=== PATIENT | female | born 1955 | race Caucasian/White ===

== ENCOUNTER 2016-05-06 18:38 | Emergency (ER) | payer OTHER, BC ==
[~2016-05-06] VITALS: Ht 162.6 cm; Wt 78.4 kg
[~2016-05-06 18:38] MED LIST: ACET325T96 PO; AMLO5TAB2 PO; ASPCH81X PO; ATOR-24 PO; ATV/1 PO; BUPR100T8 PO; DOCU100C31 PO; FRS/40 PO; HYDR-4079 PO; INVI1 IV; LIDO5DIS10 TOP; METO-217 PO; PANT40TA PO; PRED-301 PO; SEVE800T PO; SYN175 PO; VANC1INJ10 IV; WARF1TAB6 PO; [UNRECOGNIZED DRUG - CODE] SQ
[2016-05-06 18:49] VITALS: TEMP 36.7; Ht 162.6 cm; Wt 78.4 kg
[2016-05-06] MEDS ORDERED: GENTAMICIN INJ 80 MG in DEXTROSE 5% 100ML 100 ML IV STA (19:59)
[2016-05-06] MEDS ORDERED: VANCOMYCIN INJ 1,500 MG in SODIUM CHLORIDE 0.9% 500ML 500 ML IV STA (19:59)
--- NOTE | 2016-05-06 20:08 | EMERGENCY ROOM VISIT NOTE ---
History Report prepared by Steffanie: Rodo Coleman Under the Supervision of: Dr. Jonathan Jimenez M.D. First contact with patient: 19:29 Chief Complaint: MEDICATION REFILL REQUEST Stated Complaint: NEED VANCO IV History of Present Illness The patient is a 60 year old female who presents to the Emergency Room with complaints of a sudden medication request for Vancomycin beginning four hours prior to arrival. She currently rates her discomfort as a 10/10 in severity. The patient associates lower back pain with today's symptoms. She states she was referred to the ED by Isra Buckner (Nephrology) to receive Vancomycin for her blood infection. The patient notes she usually receives her medication during her dialysis, but her dialysis is not for another two days. Pt denies LOC, headache, fevers, chills, diaphoresis, visual changes, neck pain , chest pain, breathing difficulties, nausea, vomiting, abdominal pain, melena, hematochezia, urinary symptoms, numbness, weakness, lymphadenopathy, rash, or other complaints. 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 A total of ten systems were reviewed and were otherwise negative. 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 (19) Osteomyelitis (20) Paroxysmal a-fib (21) Pleuritic chest pain (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 Surgical Problems: (1) H/O hernia repair (2) History of bowel resection (3) History of carpal tunnel surgery (4) Renal transplant, status post (5) S/P partial hysterectomy Family History Cancer FH: heart disease Hypertension Kidney stones Social History Smoking Status: Former Smoker Alcohol Use: none Drug Use: none Marital Status: single Housing Status: lives alone Occupation Status: disabled Current/Historical Medications Scheduled Amlodipine Besylate (Norvasc), 5 MG PO QAM Aspirin (Aspirin Chewable), 81 MG PO QAM Atorvastatin (Lipitor), 40 MG PO HS Bupropion (Wellbutrin Sr), 100 MG PO BID Darbepoetin Tone-Polysorbate 8 (Aranesp Albumin Free), 60 MCG SQ WK Docusate Sodium (Docusate Sodium), 1 CAP PO BID Ertapenem (Invanz), 500 MG IV UD Furosemide (Lasix), 80 MG PO QAM Levothyroxine Sodium (Synthroid), 175 MCG PO DAILYBB Metoprolol Succinate (Toprol Xl), 50 MG PO BID Pantoprazole (Protonix), 40 MG PO DAILY Prednisone (Prednisone), 5 MG PO MWF Sevelamer Hcl (Renagel), 3 TABS PO TIDM Vancomycin Hcl Iv (Vancomycin Hcl Iv), 750 MG IV UD Warfarin Sod (Jantoven), 3 MG PO Q2D Warfarin Sod (Jantoven), 6 MG PO Q2D Scheduled PRN Acetaminophen Tab (Tylenol), 650 MG PO Q4 PRN for Mild Pain Lorazepam (Ativan), 1 MG PO BID PRN for Anxiety Oxycodone Hcl (Oxycodone Hcl), 10 MG PO Q6H PRN for Pain Allergies Coded Allergies: Azithromycin (Verified Allergy, Intermediate, RASH, 05/06/16) Sulfa Antibiotics (Verified Allergy, Intermediate, "SULFA DRUGS": RASH, 05/06/16) Trimethoprim (Verified Allergy, Intermediate, RASH, 05/06/16) Levofloxacin (Verified Allergy, Unknown, ., 05/06/16) Metronidazole (Verified Allergy, Unknown, 05/06/16) Oxycodone (Verified Allergy, Unknown, PERCOCET, 05/06/16) Silver Nitrate (Verified Allergy, Unknown, 05/06/16) Silver Sulfadiazine (Verified Allergy, Unknown, ., 05/06/16) Amoxicillin (Verified Adverse Reaction, Mild, GI UPSET, 05/06/16) CAN TAKE 500 MG DOSES Clavulanic Acid (Verified Adverse Reaction, Mild, GI UPSET, 05/06/16) Erythromycin (Verified Adverse Reaction, Mild, nausea vomiting, 05/06/16) Quinolones (Verified Adverse Reaction, Mild, GI UPSET, 05/06/16) MD STATES GI UPSET WAS THE REACTION Physical Exam Vital Signs Date Time Temp Pulse Resp B/P Pulse Ox O2 Delivery O2 Flow Rate FiO2 05/06/16 23:01 72 20 210/90 98 Room Air 05/06/16 22:30 68 16 98 05/06/16 21:00 18 98 05/06/16 18:49 36.7 68 20 202/97 98 Room Air Physical Exam GENERAL: Awake, alert, well-appearing, in no distress HENT: Normocephalic, atraumatic. Oropharynx unremarkable. EYES: Normal conjunctiva. Sclera non-icteric. NECK: Supple. No nuchal rigidity. FROM. No JVD. RESPIRATORY: Clear to auscultation. CARDIAC: Regular rate, normal rhythm. Extremities warm and well perfused. Pulses equal. ABDOMEN: Soft, non-distended. No tenderness to palpation. No rebound or guarding. No masses. RECTAL: Deferred. MUSCULOSKELETAL: Chest examination reveals no tenderness. The back is symmetrical on inspection without obvious abnormality. There is no CVA tenderness to palpation. No joint edema. LOWER EXTREMITIES: Calves are equal size bilaterally and non-tender. Trace lower extremity edema. No discoloration. NEURO: Normal sensorium. No sensory or motor deficits noted. SKIN: No rash or jaundice noted. Medical Decision & Procedures Medications Administered Medications (Trade) Dose Ordered Sig/Az Route Start Time Stop Time Status Last Admin Dose Admin Vancomycin HCl 1500 mg/Sodium Chloride 530 ml @ 200 mls/hr ONE STAT IV 05/06/16 19:59 05/06/16 22:37 DC 05/06/16 20:24 200 MLS/HR Gentamicin Sulfate/Dextrose (Gentamicin Inj/ D5 100ml) 102 ml @ 100 mls/hr NOW STAT IV 05/06/16 19:59 05/06/16 21:00 DC 05/06/16 20:40 100 MLS/HR Oxycodone HCl (Roxicodone Immediate Rel Tab) 10 mg NOW STAT PO 05/06/16 22:43 05/06/16 22:44 DC 05/06/16 22:43 10 MG ED Course 1953: [facility] A complete history and physical exam was performed. 1958: Ordered Gentamicin Sulfate 80 mg/Dextrose 102 ml @ 100 mls/hr IV, Vancomycin HCl 1,500 mg/Sodium Chloride 530 ml @ 200 mls/hr IV. 1999: I spoke to Isra Buckner (Nephrology) about the patient's case, and she would like the patient to receive Vancomycin 1.5 gm and Gentamicin 80 mg. 2329: I reevaluated the patient. Discussed results and discharge instructions: She verbalized understanding and agreement. The patient is ready for discharge. Medical Decision The patient presented to the emergency department because of a positive blood culture. The patient has been dealing with this for quite some time. She was treated with IV antibiotics but that her culture came back positive. Her front end software developer directed her here because it is the weekend for IV vancomycin and gentamicin. I did discuss the case with her front end software developer, Dr. Ochoa. Clinically the patient is without any complaints. He asked for the patient to receive 1.5 g of IV vancomycin and 80 mg of IV gentamicin and the patient will follow-up as an outpatient. The patient was also due for her every 6 hours oxycodone and was given this. She was hypertensive and did not want her metoprolol given. She will take this when she goes home. She had no signs of sepsis, meningitis, encephalitis, impairment from her medication, or other issues. She was awake and alert at the time of discharge. She will follow-up closely with nephrology. If she worsens in any way she will be back to the Emergency Room for reevaluation. She also has a pending spine appointment for her known osteomyelitis. Consults Time Called: 1954 Consulting Physician: Isra Buckner (Nephrology) Returned Call: 1999 I spoke to Isra Buckner (Nephrology) about the patient's case, and she would like the patient to receive Vancomycin 1.5 gm and Gentamicin 80 mg. Impression Primary Impression: Bacteremia Scribe Attestation The scribe's documentation has been prepared under my direction and personally reviewed by me in its entirety. I confirm that the note above accurately reflects all work, treatment, procedures, and medical decision making performed by me. Departure Information Dispostion Home / Self-Care Referrals Mazin Mcpherson D.O. (PCP) Forms HOME CARE DOCUMENTATION FORM, IMPORTANT VISIT INFORMATION, WORK / SCHOOL INSTRUCTIONS Patient Instructions A Signature Page, My [facility]
[2016-05-06] MEDS ORDERED: OXYC1CAP5 PO (21:40)
[2016-05-06] MEDS ORDERED: WARF6TAB5 PO (21:51)
[2016-05-06] MEDS ORDERED: OXYCODONE HCL IR 5 MG TAB (IMMEDIATE RELEASE) PO STA (22:43)
[2016-05-06 23:51] VITALS: BP 192/97; PULSE 66; O2SAT 100
[2016-06-14] MEDS ORDERED: NXM/40 PO (13:51)
[2016-11-07] MEDS ORDERED: OXYC-164 PO (15:36)
[2017-01-22] MEDS ORDERED: METO-217 PO (10:24)
[2017-01-22] MEDS ORDERED: VANCOMYCIN IV (10:24)
[2017-01-22] MEDS ORDERED: ZOLP5TAB PO (10:24)
[2017-01-22] MEDS ORDERED: LEVO175T3 PO (10:24)
[2017-01-22] MEDS ORDERED: DIPH25CA65 PO (10:27)
== END 2016-05-06 23:52 | disposition home or self-care (01) ==
LOC: C.EDB 18:40 → C.EDC 23:52
DX: R78.81 Bacteremia (principal); I12.0 Hypertensive chronic kidney disease with stage 5 chronic kidney disease or end stage renal disease; N18.6 End stage renal disease; I25.10 Atherosclerotic heart disease of native coronary artery without angina pectoris; I48.0 Paroxysmal atrial fibrillation; D64.9 Anemia, unspecified; E78.5 Hyperlipidemia, unspecified; E03.9 Hypothyroidism, unspecified; F41.9 Anxiety disorder, unspecified; K21.9 Gastro-esophageal reflux disease without esophagitis; Z99.2 Dependence on renal dialysis; Z94.0 Kidney transplant status; Z87.891 Personal history of nicotine dependence; Z79.01 Long term (current) use of anticoagulants; Z79.2 Long term (current) use of antibiotics; Z79.52 Long term (current) use of systemic steroids; Z79.82 Long term (current) use of aspirin; Z79.899 Other long term (current) drug therapy; Z88.0 Allergy status to penicillin; Z88.1 Allergy status to other antibiotic agents; Z88.2 Allergy status to sulfonamides; Z88.5 Allergy status to narcotic agent

== ENCOUNTER → 2016-11-20 | Day surgery (SDC) | payer OTHER, BC ==
[2016-11-07 15:36] VITALS: Ht 162.6 cm; Wt 81.8 kg
[~2016-11-20] VITALS: Ht 162.6 cm; Wt 81.8 kg
[~2016-11-20] MED LIST changes: +500ML BSS 0.3ML EPI 1:1000PF IRRIG ONE; -ACET325T96 PO; +ACETAMINOPHEN 325 MG TAB PO PRN; +AMVISC PLUS 0.8ML SYRINGE INT OCU ONE; +ATROPINE SULFATE 0.1 MG/ML 5ML SYR IV PRN; +BSS FLUSH ONE; +DIPH25CA65 PO; -DOCU100C31 PO; +EpHEDrine SULFATE INJ 50 MG/ML AMP IV PRN; +EpINEphrine INJ 1MG/ML AMP 1 MG/ML AMP ONE; -HYDR-4079 PO; +LACTATED RINGER'S 1000ML 500 ML IV SCH; +LEVO175T3 PO; -LIDO5DIS10 TOP; +LIDOCAINE 3.5% OPH GEL PER APPLICATION CHARGE ONE; +LIDOCAINE HCL 1% MPF 2 ML VIAL ONE; +MIDAZOLAM HCL 1 MG/ML 2ML VIAL ONE; +NXM/40 PO; +OCUCOAT 1 ML SOLN IO ONE; +ONDANSETRON INJ 2 MG/ML 2 ML VIAL IV PRN; +OXYC-164 PO; -PANT40TA PO; +PHENYLEPHRINE HCL 10% OP SOLN PER DROP CHARGE OPR SCH; +POVIDONE-IODINE OP SOLN 30 ML BTL ONE; +PROPARACAINE 0.5% OP SOLN PER DROP CHARGE OPR SCH; +TOBRAMYCIN/DEXAMETHASONE OPH OINT PER APPLN CHARGE ONE; +VANCOMYCIN IV; +WARF6TAB5 PO; +ZOLP5TAB PO
--- NOTE | 2016-11-20 10:48 | History & Physical Bridge - SC ---
H&P Re-Evaluation Bridge Note: I have examined the patient, reviewed the History & Physical and in the interval since the performance of the History & Physical I have noted the following changes of clinical significance: Diagnosis: Right Cataract Procedure: Right Cataract Removal with Lens Implant No changes noted
[2016-11-20] MEDS: PHENYLEPHRINE HCL 2.5% OP SOLN PER DROP CHARGE OPR SCH ×2 (11:02→11:10)
[2016-11-20] MEDS: TROPICAMIDE 1% OP SOLN PER DROP CHARGE OPR SCH ×2 (11:03→11:11)
[2016-11-20] MEDS: CYCLOPENTOLATE HCL 1% OP SOLN PER DROP CHARGE OPR SCH ×2 (11:04→11:14)
[2016-11-20] MEDS: KETOROLAC 0.5% OP SOLN PER DROP CHARGE OPR SCH ×2 (11:05→11:15)
[2016-11-20] MEDS: GATIFLOXACIN OP SOLN PER DROP CHARGE OPR SCH ×2 (11:07→11:17)
--- NOTE | 2016-11-20 12:08 | Discharge Instructions-SurgCtr ---
Discharge Instructions Date of Service Nov 20, 2016. Visit Reason for Visit: Cataract Right Eye Discharge Discharge Diagnosis / Problem: cataract Discharge Goals Goal(s): Improve function Activity Recommendations Activity Limitations: per Instructions/Follow-up section Anesthesia . Post Anesthesia Instructions: If you have had General Anesthesia or IV Sedation: * Do not drive today. * Resume driving when surgeon permits. * Do not make important decisions or sign legal documents today. * Call surgeon for: 1. Temperature elevations greater than 101 degrees F. 2. Uncontrollable pain. 3. Excessive bleeding. 4. Persistent nausea and vomiting. 5. Medication intolerance (nausea, vomiting or rash). * For nausea and vomiting use only clear liquids such as: tea, soda, bouillon until nausea subsides, then gradually increase diet as tolerated. * If you have any concerns or questions, call your surgeon's office. If physician is unavailable and it is an emergency, call 911 or go to the nearest emergency room. . Instructions / Follow-Up Instructions / Follow-Up ACTIVITY RECOMMENDATIONS: * No strenuous lifting, jogging or running for 4 days * No swimming or yard work for 1 week. * Limited bending is permitted, such as putting on shoes. RETURN TO SCHOOL/WORK: No work until seen by physician in office. MEDICATIONS: Resume previous medications unless instructed otherwise by your surgeon. This includes eye drops for glaucoma. Zymaxid/Gatifloxacin (angel cap) - one drop every 2 hours until bedtime Nevanac/Ilevro/Prolensa/Ketorolac (olson cap) - one drop every 4 hours until bedtime Prednisolone/Durezol (white/pink cap, SHAKE WELL) - one drop every 2 hours until bedtime Starting tomorrow - all 3 drops every 4 hours until seen in the office Optive drops - as needed for discomfort SPECIAL CARE INSTRUCTIONS: * Wear eyeshield when sleeping, for four nights. * You may wear your own glasses or sunglasses while awake. * You may read or watch TV * You may shower and wash your face, but be gentle around the eye and pat dry. * Blurry vision and mild irritation are normal. * Call office if pain is more severe or vision becomes dark at . FOLLOW UP VISIT: Follow-up with Dr Haynes tomorrow. Diet Recommendations Home Diet: resume previous diet Procedures Procedures Performed: Right Cataract Phacoemulsification With Intraocular Lens Implant Pending Studies Studies pending at discharge: no Medical Emergencies . Who to Call and When: Medical Emergencies: If at any time you feel your situation is an emergency, please call 911 immediately. . Non-Emergent Contact Non-Emergency issues call your: Pump Erector . . "Provider Documentation" section prepared by Terry Haynes. .
--- NOTE | 2016-11-20 12:10 | [facility] Operative Report ---
Operative Report Date of Service Nov 20, 2016. Operative Report 1. PREOPERATIVE DIAGNOSIS: Cataract of the right eye. 2. POSTOPERATIVE DIAGNOSIS: Same. 3. PROCEDURE: Phacoemulsification with intraocular lens implantation of the right eye. SURGEON: Dr. Terry Haynes. ANESTHESIA: Topical Lidocaine gel, 1% Non- Preserved intracameral Lidocaine, and monitored intravenous sedation. INDICATIONS FOR THE PROCEDURE: The patient is a 61 - year-old female with a history of cataract of the right eye causing significant visual impairment. The details of the proposed procedure were explained to the patient who asked appropriate questions and following discussion of all risks, benefits and alternatives agreed to have the procedure done. 4. OPERATION AND FINDINGS: DESCRIPTION OF PROCEDURE: After informed consent was obtained, the patient was brought to the Operating Room at the [facility]. The patient was placed in a supine position and then the right eye was prepped and draped in the usual sterile fashion for intraocular surgery. A drop of topical Lidocaine gel was placed in the operative eye. A wire lid speculum was then placed in the fornices. A corneal paracentesis was then created temporally. The Non-Preserved Lidocaine was then instilled into the anterior chamber. The anterior chamber was then pressurized with viscoelastic. A 2.0 mm clear corneal incision was then created temporally. A cystotome was inserted into the anterior chamber and used to create a tear in the anterior lens capsule. This capsular tear was then used to create a small flap and the flap was dragged in a counterclockwise direction in order to create a continuous curvilinear capsulorrhexis. Hydrodissection was accomplished with balanced salt solution. Phacoemulsification of the lens nucleus was then performed in a standard [id number] technique. The phaco time was 17 seconds with an average power of 8 %. The remaining cortical material was removed using irrigation aspiration. The capsular bag was then filled with viscoelastic. A B &L [id number] +20.5 diopters lens was then loaded into the injector and injected into the capsular bag. The remaining viscoelastic was removed with the irrigation aspiration handpiece. The wound was hydrated and then checked and found to have a small water leak. Resure wound sealant was used to ensure the wound to be watertight. The intraocular pressure was checked and found to be adequate. The wire lid speculum was removed and the patient's face was cleaned and dried. Yokastaex ointment was placed in the inferior fornix. The patient was discharged to the Recovery Room having tolerated the procedure well. There were no complications. The patient will be seen tomorrow in the office for follow-up. I attest to the content of the Intraoperative Record and any orders documented therein. Any exceptions are noted below.
[2016-11-20 12:19] VITALS: BP 119/68; PULSE 60; TEMP 36.5; O2SAT 100
--- NOTE | 2016-11-20 12:47 | Anesthesia Progress Nt - [facility] ---
Anesthesia Post Op Note Date & Time Nov 20, 2016 at 12:47 Vital Signs Pain Intensity: 0 Vital Signs Past 12 Hours Date Time Temp Pulse Resp B/P (MAP) Pulse Ox O2 Delivery O2 Flow Rate FiO2 11/20/16 12:19 36.5 60 16 119/68 (85) 100 Room Air 11/20/16 10:48 37.1 65 20 147/80 (102) 95 Room Air Notes Mental Status: alert / awake / arousable, participated in evaluation Pt Amnestic to Procedure: Yes Nausea / Vomiting: adequately controlled Pain: adequately controlled Airway Patency, RR, SpO2: stable & adequate BP & HR: stable & adequate Hydration State: stable & adequate Anesthetic Complications: no major complications apparent
== END | disposition home or self-care (01) ==
LOC: X.SURG 09:59
PROVIDERS: ATTEND Ophthalmology
DX: H26.9 Unspecified cataract (principal); N18.6 End stage renal disease; D63.1 Anemia in chronic kidney disease; E78.5 Hyperlipidemia, unspecified; E03.9 Hypothyroidism, unspecified; I87.2 Venous insufficiency (chronic) (peripheral); F41.1 Generalized anxiety disorder; J45.909 Unspecified asthma, uncomplicated; I12.0 Hypertensive chronic kidney disease with stage 5 chronic kidney disease or end stage renal disease; M32.9 Systemic lupus erythematosus, unspecified; I25.2 Old myocardial infarction; I35.8 Other nonrheumatic aortic valve disorders; K21.9 Gastro-esophageal reflux disease without esophagitis; I25.10 Atherosclerotic heart disease of native coronary artery without angina pectoris; I48.0 Paroxysmal atrial fibrillation; I71.4 Abdominal aortic aneurysm, without rupture; Z94.4 Liver transplant status; Z87.891 Personal history of nicotine dependence; Z79.82 Long term (current) use of aspirin; Z79.899 Other long term (current) drug therapy

== ENCOUNTER 2016-11-28 22:42 | Emergency (ER) | payer OTHER, BC ==
[~2016-11-28] VITALS: Ht 162.6 cm; Wt 88.5 kg
[~2016-11-28 22:42] MED LIST changes: -500ML BSS 0.3ML EPI 1:1000PF IRRIG ONE; -ACETAMINOPHEN 325 MG TAB PO PRN; -AMVISC PLUS 0.8ML SYRINGE INT OCU ONE; -ATROPINE SULFATE 0.1 MG/ML 5ML SYR IV PRN; -BSS FLUSH ONE; -DIPH25CA65 PO; -EpHEDrine SULFATE INJ 50 MG/ML AMP IV PRN; -EpINEphrine INJ 1MG/ML AMP 1 MG/ML AMP ONE; -LACTATED RINGER'S 1000ML 500 ML IV SCH; -LEVO175T3 PO; -LIDOCAINE 3.5% OPH GEL PER APPLICATION CHARGE ONE; -LIDOCAINE HCL 1% MPF 2 ML VIAL ONE; -MIDAZOLAM HCL 1 MG/ML 2ML VIAL ONE; -OCUCOAT 1 ML SOLN IO ONE; -ONDANSETRON INJ 2 MG/ML 2 ML VIAL IV PRN; -PHENYLEPHRINE HCL 10% OP SOLN PER DROP CHARGE OPR SCH; -POVIDONE-IODINE OP SOLN 30 ML BTL ONE; -PROPARACAINE 0.5% OP SOLN PER DROP CHARGE OPR SCH; -TOBRAMYCIN/DEXAMETHASONE OPH OINT PER APPLN CHARGE ONE; -VANCOMYCIN IV; -ZOLP5TAB PO
[2016-11-28 22:46] VITALS: TEMP 36.6; Ht 162.6 cm; Wt 88.5 kg
--- NOTE | 2016-11-28 22:58 | EMERGENCY ROOM VISIT NOTE ---
History Report prepared by Steffanie: Micaela Saravia Under the Supervision of: Dr. Justin Patterson D.O. First contact with patient: 22:50 Chief Complaint: BLEEDING Stated Complaint: CAN'T STOP LEFT ARM FROM BLEEDING-COUMADIN History of Present Illness The patient is a 61 year old female who presents to the Emergency Room with complaints of persistent bleeding from a left arm wound that began three days ago. The patient states that two weeks ago she fell causing a left arm skin tear. She states that she is on Coumadin for a previous blood clot. The patient states that her wound continues to bleed persistently She states that she last had her Coumadin level checked three weeks ago, reporting that she had an increase in her Coumadin dosage. Source of History: patient Onset: three days ago Position: arm (left) Quality: other (bleeding) Timing: other (persistent) Review of Systems See HPI for pertinent positives and negatives. A total of ten systems were reviewed and were otherwise negative. 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 (19) Osteomyelitis (20) Paroxysmal a-fib (21) Pleuritic chest pain (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 Surgical Problems: (1) H/O hernia repair (2) History of bowel resection (3) History of carpal tunnel surgery (4) Renal transplant, status post (5) S/P partial hysterectomy Family History Cancer FH: heart disease Hypertension Kidney stones Social History Smoking Status: Former Smoker Alcohol Use: none Drug Use: none Marital Status: single Housing Status: lives alone Occupation Status: disabled Current/Historical Medications Scheduled Amlodipine Besylate (Norvasc), 5 MG PO QAM Aspirin (Aspirin Chewable), 81 MG PO QAM Atorvastatin (Lipitor), 40 MG PO HS Bupropion (Wellbutrin Sr), 100 MG PO BID Darbepoetin Tone-Polysorbate 8 (Aranesp Albumin Free), 60 MCG SQ WK Ertapenem (Invanz), 500 MG IV UD Esomeprazole Magnesium (Nexium), 40 MG PO QAM Furosemide (Lasix), 80 MG PO QAM Levothyroxine Sodium (Synthroid), 175 MCG PO DAILYBB Metoprolol Succinate (Toprol Xl), 50 MG PO BID Prednisone (Prednisone), 5 MG PO MWF Sevelamer Hcl (Renagel), 3 TABS PO TIDM Vancomycin Hcl Iv (Vancomycin Hcl Iv), 750 MG IV UD Warfarin Sod (Jantoven), 3 MG PO Q2D Warfarin Sod (Jantoven), 6 MG PO Q2D Scheduled PRN Lorazepam (Ativan), 1 MG PO BID PRN for Anxiety Oxycodone Hcl (Oxycodone Hcl), 1 TAB PO Q6H PRN for Pain Allergies Coded Allergies: Silver Nitrate (Verified Allergy, Severe, SEVERE BURNING, 11/20/16) Silver Sulfadiazine (Verified Allergy, Severe, SEVERE BURNING, 11/20/16) Azithromycin (Verified Allergy, Intermediate, "BUGS CRAWLING ON ME", ) Levofloxacin (Verified Allergy, Intermediate, HIVES, 11/20/16) Sulfa Antibiotics (Verified Allergy, Intermediate, "SULFA DRUGS": RASH, ) Trimethoprim (Verified Allergy, Intermediate, BACTRIM - RASH, 11/20/16) Metronidazole (Verified Allergy, Mild, DIARRHEA, 11/20/16) Oxycodone (Verified Allergy, Mild, PERCOCET-GI UPSET, 11/20/16) Amoxicillin (Verified Adverse Reaction, Mild, GI UPSET, 11/20/16) CAN TAKE 500 MG DOSES Clavulanic Acid (Verified Adverse Reaction, Mild, GI UPSET, 11/20/16) Erythromycin (Verified Adverse Reaction, Mild, nausea vomiting, 11/20/16) Physical Exam Vital Signs Date Time Temp Pulse Resp B/P (MAP) Pulse Ox O2 Delivery O2 Flow Rate FiO2 11/28/16 22:46 36.6 87 20 170/76 97 Room Air Physical Exam GENERAL: Awake, alert, well-appearing, in no distress HENT: Normocephalic, atraumatic. Oropharynx unremarkable. EYES: Normal conjunctiva. Sclera non-icteric. NECK: Supple. No nuchal rigidity. FROM. No JVD. RESPIRATORY: Clear to auscultation. CARDIAC: Regular rate, normal rhythm. Extremities warm and well perfused. Pulses equal. ABDOMEN: Soft, non-distended. No tenderness to palpation. No rebound or guarding. No masses. RECTAL: Deferred. MUSCULOSKELETAL: Chest examination reveals no tenderness. The back is symmetrical on inspection without obvious abnormality. There is no CVA tenderness to palpation. No joint edema. LOWER EXTREMITIES: Calves are equal size bilaterally and non-tender. No edema. No discoloration. NEURO: Normal sensorium. No sensory or motor deficits noted. SKIN: Abrasion present on the extensor surface of the left forearm with slight oozing. No rash or jaundice noted. Medical Decision & Procedures Laboratory Results Test 11/28/16 23:14 Prothrombin Time 49.1 SECONDS (9.0-12.0) Prothromb Time International Ratio 4.3 (0.9-1.1) Laboratory results reviewed by me ED Course 2251: The patient was evaluated in room B12B. A complete history and physical exam was performed. 2256: Quick clot was placed on the patient's left arm at this time. 0018: I reevaluated the patient and she is resting comfortably. I discussed the exam findings with her and I discussed the treatment plan. She verbalized complete understanding and agreement. She is ready to go home. Patient on repeat examination is not actively bleeding. Patient's INR is 4.3 I told the patient to hold her Coumadin for the next 2 days. There is no significant bleeding she was placed in a hemostatic dressing to her left forearm. Medical Decision Differential diagnoses include but are not limited to; abrasion, skin tear, coagulopathy. Medication Reconcilliation Current Medication List: was personally reviewed by me Blood Pressure Screening Patient's blood pressure: Elevated blood pressure Blood pressure disposition: Elevated BP felt to be situational (due to anxiety) , Did not require urgent referral Impression Primary Impression: Skin tear of left upper extremity Scribe Attestation The scribe's documentation has been prepared under my direction and personally reviewed by me in its entirety. I confirm that the note above accurately reflects all work, treatment, procedures, and medical decision making performed by me. Departure Information Dispostion Home / Self-Care Referrals Mazin Mcpherson D.O. (PCP) Patient Instructions ED [employer], My [facility] Additional Instructions Please hold her Coumadin for the next 2 days. Continue to use wound care to the left forearm return for worsening symptoms or bleeding
[2016-11-28 23:44] LABS: INR 4.3 (0.9-1.1); PROTHROMBIN TIME (PATIENT) 49.1 SECONDS (9.0-12.0)
[2016-11-29 00:29] VITALS: BP 123/65; PULSE 64; O2SAT 98
[2017-01-22] MEDS ORDERED: METO-217 PO (10:24)
[2017-01-22] MEDS ORDERED: LEVO175T3 PO (10:24)
[2017-01-22] MEDS ORDERED: ZOLP5TAB PO (10:24)
[2017-01-22] MEDS ORDERED: VANCOMYCIN IV (10:24)
[2017-01-22] MEDS ORDERED: DIPH25CA65 PO (10:27)
== END 2016-11-29 00:40 | disposition home or self-care (01) ==
LOC: C.EDB 22:43
DX: S51.812A Laceration without foreign body of left forearm, initial encounter (principal); W19.XXXA Unspecified fall, initial encounter; Z85.048 Personal history of other malignant neoplasm of rectum, rectosigmoid junction, and anus; J45.909 Unspecified asthma, uncomplicated; I25.10 Atherosclerotic heart disease of native coronary artery without angina pectoris; I12.0 Hypertensive chronic kidney disease with stage 5 chronic kidney disease or end stage renal disease; N18.6 End stage renal disease; M32.9 Systemic lupus erythematosus, unspecified; E78.5 Hyperlipidemia, unspecified; E03.9 Hypothyroidism, unspecified; I48.0 Paroxysmal atrial fibrillation; Z86.718 Personal history of other venous thrombosis and embolism; Z87.891 Personal history of nicotine dependence; Z94.0 Kidney transplant status; Z99.2 Dependence on renal dialysis; Z90.49 Acquired absence of other specified parts of digestive tract; Z90.711 Acquired absence of uterus with remaining cervical stump; Z98.890 Other specified postprocedural states; Z79.01 Long term (current) use of anticoagulants; Z79.82 Long term (current) use of aspirin; Z79.899 Other long term (current) drug therapy

== ENCOUNTER → 2017-01-30 | Day surgery (SDC) | payer OTHER, BC ==
[2017-01-22 10:26] VITALS: BMI 31.0
[~2017-01-30] VITALS: Ht 162.6 cm; Wt 81.8 kg
[~2017-01-30] MED LIST changes: +DIPH25CA65 PO; -INVI1 IV; +LEVO175T3 PO; +PROPOFOL IV EMULSION 10 MG/ML 20 ML VIAL IV ONE; +SODIUM CHLORIDE 0.9% 500ML 500 ML IV ONE; -SYN175 PO; -VANC1INJ10 IV; +VANCOMYCIN IV; +ZOLP5TAB PO
[2017-01-30 08:20] VITALS: Ht 162.6 cm; Wt 81.8 kg
[2017-01-30 08:31] VITALS: TEMP 36.1
--- NOTE | 2017-01-30 08:57 | Endo History and Physical ---
History & Physical Date of Service: Jan 30, 2017. Chief Complaint: hx anal cancer Referring Physician: Dr. Mcpherson History of Present Illness h/o anal cancer Past Medical History Asthma, Anxiety, Reflux, High Cholesterol, Hypertension, Thyroid Disease, Kidney Disease, Depression Past Surgical History Hx Cardiac Surgery: No Hx Internal Defibrillator: No Hx Pacemaker: No Hx Abdominal Surgery: Yes (BARB, COLON RESECTION, UMBILCAL HERNIA REPAIR) Hx of Implantable Prosthesis: No Hx Post-Op Nausea and Vomiting: No Hx Cancer Surgery: Yes (ANAL SURGERY (HEMORRHOIDECTOMY)) Hx Thoracic Surgery: No Hx Orthopedic: Yes (RT/LT CTR) Hx Urinary Tract Surgery: Yes (LEFT KIDNEY TRANSPLANT 2001 ) Family History IBD Social History Smoking Status: Former Smoker Hx Substance Use: No Hx Alcohol Use: No Allergies Coded Allergies: Silver Nitrate (Verified Allergy, Severe, SEVERE BURNING, 01/30/17) Silver Sulfadiazine (Verified Allergy, Severe, SEVERE BURNING, 01/30/17) Azithromycin (Verified Allergy, Intermediate, "BUGS CRAWLING ON ME", ) Levofloxacin (Verified Allergy, Intermediate, HIVES, 01/30/17) Sulfa Antibiotics (Verified Allergy, Intermediate, "SULFA DRUGS": RASH, ) Trimethoprim (Verified Allergy, Intermediate, BACTRIM - RASH, 01/30/17) Metronidazole (Verified Allergy, Mild, DIARRHEA, 01/30/17) Oxycodone (Verified Allergy, Mild, PERCOCET-GI UPSET, 01/30/17) Amoxicillin (Verified Adverse Reaction, Mild, GI UPSET, 01/30/17) CAN TAKE 500 MG DOSES Clavulanic Acid (Verified Adverse Reaction, Mild, GI UPSET, 01/30/17) Erythromycin (Verified Adverse Reaction, Mild, nausea vomiting, 01/30/17) Current Medications Reported Home Medications Medications Dose Route/Sig Max Daily Dose Days Date Category Dose Instructions Benadryl Allergy (Diphenhydramine Hcl) 25 Mg Cap 1 Cap PO BID PRN 01/22/17 Reported Ambien (Zolpidem Tartrate) 5 Mg Tab 5 Mg PO HS PRN 01/22/17 Reported Toprol Xl (Metoprolol Succinate) 50 Mg Tabcr 50 Mg PO BID 01/22/17 Reported [Vancomycin] 750 Mg IV WK 01/22/17 Reported Levothyroxine Sodium 175 Mcg Tab 1 Tab PO QAM 01/22/17 Reported Oxycodone Hcl 10 Mg Tab 1 Tab PO Q6H PRN 11/07/16 Reported Nexium (Esomeprazole Magnesium) 40 Mg Capcr 40 Mg PO QAM 06/14/16 Reported Jantoven (Warfarin Sodium) 6 Mg Tab 6 Mg PO Q2D 05/06/16 Reported 6MG ON SATURDAY, SATURDAY, SATURDAY, AND SATURDAY Aranesp Albumin Free (Darbepoetin Tone-Polysorbate 8) 60 Mcg/Ml Inj 60 Mcg SQ WK 01/16/16 Reported WEEKLY ON FRIDAYS Jantoven (Warfarin Sodium) 1 Mg Tab 3 Mg PO Q2D 01/16/16 Reported take 3 mg every SATURDAY, SATURDAY AND SATURDAY Renagel (Sevelamer Hcl) 800 Mg Tab 3 Tabs PO TIDM 01/16/16 Reported Wellbutrin Sr (Bupropion HCl) 100 Mg Ertab 100 Mg PO BID 10/31/15 Reported Ativan (Lorazepam) 1 Mg Tab 1 Mg PO BID PRN 09/15/15 Reported Aspirin Chewable (Aspirin) 81 Mg Chew 81 Mg PO QAM 09/15/15 Reported Prednisone 5 Mg Tab 5 Mg PO MWF 09/15/15 Reported Norvasc (Amlodipine Besylate) 5 Mg Tab 5 Mg PO QAM 09/15/15 Reported Lipitor (Atorvastatin Calcium) 40 Mg Tab 40 Mg PO HS 09/15/15 Reported Lasix (Furosemide) 40 Mg Tab 40 Mg PO QAM 09/15/15 Reported Vital Signs Weight (Kilograms): 81.82 Height (Feet): 5 Height (Inches): 4 Date Time Temp Pulse Resp B/P (MAP) Pulse Ox O2 Delivery O2 Flow Rate FiO2 01/30/17 08:31 36.1 74 22 181/78 (112) 98 Room Air Physical Exam General Appearance: WD/WN Respiratory/Chest: Respiratory effort: no dyspnea Cardiovascular: Heart Auscultation: RRR Abdomen: Inspection & Palpation: soft Assessment and Plan H/o anal cancer - Cscopy
--- NOTE | 2017-01-30 10:04 | GI REPORT ---
Procedure Date: 01/30/2017 9:08 AM Procedure: Colonoscopy Indications: High risk colon cancer surveillance: Personal history of anal cancer Medicines: See the Anesthesia note for documentation of the administered medications Complications: No immediate complications. Estimated Blood Loss: Estimated blood loss: none. Procedure: Pre-Anesthesia Assessment: - After reviewing the risks and benefits, the patient was deemed in satisfactory condition to undergo the procedure. After I obtained informed consent, the scope was passed under direct vision. Throughout the procedure, the patient's blood pressure, pulse, and oxygen saturations were monitored continuously. The scope was introduced through the anus and advanced to the cecum, identified by appendiceal orifice and ileocecal valve. The patient tolerated the procedure well. The quality of the bowel preparation was poor. Findings: The perianal skin was thickened and indurated. The anal sphincter was stenotic. The colon mucosa was grossly normal, but exam markedly limited by prep quality. Rectal retroflexion was not performed. Anal canal was brushed. Impression: -Preparation of the colon was poor. -Grossly normal exam of colon, although markedly limited by prep quality. Recommendation: - Discharge patient to home. - Would not repeat the exam without performing a colonoscopy prep. Of note, pt should hold sevalamer prior to cscopy x 3-4 days. Destini Valencia M.D. Destini Valencia MD 01/30/2017 10:04:24 AM This report has been signed electronically. Note Initiated On: 01/30/2017 9:08 AM I attest to the content of the Intraoperative Record and orders documented therein, exceptions below
[2017-01-30 10:23] VITALS: BP 161/99; PULSE 66; O2SAT 100
--- NOTE | 2017-01-30 10:30 | Discharge Instructions ---
Endoscopy Patient Instructions Date / Procedure(s) Performed Jan 30, 2017. Colonoscopy Allergy Information Coded Allergies: Silver Nitrate (Verified Allergy, Severe, SEVERE BURNING, 01/30/17) Silver Sulfadiazine (Verified Allergy, Severe, SEVERE BURNING, 01/30/17) Azithromycin (Verified Allergy, Intermediate, "BUGS CRAWLING ON ME", ) Levofloxacin (Verified Allergy, Intermediate, HIVES, 01/30/17) Sulfa Antibiotics (Verified Allergy, Intermediate, "SULFA DRUGS": RASH, ) Trimethoprim (Verified Allergy, Intermediate, BACTRIM - RASH, 01/30/17) Metronidazole (Verified Allergy, Mild, DIARRHEA, 01/30/17) Oxycodone (Verified Allergy, Mild, PERCOCET-GI UPSET, 01/30/17) Amoxicillin (Verified Adverse Reaction, Mild, GI UPSET, 01/30/17) CAN TAKE 500 MG DOSES Clavulanic Acid (Verified Adverse Reaction, Mild, GI UPSET, 01/30/17) Erythromycin (Verified Adverse Reaction, Mild, nausea vomiting, 01/30/17) Discharge Date / Findings Jan 30, 2017. Poor prep. Provider Instructions Activity Restrictions - No exercising or heavy lifting for 24 hours. - Do not drink alcohol the day of the procedure. - Do not drive a car or operate machinery until the day after the procedure. - Do not make any important decisions or sign important papers in 24 hours after the procedure. Following Day: - Return to full activity which may include returning to work/school. Diet Start your diet with liquids and light foods (jello, soup, juice, toast). Then eat your usual diet if not nauseated. Treatment For Common After Affects For mild abdominal pain, bloating, or excessive gas: - Rest - Eat lightly - Lie on right side Follow-Up Information Follow-up with Dr. Mcpherson as scheduled Anesthesia Information What You Should Know You have had a procedure that required some medicine to reduce anxiety and discomfort. This treatment is called moderate sedation. After receiving the treatment, you may be sleepy, but you will be able to breathe on your own. The effects of the treatment may last for several hours. Follow these instructions along with Activity/Diet recommendations noted above: * Do NOT do anything where dizziness or clumsiness would be dangerous. * Rest quietly at home today, then you can be up and about tomorrow. * Have a responsible person stay with you the rest of today. * You may have had an I.V. today. If so, you may take the dressing off later today. Recommendations Call your doctor if: * Trouble breathing * Continuous vomiting for more than 24 hours * Temperature above 101 degrees * Severe abdominal pain or bloating * Pain not relieved by pain medicine ordered * There is increased drainage or redness from any incision * A large amount of rectal bleeding greater than 2-3 tablespoons. (If you had a polyp/s removed or have hemorrhoids, a small amount of blood - from the rectum is to be expected.) * You have any unanswered questions or concerns. IN THE EVENT OF A SERIOUS EMERGENCY, GO TO THE NEAREST EMERGENCY ROOM Your discharge instructions were prepared by provider Destini Roche. Patient Instructions Signature Page Cecilia Mcfarland Patient (or Guardian) Signature/Date: I have read and understand the instructions given to me by my caregivers. Caregiver/RN/Doctor Signature/Date: The above-named patient and/or guardian has received patient instructions on this date. + Original Patient Signature Page (only) stays with chart. Please make copy for patient.
--- NOTE | 2017-01-30 10:30 | Anesthesiology Progress Note ---
Anesthesia Post Op Note Date & Time Jan 30, 2017 at 10:30 Vital Signs Pain Intensity: 0 Vital Signs Past 12 Hours Date Time Temp Pulse Resp B/P (MAP) Pulse Ox O2 Delivery O2 Flow Rate FiO2 01/30/17 10:23 66 20 161/99 (119) 100 01/30/17 10:16 65 20 157/98 (117) 96 Room Air 01/30/17 10:11 65 20 167/104 (125) 99 Room Air 01/30/17 10:06 65 20 173/112 (132) 95 Room Air 01/30/17 09:53 64 22 133/54 (80) 97 Room Air 01/30/17 08:31 36.1 74 22 181/78 (112) 98 Room Air Notes Mental Status: alert / awake / arousable, participated in evaluation Pt Amnestic to Procedure: Yes Nausea / Vomiting: adequately controlled Pain: adequately controlled Airway Patency, RR, SpO2: stable & adequate BP & HR: stable & adequate Hydration State: stable & adequate Anesthetic Complications: no major complications apparent
== END | disposition home or self-care (01) ==
LOC: C.GI 07:47
PROVIDERS: ATTEND Internal Medicine Gastroenterology
DX: Z12.11 Encounter for screening for malignant neoplasm of colon (principal); J45.909 Unspecified asthma, uncomplicated; F41.9 Anxiety disorder, unspecified; E78.00 Pure hypercholesterolemia, unspecified; I10 Essential (primary) hypertension; E07.9 Disorder of thyroid, unspecified; N28.9 Disorder of kidney and ureter, unspecified; F32.9 Major depressive disorder, single episode, unspecified; Z87.891 Personal history of nicotine dependence; Z79.899 Other long term (current) drug therapy; Z79.01 Long term (current) use of anticoagulants; Z79.82 Long term (current) use of aspirin; Z85.048 Personal history of other malignant neoplasm of rectum, rectosigmoid junction, and anus

== ENCOUNTER 2017-04-15 13:10 | Emergency (ER) | payer OTHER, BC ==
[~2017-04-15] VITALS: Ht 162.6 cm; Wt 91.7 kg
[~2017-04-15 13:10] MED LIST changes: -PROPOFOL IV EMULSION 10 MG/ML 20 ML VIAL IV ONE; -SODIUM CHLORIDE 0.9% 500ML 500 ML IV ONE
[2017-04-15] MEDS ORDERED: LABETALOL HCL IV 5 MG/ML 20ML IV STA ×2 (13:33→15:00)
[2017-04-15] MEDS ORDERED: SODIUM CHLORIDE 0.9% 1000ML 1,000 ML IV SCH (13:33)
[2017-04-15] MEDS ORDERED: HydrALAZINE HCL 20 MG/ML VIAL IV. STA (13:33)
[2017-04-15] MEDS ORDERED: NiCARDipine IV 25 MG in SODIUM CHLORIDE 0.9% 250ML 240 ML IV STA (13:41)
[2017-04-15 14:04] LABS: BASO % 0.3 %; BASO ABS # 0.01 K/uL (0-0.2); COMPLETE YES; EOS % 1.5 %; HEMATOCRIT 34.2 % (37-47); LYMPH % 30.5 %; LYMPH ABS # 1.21 K/uL (1.2-3.4); MEAN CELL VOLUME 89.8 fL (80-100); MEAN CORPUSCULAR HEMOGLOBIN 28.6 pg (25-34); MEAN CORPUSCULAR HGB CONC 31.9 g/dl (32-36); MEAN PLATELET VOLUME 10.2 fL (7.4-10.4); MONO % 9.8 %; NEUT % 57.9 %; PLATELET COUNT 169 K/uL (130-400); RED BLOOD COUNT 3.81 M/uL (4.2-5.4); WHITE BLOOD COUNT 3.97 K/uL (4.8-10.8)
[2017-04-15] MEDS ORDERED: NiCARDipine IV 25 MG in SODIUM CHLORIDE 0.9% 250ML 240 ML IV PRN (14:15)
--- NOTE | 2017-04-15 14:15 | DIAGNOSTIC IMAGING REPORT ---
HEAD WITHOUT CONTRAST (CT) CLINICAL HISTORY: 61 years-old Female presenting with Stroke, hypertension. TECHNIQUE: Multidetector CT imaging of the head was performed without the use of intravenous contrast. IV contrast: None. A dose lowering technique was used consistent with the principles of ALARA (as low as reasonably achievable). COMPARISON: 01/16/2016. CT DOSE (mGy.cm): The estimated cumulative dose is 638.56 mGycm. FINDINGS: Clinical Nursing Director topogram: Unremarkable. Ventricles and sulci normal in size. Brain parenchyma normal in appearance with preserved olson-white differentiation. Mild mass effect on the left anterolateral aspect of the alvarado and left brachium pontis secondary to the presence of acute subarachnoid hemorrhage. This minimally extends into the left foramen occlusion, and is limited to the posterior fossa. This does not appear to extend distal to the foramen magnum. No other sites of acute hemorrhage. No intraventricular blood products more superiorly noted. No acute territorial infarction. Chronic fluid in the left mastoid air cells. Calvarium intact. Bilateral [place] lenses are absent. IMPRESSION: 1. Findings consistent with subarachnoid hemorrhage in the posterior fossa. Differential considerations for this in the absence of trauma include left PICA aneurysm or vertebrobasilar dissecting aneurysm rupture. 2. These findings were discussed with Dr. Flowers by Dr. James at 2:10 PM on 04/15/2017. Electronically signed by: Sam James M.D. 04/15/2017 2:14 PM Dictated Date/Time: 04/15/2017 2:07 PM
[2017-04-15] MEDS ORDERED: MoRPHine SULFATE 10 MG/ML CARP/VIAL IV STA (14:16)
[2017-04-15] MEDS ORDERED: ONDANSETRON INJ 2 MG/ML 2 ML VIAL IV STA (14:16)
[2017-04-15] MEDS ORDERED: SEVE1TAB PO (14:17)
[2017-04-15] MEDS ORDERED: IRON20IN IV (14:17)
[2017-04-15] MEDS ORDERED: ONDA4TAB46 PO (14:17)
[2017-04-15] MEDS ORDERED: MULT-513 PO (14:17)
[2017-04-15] MEDS ORDERED: AMOX500T PO (14:17)
[2017-04-15] MEDS ORDERED: CLR10 PO (14:17)
[2017-04-15] MEDS ORDERED: HEPA100I10 IV (14:17)
[2017-04-15] MEDS ORDERED: [UNRECOGNIZED DRUG - CODE] IV (14:17)
[2017-04-15] MEDS ORDERED: PRED-301 PO (14:17)
[2017-04-15] MEDS ORDERED: IPRA1AER2 INH (14:17)
[2017-04-15] MEDS ORDERED: WARF3TAB6 PO (14:17)
[2017-04-15] MEDS ORDERED: NSF10F IV (14:17)
[2017-04-15] MEDS ORDERED: FIBER PO (14:17)
--- NOTE | 2017-04-15 14:18 | EMERGENCY ROOM VISIT NOTE ---
History First contact with patient: 14:02 Chief Complaint: HYPERTENSION Stated Complaint: HYPERTENSION History of Present Illness The patient is a 61 year old female who presents to the Emergency Room with complaints of headache, neck pain and HTN. Patient has a PMH of HTN, AFIB, Kidney transplant; dialysis Saturday, and Saturday. Patient also has a PMH of rectal cancer. She describes having the worst GODINEZ of her life over the past two days. In addition, the patient is complaining of neck pain, nausea and vomiting. The patient went to her PCP and was found to have BP in the 220 systolic and was subsequently sent to [facility]. Patient is anticoagulated on Coumadin. She said that on the way over to the hospital, she experienced a brief moment of diplopia. She currently denies visual changes, numbness and weakness. She also denies SOB , CP, new LE swelling or RUQ pain. Patient has not taken BP meds due to vomiting this morning while eating breakfast. Review of Systems see below Constitutional: No fever, No chills, No sweats Eyes: + worsening of vision, + diplopia Respiratory: + shortness of breath, No cough, No sputum, No wheezing, No dyspnea on exertion Cardiovascular: No chest pain, No orthopnea, No edema, No palpitations Abdomen: + nausea, + vomiting, No pain Neurologic: No memory loss, No paralysis, No weakness, No numbness/tingling , No vertigo, No balance problems 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 (19) Osteomyelitis (20) Paroxysmal a-fib (21) Pleuritic chest pain (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 Surgical Problems: (1) H/O hernia repair (2) History of bowel resection (3) History of carpal tunnel surgery (4) Renal transplant, status post (5) S/P partial hysterectomy Family History Cancer FH: heart disease Hypertension Kidney stones Social History Smoking Status: Former Smoker Alcohol Use: none Drug Use: none Marital Status: single Housing Status: lives alone Occupation Status: disabled Current/Historical Medications Scheduled Amlodipine Besylate (Norvasc), 5 MG PO QAM Amoxicillin & Pot Clavulanate (Augmentin 500MG), 500 MG PO DAILY Aspirin (Aspirin Chewable), 81 MG PO QAM Atorvastatin (Lipitor), 40 MG PO HS Bupropion (Wellbutrin Sr), 100 MG PO BID Esomeprazole Magnesium (Nexium), 40 MG PO QAM Fiber Laxative (Fiber Laxative), 1 TAB PO UD Furosemide (Lasix), 40 MG PO QAM Heparin Sodium (Porcine) Lock (Heparin Lock Flush), 3 ML IV Q6WK Iron Sucrose (Venofer), 1 DOSE IV Q2WKS Levothyroxine Sodium (Levothyroxine Sodium), 175 MCG PO QAM Metoprolol Succinate (Toprol Xl), 50 MG PO BID Multivitamins/Minerals (Mvi With Minerals), 1 TAB PO DAILY Paricalcitol (Zemplar), 3 MG IV 3XWK Prednisone (Prednisone), 15 MG PO WK Prednisone (Prednisone), 5 MG PO MWF Sevelamer Hcl (Renagel), 2,400 MG PO TIDM Sevelamer Hydroch (Renagel), 1,600 MG PO BIDM Sodium Chloride (Saline Flush), 10 ML IV Q6WKS Warfarin Sod (Jantoven), 3 MG PO QPM [Vancomycin], 750 MG IV WK Scheduled PRN Ipratropium-Albuterol (Combivent Respimat), 1 PUFFS INH QID PRN for SOB/Wheezing Loratadine (Claritin), 5 TAB PO DAILY PRN for ALLERGIES Lorazepam (Ativan), 1 MG PO BID PRN for Anxiety Ondansetron Hcl (Zofran), 4 MG PO Q6 PRN for Nausea Zolpidem Tartrate (Ambien), 5 MG PO HS PRN for Sleep Physical Exam Vital Signs Date Time Temp Pulse Resp B/P (MAP) Pulse Ox O2 Delivery O2 Flow Rate FiO2 04/15/17 15:40 36.7 70 16 178/77 99 04/15/17 15:17 70 16 178/77 99 04/15/17 14:46 75 26 170/86 100 04/15/17 14:30 72 16 198/77 96 04/15/17 14:27 74 21 199/88 98 Room Air 04/15/17 14:23 71 17 257/106 99 Room Air 04/15/17 13:33 65 04/15/17 13:17 36.7 88 22 240/103 97 Room Air Physical Exam see below General Appearance: WD/WN, + moderate distress Head: normocephalic, atraumatic Eyes: PERRL, EOMI, + pertinent finding (periorbital erythema and tearing ) Neck: supple, no adenopathy Respiratory/Chest: chest non-tender, lungs clear, normal breath sounds, no respiratory distress, no accessory muscle use Cardiovascular: regular rate, rhythm, no edema, no gallop, no JVD, no murmur , normal peripheral pulses Neurologic/Psych: sales project manager II-XII nml as tested, no motor/sensory deficits, alert , oriented x 3 Medical Decision & Procedures ER Provider Diagnostic Interpretation: HEAD WITHOUT CONTRAST (CT) CLINICAL HISTORY: 61 years-old Female presenting with Stroke, hypertension. TECHNIQUE: Multidetector CT imaging of the head was performed without the use of intravenous contrast. IV contrast: None. A dose lowering technique was used consistent with the principles of ALARA (as low as reasonably achievable). COMPARISON: 01/16/2016. CT DOSE (mGy.cm): The estimated cumulative dose is 638.56 mGycm. FINDINGS: Behavioral Therapist topogram: Unremarkable. Ventricles and sulci normal in size. Brain parenchyma normal in appearance with preserved olson-white differentiation. Mild mass effect on the left anterolateral aspect of the alvarado and left brachium pontis secondary to the presence of acute subarachnoid hemorrhage. This minimally extends into the left foramen occlusion, and is limited to the posterior fossa. This does not appear to extend distal to the foramen magnum. No other sites of acute hemorrhage. No intraventricular blood products more superiorly noted. No acute territorial infarction. Chronic fluid in the left mastoid air cells. Calvarium intact. Bilateral [place] lenses are absent. IMPRESSION: 1. Findings consistent with subarachnoid hemorrhage in the posterior fossa. Differential considerations for this in the absence of trauma include left PICA aneurysm or vertebrobasilar dissecting aneurysm rupture. 2. These findings were discussed with Dr. Flowers by Dr. James at 2:10 PM on 04/15/2017. Laboratory Results 04/15/17 13:45 Red Blood Count 3.81, Mean Corpuscular Volume 89.8, Mean Corpuscular Hemoglobin 28.6, Mean Corpuscular Hemoglobin Concent 31.9, Mean Platelet Volume 10.2, Neutrophils (%) (Auto) 57.9, Lymphocytes (%) (Auto) 30.5, Monocytes (%) (Auto) 9.8, Eosinophils (%) (Auto) 1.5, Basophils (%) (Auto) 0.3, Neutrophils # (Auto) 2.30, Lymphocytes # (Auto) 1.21, Monocytes # (Auto) 0.39, Eosinophils # (Auto) 0.06, Basophils # (Auto) 0.01 04/15/17 13:45 Test 04/15/17 13:45 04/15/17 14:15 04/15/17 15:00 White Blood Count 3.97 K/uL (4.8-10.8) Red Blood Count 3.81 M/uL (4.2-5.4) Hemoglobin 10.9 g/dL (12.0-16.0) Hematocrit 34.2 % (37-47) Mean Corpuscular Volume 89.8 fL (80-100) Mean Corpuscular Hemoglobin 28.6 pg (25-34) Mean Corpuscular Hemoglobin Concent 31.9 g/dl (32-36) Platelet Count 169 K/uL (130-400) Mean Platelet Volume 10.2 fL (7.4-10.4) Neutrophils (%) (Auto) 57.9 % Lymphocytes (%) (Auto) 30.5 % Monocytes (%) (Auto) 9.8 % Eosinophils (%) (Auto) 1.5 % Basophils (%) (Auto) 0.3 % Neutrophils # (Auto) 2.30 K/uL (1.4-6.5) Lymphocytes # (Auto) 1.21 K/uL (1.2-3.4) Monocytes # (Auto) 0.39 K/uL (0.11-0.59) Eosinophils # (Auto) 0.06 K/uL (0-0.5) Basophils # (Auto) 0.01 K/uL (0-0.2) RDW Standard Deviation 50.4 fL (36.4-46.3) RDW Coefficient of Variation 15.6 % (11.5-14.5) Immature Granulocyte % (Auto) 0.0 % Immature Granulocyte # (Auto) 0.00 K/uL (0.00-0.02) Anion Gap 10.0 mmol/L (3-11) Est Creatinine Clear Calc Drug Dose 7.2 ml/min Estimated GFR () 5.0 Estimated GFR (Non- 4.3 BUN/Creatinine Ratio 4.5 (10-20) Calcium Level 8.6 mg/dl (8.5-10.1) Magnesium Level 2.1 mg/dl (1.8-2.4) Total Creatine Kinase 53 U/L (26-192) Creatine Kinase MB 1.2 ng/ml (0.5-3.6) Creatine Kinase MB Ratio 2.3 (0-3.0) Troponin I < 0.015 ng/ml (0-0.045) Bedside Prothrombin Time INR 3.0 (0.9-1.1) Bedside Glucose 100 mg/dl (70-90) Prothrombin Time 11.8 SECONDS (9.0-12.0) Prothromb Time International Ratio 1.1 (0.9-1.1) Activated Partial Thromboplast Time 27.4 SECONDS (21.0-31.0) Partial Thromboplastin Ratio 1.1 Medications Administered Medications (Trade) Dose Ordered Sig/Az Route Start Time Stop Time Status Last Admin Dose Admin Nicardipine HCl 25 mg/Sodium Chloride 250 ml @ 0 mls/hr Q0M STAT IV 04/15/17 13:41 04/15/17 13:42 DC 04/15/17 14:15 5 MLS/HR Nicardipine HCl 25 mg/Sodium Chloride 250 ml @ 0 mls/hr Q0M PRN IV 04/15/17 14:15 04/15/17 17:52 DC 04/15/17 14:50 25 MLS/HR Ondansetron HCl (Zofran Inj) 4 mg NOW STAT IV 04/15/17 14:16 04/15/17 14:18 DC 04/15/17 14:41 4 MG Phytonadione 10 mg/Sodium Chloride 51 ml @ 102 mls/hr ONE STAT IV 04/15/17 14:31 04/15/17 15:00 DC 04/15/17 15:08 102 MLS/HR Prothrombin Complex Concent (Human) 2500 unit/ Syringe 100 ml @ 10 mls/min TODAY@1432 IV 04/15/17 14:32 04/15/17 17:52 DC 04/15/17 14:50 10 MLS/MIN Morphine Sulfate (MoRPHine SULFATE INJ) 2 mg STK-MED ONCE .ROUTE 04/15/17 14:35 04/15/17 14:36 DC 04/15/17 14:42 2 MG Morphine Sulfate (MoRPHine SULFATE INJ) 4 mg STK-MED ONCE .ROUTE 04/15/17 14:36 04/15/17 14:37 DC 04/15/17 14:42 4 MG Labetalol HCl (Normodyne IV) 20 mg NOW STAT IV 04/15/17 15:00 04/15/17 15:01 DC 04/15/17 15:06 20 MG ED Course 1330 History and physical performed [address], labs ordered [address] patients CT, Dr. James relayed results to Dr. Flowers 1415 Discussed results with the patient 1430 Discussed the case with the neuro surgeon Medical Decision 61 yo female with HTN, worst GODINEZ of her life for 2 days Considering the following differential; HTN urgency/emergency, SAH, migraine, stroke Patient was found to have BP of 240/103 and signs of end organ damage. Patient is on Coumadin with an INR of 3. Ordered a STAT head CT w/o IV contrast. CT demonstrated subarachnoid hemorrhage, bleed in the posterior fossa. Patient was given 10mg of Hydralazine and 10 mg of Labetalol. Patient was given Vitamin K. Sending the patient to [facility]. In summary, the patient was found to have very elevated BP and symptoms of GODINEZ and diplopia. She was promptly brought in for a head CT and found to have a SAH. The patient is on Coumadin, with and INR of 3. The patient was given Vitamin K to begin anticoagulant reversal. The patients BP was controlled with Hydralazine and Labetalol. She was also given Morphine for pain. The patient was subsequently transferred to [facility] in [place] to be evaluated by a Neurosurgeon. Impression Primary Impression: Subarachnoid hemorrhage Additional Impression: Hypertensive emergency Departure Information Dispostion Transfer Acute Care Facility Condition FAIR Referrals Mazin Mcpherson D.O. (PCP) Patient Instructions [facility] Problem Qualifiers
[2017-04-15 14:25] VITALS: Ht 162.6 cm; Wt 91.7 kg
[2017-04-15] MEDS ORDERED: PHYTONADIONE INJ 10 MG in SODIUM CHLORIDE 0.9% 50ML 50 ML IV STA (14:31)
[2017-04-15] MEDS ORDERED: PROTHROMBIN COMP CONC- KCENTRA 2,500 UNIT in SYRINGE 0 ML IV SCH (14:32)
[2017-04-15] MEDS ORDERED: MoRPHine SULFATE 2 MG/ML CARP ONE (14:35)
[2017-04-15] MEDS ORDERED: MoRPHine SULFATE 4 MG/ML 1 ML CARP\\VIAL ONE (14:36)
[2017-04-15 14:37] LABS: BLOOD UREA NITROGEN 40 mg/dl (7-18); BUN/CREATININE RATIO 4.5 (10-20); CALCIUM 8.6 mg/dl (8.5-10.1); CARBON DIOXIDE 24 mmol/L (21-32); CHLORIDE 104 mmol/L (98-107); CKMB/CK RATIO 2.3 (0-3.0); CREATININE 8.85 mg/dl (0.60-1.20); GLUCOSE 95 mg/dl (70-99); MAGNESIUM 2.1 mg/dl (1.8-2.4); POTASSIUM 4.9 mmol/L (3.5-5.1); SODIUM 138 mmol/L (136-145)
[2017-04-15] MEDS ORDERED: PHYTONADIONE INJ 10 MG in SODIUM CHLORIDE 0.9% 50ML 50 ML IV SCH (14:45)
--- NOTE | 2017-04-15 15:17 | EMERGENCY ROOM VISIT NOTE ---
History First contact with patient: 13:21 Chief Complaint: HYPERTENSION Stated Complaint: HYPERTENSION History of Present Illness The patient is a 61 year old female who presents to the Emergency Room with complaints of headache that has been ongoing for the past 2 days. In addition the patient is also complaining of high blood pressure. The patient has not taken anything for the pain. She is on dialysis and normally gets her dialysis on Tuesdays and Saturdays. The patient also has a hint history of a kidney transplant. Patient describes the headache as the worst headache of her life. Review of Systems See HPI for pertinent positives & negatives. A total of 10 systems reviewed and were otherwise negative. 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 (19) Osteomyelitis (20) Paroxysmal a-fib (21) Pleuritic chest pain (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 Surgical Problems: (1) H/O hernia repair (2) History of bowel resection (3) History of carpal tunnel surgery (4) Renal transplant, status post (5) S/P partial hysterectomy Family History Cancer FH: heart disease Hypertension Kidney stones Social History Smoking Status: Former Smoker Alcohol Use: none Drug Use: none Marital Status: single Housing Status: lives alone Occupation Status: disabled Current/Historical Medications Scheduled Amlodipine Besylate (Norvasc), 5 MG PO QAM Amoxicillin & Pot Clavulanate (Augmentin 500MG), 500 MG PO DAILY Aspirin (Aspirin Chewable), 81 MG PO QAM Atorvastatin (Lipitor), 40 MG PO HS Bupropion (Wellbutrin Sr), 100 MG PO BID Esomeprazole Magnesium (Nexium), 40 MG PO QAM Fiber Laxative (Fiber Laxative), 1 TAB PO UD Furosemide (Lasix), 40 MG PO QAM Heparin Sodium (Porcine) Lock (Heparin Lock Flush), 3 ML IV Q6WK Iron Sucrose (Venofer), 1 DOSE IV Q2WKS Levothyroxine Sodium (Levothyroxine Sodium), 175 MCG PO QAM Metoprolol Succinate (Toprol Xl), 50 MG PO BID Multivitamins/Minerals (Mvi With Minerals), 1 TAB PO DAILY Paricalcitol (Zemplar), 3 MG IV 3XWK Prednisone (Prednisone), 15 MG PO WK Prednisone (Prednisone), 5 MG PO MWF Sevelamer Hcl (Renagel), 2,400 MG PO TIDM Sevelamer Hydroch (Renagel), 1,600 MG PO BIDM Sodium Chloride (Saline Flush), 10 ML IV Q6WKS Warfarin Sod (Jantoven), 3 MG PO QPM [Vancomycin], 750 MG IV WK Scheduled PRN Ipratropium-Albuterol (Combivent Respimat), 1 PUFFS INH QID PRN for SOB/Wheezing Loratadine (Claritin), 5 TAB PO DAILY PRN for ALLERGIES Lorazepam (Ativan), 1 MG PO BID PRN for Anxiety Ondansetron Hcl (Zofran), 4 MG PO Q6 PRN for Nausea Zolpidem Tartrate (Ambien), 5 MG PO HS PRN for Sleep Physical Exam Vital Signs Date Time Temp Pulse Resp B/P (MAP) Pulse Ox O2 Delivery O2 Flow Rate FiO2 04/15/17 15:40 36.7 70 16 178/77 99 04/15/17 15:17 70 16 178/77 99 04/15/17 14:46 75 26 170/86 100 04/15/17 14:30 72 16 198/77 96 04/15/17 14:27 74 21 199/88 98 Room Air 04/15/17 14:23 71 17 257/106 99 Room Air 04/15/17 13:33 65 04/15/17 13:17 36.7 88 22 240/103 97 Room Air Physical Exam GENERAL: Patient is a healthy-appearing well-nourished female HEAD: Normocephalic atraumatic EYES: Ocular movements intact pupils equal and react to light OROPHARYNX mucous membranes are moist no exudates present no erythema or edema present NECK: Supple no nuchal rigidity CHEST: Good equal expansion LUNGS: Clear and equal to auscultation CARDIAC: Normal S1 and S2 ABDOMEN: Soft nontender no guarding BACK: No CVA tenderness EXTREMITIES: No pain upon palpation normal muscle strength in all groups no clubbing cyanosis or edema NEURO: Patient is following commands is answering questions appropriately. Alert and oriented x3 Cranial Nerves 2-12 grossly intact Medical Decision & Procedures ER Provider Diagnostic Interpretation: HEAD WITHOUT CONTRAST (CT) CLINICAL HISTORY: 61 years-old Female presenting with Stroke, hypertension. TECHNIQUE: Multidetector CT imaging of the head was performed without the use of intravenous contrast. IV contrast: None. A dose lowering technique was used consistent with the principles of ALARA (as low as reasonably achievable). COMPARISON: 01/16/2016. CT DOSE (mGy.cm): The estimated cumulative dose is 638.56 mGycm. FINDINGS: Neonatal Intensive Care Unit Nurse topogram: Unremarkable. Ventricles and sulci normal in size. Brain parenchyma normal in appearance with preserved olson-white differentiation. Mild mass effect on the left anterolateral aspect of the alvarado and left brachium pontis secondary to the presence of acute subarachnoid hemorrhage. This minimally extends into the left foramen occlusion, and is limited to the posterior fossa. This does not appear to extend distal to the foramen magnum. No other sites of acute hemorrhage. No intraventricular blood products more superiorly noted. No acute territorial infarction. Chronic fluid in the left mastoid air cells. Calvarium intact. Bilateral [place] lenses are absent. IMPRESSION: 1. Findings consistent with subarachnoid hemorrhage in the posterior fossa. Differential considerations for this in the absence of trauma include left PICA aneurysm or vertebrobasilar dissecting aneurysm rupture. 2. These findings were discussed with Dr. Flowers by Dr. James at 2:10 PM on 04/15/2017. Electronically signed by: Sam James M.D. CHEST ONE VIEW PORTABLE CLINICAL HISTORY: Shortness of breath. COMPARISON STUDY: Chest radiograph January 16, 2016. FINDINGS: A vascular stent projects over the right axilla. Right internal jugular [id number] and dual lumen left internal jugular dialysis catheter are in place. Cardiomediastinal silhouette is stable. There is no pneumothorax. There is mild hazy right lower lung opacity. There is no lobar consolidation. There is no evidence of pulmonary edema. Mild interstitial thickening is unchanged. IMPRESSION: Hazy right lower lung opacity. Atelectasis is favored although a small area of pneumonia could appear similar. Electronically signed by: Markus Hdz M.D. 04/15/2017 3:16 PM Laboratory Results 04/15/17 13:45 Red Blood Count 3.81, Mean Corpuscular Volume 89.8, Mean Corpuscular Hemoglobin 28.6, Mean Corpuscular Hemoglobin Concent 31.9, Mean Platelet Volume 10.2, Neutrophils (%) (Auto) 57.9, Lymphocytes (%) (Auto) 30.5, Monocytes (%) (Auto) 9.8, Eosinophils (%) (Auto) 1.5, Basophils (%) (Auto) 0.3, Neutrophils # (Auto) 2.30, Lymphocytes # (Auto) 1.21, Monocytes # (Auto) 0.39, Eosinophils # (Auto) 0.06, Basophils # (Auto) 0.01 04/15/17 13:45 Test 04/15/17 13:45 04/15/17 14:15 04/15/17 15:00 White Blood Count 3.97 K/uL (4.8-10.8) Red Blood Count 3.81 M/uL (4.2-5.4) Hemoglobin 10.9 g/dL (12.0-16.0) Hematocrit 34.2 % (37-47) Mean Corpuscular Volume 89.8 fL (80-100) Mean Corpuscular Hemoglobin 28.6 pg (25-34) Mean Corpuscular Hemoglobin Concent 31.9 g/dl (32-36) Platelet Count 169 K/uL (130-400) Mean Platelet Volume 10.2 fL (7.4-10.4) Neutrophils (%) (Auto) 57.9 % Lymphocytes (%) (Auto) 30.5 % Monocytes (%) (Auto) 9.8 % Eosinophils (%) (Auto) 1.5 % Basophils (%) (Auto) 0.3 % Neutrophils # (Auto) 2.30 K/uL (1.4-6.5) Lymphocytes # (Auto) 1.21 K/uL (1.2-3.4) Monocytes # (Auto) 0.39 K/uL (0.11-0.59) Eosinophils # (Auto) 0.06 K/uL (0-0.5) Basophils # (Auto) 0.01 K/uL (0-0.2) RDW Standard Deviation 50.4 fL (36.4-46.3) RDW Coefficient of Variation 15.6 % (11.5-14.5) Immature Granulocyte % (Auto) 0.0 % Immature Granulocyte # (Auto) 0.00 K/uL (0.00-0.02) Anion Gap 10.0 mmol/L (3-11) Est Creatinine Clear Calc Drug Dose 7.2 ml/min Estimated GFR () 5.0 Estimated GFR (Non- 4.3 BUN/Creatinine Ratio 4.5 (10-20) Calcium Level 8.6 mg/dl (8.5-10.1) Magnesium Level 2.1 mg/dl (1.8-2.4) Total Creatine Kinase 53 U/L (26-192) Creatine Kinase MB 1.2 ng/ml (0.5-3.6) Creatine Kinase MB Ratio 2.3 (0-3.0) Troponin I < 0.015 ng/ml (0-0.045) Bedside Prothrombin Time INR 3.0 (0.9-1.1) Bedside Glucose 100 mg/dl (70-90) Prothrombin Time 11.8 SECONDS (9.0-12.0) Prothromb Time International Ratio 1.1 (0.9-1.1) Activated Partial Thromboplast Time 27.4 SECONDS (21.0-31.0) Partial Thromboplastin Ratio 1.1 Medications Administered Medications (Trade) Dose Ordered Sig/Az Route Start Time Stop Time Status Last Admin Dose Admin Nicardipine HCl 25 mg/Sodium Chloride 250 ml @ 0 mls/hr Q0M STAT IV 04/15/17 13:41 04/15/17 13:42 DC 04/15/17 14:15 5 MLS/HR Nicardipine HCl 25 mg/Sodium Chloride 250 ml @ 0 mls/hr Q0M PRN IV 04/15/17 14:15 04/15/17 17:52 DC 04/15/17 14:50 25 MLS/HR Ondansetron HCl (Zofran Inj) 4 mg NOW STAT IV 04/15/17 14:16 04/15/17 14:18 DC 04/15/17 14:41 4 MG Phytonadione 10 mg/Sodium Chloride 51 ml @ 102 mls/hr ONE STAT IV 04/15/17 14:31 04/15/17 15:00 DC 04/15/17 15:08 102 MLS/HR Prothrombin Complex Concent (Human) 2500 unit/ Syringe 100 ml @ 10 mls/min TODAY@1432 IV 04/15/17 14:32 04/15/17 17:52 DC 04/15/17 14:50 10 MLS/MIN Morphine Sulfate (MoRPHine SULFATE INJ) 2 mg STK-MED ONCE .ROUTE 04/15/17 14:35 04/15/17 14:36 DC 04/15/17 14:42 2 MG Morphine Sulfate (MoRPHine SULFATE INJ) 4 mg STK-MED ONCE .ROUTE 04/15/17 14:36 04/15/17 14:37 DC 04/15/17 14:42 4 MG Labetalol HCl (Normodyne IV) 20 mg NOW STAT IV 04/15/17 15:00 04/15/17 15:01 DC 04/15/17 15:06 20 MG Medical Decision Resident Physician Supervision Note: I was present with Dr. Murray during the history and exam. I discussed the case with the resident and agree with the findings and plan as documented in the note. Documented By: Marcelo Flowers This is a 61-year-old female who presents emergency department complaining of severe headache that has been on going for the past 2 days. Due to the nature the patient's pain the patient was sent immediately for CAT scan of the head. This was concerning for posterior fossa bleed. Patient was placed on nicardipine drip. Her INR was found to be 3.0 and therefore she was given KCentra. Due to the fact that there is not a neurosurgeon available here at [facility] the case was then discussed with [facility] per patient's request. I then discussed the case with the transfer center as well as emergency department and ICU and [facility]. Repeat examination of the patient's blood pressure revealed much improvement. The patient was also started on vitamin K. I did discuss the patient's prognosis with the family her were in agreement with the treatment plan. The patient was also given morphine for her pain as well as Zofran. Medication Reconcilliation Current Medication List: was personally reviewed by me Blood Pressure Screening Patient's blood pressure: Elevated blood pressure Impression Primary Impression: ICH (intracerebral hemorrhage) Critical Care I have personally spent greater than 30 minutes of critical care time in the direct management of this patient. This includes bedside care, interpretation of diagnostic studies, and testing, discussion with consultants, patient, and family members, and other required patient management activities. This 30 minutes is in excess of all separately billable procedures. Departure Information Dispostion Transfer Acute Care Facility Condition FAIR Referrals Mazin Mcpherson D.O. (PCP) Forms WORK / SCHOOL INSTRUCTIONS, HOME CARE DOCUMENTATION FORM, IMPORTANT VISIT INFORMATION Patient Instructions My [facility] Problem Qualifiers Primary Impression: ICH (intracerebral hemorrhage) Intracerebral hemorrhage etiology: nontraumatic Cerebral hemorrhage location : unspecified cerebral location Laterality: left Qualified Codes: I61.9 - Nontraumatic intracerebral hemorrhage, unspecified
[2017-04-15 15:22] LABS: INR 1.1 (0.9-1.1); PARTIAL THROMBOPLASTIN RATIO 1.1; PROTHROMBIN TIME (PATIENT) 11.8 SECONDS (9.0-12.0)
[2017-04-15 15:40] VITALS: BP 178/77; PULSE 70; TEMP 36.7; O2SAT 99
== END 2017-04-15 15:17 | disposition short-term general hospital (02) ==
LOC: C.EDB 13:11
DX: I61.9 Nontraumatic intracerebral hemorrhage, unspecified (principal); I60.9 Nontraumatic subarachnoid hemorrhage, unspecified; I16.1 Hypertensive emergency; J45.909 Unspecified asthma, uncomplicated; I25.10 Atherosclerotic heart disease of native coronary artery without angina pectoris; I12.0 Hypertensive chronic kidney disease with stage 5 chronic kidney disease or end stage renal disease; N18.6 End stage renal disease; E78.5 Hyperlipidemia, unspecified; I48.0 Paroxysmal atrial fibrillation; E03.9 Hypothyroidism, unspecified; M32.9 Systemic lupus erythematosus, unspecified; K21.9 Gastro-esophageal reflux disease without esophagitis; Z85.048 Personal history of other malignant neoplasm of rectum, rectosigmoid junction, and anus; Z87.891 Personal history of nicotine dependence; Z90.49 Acquired absence of other specified parts of digestive tract; Z90.711 Acquired absence of uterus with remaining cervical stump; Z94.0 Kidney transplant status; Z99.2 Dependence on renal dialysis; Z84.1 Family history of disorders of kidney and ureter; Z82.49 Family history of ischemic heart disease and other diseases of the circulatory system; Z79.01 Long term (current) use of anticoagulants; Z79.82 Long term (current) use of aspirin; Z79.899 Other long term (current) drug therapy

== ENCOUNTER 2017-05-24 09:21 | Inpatient (IN) | payer OTHER, BC ==
[2017-05-24] VITALS (7 sets, daily range): BP systolic 147–179; BP diastolic 66–82; PULSE 78–84; TEMP 36.8–37.8; O2SAT 95–97; Ht 162.6 cm; Wt 84.2 kg
[~2017-05-24] VITALS: Ht 162.6 cm; Wt 84.2 kg
[~2017-05-24 09:21] MED LIST changes: +AMOX500T PO; +CLR10 PO; -DIPH25CA65 PO; +FIBER PO; +HEPA100I10 IV; +IPRA1AER2 INH; +IRON20IN IV; +MULT-513 PO; +NSF10F IV; +ONDA4TAB46 PO; -OXYC-164 PO; +SEVE1TAB PO; -WARF1TAB6 PO; +WARF3TAB6 PO; -WARF6TAB5 PO; +[UNRECOGNIZED DRUG - CODE] IV; -[UNRECOGNIZED DRUG - CODE] SQ
--- NOTE | 2017-05-24 09:50 | EMERGENCY ROOM VISIT NOTE ---
History Report prepared by Steffanie: Dashawn Gipson Under the Supervision of: Dr. Esteban Winchester M.D. First contact with patient: 09:37 Chief Complaint: SHORTNESS OF BREATH Stated Complaint: SOB, GODINEZ, HX BRAIN BLEED, SENT FROM [facility] History of Present Illness The patient is a 61 year old female who presents to the Emergency Room with complaints of shortness of breath that began 1 day ago and was referred to the ED for blood cultures because her WBC were low. She complains of dry heaves and dehydration. The patient is on Coumadin and has not taken it today or yesterday. Patient recently came out of rehabilitation for a recent brain bleed 1 month ago and was on a 7 day course of Augmentin 1 month ago. Pt states her temperature was 101.1 F earlier this morning but denies taking any Tylenol. She denies urinary symptoms and diarrhea. Source of History: patient Onset: 1 day ago Position: other (global ) Timing: constant Associated Symptoms: + SOB, No diarrhea, No urinary symptoms Review of Systems See HPI for pertinent positives & negatives. A total of 10 systems reviewed and were otherwise negative. Past Medical & Surgical Medical Problems: (1) Anal cancer (2) Anemia (3) Anticoagulated on warfarin (4) Anxiety (5) Asthma (6) CAD (coronary artery disease) (7) Dialysis patient (8) Discitis (9) Dyslipidemia (10) Dyslipidemia (11) ESRD (end stage renal disease) on dialysis (12) Fall (13) Fever (14) GERD (gastroesophageal reflux disease) (15) HTN (hypertension) (16) HTN (hypertension) (17) Hypertensive emergency (18) Hypothyroidism (19) Influenza (20) Intractable back pain (21) Knee contusion (22) Lupus (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 (24) Near syncope (25) Osteomyelitis (26) Paroxysmal a-fib (27) Pleuritic chest pain (28) Renal transplant rejection (29) Right knee pain (30) Subarachnoid hemorrhage (31) Weakness Surgical Problems: (1) H/O hernia repair (2) History of bowel resection (3) History of carpal tunnel surgery (4) Renal transplant, status post (5) S/P partial hysterectomy Family History Cancer FH: heart disease Hypertension Kidney stones Social History Smoking Status: Former Smoker Alcohol Use: none Drug Use: none Marital Status: single Housing Status: lives alone Occupation Status: disabled Current/Historical Medications Scheduled Aspirin (Aspirin Ec), 81 MG PO DAILY Atorvastatin (Lipitor), 40 MG PO DAILY Bupropion (Wellbutrin Sr), 100 MG PO BID Carvedilol (Coreg), 1 TAB PO BID Esomeprazole Magnesium (Nexium), 40 MG PO DAILY Fiber (Fiber Diet), 1 TAB PO DAILY Hydralazine HCl (Hydralazine HCl), 1 TAB PO DAILY Iron Sucrose (Venofer), 1 DOSE IV Q2WKS Levothyroxine Sodium (Levothyroxine Sodium), 175 MCG PO DAILY Nifedipine (Nifedipine ER), 1 TAB PO DAILY Paricalcitol (Paricalcitol), 3 MCG IV 3XWK Prednisone (Prednisone), 15 MG PO MWF Sevelamer Carbonate (Renvela), 2,400 MG PO TIDM Sevelamer Carbonate (Renvela), 1,600 MG PO BID Sodium Chloride (Saline Flush), 10 ML IV Q6WK Vancomycin HCl in Dextrose (Vancomycin Hydrochloride/ 1-5 gm/250Ml-%), 1,000 MG IV 3XWK Vitamin B Cmplx/Vitc/Folic Ac (Nephrocaps), 1 CAP PO DAILY Warfarin Sodium (Coumadin), 3 MG PO QPM Scheduled PRN Acetaminophen Tab (Tylenol), 650 MG PO Q6 PRN for Pain Ipratropium-Albuterol (Combivent Respimat), 1 PUFFS INH QID PRN for SOB/Wheezing Ondansetron Hcl (Zofran), 4 MG PO Q6 PRN for Nausea Senna/Docusate Sod (Senokot S), 1 TAB PO DAILY PRN for Constipation Tramadol (Ultram), 50 MG PO Q4H PRN for Pain Zolpidem Tartrate (Ambien), 5 MG PO HS PRN for Sleep Allergies Coded Allergies: Silver Nitrate (Verified Allergy, Severe, SEVERE BURNING, 05/24/17) Silver Sulfadiazine (Verified Allergy, Severe, SEVERE BURNING, 05/24/17) Azithromycin (Verified Allergy, Intermediate, "BUGS CRAWLING ON ME", ) Levofloxacin (Verified Allergy, Intermediate, HIVES, 05/24/17) Sulfa Antibiotics (Verified Allergy, Intermediate, "SULFA DRUGS": RASH, ) Trimethoprim (Verified Allergy, Intermediate, BACTRIM - RASH, 05/24/17) Metronidazole (Verified Allergy, Mild, DIARRHEA, 05/24/17) Oxycodone (Verified Allergy, Mild, PERCOCET-GI UPSET, 05/24/17) Amoxicillin (Verified Adverse Reaction, Mild, GI UPSET, 05/24/17) CAN TAKE 500 MG DOSES Clavulanic Acid (Verified Adverse Reaction, Mild, GI UPSET, 05/24/17) Erythromycin (Verified Adverse Reaction, Mild, nausea vomiting, 05/24/17) Physical Exam Vital Signs Date Time Temp Pulse Resp B/P (MAP) Pulse Ox O2 Delivery O2 Flow Rate FiO2 05/24/17 12:48 81 24 152/76 05/24/17 11:59 82 20 159/57 98 Room Air 05/24/17 11:27 96 16 208/83 95 Room Air 05/24/17 10:40 38.8 87 24 187/83 96 05/24/17 09:51 80 05/24/17 09:28 37.1 87 18 185/79 97 Room Air Physical Exam GENERAL: Patient is chronically unwell appearing, very anxious appearing, and crying. HEENT: No acute trauma, normocephalic atraumatic, no nasal congestion, no scleral icterus. Dry lips and tongue. Poor skin turgor. Rhinorrhea bilaterally NECK: No stridor, no adenopathy, no meningismus, trachea is midline. LUNGS: No dyspnea. Clear to auscultation and equal bilaterally. No wheeze, no rhonchi. Dry cough. HEART: Regular rate and rhythm. No murmurs, rubs, gallops appreciated. ABDOMEN: Soft, nontender, bowel sounds positive, no masses appreciated, no peritonitis. BACK: No midline tenderness, no CVA tenderness EXTREMITIES: Normal motion all extremities, no cyanosis. Moderate edema of bilateral lower legs. Moderate arthritic changes in hands. NEUROLOGIC: Alert and oriented, no acute motor or sensory deficits, no focal weakness, cranial nerves grossly intact. SKIN: No rash, no jaundice, no diaphoresis. Heavily scarred. CHEST: [place] port in right upper chest. Dialysis line in left upper chest. Medical Decision & Procedures ER Provider Diagnostic Interpretation: Radiology results and stated below per my review and radiologist interpretation: CHEST ONE VIEW PORTABLE CLINICAL HISTORY: fever COMPARISON STUDY: 04/15/2017 FINDINGS: There is a left subclavian dual-chamber central venous catheter present. There is a right-sided A-Port catheter present. The cardiac and mediastinal contours remain stable. There is no focal pulmonary consolidation. There are no pleural effusions. There is no overt failure. There is a right sided axial/brachial vascular stent.[ IMPRESSION: No active disease in the chest. Electronically signed by: Donavon Anderson M.D. 05/24/2017 10:15 AM Dictated Date/Time: 05/24/2017 10:14 AM Laboratory Results 05/24/17 10:20 Red Blood Count 2.95, Mean Corpuscular Volume 90.2, Mean Corpuscular Hemoglobin 28.8, Mean Corpuscular Hemoglobin Concent 32.0, Mean Platelet Volume 10.0, Neutrophils (%) (Auto) 63.5, Lymphocytes (%) (Auto) 24.2, Monocytes (%) (Auto) 10.6, Eosinophils (%) (Auto) 0.7, Basophils (%) (Auto) 0.7, Neutrophils # (Auto ) 1.92, Lymphocytes # (Auto) 0.73, Monocytes # (Auto) 0.32, Eosinophils # (Auto ) 0.02, Basophils # (Auto) 0.02 05/24/17 10:20 Test 05/24/17 10:20 05/24/17 10:30 White Blood Count 3.02 K/uL (4.8-10.8) Red Blood Count 2.95 M/uL (4.2-5.4) Hemoglobin 8.5 g/dL (12.0-16.0) Hematocrit 26.6 % (37-47) Mean Corpuscular Volume 90.2 fL (80-100) Mean Corpuscular Hemoglobin 28.8 pg (25-34) Mean Corpuscular Hemoglobin Concent 32.0 g/dl (32-36) Platelet Count 176 K/uL (130-400) Mean Platelet Volume 10.0 fL (7.4-10.4) Neutrophils (%) (Auto) 63.5 % Lymphocytes (%) (Auto) 24.2 % Monocytes (%) (Auto) 10.6 % Eosinophils (%) (Auto) 0.7 % Basophils (%) (Auto) 0.7 % Neutrophils # (Auto) 1.92 K/uL (1.4-6.5) Lymphocytes # (Auto) 0.73 K/uL (1.2-3.4) Monocytes # (Auto) 0.32 K/uL (0.11-0.59) Eosinophils # (Auto) 0.02 K/uL (0-0.5) Basophils # (Auto) 0.02 K/uL (0-0.2) RDW Standard Deviation 57.9 fL (36.4-46.3) RDW Coefficient of Variation 17.5 % (11.5-14.5) Immature Granulocyte % (Auto) 0.3 % Immature Granulocyte # (Auto) 0.01 K/uL (0.00-0.02) Hypochromasia PRESENT Ovalocytes 1+ Prothrombin Time 19.8 SECONDS (9.0-12.0) Prothromb Time International Ratio 1.9 (0.9-1.1) Anion Gap 9.0 mmol/L (3-11) Est Creatinine Clear Calc Drug Dose 10.3 ml/min Estimated GFR () 8.2 Estimated GFR (Non- 7.1 BUN/Creatinine Ratio 2.4 (10-20) Calcium Level 8.8 mg/dl (8.5-10.1) Magnesium Level 1.7 mg/dl (1.8-2.4) Total Bilirubin 0.7 mg/dl (0.2-1) Direct Bilirubin 0.1 mg/dl (0-0.2) Aspartate Amino Transf (AST/SGOT) 25 U/L (15-37) Alanine Aminotransferase (ALT/SGPT) 14 U/L (12-78) Alkaline Phosphatase 130 U/L (45-117) Total Creatine Kinase 43 U/L (26-192) Creatine Kinase MB 0.5 ng/ml (0.5-3.6) Creatine Kinase MB Ratio 1.2 (0-3.0) Troponin I 0.028 ng/ml (0-0.045) C-Reactive Protein 1.79 mg/dl (0-0.29) Total Protein 6.7 gm/dl (6.4-8.2) Albumin 3.1 gm/dl (3.4-5.0) Procalcitonin 0.44 ng/ml (0-0.5) Thyroid Stimulating Hormone (TSH) 0.250 uIu/ml (0.300-4.500) Influenza Type A Antigen POS for Influ A (NEG) Influenza Type B Antigen Neg for Influ B (NEG) Bedside Lactic Acid Venous 1.40 mmol/L (0.90-1.70) Laboratory results as reviewed by me. Medications Administered Medications (Trade) Dose Ordered Sig/Az Route Start Time Stop Time Status Last Admin Dose Admin Cefepime HCl 1000 mg/Dextrose 111 ml @ 200 mls/hr NOW STAT IV 05/24/17 11:20 05/24/17 11:53 DC 05/24/17 12:17 200 MLS/HR Vancomycin HCl 1500 mg/Sodium Chloride 530 ml @ 200 mls/hr ONE STAT IV 05/24/17 11:20 05/24/17 13:58 DC 05/24/17 12:18 200 MLS/HR Acetaminophen (Tylenol Tab) 1,000 mg NOW STAT PO 05/24/17 11:21 05/24/17 11:22 DC 05/24/17 11:55 1,000 MG Labetalol HCl (Normodyne IV) 10 mg NOW STAT IV 05/24/17 11:33 05/24/17 11:34 DC 05/24/17 11:57 10 MG Oseltamivir Phosphate (Tamiflu Cap) 75 mg NOW STAT PO 05/24/17 11:49 05/24/17 11:50 DC 05/24/17 11:54 75 MG ECG Indication: SOB/dyspnea Rate (beats per minute): 85 Rhythm: other (Sinus with PAC's) Findings: no acute ischemic change Change: EKG interpreted by me. ED Course 0937: The patient was evaluated in room B9. A complete history and physical exam was performed. 1035: The patient states she feels better after lying down. Of note, her low WBC is her baseline. Medical Decision Differential: Viral, Pharyngitis, Cellulitis, Pneumonia, Influenza, Meningitis, Sepsis, Bacteremia, UTI/Pyelonephritis, Endocrine, Toxicologic, amongst other pathologies entertained. 61 yr old female sent over by clinic for evaluation of fevers, shob and generalized illness. Chronically unwell with low WBC and fevers. Blood cultures obtained and empiric abx begun. Flu ended up positive thus tamiflu begun as well. She has a vast array of medical issues and thus consulted hospitalist for evaluation and they brought her in to hospital. She is dehydrated by appearance and despite her history I did feel some fluids reasonable. She is not in septic shock nor does she require 30ml/kg IV fluid bolus. Given recent head bleed and on Coumadin I did opt to do CT head which was fortunately negative and this knowledge calmed patient down remarkably. I do not feel this is meningitis nor does she meet criteria to outweigh risks of LP. Head Trauma GCS Score: 15 Medication Reconcilliation Current Medication List: was personally reviewed by me Blood Pressure Screening Patient's blood pressure: Elevated blood pressure Blood pressure disposition: Elevated BP felt to be situational Impression Primary Impression: Influenza Additional Impressions: Sepsis Shortness of breath Headache Scribe Attestation The scribe's documentation has been prepared under my direction and personally reviewed by me in its entirety. I confirm that the note above accurately reflects all work, treatment, procedures, and medical decision making performed by me. Departure Information Referrals Mazin Mcpherson D.O. (PCP) Patient Instructions My [facility] Problem Qualifiers
--- NOTE | 2017-05-24 10:16 | DIAGNOSTIC IMAGING REPORT ---
CHEST ONE VIEW PORTABLE CLINICAL HISTORY: fever COMPARISON STUDY: 04/15/2017 FINDINGS: There is a left subclavian dual-chamber central venous catheter present. There is a right-sided A-Port catheter present. The cardiac and mediastinal contours remain stable. There is no focal pulmonary consolidation. There are no pleural effusions. There is no overt failure. There is a right sided axial/brachial vascular stent.[ IMPRESSION: No active disease in the chest. Electronically signed by: Donavon Anderson M.D. 05/24/2017 10:15 AM Dictated Date/Time: 05/24/2017 10:14 AM
[2017-05-24] MEDS ORDERED: B-CO1CAP17 PO (10:27)
[2017-05-24] MEDS ORDERED: TRAM-10 PO (10:27)
[2017-05-24] MEDS ORDERED: SENN-65 PO (10:27)
[2017-05-24] MEDS ORDERED: ZOLP5TAB PO (10:27)
[2017-05-24 10:36] LABS: BASO % 0.7 %; BASO ABS # 0.02 K/uL (0-0.2); EOS % 0.7 %; EOS ABS # 0.02 K/uL (0-0.5); HEMATOCRIT 26.6 % (37-47); HEMOGLOBIN 8.5 g/dL (12.0-16.0); IG# 0.01 K/uL (0.00-0.02); LYMPH % 24.2 %; LYMPH ABS # 0.73 K/uL (1.2-3.4); MEAN CELL VOLUME 90.2 fL (80-100); MEAN CORPUSCULAR HEMOGLOBIN 28.8 pg (25-34); MONO % 10.6 %; MONO ABS # 0.32 K/uL (0.11-0.59); NEUT % 63.5 %; NEUT ABS # 1.92 K/uL (1.4-6.5); PLATELET COUNT 176 K/uL (130-400); RED CELL DISTRIBUTION WIDTH CV 17.5 % (11.5-14.5); RED CELL DISTRIBUTION WIDTH SD 57.9 fL (36.4-46.3); WHITE BLOOD COUNT 3.02 K/uL (4.8-10.8)
[2017-05-24] MEDS ORDERED: ATOR-24 PO (10:37)
[2017-05-24] MEDS ORDERED: NXM/40 PO (10:37)
[2017-05-24] MEDS ORDERED: WARF3TAB PO (10:37)
[2017-05-24] MEDS ORDERED: VANC1INJ IV (10:37)
[2017-05-24] MEDS ORDERED: PRED-301 PO (10:37)
[2017-05-24] MEDS ORDERED: IRON20IN IV (10:37)
[2017-05-24] MEDS ORDERED: [UNRECOGNIZED DRUG - CODE] IV (10:37)
[2017-05-24] MEDS ORDERED: ONDA4TAB46 PO (10:37)
[2017-05-24] MEDS ORDERED: FIBETAB2 PO (10:37)
[2017-05-24] MEDS ORDERED: LEVO175T3 PO (10:37)
[2017-05-24] MEDS ORDERED: ACET325T96 PO (10:37)
[2017-05-24] MEDS ORDERED: BUPR100T8 PO (10:37)
[2017-05-24] MEDS ORDERED: ASPI81TA28 PO (10:37)
[2017-05-24] MEDS ORDERED: IPRA1AER2 INH (10:37)
[2017-05-24] MEDS ORDERED: SEVE800T7 PO ×2 (10:37)
[2017-05-24] MEDS ORDERED: NSF10F IV (10:37)
[2017-05-24] MEDS ORDERED: MULT-650 PO (10:37)
[2017-05-24 10:51] LABS: INR 1.9 (0.9-1.1)
[2017-05-24 11:12] LABS: ALBUMIN 3.1 gm/dl (3.4-5.0); CALCIUM 8.8 mg/dl (8.5-10.1); CKMB 0.5 ng/ml (0.5-3.6); CREATININE 5.89 mg/dl (0.60-1.20); POTASSIUM 4.2 mmol/L (3.5-5.1); TOTAL PROTEIN 6.7 gm/dl (6.4-8.2)
[2017-05-24] MEDS ORDERED: VANCOMYCIN INJ 1,500 MG in SODIUM CHLORIDE 0.9% 500ML 500 ML IV STA (11:20)
[2017-05-24] MEDS ORDERED: CEFEPIME IV 1,000 MG in DEXTROSE 5% 100ML 100 ML IV STA (11:20)
[2017-05-24] MEDS ORDERED: ACETAMINOPHEN 500 MG TAB PO STA (11:21)
[2017-05-24] MEDS ORDERED: VANCOMYCIN CONSULT ACTIVE PRN ×2 (11:30→14:40)
[2017-05-24] MEDS ORDERED: LABETALOL HCL IV 5 MG/ML 20ML IV STA (11:33)
[2017-05-24 11:45] LABS: INFLUENZA B ANTIGEN Neg for Influ B (NEG)
[2017-05-24] MEDS ORDERED: OSELTAMIVIR PHOSPHATE 75 MG CAP PO STA (11:49)
--- NOTE | 2017-05-24 11:54 | DIAGNOSTIC IMAGING REPORT ---
HEAD CT NONCONTRAST CT DOSE: 1074.96 mGy.cm HISTORY: headache, recent ICH, on coumadin TECHNIQUE: Multiaxial CT images of the head were performed without the use of intravenous contrast. Automated exposure control was utilized for this study. A dose lowering technique was utilized adhering to the principles of ALARA. Comparison: Head CT 04/15/2017. Findings: Mild mucosal thickening within the maxillary sinuses. Small bilateral mastoid effusions, left greater than right. The calvarium and skull base are intact. There is no mass, hematoma, midline shift, acute infarct. White matter hypodensity is nonspecific but suggestive of microvascular ischemic change. The ventricles and sulci are within normal limits. Impression: 1. Resolution of the posterior fossa intracranial hemorrhage. 2. No acute intracranial abnormality. Electronically signed by: Marquis Arzate M.D. 05/24/2017 11:53 AM Dictated Date/Time: 05/24/2017 11:49 AM
[2017-05-24] MEDS ORDERED: LEVALBUTEROL/IPRATROPIUM NEB INH SCH ×2 (13:15→16:00)
[2017-05-24] MEDS ORDERED: CARV25TA2 PO (13:20)
[2017-05-24] MEDS ORDERED: HYDR-2977 PO (13:20)
[2017-05-24] MEDS ORDERED: PRCSR90 PO (13:20)
[2017-05-24] MEDS ORDERED: ZOLPIDEM TARTRATE 5 MG TAB PO PRN (13:30)
[2017-05-24] MEDS ORDERED: IV FLUIDS COMPLETED PRN (14:15)
--- NOTE | 2017-05-24 15:11 | Pharmacy Progress Note ---
Pharmacy Antibiotic Consult Date of Service: May 24, 2017. Pharmacy Dosing Scope Pharmacy is consulted to initiate IV Vancomycin and Tamiflu dosing therapy, order appropriate labs and adjust drug dose/frequency. Subjective The patient is a 61 year old female admitted on May 24, 2017 at 12:50 with shortness of breath. Objective Height (Feet): 5 Height (Inches): 4.00 Weight (Kilograms): 82.200 Lab Results (24hrs): Test 05/24/17 10:20 05/24/17 10:30 White Blood Count 3.02 K/uL (4.8-10.8) Red Blood Count 2.95 M/uL (4.2-5.4) Hemoglobin 8.5 g/dL (12.0-16.0) Hematocrit 26.6 % (37-47) Mean Corpuscular Volume 90.2 fL (80-100) Mean Corpuscular Hemoglobin 28.8 pg (25-34) Mean Corpuscular Hemoglobin Concent 32.0 g/dl (32-36) Platelet Count 176 K/uL (130-400) Mean Platelet Volume 10.0 fL (7.4-10.4) Neutrophils (%) (Auto) 63.5 % Lymphocytes (%) (Auto) 24.2 % Monocytes (%) (Auto) 10.6 % Eosinophils (%) (Auto) 0.7 % Basophils (%) (Auto) 0.7 % Neutrophils # (Auto) 1.92 K/uL (1.4-6.5) Lymphocytes # (Auto) 0.73 K/uL (1.2-3.4) Monocytes # (Auto) 0.32 K/uL (0.11-0.59) Eosinophils # (Auto) 0.02 K/uL (0-0.5) Basophils # (Auto) 0.02 K/uL (0-0.2) RDW Standard Deviation 57.9 fL (36.4-46.3) RDW Coefficient of Variation 17.5 % (11.5-14.5) Immature Granulocyte % (Auto) 0.3 % Immature Granulocyte # (Auto) 0.01 K/uL (0.00-0.02) Hypochromasia PRESENT Ovalocytes 1+ Prothrombin Time 19.8 SECONDS (9.0-12.0) Prothromb Time International Ratio 1.9 (0.9-1.1) Sodium Level 135 mmol/L (136-145) Potassium Level 4.2 mmol/L (3.5-5.1) Chloride Level 99 mmol/L (98-107) Carbon Dioxide Level 26 mmol/L (21-32) Anion Gap 9.0 mmol/L (3-11) Blood Urea Nitrogen 14 mg/dl (7-18) Creatinine 5.89 mg/dl (0.60-1.20) Est Creatinine Clear Calc Drug Dose 10.3 ml/min Estimated GFR () 8.2 Estimated GFR (Non- 7.1 BUN/Creatinine Ratio 2.4 (10-20) Random Glucose 81 mg/dl (70-99) Calcium Level 8.8 mg/dl (8.5-10.1) Magnesium Level 1.7 mg/dl (1.8-2.4) Total Bilirubin 0.7 mg/dl (0.2-1) Direct Bilirubin 0.1 mg/dl (0-0.2) Aspartate Amino Transf (AST/SGOT) 25 U/L (15-37) Alanine Aminotransferase (ALT/SGPT) 14 U/L (12-78) Alkaline Phosphatase 130 U/L (45-117) Total Creatine Kinase 43 U/L (26-192) Creatine Kinase MB 0.5 ng/ml (0.5-3.6) Creatine Kinase MB Ratio 1.2 (0-3.0) Troponin I 0.028 ng/ml (0-0.045) C-Reactive Protein 1.79 mg/dl (0-0.29) Total Protein 6.7 gm/dl (6.4-8.2) Albumin 3.1 gm/dl (3.4-5.0) Procalcitonin 0.44 ng/ml (0-0.5) Thyroid Stimulating Hormone (TSH) 0.250 uIu/ml (0.300-4.500) Influenza Type A Antigen POS for Influ A (NEG) Influenza Type B Antigen Neg for Influ B (NEG) Bedside Lactic Acid Venous 1.40 mmol/L (0.90-1.70) Micro Results: Item Value Date Time Blood Culture Received 05/24/17 1030 Blood Pending Blood Culture Received 05/24/17 1020 Blood Pending Influenza Type A Antigen POS for Influ A *A 05/24/17 1020 Influenza Type B Antigen Neg for Influ B 05/24/17 1020 Assessment & Plan ASSESSMENT: * Ms Mcfarland is a 61yo patient with an extensive medical history. * She was recently (~1mo ago) in rehab following a brain bleed, and she completed a 7 day course of Augmentin. * Other significant PMH includes ESRD on HD ([facility]), lupus, chronic osteomyelitis, renal transplant * Positive Influenza A -- Tamiflu per HD dosing recommendations * History of MRSA during past admissions * Patient is febrile, WBC 3.0 (which pt reports is baseline) PLAN: Vancomycin: * Loading dose: Vancomycin 1500 mg IV X 1 dose, then dosing guided by random levels * Goal trough level estimate: between 15 - 20 mcg/mL. * Random level has been ordered for: tomorrow with AM labs * When level is within goal range, will re-dose vancomycin Tamiflu: * Oseltamivir 75mg x1 dose given in ED, then * Oseltamivir 30mg after each dialysis session (total duration 5 days) Pharmacy will continue to follow and will adjust dose/frequency as necessary. Thank you
[2017-05-24] MEDS ORDERED: MAGNESIUM SULFATE 1GM / D5W 1 GM in PREMIXED IN D5W 100 ML IV STA (15:29)
[2017-05-24] MEDS ORDERED: HydrALAZINE 10 MG TAB PO ONE (15:45)
[2017-05-24] MEDS: WARFARIN SOD 3 MG TAB PO SCH (17:02)
[2017-05-24] MEDS: SEVELAMER HYDROCH 800 MG TAB PO SCH ×3 (17:03→20:19)
--- NOTE | 2017-05-24 17:39 | History and Physical ---
History & Physical Date & Time of Service: May 24, 2017 at 13:30 Chief Complaint: Sob, Godinez, Hx Brain Bleed, Sent From [facility] Primary Care Physician: Mazin Mcpherson D.O. History of Present Illness Source: patient, clinic records, hospital records Pt is 61 y/o F with PMH asthma, CKD V on HD on , , Sat, failed renal transplant, hx rectal CA, hyperlipidemia, HTN, anxiety, paroxysmal a-fib, mesenteric arterial thrombosis, hypothyroidism, SLE, AAA, anemia of ESRD, hx vaginal mass, chronic osteomyelitis of lumbar spine follows with Dr Rai on vancomycin 3 days a week on days of HD presented to ER with c/o fever, cough, rhinorrhea, body aches that started yesterday. Pt c/o fever 101.1F, sweats, productive white cough, SOB. Reports when feels hot she gets dry heaves, denies vomiting or diarrhea. States GODINEZ with coughing. She hasn't tried her inhaler. Doesn't make much urine, denies hematuria, dysuria. Hx intracranial hemorrhage 04/2017 was transferred to [facility], no surgery. Found to have L jugular DVT and Coumadin was restarted. Went to [facility] for rehab, has been home for 9 days now. Pt reports didn't take her Coumadin yesterday and hasn't taken her BP meds today. Denies V/D/C, dizziness, syncope, vision changes, neck pain, CP, orthopnea, palpitations, sore throat, choking, abdominal pain, paresthesias, extremity edema, rashes. In ER pt 38.8C axillary, P: 80-96, 96% on RA, BP: 187/79-->208/83-->159/57. WBC : 3 (4.5 on 05/06/17), Hgb: 8.5 (~9.3 baseline), Cr: 5.8 (~baseline), Ma.7, Trop: 0.028, INR: 1.9. +influenza A on rapid. CXR: no acute changes. Head CT: no acute, resolved posterior fossa intracranial hemorrhage. Pt given Tamiflu, labetalol 10mg IV, Tylenol, Cefepime, Vancomycin. 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 Status: Chronic (2) Anemia Status: Chronic (3) Anticoagulated on warfarin Status: Chronic (4) Anxiety Status: Chronic (5) Asthma Status: Chronic (6) CAD (coronary artery disease) Permanent Comment: minimal CAD on cath in 1999 Status: Chronic (7) Dialysis patient Status: Chronic (8) Dyslipidemia Status: Chronic (9) Dyslipidemia Status: Chronic (10) ESRD (end stage renal disease) on dialysis Status: Chronic (11) Fall Status: Resolved (12) GERD (gastroesophageal reflux disease) Status: Chronic (13) HTN (hypertension) Status: Chronic (14) HTN (hypertension) Status: Chronic (15) Hypertensive emergency Status: Resolved (16) Hypothyroidism Status: Chronic (17) Knee contusion Status: Resolved (18) Lupus Status: Chronic (19) Mesenteric artery thrombosis Status: Chronic (20) Near syncope Status: Resolved (21) Osteomyelitis Status: Chronic (22) Paroxysmal a-fib Status: Chronic (23) Renal transplant rejection Status: Chronic (24) Right knee pain Status: Resolved (25) Subarachnoid hemorrhage Permanent Comment: 04/2017 - no surgery, [facility] Status: Resolved (26) Weakness Status: Resolved Surgical Problems: (1) H/O hernia repair Status: Chronic (2) History of bowel resection Permanent Comment: for mesenteric ischemia Status: Chronic (3) History of carpal tunnel surgery Status: Chronic (4) Renal transplant, status post Permanent Comment: for lupus nephritis in 2001, failed in 2008 Status: Chronic (5) S/P partial hysterectomy Status: Chronic Family History Cancer FH: heart disease Hypertension Kidney stones Social History Smoking Status: Former Smoker Drug Use: none Marital Status: single Housing status: lives alone Occupational Status: disabled Immunizations History of Influenza Vaccine: Yes Influenza Vaccine Date: Jan 24, 2015 History of Tetanus Vaccine?: Yes Tetanus Immunization Date: Apr 09, 2008 History of Pneumococcal: Yes Pneumococcal Date: Aug 18, 2014 History of Hepatitis B Vaccine: Yes Hepatitis Immunization Date: Feb 07, 2011 Multi-Drug Resistant Organisms History of MDRO: No Allergies Coded Allergies: Silver Nitrate (Verified Allergy, Severe, SEVERE BURNING, 05/24/17) Silver Sulfadiazine (Verified Allergy, Severe, SEVERE BURNING, 05/24/17) Azithromycin (Verified Allergy, Intermediate, "BUGS CRAWLING ON ME", ) Levofloxacin (Verified Allergy, Intermediate, HIVES, 05/24/17) Sulfa Antibiotics (Verified Allergy, Intermediate, "SULFA DRUGS": RASH, ) Trimethoprim (Verified Allergy, Intermediate, BACTRIM - RASH, 05/24/17) Metronidazole (Verified Allergy, Mild, DIARRHEA, 05/24/17) Oxycodone (Verified Allergy, Mild, PERCOCET-GI UPSET, 05/24/17) Amoxicillin (Verified Adverse Reaction, Mild, GI UPSET, 05/24/17) CAN TAKE 500 MG DOSES Clavulanic Acid (Verified Adverse Reaction, Mild, GI UPSET, 05/24/17) Erythromycin (Verified Adverse Reaction, Mild, nausea vomiting, 05/24/17) Home Medications Scheduled Aspirin (Aspirin Ec), 81 MG PO DAILY Atorvastatin (Lipitor), 40 MG PO DAILY Bupropion (Wellbutrin Sr), 100 MG PO BID Carvedilol (Coreg), 1 TAB PO BID Esomeprazole Magnesium (Nexium), 40 MG PO DAILY Fiber (Fiber Diet), 1 TAB PO DAILY Hydralazine HCl (Hydralazine HCl), 1 TAB PO DAILY Iron Sucrose (Venofer), 1 DOSE IV Q2WKS Levothyroxine Sodium (Levothyroxine Sodium), 175 MCG PO DAILY Nifedipine (Nifedipine ER), 1 TAB PO DAILY Paricalcitol (Paricalcitol), 3 MCG IV 3XWK Prednisone (Prednisone), 15 MG PO MWF Sevelamer Carbonate (Renvela), 2,400 MG PO TIDM Sevelamer Carbonate (Renvela), 1,600 MG PO BID Sodium Chloride (Saline Flush), 10 ML IV Q6WK Vancomycin HCl in Dextrose (Vancomycin Hydrochloride/ 1-5 gm/250Ml-%), 1,000 MG IV 3XWK Vitamin B Cmplx/Vitc/Folic Ac (Nephrocaps), 1 CAP PO DAILY Warfarin Sodium (Coumadin), 3 MG PO QPM Scheduled PRN Acetaminophen Tab (Tylenol), 650 MG PO Q6 PRN for Pain Ipratropium-Albuterol (Combivent Respimat), 1 PUFFS INH QID PRN for SOB/Wheezing Ondansetron Hcl (Zofran), 4 MG PO Q6 PRN for Nausea Senna/Docusate Sod (Senokot S), 1 TAB PO DAILY PRN for Constipation Tramadol (Ultram), 50 MG PO Q4H PRN for Pain Zolpidem Tartrate (Ambien), 5 MG PO HS PRN for Sleep Review of Systems Constitutional: No weight loss Eyes: No eye pain, No redness, No discharge ENT: No unusual epistaxis, No trouble swallowing Respiratory: No wheezing, No hemoptysis Cardiovascular: No chest pain, No orthopnea, No PND, No edema Abdomen: No GI bleeding Musculoskeletal: No swelling, No calf pain Neurologic: No numbness/tingling, No vertigo Endocrine: No excessive thirst Hematologic / Lymphatic: No night sweats Integumentary: No rash, No itch Physical Exam Vital Signs Date Time Temp Pulse Resp B/P (MAP) Pulse Ox O2 Delivery O2 Flow Rate FiO2 05/24/17 13:01 78 05/24/17 12:48 81 24 152/76 05/24/17 11:59 82 20 159/57 98 Room Air 05/24/17 11:27 96 16 208/83 95 Room Air 05/24/17 10:40 38.8 87 24 187/83 96 05/24/17 09:51 80 05/24/17 09:28 37.1 87 18 185/79 97 Room Air General Appearance: + pertinent finding (chronically ill appearing, no apparent distress) Head: normocephalic, atraumatic Eyes: normal inspection, PERRL, EOMI, sclerae normal ENT: hearing grossly normal, pharynx normal, + pertinent finding (mucous membranes moist) Neck: supple, trachea midline Respiratory/Chest: chest non-tender, lungs clear, normal breath sounds, no respiratory distress, no accessory muscle use Cardiovascular: regular rate, rhythm, + systolic murmur Abdomen/GI: normal bowel sounds, non tender, soft Back: no CVA tenderness Extremities/Musculoskelatal: no calf tenderness, normal capillary refill, no pedal edema, non-tender, + pertinent finding (+scars noted to Left lower leg, right upper lateral thigh) Neurologic/Psych: alert, normal mood/affect, oriented x 3 Skin: normal color, warm/dry Diagnostics Laboratory Results Results Past 24 Hours Test 05/24/17 10:20 05/24/17 10:30 Range/Units White Blood Count 3.02 4.8-10.8 K/uL Red Blood Count 2.95 4.2-5.4 M/uL Hemoglobin 8.5 12.0-16.0 g/dL Hematocrit 26.6 37-47 % Mean Corpuscular Volume 90.2 80-100 fL Mean Corpuscular Hemoglobin 28.8 25-34 pg Mean Corpuscular Hemoglobin Concent 32.0 32-36 g/dl Platelet Count 176 130-400 K/uL Mean Platelet Volume 10.0 7.4-10.4 fL Neutrophils (%) (Auto) 63.5 % Lymphocytes (%) (Auto) 24.2 % Monocytes (%) (Auto) 10.6 % Eosinophils (%) (Auto) 0.7 % Basophils (%) (Auto) 0.7 % Neutrophils # (Auto) 1.92 1.4-6.5 K/uL Lymphocytes # (Auto) 0.73 1.2-3.4 K/uL Monocytes # (Auto) 0.32 0.11-0.59 K/uL Eosinophils # (Auto) 0.02 0-0.5 K/uL Basophils # (Auto) 0.02 0-0.2 K/uL RDW Standard Deviation 57.9 36.4-46.3 fL RDW Coefficient of Variation 17.5 11.5-14.5 % Immature Granulocyte % (Auto) 0.3 % Immature Granulocyte # (Auto) 0.01 0.00-0.02 K/uL Hypochromasia PRESENT Ovalocytes 1+ Prothrombin Time 19.8 9.0-12.0 SECONDS Prothromb Time International Ratio 1.9 0.9-1.1 Sodium Level 135 136-145 mmol/L Potassium Level 4.2 3.5-5.1 mmol/L Chloride Level 99 98-107 mmol/L Carbon Dioxide Level 26 21-32 mmol/L Anion Gap 9.0 3-11 mmol/L Blood Urea Nitrogen 14 7-18 mg/dl Creatinine 5.89 0.60-1.20 mg/dl Est Creatinine Clear Calc Drug Dose 10.3 ml/min Estimated GFR () 8.2 Estimated GFR (Non- 7.1 BUN/Creatinine Ratio 2.4 10-20 Random Glucose 81 70-99 mg/dl Calcium Level 8.8 8.5-10.1 mg/dl Magnesium Level 1.7 1.8-2.4 mg/dl Total Bilirubin 0.7 0.2-1 mg/dl Direct Bilirubin 0.1 0-0.2 mg/dl Aspartate Amino Transf (AST/SGOT) 25 15-37 U/L Alanine Aminotransferase (ALT/SGPT) 14 12-78 U/L Alkaline Phosphatase 130 45-117 U/L Total Creatine Kinase 43 26-192 U/L Creatine Kinase MB 0.5 0.5-3.6 ng/ml Creatine Kinase MB Ratio 1.2 0-3.0 Troponin I 0.028 0-0.045 ng/ml C-Reactive Protein 1.79 0-0.29 mg/dl Total Protein 6.7 6.4-8.2 gm/dl Albumin 3.1 3.4-5.0 gm/dl Procalcitonin 0.44 0-0.5 ng/ml Influenza Type A Antigen POS for Influ A NEG Influenza Type B Antigen Neg for Influ B NEG Bedside Lactic Acid Venous 1.40 0.90-1.70 mmol/L Microbiology Results 05/24/17 Blood Culture, Received Pending 05/24/17 Blood Culture, Received Pending Diagnostic Radiology CT HEAD Impression: 1. Resolution of the posterior fossa intracranial hemorrhage. 2. No acute intracranial abnormality. CXR: IMPRESSION: No active disease in the chest. EKG EKG rate 85, sinus rhythm with PAC's. T wave inversion noted V5, V6, seen in 2016 EKG also EKG read by chronometer repairer: Sinus rhythm with Premature atrial complexes Septal infarct (cited on or before 24-NOV-2015) ST & T wave abnormality, consider lateral ischemia Abnormal ECG When compared with ECG of 15-APR-2017 14:22, Premature atrial complexes are now Present T wave inversion now evident in Lateral leads Confirmed by DEXTER BASSETT ([id number]) on 05/24/2017 4:51:50 PM Impression Assessment and Plan INFLUENZA/FEVER Pt with onset fever, cough, rhinorrhea, SOB yesterday. +influenza A in ER. CXR: no acute. WBC: 3. POC lactic acid: 1.4. 96% on RA. In ER given cefepime, vancomycin, tamiflu, acetaminophen. blood cultures pending. pending U/A. Will hold cefepime at this time -Xopenex/Atrovent nebs -O2 per protocol -Tamiflu - assistance with dosage from pharmacist with pt's CKD -repeat CBC, PRP in am HTN In ER BP: 187/79-->208/83-->159/57. Pt given labetalol 10mg IV. Pt didn't take BP med today. No CP -continue Coreg, hydralazine, nifedipine -monitor HYPOMAGNESIA Ma.7 -replace and monitor SLE -continue prednisone HX PAROXYSMAL A-FIB On coumadin. No afib today. CHRONIC COUMADIN USE Hx L internal jugular DVT 04/2017 and Coumadin restarted. Hx mesenteric arterial thrombosis in past. INR: 1.9, pt didn't take Coumadin yesterday -continue Coumadin -monitor INR HX INTRACRANIAL HEMORRHAGE 04/2017. pt reports GODINEZ with coughing. CT head today negative for hemorrhage CHRONIC OSTEOMYELITIS Follows with Dr Rai. On vancomycin 3 days a week with HD -continue vancomycin -continue tramadol prn pain CKD V ON HD , , sat HD schedule. Had HD yesterday -consult nephrology -avoid nephrotoxic agents when possible DYSLIPIDEMIA -continue Lipitor DEPRESSION -continue Wellbutrin HYPOTHYROIDISM TSH: 0.4 on 02/06/17. TSH added -continue levothyroxine GERD -continue PPI ANEMIA ESRD Hgb: 8.5 (~9.3 baseline). No active bleeding -continue to monitor DVT PROPHYLAXIS -coumadin DISPOSITION -admit tele -Full Code as per discussion with pt -Follows with Dr Mcpherson for routine care Pt was seen with Dr Deleon. See addendum Agree with above h and P.Briefly 61f with multiple medical problems , esrd on HD was recently in [place] for spontaneous intracranial bleeding but no surgery was done, Coumadin was restarted for L internal jugular DVT , on iv vancomycin with dialysis for chronic osteomyelitis, recently styarted to have vaginal bleeding , seen by [facility] and exam showed no vaginal mass and bleeding mostly from vaginal atrophy presents because of fevers, cough and not feeling well and found to have influenz A. Nauseous and not taken her pills n today.Denies chest pain. p/e Ge not in distress CVs S1 and s2 heard nom murmurs Rs cta b/l no added sounds Abd benign Compliance Auditor non focal a/p Influenza A Tamiflu supportive care Esrd hd HTN home meds and monitor Level of Care Telemetry Resuscitation Status FULL RESUSCITATION VTE Prophylaxis VTE Risk Assessment Done? Y/N: Yes Risk Level: Moderate Given or contraindicated: Warfarin (Coumadin) Additional Copies To Mazin Mcpherson D.O.
[2017-05-24] MEDS: LOPERAMIDE HCL 2 MG CAP PO PRN (18:41)
--- NOTE | 2017-05-24 19:50 | NEPHROLOGY CONSULTATION ---
DATE OF CONSULTATION: 05/24/2017 ATTENDING OF RECORD: Jonathan Malhotra MD. REASON FOR CONSULTATION: End-stage renal disease. HISTORY OF PRESENT ILLNESS: This is a 61-year-old female who dialyzes Tuesdays, , Saturdays at the [facility] who was recently at [place] in April with an intracranial hemorrhage, no surgery was needed. Went to [facility] for rehabilitation and was following back at home. The patient has lost over 10 pounds through this whole course and has generalized weakness, but is getting stronger. The patient did have a low grade fever on 's dialysis treatment, but was otherwise okay and comes in with headaches, cough, fever of 101, dry heaves, diarrhea and was found to be positive influenza A on the rapid screen. The patient was started on Tamiflu. The patient also has been getting weekly IV vancomycin prophylactically for her chronic osteomyelitis of her lower back. Blood cultures are pending. The patient also with a tunneled dialysis catheter. There were no signs of infection with no tenderness at all to the catheter site. PAST MEDICAL HISTORY: End-stage renal disease, lupus, rectal cancer, anemia of end-stage renal disease, GERD, hypertension, hypothyroidism, mesenteric artery thrombosis, history of renal transplant, subarachnoid hemorrhage in April of 2017. PAST SURGICAL HISTORY: Fistula attempts, tunneled dialysis catheters, hysterectomy, renal transplant, carpal tunnel surgery, partial bowel resection for mesenteric ischemia, hernia repairs. FAMILY HISTORY: Significant for heart disease. SOCIAL HISTORY: Former smoker, no alcohol, no drugs. Lives alone. Family nearby. CURRENT MEDICATIONS: Prednisone 15 mg p.o. Mondays, Wednesdays and Fridays, Tamiflu daily, aspirin 81 mg a day, Lipitor 40 mg daily, hydralazine 10 mg daily, Nephrocaps daily, Protonix 40 mg daily, nifedipine 90 mg daily, and Synthroid 175 mcg daily, Wellbutrin 100 mg p.o. b.i.d., Coreg 25 mg p.o. b.i.d., Renagel 1600 mg p.o. b.i.d. for snacks, 2400 mg t.i.d. with meals, Coumadin 3 mg daily. REVIEW OF SYSTEMS: Positive fevers. Positive cough. Positive headache. Positive shortness of breath. Positive decreased appetite. No chest pain. Positive dry heaves. No dysuria. Positive lymphedema. All other review of systems otherwise negative. PHYSICAL EXAMINATION: VITAL SIGNS: Temperature 37.4, pulse 78, respiratory rate 18, blood pressure 154/82, satting 97% on room air. GENERAL: Awake, alert, oriented x3. EYES: No scleral icterus. ENT: Moist mucous membranes. NECK: Supple. PULMONARY: Clear to auscultation. CARDIAC: 2/6 systolic murmur. ABDOMEN: Bowel sounds positive, soft, nontender. EXTREMITIES: Chronic lower extremity lymphedema. NEUROLOGICALLY: Nonfocal. DERMATOLOGIC: No rash or ulcers noted. LABORATORY DATA: White count is 3, H&H 8.5 and 26.6, platelet count 176. Sodium level 135, potassium 4.2, chloride is 99, bicarbonate is 26, BUN is 14, creatinine is 5.89, glucose is 81. Mag is 1.7, calcium is 8.8, albumin is 3.1. TSH 0.250. INR is 1.9. Blood cultures are pending. Chest x-ray shows no active disease in the chest. ASSESSMENT AND PLAN: 1. End-stage renal disease, plan on dialysis Tuesdays, , Saturdays; however, given her significant flu-like symptoms if her volume status and potassium levels are acceptable tomorrow, may postpone dialysis until Saturday. We will assess labs and volume status tomorrow and decide at that time whether to give a dialysis treatment or not. Given the fact that her appetite has been very poor, do not feel like she will be volume overloaded and if her potassium levels stable, likely could hold off on dialysis and let her rest with Tamiflu. 2. Fevers. The patient is on a weekly vancomycin prophylactically for her recurrent osteomyelitis of the lower back managed per Dr. Rai's recommendations. We will continue the weekly vancomycin and did receive a dose here in the hospital in the setting of infection with fever. 3. Anemia of renal failure. Will continue procrit with dialysis in an attempt to help optimize hg levels. Greatly appreciate the consultation. GERARDO
[2017-05-24] MEDS: LEVALBUTEROL 0.63MG/3 ML NEB INH SCH ×2 (20:14→23:15)
[2017-05-24] MEDS: IPRATROPIUM BROMIDE NEB SOLN 0.02% 2.5 ML VIAL INH SCH ×2 (20:14→23:15)
[2017-05-24] MEDS: CARVEDILOL 25 MG TAB PO SCH (20:18)
[2017-05-24] MEDS: BuPROPion SR 100 MG TABCR PO SCH (20:18)
[2017-05-25] VITALS (12 sets, daily range): BP systolic 130–178; BP diastolic 67–74; PULSE 68–85; TEMP 36.7–37; O2SAT 69–100
[2017-05-25] MEDS: LEVALBUTEROL 0.63MG/3 ML NEB INH SCH ×6 (03:44→23:16)
[2017-05-25] MEDS: IPRATROPIUM BROMIDE NEB SOLN 0.02% 2.5 ML VIAL INH SCH ×6 (03:44→23:16)
[2017-05-25] MEDS: LEVOTHYROXINE 175 MCG TAB PO SCH (06:26)
[2017-05-25 06:51] LABS: HEMATOCRIT 25.2 % (37-47); HEMOGLOBIN 8.2 g/dL (12.0-16.0); INR 1.7 (0.9-1.1); MEAN CELL VOLUME 89.7 fL (80-100); MEAN CORPUSCULAR HEMOGLOBIN 29.2 pg (25-34); MEAN CORPUSCULAR HGB CONC 32.5 g/dl (32-36); PLATELET COUNT 161 K/uL (130-400); RED CELL DISTRIBUTION WIDTH CV 17.4 % (11.5-14.5); RED CELL DISTRIBUTION WIDTH SD 57.7 fL (36.4-46.3); WHITE BLOOD COUNT 1.84 K/uL (4.8-10.8)
[2017-05-25 07:20] LABS: BASO % 0.5 %; BASO ABS # 0.01 K/uL (0-0.2); EOS % 2.7 %; EOS ABS # 0.05 K/uL (0-0.5); LYMPH % 41.3 %; LYMPH ABS # 0.76 K/uL (1.2-3.4); MONO % 16.3 %; NEUT % 39.2 %; NEUT ABS # 0.72 K/uL (1.4-6.5)
[2017-05-25 07:32] LABS: CALCIUM 8.5 mg/dl (8.5-10.1); CREATININE 8.13 mg/dl (0.60-1.20); PHOSPHORUS 3.4 mg/dl (2.5-4.9); POTASSIUM 4.4 mmol/L (3.5-5.1)
[2017-05-25] MEDS: SEVELAMER HYDROCH 800 MG TAB PO SCH ×5 (07:57→21:00)
[2017-05-25] MEDS: CARVEDILOL 25 MG TAB PO SCH ×2 (08:07→21:13)
[2017-05-25] MEDS: NIFEdipine 30 MG CR TAB PO SCH (08:08)
[2017-05-25] MEDS: ASPIRIN 81 MG ECTAB PO SCH (08:08)
[2017-05-25] MEDS: BuPROPion SR 100 MG TABCR PO SCH ×2 (08:08→21:13)
[2017-05-25] MEDS: ATORVASTATIN 20 MG TAB PO SCH (08:08)
[2017-05-25] MEDS: LOPERAMIDE HCL 2 MG CAP PO PRN ×2 (08:08→17:15)
[2017-05-25] MEDS: PANTOprazole SOD 40 MG TAB PO SCH (08:08)
[2017-05-25] MEDS: NEPHROCAPS PO SCH (08:08)
[2017-05-25] MEDS: HydrALAZINE 10 MG TAB PO SCH (08:08)
[2017-05-25] MEDS: ACETAMINOPHEN 325 MG TAB PO PRN (08:10)
--- NOTE | 2017-05-25 09:18 | Pharmacy Progress Note ---
Pharmacy Abx Dose Short Note Date of Service May 25, 2017. Assessment & Plan Assessment * Ms Mcfarland is a 61yo patient with an extensive medical history. * She was recently (~1mo ago) in rehab following a brain bleed, and she completed a 7 day course of Augmentin. * Other significant PMH includes ESRD on HD ([facility]), lupus, chronic osteomyelitis, renal transplant * Positive Influenza A -- Tamiflu per HD dosing recommendations * History of MRSA during past admissions * Patient is febrile, WBC 3.0 (which pt reports is baseline) 61 year old female receiving IV Vancomycin for ongoing treatment of chronic osteomyelitis followed by serial levels. In addition, patient is receiving Tamiflu for influenza after HD sessions. HD may be deferred today per Nephrology note due to active influenza, thus Tamiflu dose will be held. Patient received IV Vancomycin x 1 dose at a little after 12 noon yesterday. Day # 2 Vancomycin/Tamiflu of antimicrobial therapy. Plan Vancomycin * Random level of 29.0 mcg/mL is supratherapeutic. * Continue to dose by serial levels * Goal trough level for osteomyelitis: 15 to 20 mcg/mL * Random level ordered for: Saturday05/27/17 with AM labs Pharmacy will continue to follow and will adjust dose/frequency as necessary. Thank you.
[2017-05-25] MEDS: TRAMADOL HCL 50 MG TAB PO PRN (10:59)
[2017-05-25] MEDS: ONDANSETRON INJ 2 MG/ML 2 ML VIAL IV PRN (12:09)
--- NOTE | 2017-05-25 14:20 | Nephrology Progress Note ---
Nephrology Progress Note Date of Service: May 25, 2017. Subjective seen on rounds at about 1345. c/o more loose bm than she can count past 24 hrs and L sided abd pain and very minimal po > a few sips of taylor robb only so far today. no sob. no edema or palpitations Objective Date Time Temp Pulse Resp B/P (MAP) Pulse Ox O2 Delivery O2 Flow Rate FiO2 05/25/17 08:42 37.0 74 20 141/68 (92) 93 05/25/17 07:10 79 16 69 Room Air 05/25/17 04:19 36.9 85 18 130/71 (90) 96 Room Air 05/25/17 04:00 Room Air 05/25/17 03:45 82 16 97 Room Air 05/24/17 23:59 Room Air 05/24/17 23:42 37.8 79 20 147/75 (99) 97 Room Air 05/24/17 23:16 78 14 95 Room Air 05/24/17 20:40 36.8 80 18 179/66 (103) 97 Room Air 05/24/17 20:17 84 16 95 Room Air 05/24/17 20:00 Room Air 05/24/17 15:53 97 Room Air 05/24/17 15:41 37.4 78 18 154/82 05/24/17 15:15 97 Room Air 05/24/17 15:15 37.4 78 18 154/82 (106) 97 Room Air 05/24/17 15:15 97 Room Air 05/24/17 13:01 78 05/24/17 12:48 81 24 152/76 05/24/17 11:59 82 20 159/57 98 Room Air 05/24/17 11:27 96 16 208/83 95 Room Air 05/24/17 10:40 38.8 87 24 187/83 96 05/24/17 09:51 80 05/24/17 09:28 37.1 87 18 185/79 97 Room Air Physical Exam: GENERAL: Awake, alert, oriented x3. on RA lying near flat; very tired EYES: No scleral icterus. ENT: dry mucous membranes. hoarse NECK: Supple. PULMONARY: Clear and diminished to auscultation. CARDIAC: 2/6 systolic murmur. ABDOMEN: Bowel sounds positive, soft, some L tenderness mid abdomen w/o guarding EXTREMITIES: Chronic trace BL lower extremity lymphedema. NEUROLOGICALLY: renteria, fluent speech DERMATOLOGIC: No rash or ulcers noted. diffusely very warm to touch Current Inpatient Medications Medications (Trade) Dose Ordered Sig/Az Route Start Time Stop Time Status Last Admin Dose Admin Acetaminophen (Tylenol Tab) 650 mg Q4H PRN PO 05/24/17 13:00 06/23/17 12:59 05/25/17 08:10 650 MG Ondansetron HCl (Zofran Inj) 4 mg Q6H PRN IV 05/24/17 13:00 06/23/17 12:59 Miscellaneous Information 1 ea UD PRN N/A 05/24/17 14:39 06/23/17 14:38 Aspirin (Ecotrin Tab) 81 mg DAILY PO 05/25/17 09:00 06/24/17 08:59 05/25/17 08:08 81 MG Atorvastatin Calcium (Lipitor Tab) 40 mg DAILY PO 05/25/17 09:00 06/24/17 08:59 05/25/17 08:08 40 MG Bupropion HCl (Wellbutrin-Sr Tab) 100 mg BID PO 05/24/17 21:00 06/23/17 20:59 05/25/17 08:08 100 MG Carvedilol (Coreg Tab) 25 mg BID PO 05/24/17 21:00 06/23/17 20:59 05/25/17 08:07 25 MG Hydralazine HCl (Apresoline Tab) 10 mg DAILY PO 05/25/17 09:00 06/24/17 08:59 05/25/17 08:08 10 MG Levothyroxine Sodium (Synthroid Tab) 175 mcg DAILYBB PO 05/25/17 06:00 06/24/17 05:59 05/25/17 06:26 175 MCG Prednisone (PredniSONE TAB) 15 mg MoWeFr@0900 PO 05/27/17 09:00 06/26/17 08:59 Tramadol HCl (Ultram Tab) 50 mg Q4H PRN PO 05/24/17 13:30 06/23/17 13:29 Vitamin B Complex/ Vit C/Folic Acid (Nephrocaps) 1 cap DAILY PO 05/25/17 09:00 06/24/17 08:59 05/25/17 08:08 1 CAP Warfarin Sodium (Coumadin Tab) 3 mg DAILY@1600 PO 05/24/17 16:00 06/23/17 15:59 05/24/17 17:02 3 MG Zolpidem Tartrate (Ambien Tab) 5 mg HS PRN PO 05/24/17 13:30 06/23/17 13:29 Pantoprazole Sodium (Protonix Tab) 40 mg DAILY PO 05/25/17 09:00 06/24/17 08:59 05/25/17 08:08 40 MG Nifedipine (Procardia Xl Tab) 90 mg QAM PO 05/25/17 09:00 06/24/17 08:59 05/25/17 08:08 90 MG Sevelamer HCl (Renagel Tab) 1,600 mg BID PO 05/24/17 21:00 06/23/17 20:59 Sevelamer HCl (Renagel Tab) 2,400 mg TIDM PO 05/24/17 16:45 06/23/17 16:44 05/25/17 07:57 2,400 MG Miscellaneous Information (Consult) 1 ea UD PRN N/A 05/24/17 14:40 06/23/17 14:39 Miscellaneous (Iv Fluids Completed) 1 ea PRN PRN N/A 05/24/17 14:15 05/24/18 14:14 Oseltamivir Phosphate (Tamiflu Susp) SEE PROTOCOL TEXT DAILY@1600 PO 05/25/17 16:00 05/29/17 15:59 Ipratropium [place] (Atrovent 0.02% 0.5MG/2.5ML Neb) 0.5 mg Q4R INH 05/24/17 16:00 06/23/17 15:59 05/25/17 07:09 0.5 MG Levalbuterol (Xopenex 0.63 Mg/ 3 Ml Neb) 0.63 mg Q4R INH 05/24/17 16:00 06/23/17 15:59 05/25/17 07:10 0.63 MG Loperamide HCl (Imodium Cap) 2 mg TID PRN PO 05/24/17 17:45 06/23/17 17:44 05/25/17 08:08 2 MG Last 24 Hours Test 05/24/17 10:20 05/24/17 10:30 05/24/17 18:29 1/20/18 06:10 White Blood Count 3.02 K/uL 1.84 K/uL Red Blood Count 2.95 M/uL 2.81 M/uL Hemoglobin 8.5 g/dL 8.2 g/dL Hematocrit 26.6 % 25.2 % Mean Corpuscular Volume 90.2 fL 89.7 fL Mean Corpuscular Hemoglobin 28.8 pg 29.2 pg Mean Corpuscular Hemoglobin Concent 32.0 g/dl 32.5 g/dl Platelet Count 176 K/uL 161 K/uL Mean Platelet Volume 10.0 fL 10.0 fL Neutrophils (%) (Auto) 63.5 % 39.2 % Lymphocytes (%) (Auto) 24.2 % 41.3 % Monocytes (%) (Auto) 10.6 % 16.3 % Eosinophils (%) (Auto) 0.7 % 2.7 % Basophils (%) (Auto) 0.7 % 0.5 % Neutrophils # (Auto) 1.92 K/uL 0.72 K/uL Lymphocytes # (Auto) 0.73 K/uL 0.76 K/uL Monocytes # (Auto) 0.32 K/uL 0.30 K/uL Eosinophils # (Auto) 0.02 K/uL 0.05 K/uL Basophils # (Auto) 0.02 K/uL 0.01 K/uL RDW Standard Deviation 57.9 fL 57.7 fL RDW Coefficient of Variation 17.5 % 17.4 % Immature Granulocyte % (Auto) 0.3 % 0.0 % Immature Granulocyte # (Auto) 0.01 K/uL 0.00 K/uL Hypochromasia PRESENT Ovalocytes 1+ Prothrombin Time 19.8 SECONDS 17.3 SECONDS Prothromb Time International Ratio 1.9 1.7 Sodium Level 135 mmol/L 136 mmol/L Potassium Level 4.2 mmol/L 4.4 mmol/L Chloride Level 99 mmol/L 102 mmol/L Carbon Dioxide Level 26 mmol/L 24 mmol/L Anion Gap 9.0 mmol/L 11.0 mmol/L Blood Urea Nitrogen 14 mg/dl 23 mg/dl Creatinine 5.89 mg/dl 8.13 mg/dl Est Creatinine Clear Calc Drug Dose 10.3 ml/min 7.5 ml/min Estimated GFR () 8.2 5.6 Estimated GFR (Non- 7.1 4.8 BUN/Creatinine Ratio 2.4 2.8 Random Glucose 81 mg/dl 81 mg/dl Calcium Level 8.8 mg/dl 8.5 mg/dl Magnesium Level 1.7 mg/dl 2.2 mg/dl Total Bilirubin 0.7 mg/dl Direct Bilirubin 0.1 mg/dl Aspartate Amino Transf (AST/SGOT) 25 U/L Alanine Aminotransferase (ALT/SGPT) 14 U/L Alkaline Phosphatase 130 U/L Total Creatine Kinase 43 U/L Creatine Kinase MB 0.5 ng/ml Creatine Kinase MB Ratio 1.2 Troponin I 0.028 ng/ml 0.078 ng/ml C-Reactive Protein 1.79 mg/dl Total Protein 6.7 gm/dl Albumin 3.1 gm/dl Procalcitonin 0.44 ng/ml Thyroid Stimulating Hormone (TSH) 0.250 uIu/ml Influenza Type A Antigen POS for Influ A Influenza Type B Antigen Neg for Influ B Bedside Lactic Acid Venous 1.40 mmol/L Large Platelets 1+ Anisocytosis PRESENT Phosphorus Level 3.4 mg/dl Random Vancomycin Level 29.0 mcg/ml Date/Time Source Procedure Growth Status 05/24/17 10:30 Blood Blood Culture Pending Received 05/24/17 10:20 Blood Blood Culture Pending Received Assessment & Plan 61 y/o F w/ ESRD on TRSat HD admitted w/ influenza A. Now neutropenic, borderline febrile past 24 h, taking minimal po. 1. End-stage renal disease, plan on dialysis Tuesdays, , Saturdays; -no HD indicated today -likeliest next HD on 05/27; though I do note creep in SBP and will monitor closely 2. Fevers. The patient is on a weekly vancomycin prophylactically for her recurrent osteomyelitis of the lower back managed per Dr. Rai's recommendations. We will continue the weekly vancomycin and did receive a dose here in the hospital in the setting of infection with fever. -cont tamiflu as well -f/u pending blood cxs 3. Anemia of renal failure. will give procrit SQ 10K units today; pls monitor cbc daily
[2017-05-25] MEDS ORDERED: EPOETIN ALFA 10,000 UNITS/ML VIAL SQ STA (15:31)
[2017-05-25] MEDS: HYDROCORTISONE IV 25 MG in SYRINGE 0 ML IV SCH ×2 (15:55→21:25)
[2017-05-25] MEDS: OSELTAMIVIR PHOSPHATE SUSP 30 MG/5 ML UDP PO SCH (16:00)
[2017-05-25] MEDS: WARFARIN SOD 3 MG TAB PO SCH (16:02)
--- NOTE | 2017-05-25 20:00 | Progress Note ---
Medicine Progress Note Date & Time of Visit: May 25, 2017 at 13:50 . Subjective CC: Follow-up visit for influenza and other problems. HPI: No fever. Persistent cough, nonproductive. No SOB. Crampy abdominal discomfort and loose stools. ROS: General- no fever Resp- as noted above in HPI Cardiac- no chest pain, chronic edema GI- as noted above in HPI - anuric . Objective Last 8 Hrs Date Time Temp Pulse Resp B/P (MAP) Pulse Ox O2 Delivery O2 Flow Rate FiO2 05/25/17 16:00 Room Air 05/25/17 15:48 36.8 74 16 131/71 (91) 95 Room Air 05/25/17 14:28 74 16 98 Room Air 05/25/17 12:32 36.8 74 18 178/68 (104) 100 Room Air 05/25/17 12:00 Room Air Physical Exam: General- appears to be ill, but no acute distress Lungs- scattered rhonchi, diffuse wheezing; no respiratory distress CV- RRR, no gallop; + JVD; 1+ pretibial edema Abdomen- obese, + BS, soft, diffuse mild tenderness Extremities- no cyanosis; no calf tenderness Neuro- alert Skin- warm & dry . Laboratory Results: Last 24 Hours Test 05/25/17 06:10 White Blood Count 1.84 K/uL Red Blood Count 2.81 M/uL Hemoglobin 8.2 g/dL Hematocrit 25.2 % Mean Corpuscular Volume 89.7 fL Mean Corpuscular Hemoglobin 29.2 pg Mean Corpuscular Hemoglobin Concent 32.5 g/dl Platelet Count 161 K/uL Mean Platelet Volume 10.0 fL Neutrophils (%) (Auto) 39.2 % Lymphocytes (%) (Auto) 41.3 % Monocytes (%) (Auto) 16.3 % Eosinophils (%) (Auto) 2.7 % Basophils (%) (Auto) 0.5 % Neutrophils # (Auto) 0.72 K/uL Lymphocytes # (Auto) 0.76 K/uL Monocytes # (Auto) 0.30 K/uL Eosinophils # (Auto) 0.05 K/uL Basophils # (Auto) 0.01 K/uL RDW Standard Deviation 57.7 fL RDW Coefficient of Variation 17.4 % Immature Granulocyte % (Auto) 0.0 % Immature Granulocyte # (Auto) 0.00 K/uL Large Platelets 1+ Anisocytosis PRESENT Prothrombin Time 17.3 SECONDS Prothromb Time International Ratio 1.7 Sodium Level 136 mmol/L Potassium Level 4.4 mmol/L Chloride Level 102 mmol/L Carbon Dioxide Level 24 mmol/L Anion Gap 11.0 mmol/L Blood Urea Nitrogen 23 mg/dl Creatinine 8.13 mg/dl Est Creatinine Clear Calc Drug Dose 7.5 ml/min Estimated GFR () 5.6 Estimated GFR (Non- 4.8 BUN/Creatinine Ratio 2.8 Random Glucose 81 mg/dl Calcium Level 8.5 mg/dl Phosphorus Level 3.4 mg/dl Magnesium Level 2.2 mg/dl Random Vancomycin Level 29.0 mcg/ml Date/Time Source Procedure Growth Status 05/25/17 00:00 Stool C.difficile Toxin B Gene (PCR) - Final No C. difficile toxin B gene detected Complete Assessment & Plan INFLUENZA A Receiving oseltamivir, dose adjusted for CKD. Droplet precautions. NEUTROPENIA Neutropenia precautions. HYPERTENSION Continue carvedilol, nifedipine, hydralazine. CHRONIC KIDNEY DISEASE STAGE V Management per Nephrology. CHRONIC GLUCOCORTICOID THERAPY On chronic steroids for years for SLE and renal transplant. IV hydrocortisone while acutely ill, then taper to maintenance dose of prednisone. COPD / ASTHMA Pulmonary status stable. HISTORY OF MULTIPLE THROMBOTIC EVENTS Probably secondary to lupus anticoagulants. Continue warfarin. CHRONIC OSTEOMYELITIS LUMBAR SPINE Continue IV vancomycin with hemodialysis. RECENT ICH Neuro status stable. Continue warfarin with caution. DVT PROPHYLAXIS On warfarin. DISPOSITION Expected discharge to home. Internal Medicine follow-up with Dr. Mcpherson. Nephrology follow-up with Dr. Christian. . Current Inpatient Medications: Current Inpatient Medications Medications (Trade) Dose Ordered Sig/Az Route Start Time Stop Time Status Last Admin Dose Admin Acetaminophen (Tylenol Tab) 650 mg Q4H PRN PO 05/24/17 13:00 06/23/17 12:59 05/25/17 08:10 650 MG Ondansetron HCl (Zofran Inj) 4 mg Q6H PRN IV 05/24/17 13:00 06/23/17 12:59 05/25/17 12:09 4 MG Miscellaneous Information 1 ea UD PRN N/A 05/24/17 14:39 06/23/17 14:38 Aspirin (Ecotrin Tab) 81 mg DAILY PO 05/25/17 09:00 06/24/17 08:59 05/25/17 08:08 81 MG Atorvastatin Calcium (Lipitor Tab) 40 mg DAILY PO 05/25/17 09:00 06/24/17 08:59 05/25/17 08:08 40 MG Bupropion HCl (Wellbutrin-Sr Tab) 100 mg BID PO 05/24/17 21:00 06/23/17 20:59 05/25/17 08:08 100 MG Carvedilol (Coreg Tab) 25 mg BID PO 05/24/17 21:00 06/23/17 20:59 05/25/17 08:07 25 MG Hydralazine HCl (Apresoline Tab) 10 mg DAILY PO 05/25/17 09:00 06/24/17 08:59 05/25/17 08:08 10 MG Levothyroxine Sodium (Synthroid Tab) 175 mcg DAILYBB PO 05/25/17 06:00 06/24/17 05:59 05/25/17 06:26 175 MCG Tramadol HCl (Ultram Tab) 50 mg Q4H PRN PO 05/24/17 13:30 06/23/17 13:29 05/25/17 10:59 50 MG Vitamin B Complex/ Vit C/Folic Acid (Nephrocaps) 1 cap DAILY PO 05/25/17 09:00 06/24/17 08:59 05/25/17 08:08 1 CAP Warfarin Sodium (Coumadin Tab) 3 mg DAILY@1600 PO 05/24/17 16:00 06/23/17 15:59 05/25/17 16:02 3 MG Zolpidem Tartrate (Ambien Tab) 5 mg HS PRN PO 05/24/17 13:30 06/23/17 13:29 Pantoprazole Sodium (Protonix Tab) 40 mg DAILY PO 05/25/17 09:00 06/24/17 08:59 05/25/17 08:08 40 MG Nifedipine (Procardia Xl Tab) 90 mg QAM PO 05/25/17 09:00 06/24/17 08:59 05/25/17 08:08 90 MG Sevelamer HCl (Renagel Tab) 1,600 mg BID PO 05/24/17 21:00 06/23/17 20:59 Sevelamer HCl (Renagel Tab) 2,400 mg TIDM PO 05/24/17 16:45 06/23/17 16:44 05/25/17 17:13 2,400 MG Miscellaneous Information (Consult) 1 ea UD PRN N/A 05/24/17 14:40 06/23/17 14:39 Miscellaneous (Iv Fluids Completed) 1 ea PRN PRN N/A 05/24/17 14:15 05/24/18 14:14 Oseltamivir Phosphate (Tamiflu Susp) SEE PROTOCOL TEXT DAILY@1600 PO 05/25/17 16:00 05/29/17 15:59 Ipratropium [place] (Atrovent 0.02% 0.5MG/2.5ML Neb) 0.5 mg Q4R INH 05/24/17 16:00 06/23/17 15:59 05/25/17 14:28 0.5 MG Levalbuterol (Xopenex 0.63 Mg/ 3 Ml Neb) 0.63 mg Q4R INH 05/24/17 16:00 06/23/17 15:59 05/25/17 14:28 0.63 MG Loperamide HCl (Imodium Cap) 2 mg TID PRN PO 05/24/17 17:45 06/23/17 17:44 05/25/17 17:15 2 MG Hydrocortisone Sodium Succinate 25 mg/Syringe 0.5 ml @ 4 mls/min Q8 IV 05/25/17 14:00 06/24/17 13:59 05/25/17 15:55 4 MLS/MIN
[2017-05-26] VITALS (28 sets, daily range): BP systolic 96–145; BP diastolic 38–77; PULSE 62–110; TEMP 36.6–36.9; O2SAT 92–98
[2017-05-26] MEDS: IPRATROPIUM BROMIDE NEB SOLN 0.02% 2.5 ML VIAL INH SCH ×6 (03:56→23:19)
[2017-05-26] MEDS: LEVALBUTEROL 0.63MG/3 ML NEB INH SCH ×6 (03:56→23:19)
[2017-05-26] MEDS: LEVOTHYROXINE 175 MCG TAB PO SCH (06:05)
[2017-05-26] MEDS: HYDROCORTISONE IV 25 MG in SYRINGE 0 ML IV SCH ×3 (06:05→22:29)
[2017-05-26] MEDS: TRAMADOL HCL 50 MG TAB PO PRN ×3 (06:08→22:34)
[2017-05-26 07:21] LABS: BASO % 0.5 %; BASO ABS # 0.01 K/uL (0-0.2); EOS % 0.5 %; EOS ABS # 0.01 K/uL (0-0.5); HEMATOCRIT 25.3 % (37-47); HEMOGLOBIN 8.3 g/dL (12.0-16.0); IG# 0.01 K/uL (0.00-0.02); LYMPH % 24.6 %; LYMPH ABS # 0.52 K/uL (1.2-3.4); MEAN CELL VOLUME 89.1 fL (80-100); MEAN CORPUSCULAR HEMOGLOBIN 29.2 pg (25-34); MEAN CORPUSCULAR HGB CONC 32.8 g/dl (32-36); MEAN PLATELET VOLUME 9.6 fL (7.4-10.4); MONO % 12.8 %; MONO ABS # 0.27 K/uL (0.11-0.59); NEUT % 61.1 %; NEUT ABS # 1.29 K/uL (1.4-6.5); NUCLEATED RED BLOOD CELL ABS 0.02 K/uL (0-0); PLATELET COUNT 171 K/uL (130-400); RED CELL DISTRIBUTION WIDTH CV 17.1 % (11.5-14.5); RED CELL DISTRIBUTION WIDTH SD 55.7 fL (36.4-46.3); WHITE BLOOD COUNT 2.11 K/uL (4.8-10.8)
[2017-05-26] MEDS: SEVELAMER HYDROCH 800 MG TAB PO SCH ×5 (07:30→20:49)
[2017-05-26 08:15] LABS: CALCIUM 8.4 mg/dl (8.5-10.1); CREATININE 9.96 mg/dl (0.60-1.20); POTASSIUM 4.6 mmol/L (3.5-5.1)
[2017-05-26] MEDS: CARVEDILOL 25 MG TAB PO SCH ×2 (08:55→20:48)
[2017-05-26] MEDS: NEPHROCAPS PO SCH (08:56)
[2017-05-26] MEDS: NIFEdipine 30 MG CR TAB PO SCH (08:56)
[2017-05-26] MEDS: ASPIRIN 81 MG ECTAB PO SCH (08:56)
[2017-05-26] MEDS: HydrALAZINE 10 MG TAB PO SCH (08:56)
[2017-05-26] MEDS: ATORVASTATIN 20 MG TAB PO SCH (08:56)
[2017-05-26] MEDS: PANTOprazole SOD 40 MG TAB PO SCH (08:56)
[2017-05-26] MEDS: BuPROPion SR 100 MG TABCR PO SCH ×2 (08:56→20:48)
[2017-05-26] MEDS: ACETAMINOPHEN 325 MG TAB PO PRN ×2 (10:38→23:37)
[2017-05-26] MEDS ORDERED: SODIUM CHLORIDE 0.9% 1000ML 1,000 ML IV PRN (12:06)
--- NOTE | 2017-05-26 12:13 | Nephrology Progress Note ---
Nephrology Progress Note Date of Service: May 26, 2017. Subjective seen on rounds at about 1145. feels overall better; diarrhea for now resolved as has abd pain. noticing a bit more sob and wheeze. tolerating clears and hoping to advance to solids/more regular diet for evening Objective Date Time Temp Pulse Resp B/P (MAP) Pulse Ox O2 Delivery O2 Flow Rate FiO2 05/26/17 11:51 65 16 97 Room Air 05/26/17 08:48 36.6 71 16 131/62 (85) 96 05/26/17 08:00 Room Air 05/26/17 07:13 62 16 98 Room Air 05/26/17 04:00 36.7 75 16 114/66 (82) 95 Room Air 05/26/17 04:00 Room Air 05/26/17 03:30 78 16 97 Room Air 05/25/17 23:59 Room Air 05/25/17 23:16 75 16 97 Room Air 05/25/17 23:11 36.7 73 20 131/67 (88) 100 Room Air 05/25/17 20:00 Room Air 05/25/17 19:55 36.8 72 18 141/74 (96) 96 Room Air 05/25/17 19:52 68 16 96 Room Air 05/25/17 16:00 Room Air 05/25/17 15:48 36.8 74 16 131/71 (91) 95 Room Air 05/25/17 14:28 74 16 98 Room Air 05/25/17 12:32 36.8 74 18 178/68 (104) 100 Room Air Physical Exam: GENERAL: Awake, alert, oriented x3. on RA sitting up getting breathing tx, looks better than yesterday EYES: No scleral icterus. ENT: dry mucous membranes. hoarse NECK: Supple. PULMONARY: scattered exp wheezes CARDIAC: 2/6 systolic murmur. ABDOMEN: Bowel sounds positive, soft, NT EXTREMITIES: Chronic trace BL lower extremity lymphedema. NEUROLOGICALLY: renteria, fluent speech DERMATOLOGIC: No rash or ulcers noted. Current Inpatient Medications Medications (Trade) Dose Ordered Sig/Az Route Start Time Stop Time Status Last Admin Dose Admin Acetaminophen (Tylenol Tab) 650 mg Q4H PRN PO 05/24/17 13:00 06/23/17 12:59 05/26/17 10:38 650 MG Ondansetron HCl (Zofran Inj) 4 mg Q6H PRN IV 05/24/17 13:00 06/23/17 12:59 05/25/17 12:09 4 MG Miscellaneous Information 1 ea UD PRN N/A 05/24/17 14:39 06/23/17 14:38 Aspirin (Ecotrin Tab) 81 mg DAILY PO 05/25/17 09:00 06/24/17 08:59 05/26/17 08:56 81 MG Atorvastatin Calcium (Lipitor Tab) 40 mg DAILY PO 05/25/17 09:00 06/24/17 08:59 05/26/17 08:56 40 MG Bupropion HCl (Wellbutrin-Sr Tab) 100 mg BID PO 05/24/17 21:00 06/23/17 20:59 05/26/17 08:56 100 MG Carvedilol (Coreg Tab) 25 mg BID PO 05/24/17 21:00 06/23/17 20:59 05/26/17 08:55 25 MG Hydralazine HCl (Apresoline Tab) 10 mg DAILY PO 05/25/17 09:00 06/24/17 08:59 05/26/17 08:56 10 MG Levothyroxine Sodium (Synthroid Tab) 175 mcg DAILYBB PO 05/25/17 06:00 06/24/17 05:59 05/26/17 06:05 175 MCG Tramadol HCl (Ultram Tab) 50 mg Q4H PRN PO 05/24/17 13:30 06/23/17 13:29 05/26/17 06:08 50 MG Vitamin B Complex/ Vit C/Folic Acid (Nephrocaps) 1 cap DAILY PO 05/25/17 09:00 06/24/17 08:59 05/26/17 08:56 1 CAP Warfarin Sodium (Coumadin Tab) 3 mg DAILY@1600 PO 05/24/17 16:00 06/23/17 15:59 05/25/17 16:02 3 MG Zolpidem Tartrate (Ambien Tab) 5 mg HS PRN PO 05/24/17 13:30 06/23/17 13:29 Pantoprazole Sodium (Protonix Tab) 40 mg DAILY PO 05/25/17 09:00 06/24/17 08:59 05/26/17 08:56 40 MG Nifedipine (Procardia Xl Tab) 90 mg QAM PO 05/25/17 09:00 06/24/17 08:59 05/26/17 08:56 90 MG Sevelamer HCl (Renagel Tab) 1,600 mg BID PO 05/24/17 21:00 06/23/17 20:59 Sevelamer HCl (Renagel Tab) 2,400 mg TIDM PO 05/24/17 16:45 06/23/17 16:44 05/25/17 17:13 2,400 MG Miscellaneous Information (Consult) 1 ea UD PRN N/A 05/24/17 14:40 06/23/17 14:39 Miscellaneous (Iv Fluids Completed) 1 ea PRN PRN N/A 05/24/17 14:15 05/24/18 14:14 Oseltamivir Phosphate (Tamiflu Susp) SEE PROTOCOL TEXT DAILY@1600 PO 05/25/17 16:00 05/29/17 15:59 Ipratropium [place] (Atrovent 0.02% 0.5MG/2.5ML Neb) 0.5 mg Q4R INH 05/24/17 16:00 06/23/17 15:59 05/26/17 11:50 0.5 MG Levalbuterol (Xopenex 0.63 Mg/ 3 Ml Neb) 0.63 mg Q4R INH 05/24/17 16:00 06/23/17 15:59 05/26/17 11:50 0.63 MG Loperamide HCl (Imodium Cap) 2 mg TID PRN PO 05/24/17 17:45 06/23/17 17:44 05/25/17 17:15 2 MG Hydrocortisone Sodium Succinate 25 mg/Syringe 0.5 ml @ 4 mls/min Q8 IV 05/25/17 14:00 06/24/17 13:59 05/26/17 06:05 4 MLS/MIN Last 24 Hours Test 05/25/17 21:30 05/26/17 06:52 Urine Color YELLOW Urine Appearance CLEAR Urine pH >= 9.0 Urine Specific [place] 1.013 Urine Protein 1+ Urine Glucose (UA) NEG Urine Ketones NEG Urine Occult Blood TRACE Urine Nitrite NEG Urine Bilirubin NEG Urine Urobilinogen NEG Urine Leukocyte Esterase TRACE Urine WBC (Auto) 5-10 /hpf Urine RBC (Auto) 0-4 /hpf Urine Hyaline Casts (Auto) 1-5 /lpf Urine Epithelial Cells (Auto) >30 /lpf Urine Bacteria (Auto) 1+ White Blood Count 2.11 K/uL Red Blood Count 2.84 M/uL Hemoglobin 8.3 g/dL Hematocrit 25.3 % Mean Corpuscular Volume 89.1 fL Mean Corpuscular Hemoglobin 29.2 pg Mean Corpuscular Hemoglobin Concent 32.8 g/dl Platelet Count 171 K/uL Mean Platelet Volume 9.6 fL Neutrophils (%) (Auto) 61.1 % Lymphocytes (%) (Auto) 24.6 % Monocytes (%) (Auto) 12.8 % Eosinophils (%) (Auto) 0.5 % Basophils (%) (Auto) 0.5 % Neutrophils # (Auto) 1.29 K/uL Lymphocytes # (Auto) 0.52 K/uL Monocytes # (Auto) 0.27 K/uL Eosinophils # (Auto) 0.01 K/uL Basophils # (Auto) 0.01 K/uL RDW Standard Deviation 55.7 fL RDW Coefficient of Variation 17.1 % Immature Granulocyte % (Auto) 0.5 % Immature Granulocyte # (Auto) 0.01 K/uL Nucleated RBC Absolute Count (auto) 0.02 K/uL Nucleated Red Blood Cells % 0.7 % Poikilocytosis PRESENT Anisocytosis PRESENT Spherocytes 1+ Echinocytes 1+ Prothrombin Time 20.7 SECONDS Prothromb Time International Ratio 2.0 Sodium Level 135 mmol/L Potassium Level 4.6 mmol/L Chloride Level 101 mmol/L Carbon Dioxide Level 21 mmol/L Anion Gap 13.0 mmol/L Blood Urea Nitrogen 34 mg/dl Creatinine 9.96 mg/dl Est Creatinine Clear Calc Drug Dose 6.2 ml/min Estimated GFR () 4.3 Estimated GFR (Non- 3.7 BUN/Creatinine Ratio 3.4 Random Glucose 105 mg/dl Calcium Level 8.4 mg/dl Date/Time Source Procedure Growth Status 05/25/17 21:30 Urine , Clean Catch Urine Culture Pending Received Assessment & Plan 61 y/o F w/ ESRD on TRSat HD admitted w/ influenza A. Now neutropenic, borderline febrile 36h ago, clinically a bit improved. 1. End-stage renal disease, plan on dialysis Tuesdays, , Saturdays; -for gentle HD today given wheezing, missed tx yesterday; goal 2-2.5L UF 2. Fevers. The patient is on a weekly vancomycin prophylactically for her recurrent osteomyelitis of the lower back managed per Dr. Rai's recommendations. We will continue the weekly vancomycin and did receive a dose here in the hospital in the setting of infection with fever. most recent near F was 37.8 on evening 05/24 -cont tamiflu post dialysis -f/u pending blood cxs > NGTD -redose vanco per weekly protocol and as needed for admission indications> pharmacy following; random level yesterday ; level reordered for tomorrow am 3. Anemia of renal failure. had procrit yesterday and will redose today; pls monitor cbc daily; will order iron studies Appreciate consult; will follow with you. Care coordinated w/ Dr Malhotra
[2017-05-26] MEDS ORDERED: EPOETIN ALFA 4000 UNITS/ML VIAL IV. SCH (12:15)
[2017-05-26] MEDS ORDERED: HEPARIN SOD (PORCINE) 1000 UNIT/ML 10 ML VIAL IV SCH (12:15)
[2017-05-26] MEDS: HEPARIN SOD (PORCINE) 1000 UNIT/ML 10 ML VIAL IV SCH ×3 (14:15→17:30)
[2017-05-26] MEDS: WARFARIN SOD 3 MG TAB PO SCH (15:14)
[2017-05-26] MEDS: OSELTAMIVIR PHOSPHATE SUSP 30 MG/5 ML UDP PO SCH (19:00)
--- NOTE | 2017-05-26 21:02 | Progress Note ---
Medicine Progress Note Date & Time of Visit: May 26, 2017 at 15:25 . Subjective CC: Follow-up visit for influenza and other problems. HPI: No fever. Cough improved; no dyspnea. Nausea, abdominal pain, diarrhea resolved. ROS: General- no fever Resp- as noted above in HPI Cardiac- no chest pain, chronic edema GI- as noted above in HPI - anuric . Objective Last 8 Hrs Date Time Temp Pulse Resp B/P (MAP) Pulse Ox O2 Delivery O2 Flow Rate FiO2 05/26/17 20:47 93 122/66 (84) 05/26/17 19:43 36.7 96 121/62 (81) 05/26/17 18:55 36.7 95 16 97 05/26/17 18:30 84 96/38 05/26/17 18:15 94 98/44 05/26/17 18:00 95 108/53 05/26/17 17:45 102 126/58 05/26/17 17:30 87 110/55 05/26/17 17:15 97 123/61 05/26/17 17:00 95 128/54 05/26/17 16:45 75 110/50 05/26/17 16:30 71 128/60 05/26/17 16:15 72 125/65 05/26/17 16:00 69 127/66 05/26/17 16:00 Room Air 05/26/17 15:45 73 145/50 05/26/17 15:30 67 126/60 05/26/17 15:20 36.7 65 123/40 (67) 05/26/17 14:17 65 16 97 Room Air Physical Exam: General- no acute distress Lungs- few scattered rhonchi, diffuse mild wheezing; no respiratory distress CV- RRR, no gallop; + JVD; 1+ pretibial edema Abdomen- obese, + BS, soft, diffuse mild tenderness Extremities- no cyanosis; no calf tenderness Neuro- alert Skin- warm & dry . Laboratory Results: Last 24 Hours Test 05/25/17 21:30 05/26/17 06:52 05/26/17 16:26 Urine Color YELLOW Urine Appearance CLEAR Urine pH >= 9.0 Urine Specific [place] 1.013 Urine Protein 1+ Urine Glucose (UA) NEG Urine Ketones NEG Urine Occult Blood TRACE Urine Nitrite NEG Urine Bilirubin NEG Urine Urobilinogen NEG Urine Leukocyte Esterase TRACE Urine WBC (Auto) 5-10 /hpf Urine RBC (Auto) 0-4 /hpf Urine Hyaline Casts (Auto) 1-5 /lpf Urine Epithelial Cells (Auto) >30 /lpf Urine Bacteria (Auto) 1+ White Blood Count 2.11 K/uL Red Blood Count 2.84 M/uL Hemoglobin 8.3 g/dL Hematocrit 25.3 % Mean Corpuscular Volume 89.1 fL Mean Corpuscular Hemoglobin 29.2 pg Mean Corpuscular Hemoglobin Concent 32.8 g/dl Platelet Count 171 K/uL Mean Platelet Volume 9.6 fL Neutrophils (%) (Auto) 61.1 % Lymphocytes (%) (Auto) 24.6 % Monocytes (%) (Auto) 12.8 % Eosinophils (%) (Auto) 0.5 % Basophils (%) (Auto) 0.5 % Neutrophils # (Auto) 1.29 K/uL Lymphocytes # (Auto) 0.52 K/uL Monocytes # (Auto) 0.27 K/uL Eosinophils # (Auto) 0.01 K/uL Basophils # (Auto) 0.01 K/uL RDW Standard Deviation 55.7 fL RDW Coefficient of Variation 17.1 % Immature Granulocyte % (Auto) 0.5 % Immature Granulocyte # (Auto) 0.01 K/uL Nucleated RBC Absolute Count (auto) 0.02 K/uL Nucleated Red Blood Cells % 0.7 % Poikilocytosis PRESENT Anisocytosis PRESENT Spherocytes 1+ Echinocytes 1+ Prothrombin Time 20.7 SECONDS Prothromb Time International Ratio 2.0 Sodium Level 135 mmol/L Potassium Level 4.6 mmol/L Chloride Level 101 mmol/L Carbon Dioxide Level 21 mmol/L Anion Gap 13.0 mmol/L Blood Urea Nitrogen 34 mg/dl Creatinine 9.96 mg/dl Est Creatinine Clear Calc Drug Dose 6.2 ml/min Estimated GFR () 4.3 Estimated GFR (Non- 3.7 BUN/Creatinine Ratio 3.4 Random Glucose 105 mg/dl Calcium Level 8.4 mg/dl Date/Time Source Procedure Growth Status 05/25/17 21:30 Urine , Clean Catch Urine Culture Pending Received Assessment & Plan EXACERBATION OF COPD Due to influenza A. Oxygenating well. Continue nebs, steroids. INFLUENZA A Receiving oseltamivir, dose adjusted for CKD. Droplet precautions. NEUTROPENIA Improved. Neutropenia precautions. HYPERTENSION Continue carvedilol, nifedipine, hydralazine. CHRONIC KIDNEY DISEASE STAGE V Management per Nephrology. CHRONIC GLUCOCORTICOID THERAPY On chronic steroids for years for SLE and renal transplant. IV hydrocortisone while acutely ill, then taper to maintenance dose of prednisone. COPD / ASTHMA Pulmonary status stable. HISTORY OF MULTIPLE THROMBOTIC EVENTS Probably secondary to lupus anticoagulants. Continue warfarin. CHRONIC OSTEOMYELITIS LUMBAR SPINE Continue IV vancomycin with hemodialysis. RECENT INTRACRANIAL HEMORRHAGE Neuro status stable. Continue warfarin with caution. PT / OT evals. DVT PROPHYLAXIS On warfarin. DISPOSITION Expected discharge to home. Internal Medicine follow-up with Dr. Mcpherson. Nephrology follow-up with Dr. Christian. . Current Inpatient Medications: Current Inpatient Medications Medications (Trade) Dose Ordered Sig/Az Route Start Time Stop Time Status Last Admin Dose Admin Acetaminophen (Tylenol Tab) 650 mg Q4H PRN PO 05/24/17 13:00 06/23/17 12:59 05/26/17 10:38 650 MG Ondansetron HCl (Zofran Inj) 4 mg Q6H PRN IV 05/24/17 13:00 06/23/17 12:59 05/25/17 12:09 4 MG Miscellaneous Information 1 ea UD PRN N/A 05/24/17 14:39 06/23/17 14:38 Aspirin (Ecotrin Tab) 81 mg DAILY PO 05/25/17 09:00 06/24/17 08:59 05/26/17 08:56 81 MG Atorvastatin Calcium (Lipitor Tab) 40 mg DAILY PO 05/25/17 09:00 06/24/17 08:59 05/26/17 08:56 40 MG Bupropion HCl (Wellbutrin-Sr Tab) 100 mg BID PO 05/24/17 21:00 06/23/17 20:59 05/26/17 20:48 100 MG Carvedilol (Coreg Tab) 25 mg BID PO 05/24/17 21:00 06/23/17 20:59 05/26/17 20:48 25 MG Hydralazine HCl (Apresoline Tab) 10 mg DAILY PO 05/25/17 09:00 06/24/17 08:59 05/26/17 08:56 10 MG Levothyroxine Sodium (Synthroid Tab) 175 mcg DAILYBB PO 05/25/17 06:00 2/19/18 05:59 05/26/17 06:05 175 MCG Tramadol HCl (Ultram Tab) 50 mg Q4H PRN PO 05/24/17 13:30 06/23/17 13:29 05/26/17 12:00 50 MG Vitamin B Complex/ Vit C/Folic Acid (Nephrocaps) 1 cap DAILY PO 05/25/17 09:00 06/24/17 08:59 05/26/17 08:56 1 CAP Warfarin Sodium (Coumadin Tab) 3 mg DAILY@1600 PO 05/24/17 16:00 06/23/17 15:59 05/26/17 15:14 3 MG Zolpidem Tartrate (Ambien Tab) 5 mg HS PRN PO 05/24/17 13:30 06/23/17 13:29 Pantoprazole Sodium (Protonix Tab) 40 mg DAILY PO 05/25/17 09:00 06/24/17 08:59 05/26/17 08:56 40 MG Nifedipine (Procardia Xl Tab) 90 mg QAM PO 05/25/17 09:00 06/24/17 08:59 05/26/17 08:56 90 MG Sevelamer HCl (Renagel Tab) 1,600 mg BID PO 05/24/17 21:00 06/23/17 20:59 Sevelamer HCl (Renagel Tab) 2,400 mg TIDM PO 05/24/17 16:45 06/23/17 16:44 05/25/17 17:13 2,400 MG Miscellaneous Information (Consult) 1 ea UD PRN N/A 05/24/17 14:40 06/23/17 14:39 Miscellaneous (Iv Fluids Completed) 1 ea PRN PRN N/A 05/24/17 14:15 05/24/18 14:14 Oseltamivir Phosphate (Tamiflu Susp) SEE PROTOCOL TEXT DAILY@1600 PO 05/25/17 16:00 05/29/17 15:59 05/26/17 19:00 30 MG Ipratropium [place] (Atrovent 0.02% 0.5MG/2.5ML Neb) 0.5 mg Q4R INH 05/24/17 16:00 06/23/17 15:59 05/26/17 14:15 0.5 MG Levalbuterol (Xopenex 0.63 Mg/ 3 Ml Neb) 0.63 mg Q4R INH 05/24/17 16:00 06/23/17 15:59 05/26/17 14:15 0.63 MG Loperamide HCl (Imodium Cap) 2 mg TID PRN PO 05/24/17 17:45 06/23/17 17:44 05/25/17 17:15 2 MG Hydrocortisone Sodium Succinate 25 mg/Syringe 0.5 ml @ 4 mls/min Q8 IV 05/25/17 14:00 06/24/17 13:59 05/26/17 13:57 4 MLS/MIN Sodium Chloride 1,000 ml @ 0 mls/hr Q0M PRN IV 05/26/17 12:06 05/27/17 00:05
[2017-05-27] VITALS (10 sets, daily range): BP systolic 126–153; BP diastolic 65–77; PULSE 62–96; TEMP 36.7–37; O2SAT 93–99
[2017-05-27] MEDS: LEVALBUTEROL 0.63MG/3 ML NEB INH SCH ×5 (04:06→20:23)
[2017-05-27] MEDS: IPRATROPIUM BROMIDE NEB SOLN 0.02% 2.5 ML VIAL INH SCH ×5 (04:06→20:23)
[2017-05-27] MEDS: HYDROCORTISONE IV 25 MG in SYRINGE 0 ML IV SCH ×3 (05:38→22:03)
[2017-05-27] MEDS: LEVOTHYROXINE 175 MCG TAB PO SCH (05:38)
[2017-05-27] MEDS: ATORVASTATIN 20 MG TAB PO SCH (07:25)
[2017-05-27] MEDS: PANTOprazole SOD 40 MG TAB PO SCH (07:25)
[2017-05-27] MEDS: ASPIRIN 81 MG ECTAB PO SCH (07:25)
[2017-05-27] MEDS: CARVEDILOL 25 MG TAB PO SCH ×2 (07:26→20:53)
[2017-05-27] MEDS: NEPHROCAPS PO SCH (07:26)
[2017-05-27] MEDS: BuPROPion SR 100 MG TABCR PO SCH ×2 (07:26→20:53)
[2017-05-27] MEDS: NIFEdipine 30 MG CR TAB PO SCH (07:27)
[2017-05-27] MEDS: HydrALAZINE 10 MG TAB PO SCH (07:27)
[2017-05-27] MEDS: SEVELAMER HYDROCH 800 MG TAB PO SCH ×5 (07:27→20:53)
[2017-05-27 08:58] LABS: BASO % 0.4 %; BASO ABS # 0.01 K/uL (0-0.2); EOS % 2.8 %; EOS ABS # 0.08 K/uL (0-0.5); HEMATOCRIT 27.4 % (37-47); HEMOGLOBIN 8.8 g/dL (12.0-16.0); IG# 0.02 K/uL (0.00-0.02); LYMPH % 17.3 %; LYMPH ABS # 0.49 K/uL (1.2-3.4); MEAN CORPUSCULAR HEMOGLOBIN 28.6 pg (25-34); MEAN CORPUSCULAR HGB CONC 32.1 g/dl (32-36); MONO % 13.1 %; MONO ABS # 0.37 K/uL (0.11-0.59); NEUT % 65.7 %; NEUT ABS # 1.86 K/uL (1.4-6.5); PLATELET COUNT 185 K/uL (130-400); RED CELL DISTRIBUTION WIDTH CV 17.4 % (11.5-14.5); RED CELL DISTRIBUTION WIDTH SD 56.7 fL (36.4-46.3); WHITE BLOOD COUNT 2.83 K/uL (4.8-10.8)
--- NOTE | 2017-05-27 09:06 | Nephrology Progress Note ---
Nephrology Progress Note Date of Service: May 27, 2017. Subjective 61 yo female with ESRD admitted with Flu and diarrhea. on clear liquid diet and would like diet advanced. pts diarrhea has also improved. had dialysis yesterday and tolerated fluid removal with no cramping. Objective Date Time Temp Pulse Resp B/P (MAP) Pulse Ox O2 Delivery O2 Flow Rate FiO2 05/27/17 07:50 37.0 74 19 153/72 (99) 99 Room Air 05/27/17 07:45 Room Air 05/27/17 07:20 71 16 98 Room Air 05/27/17 04:07 62 16 97 Room Air 05/27/17 03:44 36.9 96 18 126/65 (85) 96 Room Air 05/26/17 23:24 Room Air 05/26/17 23:20 74 16 98 Room Air 05/26/17 23:05 36.9 86 18 105/56 (72) 92 Room Air 05/26/17 21:38 93 16 97 Room Air 05/26/17 20:47 93 122/66 (84) 05/26/17 19:43 36.7 96 121/62 (81) 05/26/17 19:20 Room Air 05/26/17 19:10 36.7 110 16 113/70 (84) 97 Room Air 05/26/17 18:55 36.7 95 16 97 05/26/17 18:30 84 96/38 05/26/17 18:15 94 98/44 05/26/17 18:00 95 108/53 05/26/17 17:45 102 126/58 05/26/17 17:30 87 110/55 05/26/17 17:15 97 123/61 05/26/17 17:00 95 128/54 05/26/17 16:45 75 110/50 05/26/17 16:30 71 128/60 05/26/17 16:15 72 125/65 05/26/17 16:00 69 127/66 05/26/17 16:00 Room Air 05/26/17 15:45 73 145/50 05/26/17 15:30 67 126/60 05/26/17 15:20 36.7 65 123/40 (67) 05/26/17 14:17 65 16 97 Room Air 05/26/17 12:00 36.9 65 18 143/77 (99) 94 05/26/17 12:00 Room Air 05/26/17 11:51 65 16 97 Room Air Physical Exam: General-aaox3, hoarse voice Eyes-no scleral icterus ENT-mmm Neck-supple Lungs-+end expiratory wheeze Heart-2/6 systolic murmur Abdomen-bs+, +tenderness over old incision site on left lower quadrant Extremities-minimal lymphedema Neuro-nonfocal Current Inpatient Medications Medications (Trade) Dose Ordered Sig/Az Route Start Time Stop Time Status Last Admin Dose Admin Acetaminophen (Tylenol Tab) 650 mg Q4H PRN PO 05/24/17 13:00 06/23/17 12:59 05/26/17 23:37 650 MG Ondansetron HCl (Zofran Inj) 4 mg Q6H PRN IV 05/24/17 13:00 06/23/17 12:59 05/25/17 12:09 4 MG Miscellaneous Information 1 ea UD PRN N/A 05/24/17 14:39 06/23/17 14:38 Aspirin (Ecotrin Tab) 81 mg DAILY PO 05/25/17 09:00 06/24/17 08:59 05/27/17 07:25 81 MG Atorvastatin Calcium (Lipitor Tab) 40 mg DAILY PO 05/25/17 09:00 06/24/17 08:59 05/27/17 07:25 40 MG Bupropion HCl (Wellbutrin-Sr Tab) 100 mg BID PO 05/24/17 21:00 06/23/17 20:59 05/27/17 07:26 100 MG Carvedilol (Coreg Tab) 25 mg BID PO 05/24/17 21:00 06/23/17 20:59 05/27/17 07:26 25 MG Hydralazine HCl (Apresoline Tab) 10 mg DAILY PO 05/25/17 09:00 06/24/17 08:59 05/27/17 07:27 10 MG Levothyroxine Sodium (Synthroid Tab) 175 mcg DAILYBB PO 05/25/17 06:00 06/24/17 05:59 05/27/17 05:38 175 MCG Tramadol HCl (Ultram Tab) 50 mg Q4H PRN PO 05/24/17 13:30 06/23/17 13:29 05/26/17 22:34 50 MG Vitamin B Complex/ Vit C/Folic Acid (Nephrocaps) 1 cap DAILY PO 05/25/17 09:00 06/24/17 08:59 05/27/17 07:26 1 CAP Warfarin Sodium (Coumadin Tab) 3 mg DAILY@1600 PO 05/24/17 16:00 06/23/17 15:59 05/26/17 15:14 3 MG Zolpidem Tartrate (Ambien Tab) 5 mg HS PRN PO 05/24/17 13:30 06/23/17 13:29 Pantoprazole Sodium (Protonix Tab) 40 mg DAILY PO 05/25/17 09:00 06/24/17 08:59 05/27/17 07:25 40 MG Nifedipine (Procardia Xl Tab) 90 mg QAM PO 05/25/17 09:00 06/24/17 08:59 05/27/17 07:27 90 MG Sevelamer HCl (Renagel Tab) 1,600 mg BID PO 05/24/17 21:00 06/23/17 20:59 Sevelamer HCl (Renagel Tab) 2,400 mg TIDM PO 05/24/17 16:45 06/23/17 16:44 05/25/17 17:13 2,400 MG Miscellaneous Information (Consult) 1 ea UD PRN N/A 05/24/17 14:40 06/23/17 14:39 Miscellaneous (Iv Fluids Completed) 1 ea PRN PRN N/A 05/24/17 14:15 05/24/18 14:14 Oseltamivir Phosphate (Tamiflu Susp) SEE PROTOCOL TEXT DAILY@1600 PO 05/25/17 16:00 05/29/17 15:59 05/26/17 19:00 30 MG Ipratropium [place] (Atrovent 0.02% 0.5MG/2.5ML Neb) 0.5 mg Q4R INH 05/24/17 16:00 06/23/17 15:59 05/27/17 07:20 0.5 MG Levalbuterol (Xopenex 0.63 Mg/ 3 Ml Neb) 0.63 mg Q4R INH 05/24/17 16:00 06/23/17 15:59 05/27/17 07:20 0.63 MG Loperamide HCl (Imodium Cap) 2 mg TID PRN PO 05/24/17 17:45 06/23/17 17:44 05/25/17 17:15 2 MG Hydrocortisone Sodium Succinate 25 mg/Syringe 0.5 ml @ 4 mls/min Q8 IV 05/25/17 14:00 06/24/17 13:59 05/27/17 05:38 4 MLS/MIN Last 24 Hours Test 05/26/17 21:02 05/27/17 04:44 05/27/17 08:17 Hepatitis B Surface Antigen NEG Hepatitis B Surface Antibody NEG Transferrin % Saturation % White Blood Count 2.83 K/uL Red Blood Count 3.08 M/uL Hemoglobin 8.8 g/dL Hematocrit 27.4 % Mean Corpuscular Volume 89.0 fL Mean Corpuscular Hemoglobin 28.6 pg Mean Corpuscular Hemoglobin Concent 32.1 g/dl Platelet Count 185 K/uL Mean Platelet Volume 10.0 fL Neutrophils (%) (Auto) 65.7 % Lymphocytes (%) (Auto) 17.3 % Monocytes (%) (Auto) 13.1 % Eosinophils (%) (Auto) 2.8 % Basophils (%) (Auto) 0.4 % Neutrophils # (Auto) 1.86 K/uL Lymphocytes # (Auto) 0.49 K/uL Monocytes # (Auto) 0.37 K/uL Eosinophils # (Auto) 0.08 K/uL Basophils # (Auto) 0.01 K/uL RDW Standard Deviation 56.7 fL RDW Coefficient of Variation 17.4 % Immature Granulocyte % (Auto) 0.7 % Immature Granulocyte # (Auto) 0.02 K/uL Date/Time Source Procedure Growth Status 05/26/17 23:42 Nasal MRSA DNA Surveillance Screen - Final Specimen Negative for MRSA by DNA Probe Complete Assessment & Plan ESRD-plan on dialysis again tomorrow. personally feel pt is not volume overloaded. minimal fluid removal tomorrow. lymphedema is much improved. Anemia of renal failure-goal hg of 10 to 11. continue procrit on dialysis. Abdominal pain-may have a hernia-consider ct scan-defer to primary hospitalist.
[2017-05-27 09:27] LABS: CALCIUM 8.3 mg/dl (8.5-10.1); CREATININE 6.16 mg/dl (0.60-1.20); POTASSIUM 3.8 mmol/L (3.5-5.1)
--- NOTE | 2017-05-27 10:56 | Pharmacy Progress Note ---
Pharmacy Abx Dose Short Note Date of Service May 27, 2017. Assessment & Plan Assessment Ms Mcfarland is a 61yo patient with an extensive medical history. * She was recently (~1mo ago) in rehab following a brain bleed, and she completed a 7 day course of Augmentin. * Other significant PMH includes ESRD on HD ([facility]), lupus, chronic osteomyelitis, renal transplant * Positive Influenza A -- Tamiflu per HD dosing recommendations * History of MRSA during past admissions * Patient is afebrile, WBC 2.8 (which pt reports is baseline) 61 year old female receiving vancomycin for treatment of chronic osteomyelitis. In addition, patient is receiving Tamiflu for influenza after HD sessions. Day #4 of antimicrobial therapy. Pt had HD yesterday. Post HD vanc level today = 22.6. Blood cultures have NGTD Plan Vancomycin * Random level of 22.6 mcg/mL is supratherapeutic. * Pt is expected to have HD tomorrow. Ordered vanco 500mg iv x 1 for after HD . * Goal trough level for osteomyelitis : 15 to 20 mcg/mL * Random level ordered for prior to HD on 05/30 with am labs Tamiflu * Dose given post HD last evening (05/26) * Next dose to be administered after HD 05/28 Pharmacy will continue to follow and will adjust dose/frequency as necessary. Thank you.
[2017-05-27] MEDS: OSELTAMIVIR PHOSPHATE SUSP 30 MG/5 ML UDP PO SCH (16:00)
[2017-05-27] MEDS: WARFARIN SOD 3 MG TAB PO SCH (16:16)
--- NOTE | 2017-05-27 19:44 | Progress Note ---
Medicine Progress Note Date & Time of Visit: May 27, 2017 at 17:30 . Subjective CC: Follow-up visit for influenza and other problems. HPI: No fever. Cough improved; no dyspnea. Nausea, diffuse abdominal discomfort present at time of admission resolved. Had some LLQ tenderness this morning which has resolved. Would like to advance diet. ROS: General- no fever Resp- as noted above in HPI Cardiac- no chest pain, chronic edema GI- as noted above in HPI - anuric . Objective Last 8 Hrs Date Time Temp Pulse Resp B/P (MAP) Pulse Ox O2 Delivery O2 Flow Rate FiO2 05/27/17 15:15 36.7 71 18 148/77 (100) 96 Room Air 05/27/17 15:06 78 16 96 Room Air Physical Exam: General- no acute distress Lungs- few scattered rhonchi, diffuse mild wheezing; no respiratory distress CV- RRR, no gallop; + JVD; 1+ pretibial edema Abdomen- obese, + BS, soft, diffuse mild tenderness Extremities- no cyanosis; no calf tenderness Neuro- alert Skin- warm & dry . Laboratory Results: Last 24 Hours Test 05/26/17 21:02 05/27/17 08:17 Hepatitis B Surface Antigen NEG Hepatitis B Surface Antibody NEG White Blood Count 2.83 K/uL Red Blood Count 3.08 M/uL Hemoglobin 8.8 g/dL Hematocrit 27.4 % Mean Corpuscular Volume 89.0 fL Mean Corpuscular Hemoglobin 28.6 pg Mean Corpuscular Hemoglobin Concent 32.1 g/dl Platelet Count 185 K/uL Mean Platelet Volume 10.0 fL Neutrophils (%) (Auto) 65.7 % Lymphocytes (%) (Auto) 17.3 % Monocytes (%) (Auto) 13.1 % Eosinophils (%) (Auto) 2.8 % Basophils (%) (Auto) 0.4 % Neutrophils # (Auto) 1.86 K/uL Lymphocytes # (Auto) 0.49 K/uL Monocytes # (Auto) 0.37 K/uL Eosinophils # (Auto) 0.08 K/uL Basophils # (Auto) 0.01 K/uL RDW Standard Deviation 56.7 fL RDW Coefficient of Variation 17.4 % Immature Granulocyte % (Auto) 0.7 % Immature Granulocyte # (Auto) 0.02 K/uL Ovalocytes 1+ Sodium Level 135 mmol/L Potassium Level 3.8 mmol/L Chloride Level 99 mmol/L Carbon Dioxide Level 25 mmol/L Anion Gap 11.0 mmol/L Blood Urea Nitrogen 15 mg/dl Creatinine 6.16 mg/dl Est Creatinine Clear Calc Drug Dose 9.9 ml/min Estimated GFR () 7.8 Estimated GFR (Non- 6.7 BUN/Creatinine Ratio 2.5 Random Glucose 98 mg/dl Calcium Level 8.3 mg/dl Iron Level 74 mcg/dl Total Iron Binding Capacity 132 mcg/dl Transferrin 115 mg/dl Transferrin % Saturation 46 % Random Vancomycin Level 22.6 mcg/ml Date/Time Source Procedure Growth Status 05/26/17 23:42 Nasal MRSA DNA Surveillance Screen - Final Specimen Negative for MRSA by DNA Probe Complete Assessment & Plan EXACERBATION OF COPD Due to influenza A. Oxygenating well. Continue nebs, steroids. INFLUENZA A Receiving course of oseltamivir, dose adjusted for CKD. Droplet precautions. NEUTROPENIA Improved. Probably secondary to viral illness. DC neutropenia precautions. HYPERTENSION Continue carvedilol, nifedipine, hydralazine. CHRONIC KIDNEY DISEASE STAGE V Management per Nephrology. CHRONIC GLUCOCORTICOID THERAPY On chronic steroids for years for SLE and renal transplant. IV hydrocortisone while acutely ill, then resume maintenance dose of prednisone. COPD / ASTHMA Pulmonary status stable. HISTORY OF MULTIPLE THROMBOTIC EVENTS Probably secondary to lupus anticoagulants. Continue warfarin. CHRONIC OSTEOMYELITIS LUMBAR SPINE Continue IV vancomycin with hemodialysis. RECENT INTRACRANIAL HEMORRHAGE Neuro status stable. Continue warfarin with caution. PT / OT evals. DVT PROPHYLAXIS On warfarin. DISPOSITION Expected discharge to home. Internal Medicine follow-up with Dr. Mcpherson. Nephrology follow-up with Dr. Christian. . Current Inpatient Medications: Current Inpatient Medications Medications (Trade) Dose Ordered Sig/Az Route Start Time Stop Time Status Last Admin Dose Admin Acetaminophen (Tylenol Tab) 650 mg Q4H PRN PO 05/24/17 13:00 06/23/17 12:59 05/26/17 23:37 650 MG Ondansetron HCl (Zofran Inj) 4 mg Q6H PRN IV 05/24/17 13:00 06/23/17 12:59 05/25/17 12:09 4 MG Miscellaneous Information 1 ea UD PRN N/A 05/24/17 14:39 06/23/17 14:38 Aspirin (Ecotrin Tab) 81 mg DAILY PO 05/25/17 09:00 06/24/17 08:59 05/27/17 07:25 81 MG Atorvastatin Calcium (Lipitor Tab) 40 mg DAILY PO 05/25/17 09:00 06/24/17 08:59 05/27/17 07:25 40 MG Bupropion HCl (Wellbutrin-Sr Tab) 100 mg BID PO 05/24/17 21:00 06/23/17 20:59 05/27/17 07:26 100 MG Carvedilol (Coreg Tab) 25 mg BID PO 05/24/17 21:00 06/23/17 20:59 05/27/17 07:26 25 MG Hydralazine HCl (Apresoline Tab) 10 mg DAILY PO 05/25/17 09:00 06/24/17 08:59 05/27/17 07:27 10 MG Levothyroxine Sodium (Synthroid Tab) 175 mcg DAILYBB PO 05/25/17 06:00 06/24/17 05:59 05/27/17 05:38 175 MCG Tramadol HCl (Ultram Tab) 50 mg Q4H PRN PO 05/24/17 13:30 06/23/17 13:29 05/26/17 22:34 50 MG Vitamin B Complex/ Vit C/Folic Acid (Nephrocaps) 1 cap DAILY PO 05/25/17 09:00 06/24/17 08:59 05/27/17 07:26 1 CAP Warfarin Sodium (Coumadin Tab) 3 mg DAILY@1600 PO 05/24/17 16:00 06/23/17 15:59 05/27/17 16:16 3 MG Zolpidem Tartrate (Ambien Tab) 5 mg HS PRN PO 05/24/17 13:30 06/23/17 13:29 Pantoprazole Sodium (Protonix Tab) 40 mg DAILY PO 05/25/17 09:00 06/24/17 08:59 05/27/17 07:25 40 MG Nifedipine (Procardia Xl Tab) 90 mg QAM PO 05/25/17 09:00 06/24/17 08:59 05/27/17 07:27 90 MG Sevelamer HCl (Renagel Tab) 1,600 mg BID PO 05/24/17 21:00 06/23/17 20:59 Sevelamer HCl (Renagel Tab) 2,400 mg TIDM PO 05/24/17 16:45 06/23/17 16:44 05/25/17 17:13 2,400 MG Miscellaneous Information (Consult) 1 ea UD PRN N/A 05/24/17 14:40 06/23/17 14:39 Miscellaneous (Iv Fluids Completed) 1 ea PRN PRN N/A 05/24/17 14:15 05/24/18 14:14 Oseltamivir Phosphate (Tamiflu Susp) SEE PROTOCOL TEXT DAILY@1600 PO 05/25/17 16:00 05/29/17 15:59 05/26/17 19:00 30 MG Ipratropium [place] (Atrovent 0.02% 0.5MG/2.5ML Neb) 0.5 mg Q4R INH 05/24/17 16:00 06/23/17 15:59 05/27/17 15:05 0.5 MG Levalbuterol (Xopenex 0.63 Mg/ 3 Ml Neb) 0.63 mg Q4R INH 05/24/17 16:00 06/23/17 15:59 05/27/17 15:05 0.63 MG Loperamide HCl (Imodium Cap) 2 mg TID PRN PO 05/24/17 17:45 06/23/17 17:44 05/25/17 17:15 2 MG Hydrocortisone Sodium Succinate 25 mg/Syringe 0.5 ml @ 4 mls/min Q8 IV 05/25/17 14:00 06/24/17 13:59 05/27/17 13:48 4 MLS/MIN Vancomycin HCl 500 mg/Sodium Chloride 110 ml @ 125 mls/hr TODAY@1800 ONCE IV 05/28/17 18:00 05/28/17 18:52
[2017-05-28] VITALS (25 sets, daily range): BP systolic 146–179; BP diastolic 57–82; PULSE 65–82; TEMP 36.6–37; O2SAT 93–100
[2017-05-28] MEDS: IPRATROPIUM BROMIDE NEB SOLN 0.02% 2.5 ML VIAL INH SCH ×7 (00:16→23:08)
[2017-05-28] MEDS: LEVALBUTEROL 0.63MG/3 ML NEB INH SCH ×7 (00:16→23:08)
[2017-05-28] MEDS: LEVOTHYROXINE 175 MCG TAB PO SCH (05:27)
--- NOTE | 2017-05-28 07:15 | Nephrology Progress Note ---
Nephrology Progress Note Date of Service: May 28, 2017. Subjective 61 yo female with ESRD admitted with Flu and diarrhea. diarrhea is better. pt is hungry and is happy that her diet was advanced for breakfast. not wheezing as badly. continues to have tenderness over previous incision in abdomen. Objective Date Time Temp Pulse Resp B/P (MAP) Pulse Ox O2 Delivery O2 Flow Rate FiO2 05/28/17 00:16 71 16 93 Room Air 05/27/17 23:28 Room Air 05/27/17 23:26 36.8 66 16 145/71 (95) 93 Room Air 05/27/17 20:51 67 150/75 (100) 05/27/17 20:23 71 16 96 Room Air 05/27/17 15:40 Room Air 05/27/17 15:15 36.7 71 18 148/77 (100) 96 Room Air 05/27/17 15:06 78 16 96 Room Air 05/27/17 11:30 70 16 98 Room Air 05/27/17 07:50 37.0 74 19 153/72 (99) 99 Room Air 05/27/17 07:45 Room Air 05/27/17 07:20 71 16 98 Room Air Physical Exam: General-aaox3 Eyes-no scleral icterus ENT-mmm Neck-supple Lungs-+end expiratory wheeze-better compared to yesterday Heart-2/6 systolic murmur Abdomen-bs+, +mild tenderness over old incision site on left lower quadrant Extremities-minimal lymphedema Neuro-nonfocal Current Inpatient Medications Medications (Trade) Dose Ordered Sig/Az Route Start Time Stop Time Status Last Admin Dose Admin Acetaminophen (Tylenol Tab) 650 mg Q4H PRN PO 05/24/17 13:00 06/23/17 12:59 05/26/17 23:37 650 MG Ondansetron HCl (Zofran Inj) 4 mg Q6H PRN IV 05/24/17 13:00 06/23/17 12:59 05/25/17 12:09 4 MG Miscellaneous Information 1 ea UD PRN N/A 05/24/17 14:39 06/23/17 14:38 Aspirin (Ecotrin Tab) 81 mg DAILY PO 05/25/17 09:00 06/24/17 08:59 05/27/17 07:25 81 MG Atorvastatin Calcium (Lipitor Tab) 40 mg DAILY PO 05/25/17 09:00 06/24/17 08:59 05/27/17 07:25 40 MG Bupropion HCl (Wellbutrin-Sr Tab) 100 mg BID PO 05/24/17 21:00 06/23/17 20:59 05/27/17 20:53 100 MG Carvedilol (Coreg Tab) 25 mg BID PO 05/24/17 21:00 06/23/17 20:59 05/27/17 20:53 25 MG Hydralazine HCl (Apresoline Tab) 10 mg DAILY PO 05/25/17 09:00 06/24/17 08:59 05/27/17 07:27 10 MG Levothyroxine Sodium (Synthroid Tab) 175 mcg DAILYBB PO 05/25/17 06:00 06/24/17 05:59 05/28/17 05:27 175 MCG Tramadol HCl (Ultram Tab) 50 mg Q4H PRN PO 05/24/17 13:30 06/23/17 13:29 05/26/17 22:34 50 MG Vitamin B Complex/ Vit C/Folic Acid (Nephrocaps) 1 cap DAILY PO 05/25/17 09:00 06/24/17 08:59 05/27/17 07:26 1 CAP Warfarin Sodium (Coumadin Tab) 3 mg DAILY@1600 PO 05/24/17 16:00 06/23/17 15:59 05/27/17 16:16 3 MG Zolpidem Tartrate (Ambien Tab) 5 mg HS PRN PO 05/24/17 13:30 06/23/17 13:29 Pantoprazole Sodium (Protonix Tab) 40 mg DAILY PO 05/25/17 09:00 06/24/17 08:59 05/27/17 07:25 40 MG Nifedipine (Procardia Xl Tab) 90 mg QAM PO 05/25/17 09:00 06/24/17 08:59 05/27/17 07:27 90 MG Sevelamer HCl (Renagel Tab) 1,600 mg BID PO 05/24/17 21:00 06/23/17 20:59 Sevelamer HCl (Renagel Tab) 2,400 mg TIDM PO 05/24/17 16:45 06/23/17 16:44 05/25/17 17:13 2,400 MG Miscellaneous Information (Consult) 1 ea UD PRN N/A 05/24/17 14:40 06/23/17 14:39 Miscellaneous (Iv Fluids Completed) 1 ea PRN PRN N/A 05/24/17 14:15 05/24/18 14:14 Oseltamivir Phosphate (Tamiflu Susp) SEE PROTOCOL TEXT DAILY@1600 PO 05/25/17 16:00 05/29/17 15:59 05/26/17 19:00 30 MG Ipratropium [place] (Atrovent 0.02% 0.5MG/2.5ML Neb) 0.5 mg Q4R INH 05/24/17 16:00 06/23/17 15:59 05/28/17 00:16 0.5 MG Levalbuterol (Xopenex 0.63 Mg/ 3 Ml Neb) 0.63 mg Q4R INH 05/24/17 16:00 06/23/17 15:59 05/28/17 00:16 0.63 MG Loperamide HCl (Imodium Cap) 2 mg TID PRN PO 05/24/17 17:45 06/23/17 17:44 05/25/17 17:15 2 MG Vancomycin HCl 500 mg/Sodium Chloride 110 ml @ 125 mls/hr TODAY@1800 ONCE IV 05/28/17 18:00 05/28/17 18:52 Prednisone (PredniSONE TAB) 15 mg MoWeFr@0900 PO 05/29/17 09:00 06/28/17 08:59 Prednisone (PredniSONE TAB) 15 mg 0900 ONCE PO 05/28/17 09:00 05/28/17 09:01 Last 24 Hours Test 05/27/17 08:17 05/28/17 04:44 White Blood Count 2.83 K/uL Red Blood Count 3.08 M/uL Hemoglobin 8.8 g/dL Hematocrit 27.4 % Mean Corpuscular Volume 89.0 fL Mean Corpuscular Hemoglobin 28.6 pg Mean Corpuscular Hemoglobin Concent 32.1 g/dl Platelet Count 185 K/uL Mean Platelet Volume 10.0 fL Neutrophils (%) (Auto) 65.7 % Lymphocytes (%) (Auto) 17.3 % Monocytes (%) (Auto) 13.1 % Eosinophils (%) (Auto) 2.8 % Basophils (%) (Auto) 0.4 % Neutrophils # (Auto) 1.86 K/uL Lymphocytes # (Auto) 0.49 K/uL Monocytes # (Auto) 0.37 K/uL Eosinophils # (Auto) 0.08 K/uL Basophils # (Auto) 0.01 K/uL RDW Standard Deviation 56.7 fL RDW Coefficient of Variation 17.4 % Immature Granulocyte % (Auto) 0.7 % Immature Granulocyte # (Auto) 0.02 K/uL Ovalocytes 1+ Sodium Level 135 mmol/L Potassium Level 3.8 mmol/L Chloride Level 99 mmol/L Carbon Dioxide Level 25 mmol/L Anion Gap 11.0 mmol/L Blood Urea Nitrogen 15 mg/dl Creatinine 6.16 mg/dl Est Creatinine Clear Calc Drug Dose 9.9 ml/min Estimated GFR () 7.8 Estimated GFR (Non- 6.7 BUN/Creatinine Ratio 2.5 Random Glucose 98 mg/dl Calcium Level 8.3 mg/dl Iron Level 74 mcg/dl Total Iron Binding Capacity 132 mcg/dl Transferrin 115 mg/dl Transferrin % Saturation 46 % Random Vancomycin Level 22.6 mcg/ml Assessment & Plan ESRD-for dialysis today. plan on 1 liter fluid removal. volume status is very good. Anemia of renal failure-goal hg of 10 to 11. continue procrit on dialysis.
[2017-05-28 08:00] LABS: BASO % 0.3 %; BASO ABS # 0.01 K/uL (0-0.2); EOS % 3.1 %; EOS ABS # 0.09 K/uL (0-0.5); HEMATOCRIT 26.1 % (37-47); HEMOGLOBIN 8.5 g/dL (12.0-16.0); IG# 0.03 K/uL (0.00-0.02); LYMPH % 35.6 %; LYMPH ABS # 1.04 K/uL (1.2-3.4); MEAN CELL VOLUME 88.8 fL (80-100); MEAN CORPUSCULAR HEMOGLOBIN 28.9 pg (25-34); MEAN CORPUSCULAR HGB CONC 32.6 g/dl (32-36); MEAN PLATELET VOLUME 9.8 fL (7.4-10.4); MONO % 12.3 %; MONO ABS # 0.36 K/uL (0.11-0.59); NEUT % 47.7 %; NEUT ABS # 1.39 K/uL (1.4-6.5); NUCLEATED RED BLOOD CELL ABS 0.02 K/uL (0-0); PLATELET COUNT 185 K/uL (130-400); RED CELL DISTRIBUTION WIDTH CV 17.2 % (11.5-14.5); RED CELL DISTRIBUTION WIDTH SD 55.5 fL (36.4-46.3); WHITE BLOOD COUNT 2.92 K/uL (4.8-10.8)
[2017-05-28 08:13] LABS: INR 4.3 (0.9-1.1)
[2017-05-28] MEDS: SEVELAMER HYDROCH 800 MG TAB PO SCH ×5 (08:46→20:28)
[2017-05-28] MEDS: PANTOprazole SOD 40 MG TAB PO SCH (08:46)
[2017-05-28] MEDS: NEPHROCAPS PO SCH (08:47)
[2017-05-28] MEDS: BuPROPion SR 100 MG TABCR PO SCH ×2 (08:48→20:29)
[2017-05-28 08:54] LABS: CALCIUM 8.6 mg/dl (8.5-10.1); CREATININE 7.93 mg/dl (0.60-1.20); POTASSIUM 3.9 mmol/L (3.5-5.1)
[2017-05-28] MEDS ORDERED: EPOETIN ALFA 10,000 UNITS/ML VIAL IV. SCH (09:00)
[2017-05-28] MEDS: ASPIRIN 81 MG ECTAB PO SCH (09:44)
[2017-05-28] MEDS: ATORVASTATIN 20 MG TAB PO SCH (09:45)
--- NOTE | 2017-05-28 13:39 | Progress Note ---
Medicine Progress Note Date & Time of Visit: May 28, 2017 at 13:30. Subjective seen resting in bed, comfortable still has cough, getting less but productive of yellow sputum breathing is improving, no chest pain no headache, dizziness, focal neuro deficits no signs of bleeding no other symptoms Objective Last 8 Hrs Date Time Temp Pulse Resp B/P (MAP) Pulse Ox O2 Delivery O2 Flow Rate FiO2 05/28/17 11:43 70 16 97 Room Air 05/28/17 08:44 72 146/72 (96) 05/28/17 08:30 Room Air 05/28/17 07:33 36.6 65 18 178/76 (110) 100 Room Air 05/28/17 07:25 68 16 94 Room Air Physical Exam: General- oriented x 3, not in distress, speaks in sentences with no effort Head- atraumatic Eyes- PERRL, EOMI, anicteric ENT- oropharynx clear Neck- supple, no JVD, no adenopathy, no thyromegaly Lungs-mild scattered expiratory wheezing Heart- regular rhythm; no murmur, no gallop Abdomen- normal bowel sounds, soft, nontender, no masses or hepatosplenomegaly Extremities- no pretibial edema, no calf tenderness; peripheral pulses intact Neuro- alert, oriented x 3; no gross focal deficits Skin- warm & dry Laboratory Results: Last 24 Hours Test 05/28/17 07:26 White Blood Count 2.92 K/uL Red Blood Count 2.94 M/uL Hemoglobin 8.5 g/dL Hematocrit 26.1 % Mean Corpuscular Volume 88.8 fL Mean Corpuscular Hemoglobin 28.9 pg Mean Corpuscular Hemoglobin Concent 32.6 g/dl Platelet Count 185 K/uL Mean Platelet Volume 9.8 fL Neutrophils (%) (Auto) 47.7 % Lymphocytes (%) (Auto) 35.6 % Monocytes (%) (Auto) 12.3 % Eosinophils (%) (Auto) 3.1 % Basophils (%) (Auto) 0.3 % Neutrophils # (Auto) 1.39 K/uL Lymphocytes # (Auto) 1.04 K/uL Monocytes # (Auto) 0.36 K/uL Eosinophils # (Auto) 0.09 K/uL Basophils # (Auto) 0.01 K/uL RDW Standard Deviation 55.5 fL RDW Coefficient of Variation 17.2 % Immature Granulocyte % (Auto) 1.0 % Immature Granulocyte # (Auto) 0.03 K/uL Nucleated RBC Absolute Count (auto) 0.02 K/uL Nucleated Red Blood Cells % 0.6 % Ovalocytes 1+ Echinocytes 1+ Prothrombin Time 44.1 SECONDS Prothromb Time International Ratio 4.3 Sodium Level 135 mmol/L Potassium Level 3.9 mmol/L Chloride Level 100 mmol/L Carbon Dioxide Level 24 mmol/L Anion Gap 11.0 mmol/L Blood Urea Nitrogen 23 mg/dl Creatinine 7.93 mg/dl Est Creatinine Clear Calc Drug Dose 7.7 ml/min Estimated GFR () 5.7 Estimated GFR (Non- 4.9 BUN/Creatinine Ratio 2.9 Random Glucose 85 mg/dl Calcium Level 8.6 mg/dl Assessment & Plan EXACERBATION OF COPD SECONDARY TO INFLUENZA A -- improving obtain sputum culture Continue nebs, steroids. INFLUENZA A Receiving course of oseltamivir, dose adjusted for CKD.- Day 5/5 Droplet precautions. NEUTROPENIA Probably secondary to viral illness. -- neutropenia precautions. SUPRATHERAPEUTIC INR - in the setting of subarachnoid hemorrhage last 04/2017 - CT head on admission: no bleed - INR today 4.0 asymptomatic discussed with [facility] Neurosurgery- does not recommend reversal at this point, just HOLD coumadin, neurochecks INR daily DYSPHAGIA - consult Speech Therapy for Swallow Eval HYPERTENSION Continue carvedilol, nifedipine, hydralazine. CHRONIC KIDNEY DISEASE STAGE V Management per Nephrology. CHRONIC GLUCOCORTICOID THERAPY On chronic steroids for years for SLE and renal transplant. now on maintenance dose of prednisone. COPD / ASTHMA Pulmonary status stable. HISTORY OF MULTIPLE THROMBOTIC EVENTS Probably secondary to lupus anticoagulants. -- INR 4.3 hold coumadin for now CHRONIC OSTEOMYELITIS LUMBAR SPINE Continue IV vancomycin with hemodialysis. RECENT INTRACRANIAL HEMORRHAGE Neuro status stable. -- HOLD coumadin PT / OT evals. DVT PROPHYLAXIS INR 4.3 coumadin on hold DISPOSITION Expected discharge to home. Internal Medicine follow-up with Dr. Mcpherson. Nephrology follow-up with Dr. Christian. . Current Inpatient Medications: Current Inpatient Medications Medications (Trade) Dose Ordered Sig/Az Route Start Time Stop Time Status Last Admin Dose Admin Acetaminophen (Tylenol Tab) 650 mg Q4H PRN PO 05/24/17 13:00 06/23/17 12:59 05/26/17 23:37 650 MG Ondansetron HCl (Zofran Inj) 4 mg Q6H PRN IV 05/24/17 13:00 06/23/17 12:59 05/25/17 12:09 4 MG Miscellaneous Information 1 ea UD PRN N/A 05/24/17 14:39 06/23/17 14:38 Aspirin (Ecotrin Tab) 81 mg DAILY PO 05/25/17 09:00 06/24/17 08:59 05/28/17 09:44 81 MG Atorvastatin Calcium (Lipitor Tab) 40 mg DAILY PO 05/25/17 09:00 06/24/17 08:59 05/28/17 09:45 40 MG Bupropion HCl (Wellbutrin-Sr Tab) 100 mg BID PO 05/24/17 21:00 06/23/17 20:59 05/28/17 08:48 100 MG Carvedilol (Coreg Tab) 25 mg BID PO 05/24/17 21:00 06/23/17 20:59 05/27/17 20:53 25 MG Hydralazine HCl (Apresoline Tab) 10 mg DAILY PO 05/25/17 09:00 06/24/17 08:59 05/27/17 07:27 10 MG Levothyroxine Sodium (Synthroid Tab) 175 mcg DAILYBB PO 05/25/17 06:00 06/24/17 05:59 05/28/17 05:27 175 MCG Tramadol HCl (Ultram Tab) 50 mg Q4H PRN PO 05/24/17 13:30 06/23/17 13:29 05/26/17 22:34 50 MG Vitamin B Complex/ Vit C/Folic Acid (Nephrocaps) 1 cap DAILY PO 05/25/17 09:00 06/24/17 08:59 05/28/17 08:47 1 CAP Zolpidem Tartrate (Ambien Tab) 5 mg HS PRN PO 05/24/17 13:30 06/23/17 13:29 Pantoprazole Sodium (Protonix Tab) 40 mg DAILY PO 05/25/17 09:00 06/24/17 08:59 05/28/17 08:46 40 MG Nifedipine (Procardia Xl Tab) 90 mg QAM PO 05/25/17 09:00 06/24/17 08:59 05/27/17 07:27 90 MG Sevelamer HCl (Renagel Tab) 1,600 mg BID PO 05/24/17 21:00 06/23/17 20:59 Sevelamer HCl (Renagel Tab) 2,400 mg TIDM PO 05/24/17 16:45 06/23/17 16:44 05/28/17 12:59 2,400 MG Miscellaneous Information (Consult) 1 ea UD PRN N/A 05/24/17 14:40 06/23/17 14:39 Miscellaneous (Iv Fluids Completed) 1 ea PRN PRN N/A 05/24/17 14:15 05/24/18 14:14 Oseltamivir Phosphate (Tamiflu Susp) SEE PROTOCOL TEXT DAILY@1600 PO 05/25/17 16:00 05/29/17 15:59 05/26/17 19:00 30 MG Ipratropium [place] (Atrovent 0.02% 0.5MG/2.5ML Neb) 0.5 mg Q4R INH 05/24/17 16:00 06/23/17 15:59 05/28/17 11:43 0.5 MG Levalbuterol (Xopenex 0.63 Mg/ 3 Ml Neb) 0.63 mg Q4R INH 05/24/17 16:00 06/23/17 15:59 05/28/17 11:43 0.63 MG Loperamide HCl (Imodium Cap) 2 mg TID PRN PO 05/24/17 17:45 06/23/17 17:44 05/25/17 17:15 2 MG Vancomycin HCl 500 mg/Sodium Chloride 110 ml @ 125 mls/hr TODAY@1800 ONCE IV 05/28/17 18:00 05/28/17 18:52 Prednisone (PredniSONE TAB) 15 mg MoWeFr@0900 PO 05/29/17 09:00 06/28/17 08:59 Epoetin Tone (Procrit Inj) 10,000 units TODAY@0900 IV. 05/28/17 09:00 05/28/17 16:00
[2017-05-28] MEDS: CARVEDILOL 25 MG TAB PO SCH ×3 (15:19→22:00)
[2017-05-28] MEDS: TRAMADOL HCL 50 MG TAB PO PRN (17:51)
[2017-05-28] MEDS ORDERED: VANCOMYCIN INJ 500 MG in SODIUM CHLORIDE 0.9% 100ML 100 ML IV ONE (18:00)
[2017-05-28] MEDS: NIFEdipine 30 MG CR TAB PO SCH (19:26)
[2017-05-28] MEDS: HydrALAZINE 10 MG TAB PO SCH (19:27)
[2017-05-28] MEDS: OSELTAMIVIR PHOSPHATE SUSP 30 MG/5 ML UDP PO SCH (20:14)
[2017-05-29] VITALS (13 sets, daily range): BP systolic 128–182; BP diastolic 69–82; PULSE 70–80; TEMP 36.5–37.1; O2SAT 93–99
[2017-05-29] MEDS: IPRATROPIUM BROMIDE NEB SOLN 0.02% 2.5 ML VIAL INH SCH ×6 (03:32→23:09)
[2017-05-29] MEDS: LEVALBUTEROL 0.63MG/3 ML NEB INH SCH ×6 (03:32→23:09)
[2017-05-29] MEDS: LEVOTHYROXINE 175 MCG TAB PO SCH (06:00)
[2017-05-29 06:38] LABS: INR 2.9 (0.9-1.1)
[2017-05-29] MEDS: SEVELAMER HYDROCH 800 MG TAB PO SCH ×5 (09:00→21:00)
[2017-05-29] MEDS: BuPROPion SR 100 MG TABCR PO SCH ×2 (09:21→21:22)
[2017-05-29] MEDS: NIFEdipine 30 MG CR TAB PO SCH (09:22)
[2017-05-29] MEDS: HydrALAZINE 10 MG TAB PO SCH (09:22)
[2017-05-29] MEDS: CARVEDILOL 25 MG TAB PO SCH ×2 (09:23→21:22)
[2017-05-29] MEDS: NEPHROCAPS PO SCH (09:23)
[2017-05-29] MEDS: ATORVASTATIN 20 MG TAB PO SCH (09:23)
[2017-05-29] MEDS: PANTOprazole SOD 40 MG TAB PO SCH (09:24)
[2017-05-29] MEDS: TRAMADOL HCL 50 MG TAB PO PRN ×2 (12:50→23:39)
[2017-05-29] MEDS ORDERED: CONSULT PHARMACY STA (17:05)
[2017-05-29] MEDS ORDERED: GUAIFENESIN 600 MG TABCR PO ONE (17:15)
--- NOTE | 2017-05-29 17:16 | Progress Note ---
Medicine Progress Note Date & Time of Visit: May 29, 2017 at 17:08. Subjective seen sitting up in bed, comfortable states her breathing is improving, but continues to have dry cough denies abdominal pain, nausea, dysuria denies other symptoms Objective Last 8 Hrs Date Time Temp Pulse Resp B/P (MAP) Pulse Ox O2 Delivery O2 Flow Rate FiO2 05/29/17 15:44 36.5 80 20 164/71 (102) 95 Room Air 05/29/17 15:07 76 16 97 Room Air 05/29/17 11:50 76 16 99 Room Air Physical Exam: General- oriented x 3, not in distress, speaks in sentences with no effort Eyes- EOMI, anicteric ENT- oropharynx clear Neck- supple, no JVD Lungs- diminished but clear breath sounds bilaterally Heart- regular rhythm; no murmur, no gallop Abdomen- normal bowel sounds, soft, nontender Extremities- no pretibial edema, no calf tenderness Neuro- alert, oriented x 3; no gross focal deficits Skin- warm & dry Laboratory Results: Last 24 Hours Test 05/29/17 05:43 Prothrombin Time 29.8 SECONDS Prothromb Time International Ratio 2.9 Assessment & Plan EXACERBATION OF COPD SECONDARY TO INFLUENZA A -- improving gradually obtain sputum culture: pending -- completed 5 day course of Tamiflu Continue nebs on Prednisone ENTEROCOCCUS FAECIUM UTI, IN THE SETTING OF NEUTROPENIA, CHRONIC STEROID USE -- on Vanco IV for Osteomyelitis -- change to Daptomycin IV based on Urine C&S -- will consult ID NEUTROPENIA Probably secondary to viral illness. -- neutropenia precautions. -- repeat CBC tomorrow SUPRATHERAPEUTIC INR - in the setting of subarachnoid hemorrhage last 04/2017 - CT head on admission: no bleed - INR 4 to 2.9 asymptomatic discussed with [facility] Neurosurgery- does not recommend reversal at this point, just HOLD coumadin, neurochecks INR daily DYSPHAGIA - consult Speech Therapy for Swallow Eval: no signs of aspiration - ff up outpatient with GI and ENT HYPERTENSION Continue carvedilol, nifedipine, hydralazine. CHRONIC KIDNEY DISEASE STAGE V Management per Nephrology. CHRONIC GLUCOCORTICOID THERAPY On chronic steroids for years for SLE and renal transplant. now on maintenance dose of prednisone. COPD / ASTHMA Pulmonary status stable. HISTORY OF MULTIPLE THROMBOTIC EVENTS Probably secondary to lupus anticoagulants. -- INR 4.3--> 2.9 hold coumadin for now repeat INR tomorrow ASA also on hold CHRONIC OSTEOMYELITIS LUMBAR SPINE - usually on IV Vanco with HD will transition to Dapto in light of Enterococcus UTI, ID consulted RECENT INTRACRANIAL HEMORRHAGE Neuro status stable. -- HOLD coumadin as INR 2.9 to prevent supra--therapeutic INR PT / OT evals. DVT PROPHYLAXIS INR 2.9 coumadin on hold DISPOSITION Expected discharge to home when stable Internal Medicine follow-up with Dr. Mcpherson. Nephrology follow-up with Dr. Christian. . Current Inpatient Medications: Current Inpatient Medications Medications (Trade) Dose Ordered Sig/Az Route Start Time Stop Time Status Last Admin Dose Admin Acetaminophen (Tylenol Tab) 650 mg Q4H PRN PO 05/24/17 13:00 06/23/17 12:59 05/26/17 23:37 650 MG Ondansetron HCl (Zofran Inj) 4 mg Q6H PRN IV 05/24/17 13:00 06/23/17 12:59 05/25/17 12:09 4 MG Miscellaneous Information 1 ea UD PRN N/A 05/24/17 14:39 06/23/17 14:38 Atorvastatin Calcium (Lipitor Tab) 40 mg DAILY PO 05/25/17 09:00 06/24/17 08:59 05/29/17 09:23 40 MG Bupropion HCl (Wellbutrin-Sr Tab) 100 mg BID PO 05/24/17 21:00 06/23/17 20:59 05/29/17 09:21 100 MG Carvedilol (Coreg Tab) 25 mg BID PO 05/24/17 21:00 06/23/17 20:59 05/29/17 09:23 25 MG Hydralazine HCl (Apresoline Tab) 10 mg DAILY PO 05/25/17 09:00 06/24/17 08:59 05/29/17 09:22 10 MG Levothyroxine Sodium (Synthroid Tab) 175 mcg DAILYBB PO 05/25/17 06:00 06/24/17 05:59 05/29/17 06:00 175 MCG Tramadol HCl (Ultram Tab) 50 mg Q4H PRN PO 05/24/17 13:30 06/23/17 13:29 05/29/17 12:50 50 MG Vitamin B Complex/ Vit C/Folic Acid (Nephrocaps) 1 cap DAILY PO 1/20/18 09:00 06/24/17 08:59 05/29/17 09:23 1 CAP Zolpidem Tartrate (Ambien Tab) 5 mg HS PRN PO 05/24/17 13:30 06/23/17 13:29 Pantoprazole Sodium (Protonix Tab) 40 mg DAILY PO 05/25/17 09:00 06/24/17 08:59 05/29/17 09:24 40 MG Nifedipine (Procardia Xl Tab) 90 mg QAM PO 05/25/17 09:00 06/24/17 08:59 05/29/17 09:22 90 MG Sevelamer HCl (Renagel Tab) 1,600 mg BID PO 05/24/17 21:00 06/23/17 20:59 Sevelamer HCl (Renagel Tab) 2,400 mg TIDM PO 05/24/17 16:45 06/23/17 16:44 05/29/17 12:46 2,400 MG Miscellaneous Information (Consult) 1 ea UD PRN N/A 05/24/17 14:40 06/23/17 14:39 Miscellaneous (Iv Fluids Completed) 1 ea PRN PRN N/A 05/24/17 14:15 05/24/18 14:14 Ipratropium [place] (Atrovent 0.02% 0.5MG/2.5ML Neb) 0.5 mg Q4R INH 05/24/17 16:00 06/23/17 15:59 05/29/17 15:06 0.5 MG Levalbuterol (Xopenex 0.63 Mg/ 3 Ml Neb) 0.63 mg Q4R INH 05/24/17 16:00 06/23/17 15:59 05/29/17 15:06 0.63 MG Loperamide HCl (Imodium Cap) 2 mg TID PRN PO 05/24/17 17:45 06/23/17 17:44 05/25/17 17:15 2 MG Prednisone (PredniSONE TAB) 15 mg MoWeFr@0900 PO 05/29/17 09:00 06/28/17 08:59 05/29/17 09:24 15 MG Heparin Sodium (Porcine) (Heparin 100 Unit/ml 5ml Flush) 5 ml PRN PRN IV 05/29/17 01:00 06/28/17 00:59 05/29/17 05:37 5 ML
[2017-05-29] MEDS ORDERED: DAPTOMYCIN CONSULT ACTIVE PRN (17:30)
[2017-05-29] MEDS: ONDANSETRON INJ 2 MG/ML 2 ML VIAL IV PRN (18:26)
[2017-05-29] MEDS: DAPTOmycin IV 500 MG in SYRINGE 0 ML IV SCH (19:05)
[2017-05-30] VITALS (25 sets, daily range): BP systolic 121–163; BP diastolic 57–78; PULSE 70–81; TEMP 36.7–37.1; O2SAT 97–98
[2017-05-30] MEDS: IPRATROPIUM BROMIDE NEB SOLN 0.02% 2.5 ML VIAL INH SCH ×6 (03:26→23:11)
[2017-05-30] MEDS: LEVALBUTEROL 0.63MG/3 ML NEB INH SCH ×6 (03:26→23:11)
[2017-05-30] MEDS ORDERED: GUAIFENESIN 600 MG TABCR PO PRN (05:00)
[2017-05-30 05:20] LABS: BASO % 0.7 %; BASO ABS # 0.03 K/uL (0-0.2); EOS % 0.7 %; EOS ABS # 0.03 K/uL (0-0.5); HEMATOCRIT 26.7 % (37-47); HEMOGLOBIN 8.4 g/dL (12.0-16.0); IG# 0.09 K/uL (0.00-0.02); LYMPH % 22.6 %; LYMPH ABS # 0.92 K/uL (1.2-3.4); MEAN CELL VOLUME 90.2 fL (80-100); MEAN CORPUSCULAR HEMOGLOBIN 28.4 pg (25-34); MEAN CORPUSCULAR HGB CONC 31.5 g/dl (32-36); MEAN PLATELET VOLUME 9.8 fL (7.4-10.4); MONO % 11.5 %; MONO ABS # 0.47 K/uL (0.11-0.59); NEUT % 62.3 %; NEUT ABS # 2.53 K/uL (1.4-6.5); NUCLEATED RED BLOOD CELL ABS 0.02 K/uL (0-0); PLATELET COUNT 198 K/uL (130-400); RED CELL DISTRIBUTION WIDTH CV 17.4 % (11.5-14.5); RED CELL DISTRIBUTION WIDTH SD 56.3 fL (36.4-46.3); WHITE BLOOD COUNT 4.07 K/uL (4.8-10.8)
[2017-05-30 05:32] LABS: INR 1.6 (0.9-1.1)
[2017-05-30 06:04] LABS: CALCIUM 7.5 mg/dl (8.5-10.1); CREATININE 7.86 mg/dl (0.60-1.20); POTASSIUM 4.4 mmol/L (3.5-5.1)
[2017-05-30] MEDS: LEVOTHYROXINE 175 MCG TAB PO SCH (06:33)
[2017-05-30] MEDS: SEVELAMER HYDROCH 800 MG TAB PO SCH ×5 (08:47→21:00)
[2017-05-30] MEDS: CARVEDILOL 25 MG TAB PO SCH ×2 (08:47→21:15)
--- NOTE | 2017-05-30 08:47 | Progress Note ---
Medicine Progress Note Date & Time of Visit: May 30, 2017 at 08:38. Subjective placed on NPO overnight, as patient was having "gagging" after meal on exam, patient seen sitting up in bed, appears improved compared to yesterday per patient, she is having sensation of food getting stuck in her throat, bringing up clear sputum after dinner would like to try soft diet this morning breathing is improving, less cough denies abdominal pain, dysuria no other symptoms Objective Last 8 Hrs Date Time Temp Pulse Resp B/P (MAP) Pulse Ox O2 Delivery O2 Flow Rate FiO2 05/30/17 08:10 36.7 73 18 163/75 (104) 97 Room Air 05/30/17 07:19 76 16 98 Room Air 05/30/17 03:26 76 16 98 Room Air Physical Exam: General- oriented x 3, not in distress, speaks in sentences with no effort Eyes- anicteric ENT- oropharynx clear Neck- no JVD Lungs- clear breath sounds bilaterally Heart- regular rhythm; (+) murmur, no gallop Abdomen- normal bowel sounds, soft, nontender Extremities- no pretibial edema, no calf tenderness Neuro- alert, oriented x 3; no gross focal deficits Skin- warm & dry Laboratory Results: Last 24 Hours Test 05/30/17 04:58 White Blood Count 4.07 K/uL Red Blood Count 2.96 M/uL Hemoglobin 8.4 g/dL Hematocrit 26.7 % Mean Corpuscular Volume 90.2 fL Mean Corpuscular Hemoglobin 28.4 pg Mean Corpuscular Hemoglobin Concent 31.5 g/dl Platelet Count 198 K/uL Mean Platelet Volume 9.8 fL Neutrophils (%) (Auto) 62.3 % Lymphocytes (%) (Auto) 22.6 % Monocytes (%) (Auto) 11.5 % Eosinophils (%) (Auto) 0.7 % Basophils (%) (Auto) 0.7 % Neutrophils # (Auto) 2.53 K/uL Lymphocytes # (Auto) 0.92 K/uL Monocytes # (Auto) 0.47 K/uL Eosinophils # (Auto) 0.03 K/uL Basophils # (Auto) 0.03 K/uL RDW Standard Deviation 56.3 fL RDW Coefficient of Variation 17.4 % Immature Granulocyte % (Auto) 2.2 % Immature Granulocyte # (Auto) 0.09 K/uL Nucleated RBC Absolute Count (auto) 0.02 K/uL Nucleated Red Blood Cells % 0.4 % Large Platelets 1+ Polychromasia 1+ Ovalocytes 1+ Prothrombin Time 16.9 SECONDS Prothromb Time International Ratio 1.6 Sodium Level 135 mmol/L Potassium Level 4.4 mmol/L Chloride Level 103 mmol/L Carbon Dioxide Level 25 mmol/L Anion Gap 7.0 mmol/L Blood Urea Nitrogen 27 mg/dl Creatinine 7.86 mg/dl Est Creatinine Clear Calc Drug Dose 7.6 ml/min Estimated GFR () 5.8 Estimated GFR (Non- 5.0 BUN/Creatinine Ratio 3.5 Random Glucose 101 mg/dl Calcium Level 7.5 mg/dl Random Vancomycin Level 26.2 mcg/ml Assessment & Plan EXACERBATION OF COPD SECONDARY TO INFLUENZA A -- improving gradually daily obtain sputum culture: pending collection -- completed 5 day course of Tamiflu -- overall better on room air Continue nebs q4h, q6h tomorrow on usual Prednisone ENTEROCOCCUS FAECIUM UTI, IN THE SETTING OF NEUTROPENIA, CHRONIC STEROID USE CHRONIC OSTEOMYELITIS LUMBAR SPINE - usually on IV Vanco with HD will transition to Dapto in light of Enterococcus UTI, ID consulted -- was on chronic Vanco IV for Osteomyelitis -- changed to Daptomycin IV Day 2 based on Urine C&S -- consulted ID GLOBUS SENSATION -- s/p Speech Eval yesterday, no aspiration noted -- was scheduled to see GI last es will consult GI today trial of soft diet this morning -- may need ENT consult as outpatient as well NEUTROPENIA, RESOLVED Probably secondary to viral illness. -- ANC normal now SUPRATHERAPEUTIC INR, RESOLVED HISTORY OF MULTIPLE THROMBOTIC EVENTS Probably secondary to lupus anticoagulants. - in the setting of subarachnoid hemorrhage last 04/2017 - CT head on admission: no bleed - INR 4 to 2.9 TO 1.6 - resume coumadin 3mg resume Aspirin RECENT INTRACRANIAL HEMORRHAGE Neuro status stable. -- held coumadin for INR >4 INR now 1.6, coumadin resumed CHRONIC KIDNEY DISEASE STAGE V Management per Nephrology. HYPERTENSION Continue carvedilol, nifedipine, hydralazine. CHRONIC GLUCOCORTICOID THERAPY On chronic steroids for years for SLE and renal transplant. now on maintenance dose of prednisone. DVT PROPHYLAXIS coumadin DISPOSITION Expected discharge to home when stable Internal Medicine follow-up with Dr. Mcpherson. Nephrology follow-up with Dr. Christian. . Current Inpatient Medications: Current Inpatient Medications Medications (Trade) Dose Ordered Sig/Az Route Start Time Stop Time Status Last Admin Dose Admin Acetaminophen (Tylenol Tab) 650 mg Q4H PRN PO 05/24/17 13:00 06/23/17 12:59 05/26/17 23:37 650 MG Ondansetron HCl (Zofran Inj) 4 mg Q6H PRN IV 05/24/17 13:00 06/23/17 12:59 05/29/17 18:26 4 MG Miscellaneous Information 1 ea UD PRN N/A 05/24/17 14:39 06/23/17 14:38 Atorvastatin Calcium (Lipitor Tab) 40 mg DAILY PO 05/25/17 09:00 06/24/17 08:59 05/29/17 09:23 40 MG Bupropion HCl (Wellbutrin-Sr Tab) 100 mg BID PO 05/24/17 21:00 06/23/17 20:59 05/29/17 21:22 100 MG Carvedilol (Coreg Tab) 25 mg BID PO 05/24/17 21:00 06/23/17 20:59 05/29/17 21:22 25 MG Hydralazine HCl (Apresoline Tab) 10 mg DAILY PO 05/25/17 09:00 06/24/17 08:59 05/29/17 09:22 10 MG Levothyroxine Sodium (Synthroid Tab) 175 mcg DAILYBB PO 05/25/17 06:00 06/24/17 05:59 05/30/17 06:33 175 MCG Tramadol HCl (Ultram Tab) 50 mg Q4H PRN PO 05/24/17 13:30 06/23/17 13:29 05/29/17 23:39 50 MG Vitamin B Complex/ Vit C/Folic Acid (Nephrocaps) 1 cap DAILY PO 05/25/17 09:00 06/24/17 08:59 05/29/17 09:23 1 CAP Zolpidem Tartrate (Ambien Tab) 5 mg HS PRN PO 05/24/17 13:30 06/23/17 13:29 Pantoprazole Sodium (Protonix Tab) 40 mg DAILY PO 05/25/17 09:00 06/24/17 08:59 05/29/17 09:24 40 MG Nifedipine (Procardia Xl Tab) 90 mg QAM PO 05/25/17 09:00 06/24/17 08:59 05/29/17 09:22 90 MG Sevelamer HCl (Renagel Tab) 1,600 mg BID PO 05/24/17 21:00 06/23/17 20:59 Sevelamer HCl (Renagel Tab) 2,400 mg TIDM PO 05/24/17 16:45 06/23/17 16:44 05/29/17 18:34 2,400 MG Miscellaneous (Iv Fluids Completed) 1 ea PRN PRN N/A 05/24/17 14:15 05/24/18 14:14 Ipratropium [place] (Atrovent 0.02% 0.5MG/2.5ML Neb) 0.5 mg Q4R INH 05/24/17 16:00 06/23/17 15:59 05/30/17 07:19 0.5 MG Levalbuterol (Xopenex 0.63 Mg/ 3 Ml Neb) 0.63 mg Q4R INH 05/24/17 16:00 06/23/17 15:59 05/30/17 07:19 0.63 MG Loperamide HCl (Imodium Cap) 2 mg TID PRN PO 05/24/17 17:45 06/23/17 17:44 05/25/17 17:15 2 MG Prednisone (PredniSONE TAB) 15 mg MoWeFr@0900 PO 05/29/17 09:00 06/28/17 08:59 05/29/17 09:24 15 MG Heparin Sodium (Porcine) (Heparin 100 Unit/ml 5ml Flush) 5 ml PRN PRN IV 05/29/17 01:00 06/28/17 00:59 05/30/17 04:58 5 ML Guaifenesin (Mucinex Contr Rel Tab) 600 mg Q12 PRN PO 05/30/17 05:00 06/29/17 04:59 Daptomycin 500 mg/ Syringe 10 ml @ 5 mls/min Q48H IV 05/29/17 18:00 07/10/17 17:59 05/29/17 19:05 5 MLS/MIN Daptomycin (Consult) 1 ea UD PRN N/A 1/24/18 17:30 06/28/17 17:29 Warfarin Sodium (Coumadin Tab) 3 mg DAILY@16 PO 05/30/17 16:00 06/29/17 15:59 Epoetin Tone (Procrit Inj) 10,000 units ONE ONCE IV. 05/30/17 08:30 05/30/17 08:31 UNV Aspirin (Ecotrin Tab) 81 mg QAM PO 05/30/17 09:00 06/29/17 08:59 UNV
[2017-05-30] MEDS: BuPROPion SR 100 MG TABCR PO SCH ×2 (08:48→21:14)
[2017-05-30] MEDS: ATORVASTATIN 20 MG TAB PO SCH (08:48)
[2017-05-30] MEDS: PANTOprazole SOD 40 MG TAB PO SCH (08:49)
[2017-05-30] MEDS: HydrALAZINE 10 MG TAB PO SCH (08:49)
[2017-05-30] MEDS: NEPHROCAPS PO SCH (08:49)
[2017-05-30] MEDS: NIFEdipine 30 MG CR TAB PO SCH (08:50)
--- NOTE | 2017-05-30 08:58 | Nephrology Progress Note ---
Nephrology Progress Note Date of Service: May 30, 2017. Subjective 61 yo female with ESRD admitted with Flu and diarrhea. pt has been having swallowing difficulty to liquids only. continues to have a hoarse voice. eating about half of her food. breathing is improving. currently on neutropenic precautions Objective Date Time Temp Pulse Resp B/P (MAP) Pulse Ox O2 Delivery O2 Flow Rate FiO2 05/30/17 08:10 36.7 73 18 163/75 (104) 97 Room Air 05/30/17 07:19 76 16 98 Room Air 05/30/17 03:26 76 16 98 Room Air 05/29/17 23:45 95 Room Air 05/29/17 23:24 36.7 74 18 146/75 (98) 95 Room Air 05/29/17 23:09 73 16 98 Room Air 05/29/17 21:23 80 128/74 (92) 05/29/17 19:54 78 16 98 Room Air 05/29/17 15:45 Room Air 05/29/17 15:44 36.5 80 20 164/71 (102) 95 Room Air 05/29/17 15:07 76 16 97 Room Air 05/29/17 11:50 76 16 99 Room Air Physical Exam: General-aaox3, hoarse voice Eyes-no scleral icterus ENT-mmm Neck-supple Lungs-cta Heart-2/6 systolic murmur Abdomen-bs+, soft/nd Extremities-minimal lymphedema Neuro-nonfocal Current Inpatient Medications Medications (Trade) Dose Ordered Sig/Az Route Start Time Stop Time Status Last Admin Dose Admin Acetaminophen (Tylenol Tab) 650 mg Q4H PRN PO 05/24/17 13:00 06/23/17 12:59 05/26/17 23:37 650 MG Ondansetron HCl (Zofran Inj) 4 mg Q6H PRN IV 05/24/17 13:00 06/23/17 12:59 05/29/17 18:26 4 MG Miscellaneous Information 1 ea UD PRN N/A 05/24/17 14:39 06/23/17 14:38 Atorvastatin Calcium (Lipitor Tab) 40 mg DAILY PO 05/25/17 09:00 06/24/17 08:59 05/30/17 08:48 40 MG Bupropion HCl (Wellbutrin-Sr Tab) 100 mg BID PO 05/24/17 21:00 06/23/17 20:59 05/30/17 08:48 100 MG Carvedilol (Coreg Tab) 25 mg BID PO 05/24/17 21:00 06/23/17 20:59 05/30/17 08:47 25 MG Hydralazine HCl (Apresoline Tab) 10 mg DAILY PO 05/25/17 09:00 06/24/17 08:59 05/30/17 08:49 10 MG Levothyroxine Sodium (Synthroid Tab) 175 mcg DAILYBB PO 05/25/17 06:00 06/24/17 05:59 05/30/17 06:33 175 MCG Tramadol HCl (Ultram Tab) 50 mg Q4H PRN PO 05/24/17 13:30 06/23/17 13:29 05/29/17 23:39 50 MG Vitamin B Complex/ Vit C/Folic Acid (Nephrocaps) 1 cap DAILY PO 05/25/17 09:00 06/24/17 08:59 05/30/17 08:49 1 CAP Zolpidem Tartrate (Ambien Tab) 5 mg HS PRN PO 05/24/17 13:30 06/23/17 13:29 Pantoprazole Sodium (Protonix Tab) 40 mg DAILY PO 05/25/17 09:00 06/24/17 08:59 05/30/17 08:49 40 MG Nifedipine (Procardia Xl Tab) 90 mg QAM PO 05/25/17 09:00 06/24/17 08:59 05/30/17 08:50 90 MG Sevelamer HCl (Renagel Tab) 1,600 mg BID PO 05/24/17 21:00 06/23/17 20:59 Sevelamer HCl (Renagel Tab) 2,400 mg TIDM PO 05/24/17 16:45 06/23/17 16:44 05/30/17 08:47 2,400 MG Miscellaneous (Iv Fluids Completed) 1 ea PRN PRN N/A 05/24/17 14:15 05/24/18 14:14 Ipratropium [place] (Atrovent 0.02% 0.5MG/2.5ML Neb) 0.5 mg Q4R INH 05/24/17 16:00 06/23/17 15:59 05/30/17 07:19 0.5 MG Levalbuterol (Xopenex 0.63 Mg/ 3 Ml Neb) 0.63 mg Q4R INH 05/24/17 16:00 06/23/17 15:59 05/30/17 07:19 0.63 MG Loperamide HCl (Imodium Cap) 2 mg TID PRN PO 05/24/17 17:45 06/23/17 17:44 05/25/17 17:15 2 MG Prednisone (PredniSONE TAB) 15 mg MoWeFr@0900 PO 05/29/17 09:00 06/28/17 08:59 05/29/17 09:24 15 MG Heparin Sodium (Porcine) (Heparin 100 Unit/ml 5ml Flush) 5 ml PRN PRN IV 05/29/17 01:00 06/28/17 00:59 05/30/17 04:58 5 ML Guaifenesin (Mucinex Contr Rel Tab) 600 mg Q12 PRN PO 05/30/17 05:00 06/29/17 04:59 Daptomycin 500 mg/ Syringe 10 ml @ 5 mls/min Q48H IV 05/29/17 18:00 07/10/17 17:59 05/29/17 19:05 5 MLS/MIN Daptomycin (Consult) 1 ea UD PRN N/A 05/29/17 17:30 06/28/17 17:29 Warfarin Sodium (Coumadin Tab) 3 mg DAILY@16 PO 05/30/17 16:00 06/29/17 15:59 Epoetin Tone (Procrit Inj) 10,000 units TODAY@0900 IV. 05/30/17 09:00 05/30/17 13:59 Aspirin (Ecotrin Tab) 81 mg QAM PO 05/30/17 09:00 06/29/17 08:59 Last 24 Hours Test 05/30/17 04:58 White Blood Count 4.07 K/uL Red Blood Count 2.96 M/uL Hemoglobin 8.4 g/dL Hematocrit 26.7 % Mean Corpuscular Volume 90.2 fL Mean Corpuscular Hemoglobin 28.4 pg Mean Corpuscular Hemoglobin Concent 31.5 g/dl Platelet Count 198 K/uL Mean Platelet Volume 9.8 fL Neutrophils (%) (Auto) 62.3 % Lymphocytes (%) (Auto) 22.6 % Monocytes (%) (Auto) 11.5 % Eosinophils (%) (Auto) 0.7 % Basophils (%) (Auto) 0.7 % Neutrophils # (Auto) 2.53 K/uL Lymphocytes # (Auto) 0.92 K/uL Monocytes # (Auto) 0.47 K/uL Eosinophils # (Auto) 0.03 K/uL Basophils # (Auto) 0.03 K/uL RDW Standard Deviation 56.3 fL RDW Coefficient of Variation 17.4 % Immature Granulocyte % (Auto) 2.2 % Immature Granulocyte # (Auto) 0.09 K/uL Nucleated RBC Absolute Count (auto) 0.02 K/uL Nucleated Red Blood Cells % 0.4 % Large Platelets 1+ Polychromasia 1+ Ovalocytes 1+ Prothrombin Time 16.9 SECONDS Prothromb Time International Ratio 1.6 Sodium Level 135 mmol/L Potassium Level 4.4 mmol/L Chloride Level 103 mmol/L Carbon Dioxide Level 25 mmol/L Anion Gap 7.0 mmol/L Blood Urea Nitrogen 27 mg/dl Creatinine 7.86 mg/dl Est Creatinine Clear Calc Drug Dose 7.6 ml/min Estimated GFR () 5.8 Estimated GFR (Non- 5.0 BUN/Creatinine Ratio 3.5 Random Glucose 101 mg/dl Calcium Level 7.5 mg/dl Random Vancomycin Level 26.2 mcg/ml Assessment & Plan ESRD-for dialysis today. plan on 1 liter fluid removal. volume status is very good. Anemia of renal failure-goal hg of 10 to 11. continue procrit on dialysis.
[2017-05-30] MEDS ORDERED: EPOETIN ALFA 10,000 UNITS/ML VIAL IV. SCH (09:00)
--- NOTE | 2017-05-30 10:39 | Medical Consult ---
Consultation Date of Consultation: May 30, 2017. Attending Physician: Varinder Adame MD Reason for Consultation: Enterococcal urinary tract infection History of Present Illness 61-year-old female well known to me from ongoing infectious disease follow-up, with history of end-stage renal disease on dialysis, lumbar diskitis and vertebral osteomyelitis on vancomycin therapy, who was admitted to the hospital with acute onset of fever, chills, arthralgias and myalgias, cough, weakness and fatigue. Has been found to have positive influenza a antigen testing, and has been given Tamiflu. She states she is somewhat better with improvement in her neutropenia seen on admission, and she has been afebrile. Has positive culture for resistant Enterococcus, but denies any significant urinary complaints. Has little urine output since on dialysis. Has been started on daptomycin therapy which she is tolerating reasonably well. States her back pain is still severe, currently 7/10 in intensity, but no clinical worsening since on antibiotics. Past Medical/Surgical History Medical Problems: (1) Acute electrocardiogram changes Status: Acute (2) Anticoagulated on warfarin Status: Chronic (3) Bacteremia Status: Acute (4) Bleeding from wound Status: Acute (5) Dialysis patient Status: Chronic (6) Dyslipidemia Status: Chronic (7) Elevated troponin Status: Acute (8) Elevated troponin Status: Acute (9) Headache Status: Acute (10) HTN (hypertension) Status: Chronic (11) LLQ abdominal pain Status: Acute (12) Osteomyelitis Status: Acute (13) Sepsis Status: Acute (14) Shortness of breath Status: Acute (15) Shortness of breath Status: Acute (16) Skin tear of left upper extremity Status: Acute (17) Supratherapeutic INR Status: Acute Medical Problems: (1) Anal cancer (2) Anemia (3) Anticoagulated on warfarin (4) Anxiety (5) Asthma (6) CAD (coronary artery disease) (7) Dialysis patient (8) Discitis (9) Dyslipidemia (10) Dyslipidemia (11) ESRD (end stage renal disease) on dialysis (12) Fall (13) Fever (14) GERD (gastroesophageal reflux disease) (15) HTN (hypertension) (16) HTN (hypertension) (17) Hypertensive emergency (18) Hypothyroidism (19) Influenza (20) Intractable back pain (21) Knee contusion (22) Lupus (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 (24) Near syncope (25) Osteomyelitis (26) Paroxysmal a-fib (27) Pleuritic chest pain (28) Renal transplant rejection (29) Right knee pain (30) Subarachnoid hemorrhage (31) Weakness Surgical Problems: (1) H/O hernia repair (2) History of bowel resection (3) History of carpal tunnel surgery (4) Renal transplant, status post (5) S/P partial hysterectomy Family History Cancer FH: heart disease Hypertension Kidney stones Social History Smoking Status: Former Smoker Drug Use: none Marital Status: single Housing Status: lives alone Occupation Status: disabled Allergies Coded Allergies: Silver Nitrate (Verified Allergy, Severe, SEVERE BURNING, 05/24/17) Silver Sulfadiazine (Verified Allergy, Severe, SEVERE BURNING, 05/24/17) Azithromycin (Verified Allergy, Intermediate, "BUGS CRAWLING ON ME", ) Levofloxacin (Verified Allergy, Intermediate, HIVES, 05/24/17) Sulfa Antibiotics (Verified Allergy, Intermediate, "SULFA DRUGS": RASH, ) Trimethoprim (Verified Allergy, Intermediate, BACTRIM - RASH, 05/24/17) Metronidazole (Verified Allergy, Mild, DIARRHEA, 05/24/17) Oxycodone (Verified Allergy, Mild, PERCOCET-GI UPSET, 05/24/17) Amoxicillin (Verified Adverse Reaction, Mild, GI UPSET, 05/24/17) CAN TAKE 500 MG DOSES Clavulanic Acid (Verified Adverse Reaction, Mild, GI UPSET, 05/24/17) Erythromycin (Verified Adverse Reaction, Mild, nausea vomiting, 05/24/17) Current Inpatient Medications Current Inpatient Medications Medications (Trade) Dose Ordered Sig/Az Route Start Time Stop Time Status Last Admin Dose Admin Acetaminophen (Tylenol Tab) 650 mg Q4H PRN PO 05/24/17 13:00 06/23/17 12:59 05/26/17 23:37 650 MG Ondansetron HCl (Zofran Inj) 4 mg Q6H PRN IV 05/24/17 13:00 06/23/17 12:59 05/29/17 18:26 4 MG Atorvastatin Calcium (Lipitor Tab) 40 mg DAILY PO 05/25/17 09:00 06/24/17 08:59 05/30/17 08:48 40 MG Bupropion HCl (Wellbutrin-Sr Tab) 100 mg BID PO 05/24/17 21:00 06/23/17 20:59 05/30/17 08:48 100 MG Carvedilol (Coreg Tab) 25 mg BID PO 05/24/17 21:00 06/23/17 20:59 05/30/17 08:47 25 MG Hydralazine HCl (Apresoline Tab) 10 mg DAILY PO 05/25/17 09:00 06/24/17 08:59 05/30/17 08:49 10 MG Levothyroxine Sodium (Synthroid Tab) 175 mcg DAILYBB PO 05/25/17 06:00 06/24/17 05:59 05/30/17 06:33 175 MCG Tramadol HCl (Ultram Tab) 50 mg Q4H PRN PO 05/24/17 13:30 06/23/17 13:29 05/29/17 23:39 50 MG Vitamin B Complex/ Vit C/Folic Acid (Nephrocaps) 1 cap DAILY PO 05/25/17 09:00 06/24/17 08:59 05/30/17 08:49 1 CAP Zolpidem Tartrate (Ambien Tab) 5 mg HS PRN PO 05/24/17 13:30 06/23/17 13:29 Pantoprazole Sodium (Protonix Tab) 40 mg DAILY PO 05/25/17 09:00 06/24/17 08:59 05/30/17 08:49 40 MG Nifedipine (Procardia Xl Tab) 90 mg QAM PO 05/25/17 09:00 06/24/17 08:59 05/30/17 08:50 90 MG Sevelamer HCl (Renagel Tab) 1,600 mg BID PO 05/24/17 21:00 06/23/17 20:59 Sevelamer HCl (Renagel Tab) 2,400 mg TIDM PO 05/24/17 16:45 06/23/17 16:44 05/30/17 08:47 2,400 MG Miscellaneous (Iv Fluids Completed) 1 ea PRN PRN N/A 05/24/17 14:15 05/24/18 14:14 Ipratropium [place] (Atrovent 0.02% 0.5MG/2.5ML Neb) 0.5 mg Q4R INH 05/24/17 16:00 06/23/17 15:59 05/30/17 07:19 0.5 MG Levalbuterol (Xopenex 0.63 Mg/ 3 Ml Neb) 0.63 mg Q4R INH 05/24/17 16:00 06/23/17 15:59 05/30/17 07:19 0.63 MG Loperamide HCl (Imodium Cap) 2 mg TID PRN PO 05/24/17 17:45 06/23/17 17:44 05/25/17 17:15 2 MG Prednisone (PredniSONE TAB) 15 mg MoWeFr@0900 PO 05/29/17 09:00 06/28/17 08:59 05/29/17 09:24 15 MG Heparin Sodium (Porcine) (Heparin 100 Unit/ml 5ml Flush) 5 ml PRN PRN IV 05/29/17 01:00 06/28/17 00:59 05/30/17 04:58 5 ML Guaifenesin (Mucinex Contr Rel Tab) 600 mg Q12 PRN PO 05/30/17 05:00 06/29/17 04:59 Daptomycin 500 mg/ Syringe 10 ml @ 5 mls/min Q48H IV 05/29/17 18:00 07/10/17 17:59 05/29/17 19:05 5 MLS/MIN Daptomycin (Consult) 1 ea UD PRN N/A 05/29/17 17:30 06/28/17 17:29 Warfarin Sodium (Coumadin Tab) 3 mg DAILY@16 PO 05/30/17 16:00 06/29/17 15:59 Epoetin Tone (Procrit Inj) 10,000 units TODAY@0900 IV. 05/30/17 09:00 05/30/17 13:59 Aspirin (Ecotrin Tab) 81 mg QAM PO 05/30/17 09:00 06/29/17 08:59 Review of Systems All systems were reviewed and are negative except as per HPI Physical Exam Date Time Temp Pulse Resp B/P (MAP) Pulse Ox O2 Delivery O2 Flow Rate FiO2 05/30/17 08:10 36.7 73 18 163/75 (104) 97 Room Air 05/30/17 07:19 76 16 98 Room Air 05/30/17 03:26 76 16 98 Room Air 05/29/17 23:45 95 Room Air 05/29/17 23:24 36.7 74 18 146/75 (98) 95 Room Air 05/29/17 23:09 73 16 98 Room Air 05/29/17 21:23 80 128/74 (92) 05/29/17 19:54 78 16 98 Room Air 05/29/17 15:45 Room Air 05/29/17 15:44 36.5 80 20 164/71 (102) 95 Room Air 05/29/17 15:07 76 16 97 Room Air 05/29/17 11:50 76 16 99 Room Air General Appearance: WD/WN, no apparent distress Head: normocephalic, atraumatic Eyes: normal inspection, EOMI, sclerae normal ENT: normal ENT inspection, hearing grossly normal, pharynx normal Neck: supple, no adenopathy, thyroid normal, trachea midline Respiratory/Chest: chest non-tender, lungs clear, normal breath sounds, no respiratory distress Cardiovascular: regular rate, rhythm, no gallop, + systolic murmur Abdomen/GI: normal bowel sounds, non tender, soft, no organomegaly Back: normal inspection, no CVA tenderness Extremities/Musculoskelatal: no calf tenderness, non-tender Neurologic/Psych: alert, oriented x 3 Skin: normal color, warm/dry, no rash Lymphatic: no adenopathy Laboratory Results RUN DATE: 05/29/17 [facility] LAB PAGE 1 RUN TIME: 1323 Specimen Inquiry PATIENT: REINIER WAHL LOC: [facility] U # : [id number] AGE/SX: 61/F ROOM: [facility] REG : 05/25/[address]: Varinder Adame MD : [id number] BED: 1 DIS : STATUS: ADM IN TLOC: SPEC #: [id number] DAMIAN: 05/25/17 STATUS: COMP REQ #: [id number] RECD: 05/25/17 [facility] [address]: Esteban Winchester M.D. SOURCE: UR, CC ENTR: 05/25/[address] [facility] [address]: Jonathan Malhotra M.D. [facility]: Umm Hernandez P.A.-C. Oncu, Kerim I., José Miguel Christie MD Sulman, Scott A., D.OEarlene ORDERED: CULTURE URCLEAN Procedure Result Verified Site URINE CULTURE Final 05/29/17-1323 Organism 1 ENTEROCOCCUS FAECIUM COLONY COUNT >100,000 CFU/ml SENS SENSITIVITY TO FOLLOW Organism 2 ENTEROCOCCUS FAECIUM#2 COLONY COUNT >100,000 CFU/ml SENS NO SENSITIVITY TO FOLLOW IDENTIFICATION AND SUSCEPTIBILITY TESTING HAVE CONFIRMED THE TWO ORGANISMS PREVIOUSLY REPORTED ARE THE SAME ORGANISM. NO SUSCEPTIBILITY RESULTS WILL BE GENERATED ON THE SECOND ISOLATE. RESULTS WERE ALSO CALLED TO [facility] CONTROL ANSWERING MACHINE ON 05/29/17 BY KOPTMI. DELGADO KEYES SENSITIVITY RESULT INDICATES A VANCOMYCIN RESISTANT ENTEROCOCCI SPECIES. Phoned to JESSICA JUAN FRANCISCO on 05/29/17 at 1323 by Stefan Pat. Results were verbalized back to MAGDY. 1. ENTEROCOCCUS FAECIUM Target Route Dose RX AB Cost M.I.C. IQ ------ ----- ------ -- ------ -------- - ------ AMPICILLIN R >8 GENT SYNERGY S <=500 VANCOMYCIN R * >16 PENICILLIN R >8 TETRACYCLINE R >8 CIPROFLOXACIN R >2 LEVOFLOXACIN R >4 DAPTOMYCIN S 4 NITROFURANTOIN I 64 STREP SYNERGY S <=1000 CONTINUED ON NEXT PAGE RUN DATE: 05/29/17 [facility] LAB PAGE 2 RUN TIME: 1323 Specimen Inquiry SPEC: [id number] PATIENT: REINIER WAHL [id number] ( Continued) Procedure Result Verified Site URINE CULTURE Final (continued) Streptomycin Synergy Screen S Gentamicin Synergy Screen S S = SENSITIVE I = INTERMEDIATE R = RESISTANT Last 24 Hours Test 05/30/17 04:58 White Blood Count 4.07 K/uL Red Blood Count 2.96 M/uL Hemoglobin 8.4 g/dL Hematocrit 26.7 % Mean Corpuscular Volume 90.2 fL Mean Corpuscular Hemoglobin 28.4 pg Mean Corpuscular Hemoglobin Concent 31.5 g/dl Platelet Count 198 K/uL Mean Platelet Volume 9.8 fL Neutrophils (%) (Auto) 62.3 % Lymphocytes (%) (Auto) 22.6 % Monocytes (%) (Auto) 11.5 % Eosinophils (%) (Auto) 0.7 % Basophils (%) (Auto) 0.7 % Neutrophils # (Auto) 2.53 K/uL Lymphocytes # (Auto) 0.92 K/uL Monocytes # (Auto) 0.47 K/uL Eosinophils # (Auto) 0.03 K/uL Basophils # (Auto) 0.03 K/uL RDW Standard Deviation 56.3 fL RDW Coefficient of Variation 17.4 % Immature Granulocyte % (Auto) 2.2 % Immature Granulocyte # (Auto) 0.09 K/uL Nucleated RBC Absolute Count (auto) 0.02 K/uL Nucleated Red Blood Cells % 0.4 % Large Platelets 1+ Polychromasia 1+ Ovalocytes 1+ Prothrombin Time 16.9 SECONDS Prothromb Time International Ratio 1.6 Sodium Level 135 mmol/L Potassium Level 4.4 mmol/L Chloride Level 103 mmol/L Carbon Dioxide Level 25 mmol/L Anion Gap 7.0 mmol/L Blood Urea Nitrogen 27 mg/dl Creatinine 7.86 mg/dl Est Creatinine Clear Calc Drug Dose 7.6 ml/min Estimated GFR () 5.8 Estimated GFR (Non- 5.0 BUN/Creatinine Ratio 3.5 Random Glucose 101 mg/dl Calcium Level 7.5 mg/dl Random Vancomycin Level 26.2 mcg/ml CHEST ONE VIEW PORTABLE CLINICAL HISTORY: fever COMPARISON STUDY: 04/15/2017 FINDINGS: There is a left subclavian dual-chamber central venous catheter present. There is a right-sided A-Port catheter present. The cardiac and mediastinal contours remain stable. There is no focal pulmonary consolidation. There are no pleural effusions. There is no overt failure. There is a right sided axial/brachial vascular stent.[ IMPRESSION: No active disease in the chest. Electronically signed by: Donavon Anderson M.D. 05/24/2017 10:15 AM Dictated Date/Time: 05/24/2017 10:14 AM The status of this report is Signed. Draft = Not yet reviewed or approved by Radiologist. Assessment & Plan 59-year-old female with end-stage renal disease on dialysis with no lumbar diskitis with vertebral osteomyelitis on vancomycin therapy, now with acute influenza a infection. Has positive culture for Enterococcus faecium, likely this represents asymptomatic bacteriuria given lack of symptoms and end-stage renal disease. Have her would continue daptomycin for 5 day course. In the interim, would recommend repeat imaging of lumbar spine area to assess the need for ongoing IV antibiotics. Will discuss with all involved. Will follow.
[2017-05-30] MEDS: ASPIRIN 81 MG ECTAB PO SCH (10:40)
--- NOTE | 2017-05-30 10:40 | Gastrointestinal Consultation ---
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 Of note she had a recent admission which resulted in transfer to [facility] [place] for intracranial hemorrhoids in April 2017. Pt was seen and evaluated, chart reviewed. GI was asked to evaluate the pt for solid dysphagia and regurgitation of liquids. Pt notes that since April, she has had progressive worsening of solids dysphagia. This does not occur every time she eats. She notes from time to time she can have sensation of food sticking when she swallows. With solids. Swallows liquids ok, but does not regurgitation of liquids. Can have coughing after eating. No episodes of choking. Denies any s/s of acid reflux. No epigastric burning, pressure, nausea, burping, belching. Does have a sore throat. Does report globus sensation. No weight loss. She notes period of diarrhea before admission, no BM x 2 days now. Is passing gas. No abdominal pain. Overall, she is feeling better, symptoms are improving. NSAIDs: ASA daily AC: coumadin Steroids: low dose three times a week MANAGER VISUAL 05/29/17: Pt. tolerated thins via cup drinks with no overt s/s of aspiration. No change in vocal quality, no throat clear, no coughing or watery eyes. Pt. accepted cracker with no difficulty. Adequate mastication, good bolus formation, and timely A-P transport with no residue remaining in oral cavity after the swallow. MANAGER VISUAL educated on safe swallow strategies, and GERD precautions as well as Slippery diet. Pt. reported that she was aware of all precautions secondary to receiving speech therapy at [facility]. Pt. also reported that she is/was scheduled for an apt. with Dr. Neville tomorrow to further evaluate her GI status. She also has a ENT apt. scheduled for next week to address her complaints of poor vocal quality and other related issues. At this time pt. is not demonstrating overt s/s of aspiration or dysphagia and is WFL for oral-pharyngeal stages of the swallow. MANAGER VISUAL recommending GI consult- physicians to determine if as inpt. or outpt. status. Past Medical/Surgical History Medical Problems: (1) Acute electrocardiogram changes Status: Acute (2) Anticoagulated on warfarin Status: Chronic (3) Bacteremia Status: Acute (4) Bleeding from wound Status: Acute (5) Dialysis patient Status: Chronic (6) Dyslipidemia Status: Chronic (7) Elevated troponin Status: Acute (8) Elevated troponin Status: Acute (9) Headache Status: Acute (10) HTN (hypertension) Status: Chronic (11) LLQ abdominal pain Status: Acute (12) Osteomyelitis Status: Acute (13) Sepsis Status: Acute (14) Shortness of breath Status: Acute (15) Shortness of breath Status: Acute (16) Skin tear of left upper extremity Status: Acute (17) Supratherapeutic INR Status: Acute Past Medical History: COPD, flu, lupus, hypothyroidism, HTN, asthma, history of kidney transplant, ESRD, obesity, 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 Past Surgical History: EGD, colonoscopy, Carpal tunnel, Surgical resection of anal verge squamous cell carcinoma, history of radiation for rectal CA, A-V shunt access for dialysis, hysterectomy, laparotomy for ischemic bowel with small bowel resection, Kidney transplant which failed in 2008 Family History Cancer FH: heart disease Hypertension Kidney stones Social History Smoking Status: Former Smoker Alcohol Use: none Drug Use: none Marital Status: single Housing Status: lives alone Occupation Status: disabled Allergies Coded Allergies: Silver Nitrate (Verified Allergy, Severe, SEVERE BURNING, 05/24/17) Silver Sulfadiazine (Verified Allergy, Severe, SEVERE BURNING, 05/24/17) Azithromycin (Verified Allergy, Intermediate, "BUGS CRAWLING ON ME", ) Levofloxacin (Verified Allergy, Intermediate, HIVES, 05/24/17) Sulfa Antibiotics (Verified Allergy, Intermediate, "SULFA DRUGS": RASH, ) Trimethoprim (Verified Allergy, Intermediate, BACTRIM - RASH, 05/24/17) Metronidazole (Verified Allergy, Mild, DIARRHEA, 05/24/17) Oxycodone (Verified Allergy, Mild, PERCOCET-GI UPSET, 05/24/17) Amoxicillin (Verified Adverse Reaction, Mild, GI UPSET, 05/24/17) CAN TAKE 500 MG DOSES Clavulanic Acid (Verified Adverse Reaction, Mild, GI UPSET, 05/24/17) Erythromycin (Verified Adverse Reaction, Mild, nausea vomiting, 05/24/17) Current Medications Home Meds and Scripts Medications Dose Route/Sig Max Daily Dose Days Date Category Dose Instructions Nifedipine ER (Nifedipine) 90 Mg Tabcr 1 Tab PO DAILY 05/24/17 Reported Hydralazine HCl 10 Mg Tab 1 Tab PO DAILY 05/24/17 Reported Coreg (Carvedilol) 25 Mg Tab 1 Tab PO BID 90 05/24/17 Reported Saline Flush (Sodium Chloride) 10 Ml Inj 10 Ml IV Q6WK 05/24/17 Reported AND NEEDED FOR PORT MAINTAINENCE Paricalcitol 2 Mcg/Ml Inj 3 Mcg IV 3XWK 05/24/17 Reported WITH DIALYSIS Venofer (Iron Sucrose) 20 Mg/Ml Inj 1 Dose IV Q2WKS 05/24/17 Reported ON THURSDAYS WITH DIALYSIS Aspirin Ec (Aspirin) 81 Mg Tab 81 Mg PO DAILY 05/24/17 Reported Renvela (Sevelamer Carbonate) 800 Mg Tab 1,600 Mg PO BID 05/24/17 Reported TWO 800 MG TABLETS TWICE DAILY WITH SNACKS. Renvela (Sevelamer Carbonate) 800 Mg Tab 2,400 Mg PO TIDM 05/24/17 Reported THREE 800 MG TABLETS 3 TIMES DAILY WITH MEALS Fiber Diet (Fiber) 1 Tab Tab 1 Tab PO DAILY 05/24/17 Reported Zofran (Ondansetron HCl) 4 Mg Tab 4 Mg PO Q6 PRN 05/24/17 Reported Nexium (Esomeprazole Magnesium) 40 Mg Capcr 40 Mg PO DAILY 05/24/17 Reported Wellbutrin Sr (Bupropion HCl) 100 Mg Ertab 100 Mg PO BID 05/24/17 Reported Levothyroxine Sodium 175 Mcg Tab 175 Mcg PO DAILY 05/24/17 Reported Lipitor (Atorvastatin Calcium) 40 Mg Tab 40 Mg PO DAILY 05/24/17 Reported Combivent Respimat (Ipratropium-Albuterol) 1 Aer Aer 1 Puffs INH QID PRN 05/24/17 Reported Prednisone 5 Mg Tab 15 Mg PO MWF 05/24/17 Reported THREE 5 MG TABLETS ON M, W, F Coumadin (Warfarin Sodium) 3 Mg Tab 3 Mg PO QPM 05/24/17 Reported Tylenol (Acetaminophen) 325 Mg Tab 650 Mg PO Q6 PRN 05/24/17 Reported Vancomycin Hydrochloride/ 1-5 gm/250Ml-% (Vancomycin HCl in Dextrose) 1 Inj Inj 1,000 Mg IV 3XWK 05/24/17 Reported SATURDAY, SATURDAY, SATURDAY X 22 DAYS (PER MED LIST, END DATE = 05/29/17) Ambien (Zolpidem Tartrate) 5 Mg Tab 5 Mg PO HS PRN 05/24/17 Reported Ultram (Tramadol HCl) 50 Mg Tab 50 Mg PO Q4H PRN 05/24/17 Reported Senokot S (Senna/Docusate Sodium) 1 Tab Tab 1 Tab PO DAILY PRN 05/24/17 Reported Nephrocaps (Vitamin B Complex/Vit C/Folic Acid) Cap 1 Cap PO DAILY 05/24/17 Reported Review of Systems Constitutional: + weakness, No fever, No chills Respiratory: + cough, + sputum Cardiac: No chest pain, No edema Abdomen: + dysphagia, No pain, No nausea, No vomiting, No diarrhea, No constipation, No GI bleeding Physical Exam Date Time Temp Pulse Resp B/P (MAP) Pulse Ox O2 Delivery O2 Flow Rate FiO2 05/30/17 08:10 36.7 73 18 163/75 (104) 97 Room Air 05/30/17 07:19 76 16 98 Room Air 05/30/17 03:26 76 16 98 Room Air 05/29/17 23:45 95 Room Air 05/29/17 23:24 36.7 74 18 146/75 (98) 95 Room Air 05/29/17 23:09 73 16 98 Room Air 05/29/17 21:23 80 128/74 (92) 05/29/17 19:54 78 16 98 Room Air 05/29/17 15:45 Room Air 05/29/17 15:44 36.5 80 20 164/71 (102) 95 Room Air 05/29/17 15:07 76 16 97 Room Air 05/29/17 11:50 76 16 99 Room Air General Appearance: no apparent distress Eyes: PERRL ENT: hearing grossly normal Neck: supple Respiratory/Chest: lungs clear, normal breath sounds Cardiovascular: regular rate, rhythm Abdomen: non tender, soft, no organomegaly Neurologic/Psych: alert, normal mood/affect, oriented x 3 Skin: normal color Laboratory Results Last 24 Hours Test 05/30/17 04:58 White Blood Count 4.07 K/uL Red Blood Count 2.96 M/uL Hemoglobin 8.4 g/dL Hematocrit 26.7 % Mean Corpuscular Volume 90.2 fL Mean Corpuscular Hemoglobin 28.4 pg Mean Corpuscular Hemoglobin Concent 31.5 g/dl Platelet Count 198 K/uL Mean Platelet Volume 9.8 fL Neutrophils (%) (Auto) 62.3 % Lymphocytes (%) (Auto) 22.6 % Monocytes (%) (Auto) 11.5 % Eosinophils (%) (Auto) 0.7 % Basophils (%) (Auto) 0.7 % Neutrophils # (Auto) 2.53 K/uL Lymphocytes # (Auto) 0.92 K/uL Monocytes # (Auto) 0.47 K/uL Eosinophils # (Auto) 0.03 K/uL Basophils # (Auto) 0.03 K/uL RDW Standard Deviation 56.3 fL RDW Coefficient of Variation 17.4 % Immature Granulocyte % (Auto) 2.2 % Immature Granulocyte # (Auto) 0.09 K/uL Nucleated RBC Absolute Count (auto) 0.02 K/uL Nucleated Red Blood Cells % 0.4 % Large Platelets 1+ Polychromasia 1+ Ovalocytes 1+ Prothrombin Time 16.9 SECONDS Prothromb Time International Ratio 1.6 Sodium Level 135 mmol/L Potassium Level 4.4 mmol/L Chloride Level 103 mmol/L Carbon Dioxide Level 25 mmol/L Anion Gap 7.0 mmol/L Blood Urea Nitrogen 27 mg/dl Creatinine 7.86 mg/dl Est Creatinine Clear Calc Drug Dose 7.6 ml/min Estimated GFR () 5.8 Estimated GFR (Non- 5.0 BUN/Creatinine Ratio 3.5 Random Glucose 101 mg/dl Calcium Level 7.5 mg/dl Random Vancomycin Level 26.2 mcg/ml Impression Patient is a 61 year old female w/ recent intracranial hemorrhage admitted for COPD due to influenza A clinically improving from a respiratory stand point. Pt has had persistent intermittent dysphagia since April, was evaluated by speech without evidence of dysphagia or aspirate. Pt notes sticking sensations to solids and regurgitation of liquids. Has globus sensation and cough. No evidence of oral thrush. Given recent intracranial hemorrhage, COPD, flu will defer EGD unless urgently indicated. Plan - Trial Omeprazole 20 mg daily - Soft, slippery diet - GERD dietar/lifestyle changes - Consider Barium swallow study - Outpatient EGD - GI to sign off. Please call with any questions or concerns. I saw and evaluated the patient. GI was consult at for a question of dysphagia. Upon discussion with the patient it appears that after meals she will sometimes regurgitate a small amount of phlegm but no food. She's had no prolonged bolus impactions. This is been ongoing for approximately 6 weeks since her recent hospitalization for an intracranial hemorrhage. Physical examination Pleasant female in no obvious distress Abdomen soft obese Lungs: Delay in expiratory phase Impression: Patient presents with a history of flu, GI consulted for question of dysphagia. Upon discussion with the patient it appears that she has more regurgitation and does not seem to have food bolus impactions. Given her recent medical problems I would suggest against an interventional procedure such as upper endoscopy at this time. Perhaps the patient would be best served with an upper GI series and outpatient follow-up with her regular GI provider in 4-6 weeks to determine if endoscopic evaluation is been warranted. Thank you for this interesting consultation. We appreciate being part of this patient's medical care GI to sign off for the present time
[2017-05-30] MEDS: TRAMADOL HCL 50 MG TAB PO PRN ×2 (10:47→16:23)
[2017-05-30] MEDS: WARFARIN SOD 3 MG TAB PO SCH (16:09)
[2017-05-30] MEDS: ONDANSETRON INJ 2 MG/ML 2 ML VIAL IV PRN (19:20)
[2017-05-31] VITALS (8 sets, daily range): BP systolic 155–168; BP diastolic 78–84; PULSE 68–82; TEMP 36.6; O2SAT 97–99
[2017-05-31] MEDS: TRAMADOL HCL 50 MG TAB PO PRN ×2 (00:27→18:01)
[2017-05-31] MEDS ORDERED: NURSING DECISION MEDICATION ORDER SCH (01:00)
[2017-05-31] MEDS: IPRATROPIUM BROMIDE NEB SOLN 0.02% 2.5 ML VIAL INH SCH ×4 (03:51→15:22)
[2017-05-31] MEDS: LEVALBUTEROL 0.63MG/3 ML NEB INH SCH ×4 (03:51→15:22)
[2017-05-31] MEDS: LEVOTHYROXINE 175 MCG TAB PO SCH (05:53)
[2017-05-31 06:57] LABS: INR 1.5 (0.9-1.1)
--- NOTE | 2017-05-31 08:09 | DIAGNOSTIC IMAGING REPORT ---
GI SERIES W/O KUB CLINICAL HISTORY: regurgitation, dysphagiadysphagia COMPARISON STUDY: None FLUOROSCOPY TIME: 2.2 minutes. FINDINGS: Patient initiated swallowing function well. There is mild esophageal dysmotility. There is a small hiatal hernia. There is moderate spasm of the gastroesophageal junction. Size and configuration stomach are normal. Due to bulb fills well. Duodenal sweep is unremarkable. IMPRESSION: 1. Normal swallowing function. 2. Moderate esophageal dysmotility and/or spasm. 3. Small intermittent hiatal hernia with moderate spasm of the gastroesophageal junction. 4. Study is otherwise negative. The above report was generated using voice recognition software. It may contain grammatical, syntax or spelling errors. Electronically signed by: Andrei Rivera M.D. 05/31/2017 8:07 AM Dictated Date/Time: 05/31/2017 8:06 AM
[2017-05-31] MEDS: SEVELAMER HYDROCH 800 MG TAB PO SCH ×5 (09:44→21:13)
[2017-05-31] MEDS: ASPIRIN 81 MG ECTAB PO SCH (11:57)
[2017-05-31] MEDS: NEPHROCAPS PO SCH (11:57)
[2017-05-31] MEDS: HydrALAZINE 10 MG TAB PO SCH (11:57)
[2017-05-31] MEDS: CARVEDILOL 25 MG TAB PO SCH ×2 (11:57→21:13)
[2017-05-31] MEDS: BuPROPion SR 100 MG TABCR PO SCH ×2 (11:57→21:13)
[2017-05-31] MEDS: PANTOprazole SOD 40 MG TAB PO SCH (11:57)
[2017-05-31] MEDS: NIFEdipine 30 MG CR TAB PO SCH (11:58)
[2017-05-31] MEDS: ATORVASTATIN 20 MG TAB PO SCH (11:58)
[2017-05-31] MEDS: WARFARIN SOD 3 MG TAB PO SCH (16:05)
[2017-05-31] MEDS ORDERED: WARFARIN SOD 2 MG TAB PO ONE (17:45)
--- NOTE | 2017-05-31 18:23 | Progress Note ---
Medicine Progress Note Date & Time of Visit: May 31, 2017 at 18:18. Subjective resting in bed, just had dinner states breathing is improved today, less cough no globus sensation, no regurgitation, would like regular diet - "i don't want to eat that dog food again" denies chest pain, dyspnea, dizziness, palpitations no dysuria denies other symptoms Objective Last 8 Hrs Date Time Temp Pulse Resp B/P (MAP) Pulse Ox O2 Delivery O2 Flow Rate FiO2 05/31/17 15:45 98 Room Air 05/31/17 15:24 71 16 98 Room Air 05/31/17 15:04 36.6 68 18 155/78 (103) 97 Room Air 05/31/17 11:44 77 16 97 Room Air Physical Exam: General- oriented x 3, not in distress, speaks in sentences with no effort Eyes- anicteric Neck- no JVD Lungs- clear breath sounds bilaterally, no wheezes, no rales Heart- regular rhythm; (+) murmur, no gallop Abdomen- normal bowel sounds, soft, nontender Extremities- no pretibial edema, no calf tenderness Neuro- alert, oriented x 3; no gross focal deficits Skin- warm & dry Laboratory Results: Last 24 Hours Test 05/31/17 06:37 Prothrombin Time 15.3 SECONDS Prothromb Time International Ratio 1.5 Date/Time Source Procedure Growth Status 05/30/17 19:44 Sputum Expectorated Sputum Gram Stain - Final Resulted 05/30/17 19:44 Sputum Expectorated Sputum Sputum Culture - Preliminary MODERATE NORMAL CORI Present, Final ... Resulted Assessment & Plan EXACERBATION OF COPD SECONDARY TO INFLUENZA A -- improving further obtain sputum culture:moderate normal cori -- completed 5 day course of Tamiflu -- overall better on room air Continue nebs q6h on usual Prednisone ENTEROCOCCUS FAECIUM UTI, IN THE SETTING OF NEUTROPENIA, CHRONIC STEROID USE CHRONIC OSTEOMYELITIS LUMBAR SPINE - usually on IV Vanco with HD will transition to Dapto in light of Enterococcus UTI, ID consulted -- was on chronic Vanco IV for Osteomyelitis -- changed to Daptomycin IV Day 3 based on Urine C&S -- consulted ID: recommend Daptomycin x 5 days and imaging of spine to determine need for further antibiotics GLOBUS SENSATION -- s/p Speech Eval yesterday, no aspiration noted -- Upper GI series noted regular diet, slippery resumed -- may need ENT consult as outpatient as well NEUTROPENIA, RESOLVED Probably secondary to viral illness. -- ANC normal now -- repeat CBC in AM SUPRATHERAPEUTIC INR, RESOLVED HISTORY OF MULTIPLE THROMBOTIC EVENTS Probably secondary to lupus anticoagulants. - in the setting of subarachnoid hemorrhage last 04/2017 - CT head on admission: no bleed - INR 4 to 2.9 TO 1.5 - coumadin 5mg today repeat INR tomorrow resume Aspirin RECENT INTRACRANIAL HEMORRHAGE Neuro status stable. -- held coumadin for INR >4 INR now 1.5, coumadin resumed CHRONIC KIDNEY DISEASE STAGE V Management per Nephrology. HYPERTENSION Continue carvedilol, nifedipine, hydralazine. CHRONIC GLUCOCORTICOID THERAPY On chronic steroids for years for SLE and renal transplant. now on maintenance dose of prednisone. DVT PROPHYLAXIS coumadin DISPOSITION Expected discharge to home after completion of Dapto x 5 days, last day saturday Internal Medicine follow-up with Dr. Mcpherson. Nephrology follow-up with Dr. Christian. . Current Inpatient Medications: Current Inpatient Medications Medications (Trade) Dose Ordered Sig/Az Route Start Time Stop Time Status Last Admin Dose Admin Acetaminophen (Tylenol Tab) 650 mg Q4H PRN PO 05/24/17 13:00 06/23/17 12:59 05/26/17 23:37 650 MG Ondansetron HCl (Zofran Inj) 4 mg Q6H PRN IV 05/24/17 13:00 06/23/17 12:59 05/30/17 19:20 4 MG Atorvastatin Calcium (Lipitor Tab) 40 mg DAILY PO 05/25/17 09:00 06/24/17 08:59 05/31/17 11:58 40 MG Bupropion HCl (Wellbutrin-Sr Tab) 100 mg BID PO 05/24/17 21:00 06/23/17 20:59 05/31/17 11:57 100 MG Carvedilol (Coreg Tab) 25 mg BID PO 05/24/17 21:00 06/23/17 20:59 05/31/17 11:57 25 MG Hydralazine HCl (Apresoline Tab) 10 mg DAILY PO 05/25/17 09:00 06/24/17 08:59 05/31/17 11:57 10 MG Levothyroxine Sodium (Synthroid Tab) 175 mcg DAILYBB PO 05/25/17 06:00 06/24/17 05:59 05/30/17 06:33 175 MCG Tramadol HCl (Ultram Tab) 50 mg Q4H PRN PO 05/24/17 13:30 06/23/17 13:29 05/31/17 18:01 50 MG Vitamin B Complex/ Vit C/Folic Acid (Nephrocaps) 1 cap DAILY PO 05/25/17 09:00 06/24/17 08:59 05/31/17 11:57 1 CAP Zolpidem Tartrate (Ambien Tab) 5 mg HS PRN PO 05/24/17 13:30 06/23/17 13:29 Pantoprazole Sodium (Protonix Tab) 40 mg DAILY PO 05/25/17 09:00 06/24/17 08:59 05/31/17 11:57 40 MG Nifedipine (Procardia Xl Tab) 90 mg QAM PO 05/25/17 09:00 06/24/17 08:59 05/31/17 11:58 90 MG Sevelamer HCl (Renagel Tab) 1,600 mg BID PO 05/24/17 21:00 06/23/17 20:59 Sevelamer HCl (Renagel Tab) 2,400 mg TIDM PO 05/24/17 16:45 06/23/17 16:44 05/31/17 11:57 2,400 MG Miscellaneous (Iv Fluids Completed) 1 ea PRN PRN N/A 05/24/17 14:15 05/24/18 14:14 Loperamide HCl (Imodium Cap) 2 mg TID PRN PO 05/24/17 17:45 06/23/17 17:44 05/25/17 17:15 2 MG Prednisone (PredniSONE TAB) 15 mg MoWeFr@0900 PO 05/29/17 09:00 06/28/17 08:59 05/31/17 11:58 15 MG Heparin Sodium (Porcine) (Heparin 100 Unit/ml 5ml Flush) 5 ml PRN PRN IV 05/29/17 01:00 06/28/17 00:59 05/31/17 06:37 5 ML Guaifenesin (Mucinex Contr Rel Tab) 600 mg Q12 PRN PO 05/30/17 05:00 06/29/17 04:59 Daptomycin 500 mg/ Syringe 10 ml @ 5 mls/min Q48H IV 05/29/17 18:00 07/10/17 17:59 05/29/17 19:05 5 MLS/MIN Daptomycin (Consult) 1 ea UD PRN N/A 05/29/17 17:30 06/28/17 17:29 Warfarin Sodium (Coumadin Tab) 3 mg DAILY@16 PO 05/30/17 16:00 06/29/17 15:59 05/31/17 16:05 3 MG Aspirin (Ecotrin Tab) 81 mg QAM PO 05/30/17 09:00 06/29/17 08:59 05/31/17 11:57 81 MG Epoetin Tone (Procrit Inj) 10,000 units TODAY@0900 IV. 06/01/17 09:00 06/01/17 18:00 Ipratropium [place] (Atrovent 0.02% 0.5MG/2.5ML Neb) 0.5 mg Q6HWA INH 06/01/17 00:00 06/23/17 15:59 UNV Levalbuterol (Xopenex 0.63 Mg/ 3 Ml Neb) 0.63 mg Q6HWA INH 06/01/17 00:00 06/23/17 15:59 UNV
[2017-05-31] MEDS: DAPTOmycin IV 500 MG in SYRINGE 0 ML IV SCH (18:32)
--- NOTE | 2017-05-31 18:52 | Infectious Disease Progress Nt ---
Progress Note Date of Service May 31, 2017. Subjective Pt evaluation today including: conversation w/ patient, physical exam, chart review, lab review, review of studies, conversation w/ databases computer consultant, review of inpatient medication list Offers no new complaints today. Remains afebrile. Back pain about the same. All Other Systems: Reviewed and Negative Medications Current Inpatient Medications Medications (Trade) Dose Ordered Sig/Az Route Start Time Stop Time Status Last Admin Dose Admin Acetaminophen (Tylenol Tab) 650 mg Q4H PRN PO 05/24/17 13:00 06/23/17 12:59 05/26/17 23:37 650 MG Ondansetron HCl (Zofran Inj) 4 mg Q6H PRN IV 05/24/17 13:00 06/23/17 12:59 05/30/17 19:20 4 MG Atorvastatin Calcium (Lipitor Tab) 40 mg DAILY PO 05/25/17 09:00 06/24/17 08:59 05/31/17 11:58 40 MG Bupropion HCl (Wellbutrin-Sr Tab) 100 mg BID PO 05/24/17 21:00 06/23/17 20:59 05/31/17 11:57 100 MG Carvedilol (Coreg Tab) 25 mg BID PO 05/24/17 21:00 06/23/17 20:59 05/31/17 11:57 25 MG Hydralazine HCl (Apresoline Tab) 10 mg DAILY PO 05/25/17 09:00 06/24/17 08:59 05/31/17 11:57 10 MG Levothyroxine Sodium (Synthroid Tab) 175 mcg DAILYBB PO 05/25/17 06:00 06/24/17 05:59 05/30/17 06:33 175 MCG Tramadol HCl (Ultram Tab) 50 mg Q4H PRN PO 05/24/17 13:30 06/23/17 13:29 05/31/17 18:01 50 MG Vitamin B Complex/ Vit C/Folic Acid (Nephrocaps) 1 cap DAILY PO 05/25/17 09:00 06/24/17 08:59 05/31/17 11:57 1 CAP Zolpidem Tartrate (Ambien Tab) 5 mg HS PRN PO 05/24/17 13:30 06/23/17 13:29 Pantoprazole Sodium (Protonix Tab) 40 mg DAILY PO 05/25/17 09:00 06/24/17 08:59 05/31/17 11:57 40 MG Nifedipine (Procardia Xl Tab) 90 mg QAM PO 05/25/17 09:00 06/24/17 08:59 05/31/17 11:58 90 MG Sevelamer HCl (Renagel Tab) 1,600 mg BID PO 05/24/17 21:00 06/23/17 20:59 Sevelamer HCl (Renagel Tab) 2,400 mg TIDM PO 05/24/17 16:45 06/23/17 16:44 05/31/17 11:57 2,400 MG Miscellaneous (Iv Fluids Completed) 1 ea PRN PRN N/A 05/24/17 14:15 05/24/18 14:14 Loperamide HCl (Imodium Cap) 2 mg TID PRN PO 05/24/17 17:45 06/23/17 17:44 05/25/17 17:15 2 MG Prednisone (PredniSONE TAB) 15 mg MoWeFr@0900 PO 05/29/17 09:00 06/28/17 08:59 05/31/17 11:58 15 MG Heparin Sodium (Porcine) (Heparin 100 Unit/ml 5ml Flush) 5 ml PRN PRN IV 05/29/17 01:00 06/28/17 00:59 05/31/17 18:32 5 ML Guaifenesin (Mucinex Contr Rel Tab) 600 mg Q12 PRN PO 05/30/17 05:00 06/29/17 04:59 Daptomycin 500 mg/ Syringe 10 ml @ 5 mls/min Q48H IV 05/29/17 18:00 07/10/17 17:59 05/31/17 18:32 5 MLS/MIN Daptomycin (Consult) 1 ea UD PRN N/A 05/29/17 17:30 06/28/17 17:29 Warfarin Sodium (Coumadin Tab) 3 mg DAILY@16 PO 05/30/17 16:00 06/29/17 15:59 05/31/17 16:05 3 MG Aspirin (Ecotrin Tab) 81 mg QAM PO 05/30/17 09:00 06/29/17 08:59 05/31/17 11:57 81 MG Epoetin Tone (Procrit Inj) 10,000 units TODAY@0900 IV. 06/01/17 09:00 06/01/17 18:00 Ipratropium [place] (Atrovent 0.02% 0.5MG/2.5ML Neb) 0.5 mg Q6HWA INH 06/01/17 00:00 06/23/17 15:59 Levalbuterol (Xopenex 0.63 Mg/ 3 Ml Neb) 0.63 mg Q6HWA INH 06/01/17 00:00 06/23/17 15:59 Objective Vital Signs Date Time Temp Pulse Resp B/P (MAP) Pulse Ox O2 Delivery O2 Flow Rate FiO2 05/31/17 15:45 98 Room Air 05/31/17 15:24 71 16 98 Room Air 05/31/17 15:04 36.6 68 18 155/78 (103) 97 Room Air 05/31/17 11:44 77 16 97 Room Air 05/31/17 08:52 Room Air 05/31/17 08:23 36.6 76 20 156/80 (105) 97 Room Air 05/31/17 03:51 79 16 99 Room Air 05/30/17 23:35 97 Room Air 05/30/17 23:12 73 16 97 Room Air 05/30/17 23:09 36.7 71 20 146/71 (96) 98 Room Air 05/30/17 21:11 79 135/74 (94) 05/30/17 19:12 80 18 98 Room Air Physical Exam General Appearance: WD/WN, no apparent distress Eyes: normal inspection, EOMI, sclerae normal ENT: normal ENT inspection, pharynx normal Neck: supple, no adenopathy, thyroid normal, trachea midline Respiratory/Chest: chest non-tender, lungs clear, normal breath sounds, no respiratory distress Cardiovascular: regular rate, rhythm, no gallop, no murmur Abdomen: normal bowel sounds, non tender, soft, no organomegaly Extremities: normal range of motion, non-tender, no calf tenderness, normal capillary refill Neurologic/Psychiatric: alert, oriented x 3 Skin: normal color, warm/dry, no rash Laboratory Results Last 24 Hours Test 05/31/17 06:37 Prothrombin Time 15.3 SECONDS Prothromb Time International Ratio 1.5 Assessment and Plan 59-year-old female with end-stage renal disease on dialysis with no lumbar diskitis with vertebral osteomyelitis on vancomycin therapy, now with acute influenza a infection. Has positive culture for Enterococcus faecium, likely this represents asymptomatic bacteriuria given lack of symptoms and end-stage renal disease. Have her would continue daptomycin for 5 day course. In the interim, would recommend repeat imaging of lumbar spine area to assess the need for ongoing IV antibiotics. Will discuss with all involved. Will follow.
[2017-06-01] VITALS (23 sets, daily range): BP systolic 112–173; BP diastolic 65–87; PULSE 65–80; TEMP 36.5–37.1; O2SAT 95–98
[2017-06-01] MEDS ORDERED: IPRATROPIUM BROMIDE NEB SOLN 0.02% 2.5 ML VIAL INH SCH
[2017-06-01] MEDS ORDERED: LEVALBUTEROL 0.63MG/3 ML NEB INH SCH
[2017-06-01] MEDS: LEVOTHYROXINE 175 MCG TAB PO SCH (06:22)
[2017-06-01 06:26] LABS: BASO % 0.2 %; BASO ABS # 0.01 K/uL (0-0.2); EOS % 0.7 %; EOS ABS # 0.03 K/uL (0-0.5); HEMATOCRIT 27.4 % (37-47); HEMOGLOBIN 8.9 g/dL (12.0-16.0); IG# 0.08 K/uL (0.00-0.02); LYMPH % 26.3 %; LYMPH ABS # 1.09 K/uL (1.2-3.4); MEAN CELL VOLUME 90.1 fL (80-100); MEAN CORPUSCULAR HEMOGLOBIN 29.3 pg (25-34); MEAN CORPUSCULAR HGB CONC 32.5 g/dl (32-36); MEAN PLATELET VOLUME 9.7 fL (7.4-10.4); MONO % 9.9 %; MONO ABS # 0.41 K/uL (0.11-0.59); NEUT ABS # 2.53 K/uL (1.4-6.5); PLATELET COUNT 199 K/uL (130-400); RED CELL DISTRIBUTION WIDTH CV 18.3 % (11.5-14.5); RED CELL DISTRIBUTION WIDTH SD 56.1 fL (36.4-46.3); WHITE BLOOD COUNT 4.15 K/uL (4.8-10.8)
[2017-06-01 06:51] LABS: INR 1.6 (0.9-1.1)
[2017-06-01] MEDS: IPRATROPIUM BROMIDE NEB SOLN 0.02% 2.5 ML VIAL INH SCH ×3 (07:21→19:23)
[2017-06-01] MEDS: LEVALBUTEROL 0.63MG/3 ML NEB INH SCH ×3 (07:21→19:23)
[2017-06-01] MEDS: SEVELAMER HYDROCH 800 MG TAB PO SCH ×5 (08:06→20:35)
[2017-06-01] MEDS ORDERED: EPOETIN ALFA 10,000 UNITS/ML VIAL IV. SCH (09:00)
[2017-06-01] MEDS: CARVEDILOL 25 MG TAB PO SCH ×2 (10:16→20:35)
[2017-06-01] MEDS: BuPROPion SR 100 MG TABCR PO SCH ×2 (10:16→20:35)
[2017-06-01] MEDS: NIFEdipine 30 MG CR TAB PO SCH (10:17)
[2017-06-01] MEDS: PANTOprazole SOD 40 MG TAB PO SCH (10:17)
[2017-06-01] MEDS: ASPIRIN 81 MG ECTAB PO SCH (10:18)
[2017-06-01] MEDS: NEPHROCAPS PO SCH (10:19)
[2017-06-01] MEDS: ATORVASTATIN 20 MG TAB PO SCH (10:19)
[2017-06-01] MEDS: HydrALAZINE 10 MG TAB PO SCH (10:20)
[2017-06-01] MEDS: WARFARIN SOD 3 MG TAB PO SCH (16:04)
[2017-06-01] MEDS ORDERED: WARFARIN SOD 3 MG TAB PO SCH (17:00)
[2017-06-01] MEDS ORDERED: WARFARIN SOD 2 MG TAB PO ONE (17:15)
--- NOTE | 2017-06-01 19:14 | Progress Note ---
Medicine Progress Note Date & Time of Visit: Jun 01, 2017 at 19:10. Subjective seen resting in bed, comfortable states she feels improved today less cough, no dyspnea no fever/chills no other symptoms Objective Last 8 Hrs Date Time Temp Pulse Resp B/P (MAP) Pulse Ox O2 Delivery O2 Flow Rate FiO2 06/01/17 15:50 Room Air 06/01/17 15:40 37.1 65 16 127/67 (87) 95 Room Air 06/01/17 14:11 70 12 97 Room Air Physical Exam: General- oriented x 3, not in distress, speaks in sentences with no effort Eyes- anicteric Lungs- clear breath sounds, no rales, no wheezes bilaterally Heart- normal rate, regular rhythm; (+) murmur, no gallop Abdomen- normal bowel sounds, soft, nontender Extremities- no pretibial edema, no calf tenderness Neuro- alert, oriented x 3; no gross focal deficits Skin- warm & dry Laboratory Results: Last 24 Hours Test 06/01/17 06:13 White Blood Count 4.15 K/uL Red Blood Count 3.04 M/uL Hemoglobin 8.9 g/dL Hematocrit 27.4 % Mean Corpuscular Volume 90.1 fL Mean Corpuscular Hemoglobin 29.3 pg Mean Corpuscular Hemoglobin Concent 32.5 g/dl Platelet Count 199 K/uL Mean Platelet Volume 9.7 fL Neutrophils (%) (Auto) 61.0 % Lymphocytes (%) (Auto) 26.3 % Monocytes (%) (Auto) 9.9 % Eosinophils (%) (Auto) 0.7 % Basophils (%) (Auto) 0.2 % Neutrophils # (Auto) 2.53 K/uL Lymphocytes # (Auto) 1.09 K/uL Monocytes # (Auto) 0.41 K/uL Eosinophils # (Auto) 0.03 K/uL Basophils # (Auto) 0.01 K/uL RDW Standard Deviation 56.1 fL RDW Coefficient of Variation 18.3 % Immature Granulocyte % (Auto) 1.9 % Immature Granulocyte # (Auto) 0.08 K/uL Polychromasia 1+ Ovalocytes 1+ Prothrombin Time 17.1 SECONDS Prothromb Time International Ratio 1.6 Total Creatine Kinase 12 U/L Assessment & Plan EXACERBATION OF COPD SECONDARY TO INFLUENZA A -- improved obtain sputum culture:moderate normal cori -- completed 5 day course of Tamiflu -- overall better on room air Continue nebs q6h on usual Prednisone ENTEROCOCCUS FAECIUM UTI, IN THE SETTING OF NEUTROPENIA, CHRONIC STEROID USE CHRONIC OSTEOMYELITIS LUMBAR SPINE - usually on IV Vanco with HD will transition to Dapto in light of Enterococcus UTI, ID consulted -- was on chronic Vanco IV for Osteomyelitis -- changed to Daptomycin IV Day 4 based on Urine C&S -- consulted ID: recommend Daptomycin x 5 days repeat MRI Lumbar spine ordered to determine whether antibiotics needs to be continued GLOBUS SENSATION -- s/p Speech Eval yesterday, no aspiration noted -- Upper GI series noted regular diet, slippery resumed -- may need ENT consult as outpatient as well NEUTROPENIA, RESOLVED Probably secondary to viral illness. -- ANC normal now -- repeat CBC in AM SUPRATHERAPEUTIC INR, RESOLVED HISTORY OF MULTIPLE THROMBOTIC EVENTS Probably secondary to lupus anticoagulants. - in the setting of subarachnoid hemorrhage last 04/2017 - CT head on admission: no bleed - INR 4 to 2.9 TO 1.6 - coumadin 5mg today repeat INR tomorrow resumed Aspirin RECENT INTRACRANIAL HEMORRHAGE Neuro status stable. -- held coumadin for INR >4 INR now 1.6, coumadin resumed CHRONIC KIDNEY DISEASE STAGE V Management per Nephrology. HYPERTENSION Continue carvedilol, nifedipine, hydralazine. CHRONIC GLUCOCORTICOID THERAPY On chronic steroids for years for SLE and renal transplant. now on maintenance dose of prednisone. DVT PROPHYLAXIS coumadin DISPOSITION Expected discharge to home after completion of Dapto x 5 days, last day saturday Internal Medicine follow-up with Dr. Mcpherson. Nephrology follow-up with Dr. Christian. . Current Inpatient Medications: Current Inpatient Medications Medications (Trade) Dose Ordered Sig/Az Route Start Time Stop Time Status Last Admin Dose Admin Acetaminophen (Tylenol Tab) 650 mg Q4H PRN PO 05/24/17 13:00 06/23/17 12:59 05/26/17 23:37 650 MG Ondansetron HCl (Zofran Inj) 4 mg Q6H PRN IV 05/24/17 13:00 06/23/17 12:59 05/30/17 19:20 4 MG Atorvastatin Calcium (Lipitor Tab) 40 mg DAILY PO 05/25/17 09:00 06/24/17 08:59 06/01/17 10:19 40 MG Bupropion HCl (Wellbutrin-Sr Tab) 100 mg BID PO 05/24/17 21:00 06/23/17 20:59 06/01/17 10:16 100 MG Carvedilol (Coreg Tab) 25 mg BID PO 05/24/17 21:00 06/23/17 20:59 06/01/17 10:16 25 MG Hydralazine HCl (Apresoline Tab) 10 mg DAILY PO 05/25/17 09:00 06/24/17 08:59 06/01/17 10:20 10 MG Levothyroxine Sodium (Synthroid Tab) 175 mcg DAILYBB PO 05/25/17 06:00 06/24/17 05:59 06/01/17 06:22 175 MCG Tramadol HCl (Ultram Tab) 50 mg Q4H PRN PO 05/24/17 13:30 06/23/17 13:29 05/31/17 18:01 50 MG Vitamin B Complex/ Vit C/Folic Acid (Nephrocaps) 1 cap DAILY PO 05/25/17 09:00 06/24/17 08:59 06/01/17 10:19 1 CAP Zolpidem Tartrate (Ambien Tab) 5 mg HS PRN PO 05/24/17 13:30 06/23/17 13:29 Pantoprazole Sodium (Protonix Tab) 40 mg DAILY PO 05/25/17 09:00 06/24/17 08:59 06/01/17 10:17 40 MG Nifedipine (Procardia Xl Tab) 90 mg QAM PO 05/25/17 09:00 06/24/17 08:59 06/01/17 10:17 90 MG Sevelamer HCl (Renagel Tab) 1,600 mg BID PO 05/24/17 21:00 06/23/17 20:59 05/31/17 21:13 1,600 MG Sevelamer HCl (Renagel Tab) 2,400 mg TIDM PO 05/24/17 16:45 06/23/17 16:44 06/01/17 18:21 2,400 MG Miscellaneous (Iv Fluids Completed) 1 ea PRN PRN N/A 05/24/17 14:15 05/24/18 14:14 Loperamide HCl (Imodium Cap) 2 mg TID PRN PO 05/24/17 17:45 06/23/17 17:44 05/25/17 17:15 2 MG Prednisone (PredniSONE TAB) 15 mg MoWeFr@0900 PO 05/29/17 09:00 06/28/17 08:59 05/31/17 11:58 15 MG Heparin Sodium (Porcine) (Heparin 100 Unit/ml 5ml Flush) 5 ml PRN PRN IV 05/29/17 01:00 06/28/17 00:59 06/01/17 06:10 5 ML Guaifenesin (Mucinex Contr Rel Tab) 600 mg Q12 PRN PO 05/30/17 05:00 06/29/17 04:59 Daptomycin 500 mg/ Syringe 10 ml @ 5 mls/min Q48H IV 05/29/17 18:00 07/10/17 17:59 05/31/17 18:32 5 MLS/MIN Daptomycin (Consult) 1 ea UD PRN N/A 05/29/17 17:30 06/28/17 17:29 Warfarin Sodium (Coumadin Tab) 3 mg DAILY@16 PO 05/30/17 16:00 06/29/17 15:59 06/01/17 16:04 3 MG Aspirin (Ecotrin Tab) 81 mg QAM PO 05/30/17 09:00 06/29/17 08:59 06/01/17 10:18 81 MG Ipratropium [place] (Atrovent 0.02% 0.5MG/2.5ML Neb) 0.5 mg Q6RWA INH 06/01/17 09:00 07/01/17 08:59 06/01/17 14:10 0.5 MG Levalbuterol (Xopenex 0.63 Mg/ 3 Ml Neb) 0.63 mg Q6RWA INH 06/01/17 09:00 07/01/17 08:59 06/01/17 14:10 0.63 MG
[2017-06-01] MEDS: TRAMADOL HCL 50 MG TAB PO PRN (20:05)
[2017-06-02] MEDS: TRAMADOL HCL 50 MG TAB PO PRN (01:00)
[2017-06-02] MEDS: LEVOTHYROXINE 175 MCG TAB PO SCH (05:36)
[2017-06-02 06:19] LABS: INR 1.9 (0.9-1.1)
[2017-06-02 07:34] VITALS: BP 158/75; PULSE 77; TEMP 37; O2SAT 96
[2017-06-02 07:36] VITALS: PULSE 77; O2SAT 96
[2017-06-02] MEDS: IPRATROPIUM BROMIDE NEB SOLN 0.02% 2.5 ML VIAL INH SCH ×2 (07:36→14:27)
[2017-06-02] MEDS: LEVALBUTEROL 0.63MG/3 ML NEB INH SCH ×2 (07:36→14:27)
--- NOTE | 2017-06-02 08:49 | DIAGNOSTIC IMAGING REPORT ---
MRI OF THE LUMBAR SPINE WITHOUT CONTRAST CLINICAL HISTORY: Fever. Osteomyelitis diagnosed November 2016. Lower back pain. COMPARISON STUDY: Lumbar spine MRI April 12, 2016. TECHNIQUE: Utilizing a 1.5 Alicia magnet and dedicated coil, multiplanar, multiecho imaging of the lumbar spine was performed without IV contrast. FINDINGS: For purposes of numbering on this exam, the L5-S1 disc space is assigned to axial image 27 of 30. Note is made of marked disc space narrowing at L4-L5 with irregularity of the inferior endplate of L4 and superior endplate of L5 which suggests previous osteomyelitis. There is no evidence for acute discitis/osteomyelitis on this examination. There is slight increased T2 signal within the disc space. The findings suggest treated osteomyelitis. There is no epidural fluid collection to suggest abscess. No paraspinal abscess is identified. No intracanalicular mass or fluid collection. Conus terminates at the L1-L2 level. Both lower elwha kidneys are atrophic and contain innumerable cysts. Severe multilevel degenerative changes are present. L1-2: The central canal and neural foramen are patent. L2-3: The central canal and neural foramen are patent. L3-4: There is disc bulge with ligamentous hypertrophy and facet arthrosis that result in severe neural central canal, lateral recesses as well as moderate narrowing of both neural foramen. L4-5: There is severe central canal stenosis due to disc bulge, ligamentous hypertrophy and facet arthrosis. There is moderate to severe narrowing of both neural foramen L5-S1: Central canal is patent. There is mild bilateral neural foraminal stenosis. IMPRESSION: 1. Findings suggestive of treated discitis/osteomyelitis at the L4-L5 level with resultant severe disc space narrowing. Slight increased T2 signal within this disc without convincing evidence for residual discitis. If persistent pain or suspicion for discitis, short-term follow-up MRI could be obtained however no acute abnormality on this exam. 2. Severe central canal stenosis at L3-L4 and L4-L5, as detailed above. 3. Moderate to severe multilevel neural foraminal stenosis. Electronically signed by: Markus Hdz M.D. 06/02/2017 8:47 AM Dictated Date/Time: 06/02/2017 8:36 AM
[2017-06-02] MEDS: SEVELAMER HYDROCH 800 MG TAB PO SCH ×3 (09:38→11:32)
[2017-06-02] MEDS: ASPIRIN 81 MG ECTAB PO SCH (09:38)
[2017-06-02] MEDS: BuPROPion SR 100 MG TABCR PO SCH (09:38)
[2017-06-02] MEDS: HydrALAZINE 10 MG TAB PO SCH (09:39)
[2017-06-02] MEDS: NEPHROCAPS PO SCH (09:39)
[2017-06-02] MEDS: ATORVASTATIN 20 MG TAB PO SCH (09:40)
[2017-06-02] MEDS: NIFEdipine 30 MG CR TAB PO SCH (09:40)
[2017-06-02] MEDS: PANTOprazole SOD 40 MG TAB PO SCH (09:41)
[2017-06-02] MEDS: CARVEDILOL 25 MG TAB PO SCH (09:41)
--- NOTE | 2017-06-02 10:52 | Progress Note ---
Medicine Progress Note Date & Time of Visit: Jun 02, 2017 at 10:42. Subjective seen resting in bed, comfortable doing crossword puzzles states she feels fine overall cough improving further, no dyspnea denies other symptoms states she is ready and would like to be discharged today Objective Last 8 Hrs Date Time Temp Pulse Resp B/P (MAP) Pulse Ox O2 Delivery O2 Flow Rate FiO2 06/02/17 08:00 Room Air 06/02/17 07:36 77 14 96 Room Air 06/02/17 07:34 37.0 77 18 158/75 (102) 96 Room Air Physical Exam: General- oriented x 3, not in distress, speaks in sentences with no effort Eyes- anicteric Lungs- clear breath sounds, no wheezes, no rales bilaterally Heart- normal rate, regular rhythm; (+) murmur, no gallop Abdomen- normal bowel sounds, soft, nontender Extremities- no pretibial edema, no calf tenderness Neuro- alert, oriented x 3; no gross focal deficits Skin- warm & dry Laboratory Results: Last 24 Hours Test 06/02/17 05:26 Prothrombin Time 19.4 SECONDS Prothromb Time International Ratio 1.9 Assessment & Plan EXACERBATION OF COPD SECONDARY TO INFLUENZA A -- sputum culture:moderate normal cori -- completed 5 day course of Tamiflu -- overall better on room air given nebs q6h on usual Prednisone -- use Combivent TID and PRN q4h ff up with PCP in 3-5 days ENTEROCOCCUS FAECIUM UTI, IN THE SETTING OF NEUTROPENIA, CHRONIC STEROID USE CHRONIC OSTEOMYELITIS LUMBAR SPINE - usually on IV Vanco with HD for Lumbar spine osteomyelitis transitioned to Dapto IV x 5 days in light of Enterococcus UTI per ID- Dr. Rai recommendations - repeat MRI Lumbar spine: IMPRESSION: 1. Findings suggestive of treated discitis/osteomyelitis at the L4-L5 level with resultant severe disc space narrowing. Slight increased T2 signal within this disc without convincing evidence for residual discitis. If persistent pain or suspicion for discitis, short-term follow-up MRI could be obtained however no acute abnormality on this exam. 2. Severe central canal stenosis at L3-L4 and L4-L5, as detailed above. 3. Moderate to severe multilevel neural foraminal stenosis. -- awaiting recommendation from Dr. Rai re: IV Vanco continuation GLOBUS SENSATION -- s/p Speech Eval, no aspiration noted Regular Slipper Diet with Thin Liquids recommended -- Upper GI series: IMPRESSION: 1. Normal swallowing function. 2. Moderate esophageal dysmotility and/or spasm. 3. Small intermittent hiatal hernia with moderate spasm of the gastroesophageal junction. -- GI consulted, no further interventions recommended ff up with GI as outpatient -- may need ENT consult as outpatient as well as patient reporting persistent sore throat NEUTROPENIA, RESOLVED Probably secondary to viral illness. -- ANC normal now SUPRATHERAPEUTIC INR, RESOLVED HISTORY OF MULTIPLE THROMBOTIC EVENTS Probably secondary to lupus anticoagulants. - in the setting of subarachnoid hemorrhage last 04/2017 - CT head on admission: no bleed - coumadin held - INR 4 to 1.9 - coumadin resumed at 3mg po daily will contact [facility] to call patient for advice the day after discharge RECENT INTRACRANIAL HEMORRHAGE Neuro status stable. -- held coumadin for INR >4 INR now 1.9, coumadin has been resumed CHRONIC KIDNEY DISEASE STAGE V HD per Nephrology. HYPERTENSION Continue carvedilol, nifedipine, hydralazine. CHRONIC GLUCOCORTICOID THERAPY On chronic steroids for years for SLE and renal transplant. now on maintenance dose of prednisone. DVT PROPHYLAXIS coumadin DISPOSITION d/c home Internal Medicine follow-up with Dr. Mcpherson in 3-5 days Nephrology follow-up with Oncp[place]. Gastroenterology ff up in 1-2 weeks Current Inpatient Medications: Current Inpatient Medications Medications (Trade) Dose Ordered Sig/Az Route Start Time Stop Time Status Last Admin Dose Admin Acetaminophen (Tylenol Tab) 650 mg Q4H PRN PO 05/24/17 13:00 06/23/17 12:59 05/26/17 23:37 650 MG Ondansetron HCl (Zofran Inj) 4 mg Q6H PRN IV 05/24/17 13:00 06/23/17 12:59 05/30/17 19:20 4 MG Atorvastatin Calcium (Lipitor Tab) 40 mg DAILY PO 05/25/17 09:00 06/24/17 08:59 06/02/17 09:40 40 MG Bupropion HCl (Wellbutrin-Sr Tab) 100 mg BID PO 05/24/17 21:00 06/23/17 20:59 06/02/17 09:38 100 MG Carvedilol (Coreg Tab) 25 mg BID PO 05/24/17 21:00 06/23/17 20:59 06/02/17 09:41 25 MG Hydralazine HCl (Apresoline Tab) 10 mg DAILY PO 05/25/17 09:00 06/24/17 08:59 06/02/17 09:39 10 MG Levothyroxine Sodium (Synthroid Tab) 175 mcg DAILYBB PO 05/25/17 06:00 06/24/17 05:59 06/02/17 05:36 175 MCG Tramadol HCl (Ultram Tab) 50 mg Q4H PRN PO 05/24/17 13:30 06/23/17 13:29 06/02/17 01:00 50 MG Vitamin B Complex/ Vit C/Folic Acid (Nephrocaps) 1 cap DAILY PO 05/25/17 09:00 06/24/17 08:59 06/02/17 09:39 1 CAP Zolpidem Tartrate (Ambien Tab) 5 mg HS PRN PO 05/24/17 13:30 06/23/17 13:29 Pantoprazole Sodium (Protonix Tab) 40 mg DAILY PO 05/25/17 09:00 06/24/17 08:59 06/02/17 09:41 40 MG Nifedipine (Procardia Xl Tab) 90 mg QAM PO 05/25/17 09:00 06/24/17 08:59 06/02/17 09:40 90 MG Sevelamer HCl (Renagel Tab) 1,600 mg BID PO 05/24/17 21:00 06/23/17 20:59 06/01/17 20:35 1,600 MG Sevelamer HCl (Renagel Tab) 2,400 mg TIDM PO 05/24/17 16:45 06/23/17 16:44 06/02/17 09:38 2,400 MG Miscellaneous (Iv Fluids Completed) 1 ea PRN PRN N/A 05/24/17 14:15 05/24/18 14:14 Loperamide HCl (Imodium Cap) 2 mg TID PRN PO 05/24/17 17:45 06/23/17 17:44 05/25/17 17:15 2 MG Prednisone (PredniSONE TAB) 15 mg MoWeFr@0900 PO 05/29/17 09:00 06/28/17 08:59 05/31/17 11:58 15 MG Heparin Sodium (Porcine) (Heparin 100 Unit/ml 5ml Flush) 5 ml PRN PRN IV 05/29/17 01:00 06/28/17 00:59 06/02/17 05:27 5 ML Guaifenesin (Mucinex Contr Rel Tab) 600 mg Q12 PRN PO 05/30/17 05:00 06/29/17 04:59 Daptomycin 500 mg/ Syringe 10 ml @ 5 mls/min Q48H IV 05/29/17 18:00 07/10/17 17:59 05/31/17 18:32 5 MLS/MIN Daptomycin (Consult) 1 ea UD PRN N/A 05/29/17 17:30 06/28/17 17:29 Warfarin Sodium (Coumadin Tab) 3 mg DAILY@16 PO 05/30/17 16:00 06/29/17 15:59 06/01/17 16:04 3 MG Aspirin (Ecotrin Tab) 81 mg QAM PO 05/30/17 09:00 06/29/17 08:59 06/02/17 09:38 81 MG Ipratropium [place] (Atrovent 0.02% 0.5MG/2.5ML Neb) 0.5 mg Q6RWA INH 06/01/17 09:00 07/01/17 08:59 06/02/17 07:36 0.5 MG Levalbuterol (Xopenex 0.63 Mg/ 3 Ml Neb) 0.63 mg Q6RWA INH 06/01/17 09:00 07/01/17 08:59 06/02/17 07:36 0.63 MG
[2017-06-02] MEDS ORDERED: IPRA1AER2 INH (10:56)
--- NOTE | 2017-06-02 11:07 | Discharge Instructions ---
Discharge Instructions Date of Service Jun 02, 2017. Admission Reason for Admission: Fever, Influenza Discharge Discharge Diagnosis / Problem: INFLUENZA A INFECTION Discharge Goals Goal(s): Diagnostic testing, Therapeutic intervention Activity Recommendations Activity Limitations: as noted below (NO HEAVY EXERTION UNTIL RE-EVALUATED BY PRIMARY CARE PHYSICIAN) Lifting Limitations: until after follow-up appointment Exercise/Sports Limitations: until after follow-up appointment . Instructions / Follow-Up Instructions / Follow-Up PLEASE REFER TO YOUR NEW MEDICATION LIST AND FOLLOW INSTRUCTIONS CAREFULLY. [facility] WILL CALL YOU REGARDING WARFARIN DOSE AND NEXT BLOODWORK. CALL PRIMARY CARE PHYSICIAN OR RETURN TO ER IMMEDIATELY IF WITH RECURRENCE OF SYMPTOMS, FEVER/CHILLS. FOLLOW UP WITH PRIMARY CARE PHYSICIAN IN 3-5 DAYS. (DR. FRAGA HAS NO AVAILABILITY THIS WEEK. THE CLINIC WILL CALL YOU FOR AN APPOINTMENT SOON). FOLLOW UP WITH DR. BROWER FOR NEPHROLOGY SCHEDULED. Current Hospital Diet Patient's current hospital diet: Renal Diet, AHA Diet (Heart Healthy) Discharge Diet Recommended Diet: AHA Diet (Heart Healthy), Renal Diet Procedures Procedures Performed: MRI LUMBAR SPINE Pending Studies Studies pending at discharge: yes List of pending studies: BLOOD WORK C/O [facility] Medical Emergencies . Who to Call and When: Medical Emergencies: If at any time you feel your situation is an emergency, please call 911 immediately. . Non-Emergent Contact Non-Emergency issues call your: Primary Care Provider, Perinatal Coordinator Call Non-Emergent contact if: you have a fever, your pain is not controlled, your pain is worsening, you have any medication questions . . "Provider Documentation" section prepared by Varinder Adame. . VTE Core Measure Inpt VTE Proph given/why not?: Warfarin (Coumadin)
[2017-06-02] MEDS: DAPTOmycin IV 500 MG in SYRINGE 0 ML IV SCH (11:27)
[2017-06-02 11:41] VITALS: BP 158/75; PULSE 77; TEMP 37; O2SAT 96
--- NOTE | 2017-06-03 21:10 | Discharge Summary ---
Discharge Summary Date of Service Jun 03, 2017. Discharge Summary Admission Date: May 25, 2017 at 20:00 Discharge Date: Jun 02, 2017 Discharge Disposition: Home Principal Diagnosis: EXACERBATION OF COPD; SECONDARY TO INFLUENZA A Secondary Diagnoses/Problems: PLEASE REFER TO HOSPITAL COURSE BELOW. Procedures: HEAD CT NONCONTRAST CT DOSE: 1074.96 mGy.cm HISTORY: headache, recent ICH, on coumadin TECHNIQUE: Multiaxial CT images of the head were performed without the use of intravenous contrast. Automated exposure control was utilized for this study. A dose lowering technique was utilized adhering to the principles of ALARA. Comparison: Head CT 04/15/2017. Findings: Mild mucosal thickening within the maxillary sinuses. Small bilateral mastoid effusions, left greater than right. The calvarium and skull base are intact. There is no mass, hematoma, midline shift, acute infarct. White matter hypodensity is nonspecific but suggestive of microvascular ischemic change. The ventricles and sulci are within normal limits. Impression: 1. Resolution of the posterior fossa intracranial hemorrhage. 2. No acute intracranial abnormality. CHEST ONE VIEW PORTABLE CLINICAL HISTORY: fever COMPARISON STUDY: 04/15/2017 FINDINGS: There is a left subclavian dual-chamber central venous catheter present. There is a right-sided A-Port catheter present. The cardiac and mediastinal contours remain stable. There is no focal pulmonary consolidation. There are no pleural effusions. There is no overt failure. There is a right sided axial/brachial vascular stent.[ IMPRESSION: No active disease in the chest. GI SERIES W/O KUB CLINICAL HISTORY: regurgitation, dysphagiadysphagia COMPARISON STUDY: None FLUOROSCOPY TIME: 2.2 minutes. FINDINGS: Patient initiated swallowing function well. There is mild esophageal dysmotility. There is a small hiatal hernia. There is moderate spasm of the gastroesophageal junction. Size and configuration stomach are normal. Due to bulb fills well. Duodenal sweep is unremarkable. IMPRESSION: 1. Normal swallowing function. 2. Moderate esophageal dysmotility and/or spasm. 3. Small intermittent hiatal hernia with moderate spasm of the gastroesophageal junction. 4. Study is otherwise negative. MRI OF THE LUMBAR SPINE WITHOUT CONTRAST CLINICAL HISTORY: Fever. Osteomyelitis diagnosed November 2016. Lower back pain. COMPARISON STUDY: Lumbar spine MRI April 12, 2016. TECHNIQUE: Utilizing a 1.5 Alicia magnet and dedicated coil, multiplanar, multiecho imaging of the lumbar spine was performed without IV contrast. FINDINGS: For purposes of numbering on this exam, the L5-S1 disc space is assigned to axial image 27 of 30. Note is made of marked disc space narrowing at L4-L5 with irregularity of the inferior endplate of L4 and superior endplate of L5 which suggests previous osteomyelitis. There is no evidence for acute discitis/osteomyelitis on this examination. There is slight increased T2 signal within the disc space. The findings suggest treated osteomyelitis. There is no epidural fluid collection to suggest abscess. No paraspinal abscess is identified. No intracanalicular mass or fluid collection. Conus terminates at the L1-L2 level. Both [place] kidneys are atrophic and contain innumerable cysts. Severe multilevel degenerative changes are present. L1-2: The central canal and neural foramen are patent. L2-3: The central canal and neural foramen are patent. L3-4: There is disc bulge with ligamentous hypertrophy and facet arthrosis that result in severe neural central canal, lateral recesses as well as moderate narrowing of both neural foramen. L4-5: There is severe central canal stenosis due to disc bulge, ligamentous hypertrophy and facet arthrosis. There is moderate to severe narrowing of both neural foramen L5-S1: Central canal is patent. There is mild bilateral neural foraminal stenosis. IMPRESSION: 1. Findings suggestive of treated discitis/osteomyelitis at the L4-L5 level with resultant severe disc space narrowing. Slight increased T2 signal within this disc without convincing evidence for residual discitis. If persistent pain or suspicion for discitis, short-term follow-up MRI could be obtained however no acute abnormality on this exam. 2. Severe central canal stenosis at L3-L4 and L4-L5, as detailed above. 3. Moderate to severe multilevel neural foraminal stenosis. Consultations: NEPHROLOGY, INFECTIOUS DISEASE, GASTROENTEROLOGY Pending Studies/Follow-Up: PLEASE REFER TO HOSPITAL COURSE BELOW. Medication Reconciliation Changed Medications: Ipratropium-Albuterol (Combivent Respimat) 1 Aer Aer 1 PUFFS INH TID for 30 Days (Changed from: QID; Removed Reason) take three times a day for 1 week and may also use every 4 hours as needed for shortness of breath; then, may resume taking four times a day as needed for shortness of breah Continued Medications: Acetaminophen Tab (Tylenol) 325 Mg Tab 650 MG PO Q6 PRN for Pain Aspirin (Aspirin Ec) 81 Mg Tab 81 MG PO DAILY Atorvastatin (Lipitor) 40 Mg Tab 40 MG PO DAILY Bupropion (Wellbutrin Sr) 100 Mg Ertab 100 MG PO BID Carvedilol (Coreg) 25 Mg Tab 1 TAB PO BID for 90 Days, #180 TAB 1 Refill Esomeprazole Magnesium (Nexium) 40 Mg Capcr 40 MG PO DAILY Fiber (Fiber Diet) 1 Tab Tab 1 TAB PO DAILY Hydralazine HCl (Hydralazine HCl) 10 Mg Tab 1 TAB PO DAILY Iron Sucrose (Venofer) 20 Mg/Ml Inj 1 DOSE IV Q2WKS ON THURSDAYS WITH DIALYSIS Levothyroxine Sodium (Levothyroxine Sodium) 175 Mcg Tab 175 MCG PO DAILY Nifedipine (Nifedipine ER) 90 Mg Tabcr 1 TAB PO DAILY Ondansetron Hcl (Zofran) 4 Mg Tab 4 MG PO Q6 PRN for Nausea Paricalcitol (Paricalcitol) 2 Mcg/Ml Inj 3 MCG IV 3XWK WITH DIALYSIS Prednisone (Prednisone) 5 Mg Tab 15 MG PO MWF THREE 5 MG TABLETS ON , , Senna/Docusate Sod (Senokot S) 1 Tab Tab 1 TAB PO DAILY PRN for Constipation Sevelamer Carbonate (Renvela) 800 Mg Tab 2400 MG PO TIDM THREE 800 MG TABLETS 3 TIMES DAILY WITH MEALS Sevelamer Carbonate (Renvela) 800 Mg Tab 1600 MG PO BID TWO 800 MG TABLETS TWICE DAILY WITH SNACKS. Sodium Chloride (Saline Flush) 10 Ml Inj 10 ML IV Q6WK AND NEEDED FOR PORT MAINTAINENCE Tramadol (Ultram) 50 Mg Tab 50 MG PO Q4H PRN for Pain Vitamin B Cmplx/Vitc/Folic Ac (Nephrocaps) Cap 1 CAP PO DAILY Warfarin Sodium (Coumadin) 3 Mg Tab 3 MG PO QPM Zolpidem Tartrate (Ambien) 5 Mg Tab 5 MG PO HS PRN for Sleep Discontinued Medications: Vancomycin HCl in Dextrose (Vancomycin Hydrochloride/ 1-5 gm/250Ml-%) 1 Inj Inj 1000 MG IV 3XWK SATURDAY, SATURDAY, SATURDAY X 22 DAYS (PER MED LIST, END DATE = 05/29/17) Admission Information HPI (per Admitting provider): Pt is 61 y/o F with PMH asthma, CKD V on HD on , , Sat, failed renal transplant, hx rectal CA, hyperlipidemia, HTN, anxiety, paroxysmal a-fib, mesenteric arterial thrombosis, hypothyroidism, SLE, AAA, anemia of ESRD, hx vaginal mass, chronic osteomyelitis of lumbar spine follows with Dr Rai on vancomycin 3 days a week on days of HD presented to ER with c/o fever, cough, rhinorrhea, body aches that started yesterday. Pt c/o fever 101.1F, sweats, productive white cough, SOB. Reports when feels hot she gets dry heaves, denies vomiting or diarrhea. States GODINEZ with coughing. She hasn't tried her inhaler. Doesn't make much urine, denies hematuria, dysuria. Hx intracranial hemorrhage 04/2017 was transferred to [facility] [place] [place], no surgery. Found to have L jugular DVT and Coumadin was restarted. Went to [facility] for rehab, has been home for 9 days now. Pt reports didn't take her Coumadin yesterday and hasn't taken her BP meds today. Denies V/D/C, dizziness, syncope, vision changes, neck pain, CP, orthopnea, palpitations, sore throat, choking, abdominal pain, paresthesias, extremity edema, rashes. In ER pt 38.8C axillary, P: 80-96, 96% on RA, BP: 187/79-->208/83-->159/57. WBC : 3 (4.5 on 05/06/17), Hgb: 8.5 (~9.3 baseline), Cr: 5.8 (~baseline), Ma.7, Trop: 0.028, INR: 1.9. +influenza A on rapid. CXR: no acute changes. Head CT: no acute, resolved posterior fossa intracranial hemorrhage. Pt given Tamiflu, labetalol 10mg IV, Tylenol, Cefepime, Vancomycin. Physical Exam (per Admitting): General Appearance: + pertinent finding (chronically ill appearing, no apparent distress) Head: normocephalic, atraumatic Eyes: normal inspection, PERRL, EOMI, sclerae normal ENT: hearing grossly normal, pharynx normal, + pertinent finding (mucous membranes moist) Neck: supple, trachea midline Respiratory/Chest: chest non-tender, lungs clear, normal breath sounds, no respiratory distress, no accessory muscle use Cardiovascular: regular rate, rhythm, + systolic murmur Abdomen/GI: normal bowel sounds, non tender, soft Back: no CVA tenderness Extremities/Musculoskelatal: no calf tenderness, normal capillary refill, no pedal edema, non-tender, + pertinent finding (+scars noted to Left lower leg , right upper lateral thigh) Neurologic/Psych: alert, normal mood/affect, oriented x 3 Skin: normal color, warm/dry Hospital Course EXACERBATION OF COPD SECONDARY TO INFLUENZA A -- sputum culture:moderate normal cori -- completed 5 day course of Tamiflu -- overall better on room air given nebs q6h on usual Prednisone -- use Combivent TID and PRN q4h ff up with PCP in 3-5 days ENTEROCOCCUS FAECIUM UTI, IN THE SETTING OF NEUTROPENIA, CHRONIC STEROID USE CHRONIC OSTEOMYELITIS LUMBAR SPINE - usually on IV Vanco with HD for Lumbar spine osteomyelitis transitioned to Dapto IV x 5 days in light of Enterococcus UTI per ID- Dr. Rai recommendations - repeat MRI Lumbar spine: IMPRESSION: 1. Findings suggestive of treated discitis/osteomyelitis at the L4-L5 level with resultant severe disc space narrowing. Slight increased T2 signal within this disc without convincing evidence for residual discitis. If persistent pain or suspicion for discitis, short-term follow-up MRI could be obtained however no acute abnormality on this exam. 2. Severe central canal stenosis at L3-L4 and L4-L5, as detailed above. 3. Moderate to severe multilevel neural foraminal stenosis. -- discussed with Dr. Rai, advised to DISCONTINUE IV Vancomycin follow up with Dr. Rai and Ortho in 1-2 weeks GLOBUS SENSATION -- s/p Speech Eval, no aspiration noted Regular Slipper Diet with Thin Liquids recommended -- Upper GI series: IMPRESSION: 1. Normal swallowing function. 2. Moderate esophageal dysmotility and/or spasm. 3. Small intermittent hiatal hernia with moderate spasm of the gastroesophageal junction. -- GI consulted, no further interventions recommended ff up with GI as outpatient -- may need ENT consult as outpatient as well as patient reporting persistent sore throat NEUTROPENIA, RESOLVED Probably secondary to viral illness. -- ANC normal now SUPRATHERAPEUTIC INR, RESOLVED HISTORY OF MULTIPLE THROMBOTIC EVENTS Probably secondary to lupus anticoagulants. - in the setting of subarachnoid hemorrhage last 04/2017 - CT head on admission: no bleed - coumadin held - INR 4 to 1.9 - coumadin resumed at 3mg po daily will contact [facility]in Clinic to call patient for advice the day after discharge RECENT INTRACRANIAL HEMORRHAGE Neuro status stable. -- held coumadin for INR >4 INR now 1.9, coumadin has been resumed CHRONIC KIDNEY DISEASE STAGE V HD per Nephrology. HYPERTENSION Continue carvedilol, nifedipine, hydralazine. CHRONIC GLUCOCORTICOID THERAPY On chronic steroids for years for SLE and renal transplant. now on maintenance dose of prednisone. DISPOSITION d/c home Internal Medicine follow-up with Dr. Mcpherson in 3-5 days Nephrology follow-up with Dr. Brower. Gastroenterology ff up in 1-2 weeks Total time spent on discharge = This includes examination of the patient, discharge planning, medication reconciliation, and communication with other providers. Discharge Instructions Discharge Instructions Date of Service Jun 02, 2017. Admission Reason for Admission: Fever, Influenza Discharge Discharge Diagnosis / Problem: INFLUENZA A INFECTION Discharge Goals Goal(s): Diagnostic testing, Therapeutic intervention Activity Recommendations Activity Limitations: as noted below (NO HEAVY EXERTION UNTIL RE-EVALUATED BY PRIMARY CARE PHYSICIAN) Lifting Limitations: until after follow-up appointment Exercise/Sports Limitations: until after follow-up appointment . Instructions / Follow-Up Instructions / Follow-Up PLEASE REFER TO YOUR NEW MEDICATION LIST AND FOLLOW INSTRUCTIONS CAREFULLY. [facility] WILL CALL YOU REGARDING WARFARIN DOSE AND NEXT BLOODWORK. CALL PRIMARY CARE PHYSICIAN OR RETURN TO ER IMMEDIATELY IF WITH RECURRENCE OF SYMPTOMS, FEVER/CHILLS. FOLLOW UP WITH PRIMARY CARE PHYSICIAN IN 3-5 DAYS. (DR. MCPHERSON HAS NO AVAILABILITY THIS WEEK. THE CLINIC WILL CALL YOU FOR AN APPOINTMENT SOON). FOLLOW UP WITH DR. BROWER FOR NEPHROLOGY SCHEDULED. Current Hospital Diet Patient's current hospital diet: Renal Diet, AHA Diet (Heart Healthy) Discharge Diet Recommended Diet: AHA Diet (Heart Healthy), Renal Diet Procedures Procedures Performed: MRI LUMBAR SPINE Pending Studies Studies pending at discharge: yes List of pending studies: BLOOD WORK C/O [facility] Medical Emergencies . Who to Call and When: Medical Emergencies: If at any time you feel your situation is an emergency, please call 911 immediately. . Non-Emergent Contact Non-Emergency issues call your: Primary Care Provider, Chief Hospital Administrator Call Non-Emergent contact if: you have a fever, your pain is not controlled, your pain is worsening, you have any medication questions . . "Provider Documentation" section prepared by Varinder Adame. . VTE Core Measure Inpt VTE Proph given/why not?: Warfarin (Coumadin)
== END 2017-06-02 14:27 | disposition home or self-care (01) | DRG 193 ==
LOC: C.EDB 09:23 → C.2T 12:50 → UNDOADMOB 12:50 → EDBEDREQ 13:07 → ENRESERV 13:29 → OBSVTOIN 20:00 → INTOOBSV 20:00 → OBSVTOIN 05-25 20:00 → C.2T 05-25 20:00 → INTOOBSV 05-25 20:00 → UNDOADMOB 05-25 20:00 → ENRESERV 05-26 16:01 → C.MSN 05-26 19:31 → C.2T 05-26 19:31
PROVIDERS: ADMIT Internal Medicine; ATTEND Internal Medicine
DX: J10.1 Influenza due to other identified influenza virus with other respiratory manifestations (principal); N18.6 End stage renal disease; J44.1 Chronic obstructive pulmonary disease with (acute) exacerbation; Z94.0 Kidney transplant status; I12.0 Hypertensive chronic kidney disease with stage 5 chronic kidney disease or end stage renal disease; F41.9 Anxiety disorder, unspecified; J45.909 Unspecified asthma, uncomplicated; I25.10 Atherosclerotic heart disease of native coronary artery without angina pectoris; E78.5 Hyperlipidemia, unspecified; K21.9 Gastro-esophageal reflux disease without esophagitis; E03.9 Hypothyroidism, unspecified; I48.0 Paroxysmal atrial fibrillation; E83.42 Hypomagnesemia; D63.1 Anemia in chronic kidney disease; D70.9 Neutropenia, unspecified; Z99.2 Dependence on renal dialysis; Z79.01 Long term (current) use of anticoagulants; Z90.49 Acquired absence of other specified parts of digestive tract; Z79.82 Long term (current) use of aspirin; Z84.1 Family history of disorders of kidney and ureter; Z82.49 Family history of ischemic heart disease and other diseases of the circulatory system

== ENCOUNTER → 2017-09-25 | Outpatient (CLI) | payer OTHER, BC ==
[~2017-09-25] MED LIST changes: +ACET-1693 PO; -AMLO5TAB2 PO; -AMOX500T PO; -ASPCH81X PO; +ASPI81TA28 PO; -ATV/1 PO; +B-CO1CAP17 PO; +CARV25TA2 PO; -CLR10 PO; -FIBER PO; +FIBETAB2 PO; -FRS/40 PO; -HEPA100I10 IV; +HYDR-2977 PO; -METO-217 PO; -MULT-513 PO; +PRCSR90 PO; +SENN-65 PO; -SEVE1TAB PO; -SEVE800T PO; +SEVE800T7 PO; +TRAM-10 PO; -VANCOMYCIN IV; +WARF3TAB PO; -WARF3TAB6 PO; +[UNRECOGNIZED DRUG - CODE] IV; -[UNRECOGNIZED DRUG - CODE] IV
--- NOTE | 2017-09-26 14:16 | MAMMOGRAPHY REPORT ---
BILATERAL DIGITAL SCREENING MAMMOGRAM TOMOSYNTHESIS WITH CAD: 09/25/2017 CLINICAL HISTORY: Routine screening. Patient has no complaints. TECHNIQUE: Breast tomosynthesis in addition to standard 2D mammography was performed. Current study was also evaluated with a Computer Aided Detection (CAD) system. COMPARISON: Comparison is made to exams dated: 04/04/2015 mammogram, 04/04/2015 ultrasound, 5 ultrasound, 09/30/2014 mammogram, 07/21/2013 mammogram, and 07/11/2012 mammogram - [facility]. BREAST COMPOSITION: There are scattered areas of fibroglandular density in both breasts. FINDINGS: No suspicious masses, calcifications, or areas of architectural distortion are noted in ei ther breast. There has been no significant interval change compared to prior exams. Scattered bilate ral benign-appearing calcifications are again noted. A port catheter overlies the right superior norberto ast. IMPRESSION: ACR BI-RADS CATEGORY 2: BENIGN There is no mammographic evidence of malignancy. A 1 year screening mammogram is recommended. The pa tient will receive written notification of the results. Approximately 10% of breast cancers are not detected with mammography. A negative mammographic report should not delay biopsy if a clinically suggestive mass is present. Kailee Ramirez M.D. ah/:09/25/2017 15:35:23 Dietitian Chief: Sophia LIM)(M), [facility] letter sent: Normal 1/2 BI-RADS Code: ACR BI-RADS Category 2: Benign
== END | disposition home or self-care (01) ==
LOC: C.MAMM 13:44
PROVIDERS: ATTEND Internal Medicine
DX: Z12.31 Encounter for screening mammogram for malignant neoplasm of breast (principal)

== ENCOUNTER 2017-12-21 10:53 | Emergency (ER) | payer OTHER, BC ==
[~2017-12-21] VITALS: Ht 162.6 cm; Wt 87.0 kg
[~2017-12-21 10:53] MED LIST changes: +APR10 PO; -B-CO1CAP17 PO; +B-COCAP2 PO; +CLCC1250 PO; +CLR10 PO; -HYDR-2977 PO; +NIFE30TA83 PO; +OXYC-164 PO; -PRCSR90 PO; -SENN-65 PO; -TRAM-10 PO; +WARF2TAB PO; -WARF3TAB PO
[2017-12-21 11:03] VITALS: TEMP 36.8; Ht 162.6 cm; Wt 87.0 kg
[2017-12-21 12:01] LABS: BASO % 0.3 %; BASO ABS # 0.02 K/uL (0-0.2); EOS % 2.1 %; EOS ABS # 0.13 K/uL (0-0.5); HEMATOCRIT 33.2 % (37-47); HEMOGLOBIN 10.4 g/dL (12.0-16.0); IG# 0.02 K/uL (0.00-0.02); LYMPH ABS # 1.28 K/uL (1.2-3.4); MEAN CORPUSCULAR HEMOGLOBIN 28.5 pg (25-34); MEAN CORPUSCULAR HGB CONC 31.3 g/dl (32-36); MEAN PLATELET VOLUME 10.1 fL (7.4-10.4); MONO % 12.2 %; MONO ABS # 0.74 K/uL (0.11-0.59); NEUT % 64.1 %; PLATELET COUNT 178 K/uL (130-400); RED CELL DISTRIBUTION WIDTH CV 16.5 % (11.5-14.5); RED CELL DISTRIBUTION WIDTH SD 54.1 fL (36.4-46.3); WHITE BLOOD COUNT 6.09 K/uL (4.8-10.8)
--- NOTE | 2017-12-21 12:03 | EMERGENCY ROOM VISIT NOTE ---
History Report prepared by Steffanie: Stefan bell Under the Supervision of: Dr. Farooq Rosales M.D. First contact with patient: 11:53 Chief Complaint: ABDOMINAL PAIN Stated Complaint: ABDOMINAL PAIN Nursing Triage Summary: see triage note, "pain like the last time I WAS HERE, [place]. i HAD TO GO TO [place] LAST TIME; IT WAS ISCHEMIC COLITIS" History of Present Illness The patient is a 62 year old female who presents to the Emergency Room with complaints of worsening abdominal pain over the past 2 days. The patient states that her pain is in her "intestines" and she describes the pain as "sharp." She adds that she has a history of ischemic colitis and has been told that she does "not get enough blood flow to her intestines." She states her pain feels similar to the last time she had to be transferred to [place] for ischemic colitis. She denies any melena, hematochezia, chest pain, difficulty breathing , hematuria. The patient states her pain got worse while getting dialysis today. She states she usually gets 3 hours of dialysis but did not finish her full session today. She follows with Dr. Valencia and has been referred to a vacular surgeon who she will see next month. Source of History: patient Onset: Past couple of days. Position: abdomen (intestines) Quality: sharp Timing: worsening Review of Systems See HPI for pertinent positives and negatives. A total of ten systems were reviewed and were otherwise negative. 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 (25) Near syncope (26) Osteomyelitis (27) Paroxysmal a-fib (28) Pleuritic chest pain (29) Renal transplant rejection (30) Right knee pain (31) Subarachnoid hemorrhage (32) Sudden onset of severe abdominal pain (33) Weakness Surgical Problems: (1) H/O hernia repair (2) History of bowel resection (3) History of carpal tunnel surgery (4) Hx of appendectomy (5) Renal transplant, status post (6) S/P partial hysterectomy Family History Cancer FH: heart disease Hypertension Kidney stones Social History Smoking Status: Never Smoker Alcohol Use: none Drug Use: none Marital Status: single Housing Status: lives alone Occupation Status: disabled Current/Historical Medications Scheduled Aspirin (Aspirin Ec), 81 MG PO DAILY Atorvastatin (Lipitor), 40 MG PO DAILY Bupropion (Wellbutrin Sr), 100 MG PO DAILY Carvedilol (Coreg), 1 TAB PO BID Esomeprazole Magnesium (Nexium), 40 MG PO DAILY Fiber (Fiber Diet), 1 TAB PO AMHS Hydralazine HCl (Hydralazine HCl), 10 MG PO TID Iron Sucrose (Venofer), 1 DOSE IV Q2WKS Levothyroxine Sodium (Levothyroxine Sodium), 175 MCG PO DAILY Nifedipine Ext Rel (Procardia Xl Ext Rel), 30 MG PO DAILY Paricalcitol (Paricalcitol), 3 MCG IV 3XWK Prednisone (Prednisone), 5 MG PO MWF Sevelamer Carbonate (Renvela), 2,400 MG PO TIDM Sodium Chloride (Saline Flush), 10 ML IV Q6WK Vitamin B Cmplx/Vitc/Folic Ac (Nephrocaps), 1 CAP PO DAILY Warfarin Sod (Jantoven), 4 MG PO 6XWK Warfarin Sod (Jantoven), 2 MG PO WK Scheduled PRN Ipratropium-Albuterol (Combivent Respimat), 1 PUFFS INH TID PRN for SOB/Wheezing Loratadine (Claritin), 10 MG PO DAILY PRN for POST NASAL DRIP/COUGH Ondansetron Hcl (Zofran), 4 MG PO Q6 PRN for Nausea Oxycodone Hcl (Oxycodone Hcl), 10 MG PO TID PRN for Pain Sevelamer Carbonate (Renvela), 1,600 MG PO BID PRN for WITH SNACKS Zolpidem Tartrate (Ambien), 5 MG PO HS PRN for Sleep Allergies Coded Allergies: Silver Nitrate (Verified Allergy, Severe, SEVERE BURNING, 11/05/17) Silver Sulfadiazine (Verified Allergy, Severe, SEVERE BURNING, 11/05/17) Azithromycin (Verified Allergy, Intermediate, "BUGS CRAWLING ON ME", ) Levofloxacin (Verified Allergy, Intermediate, HIVES, 11/05/17) Sulfa Antibiotics (Verified Allergy, Intermediate, "SULFA DRUGS": RASH, 11/05/17) Trimethoprim (Verified Allergy, Intermediate, BACTRIM - RASH, 11/05/17) Oxycodone (Verified Allergy, Mild, PERCOCET-GI UPSET, 11/05/17) Amoxicillin (Verified Adverse Reaction, Mild, GI UPSET, 11/05/17) CAN TAKE 500 MG DOSES Clavulanic Acid (Verified Adverse Reaction, Mild, GI UPSET, 11/05/17) Erythromycin (Verified Adverse Reaction, Mild, nausea vomiting, 11/05/17) Metronidazole (Verified Adverse Reaction, Mild, DIARRHEA, 12/21/17) Physical Exam Vital Signs Date Time Temp Pulse Resp B/P (MAP) Pulse Ox O2 Delivery O2 Flow Rate FiO2 12/21/17 13:00 72 20 181/63 98 12/21/17 12:43 72 20 181/63 98 Room Air 12/21/17 11:23 73 12/21/17 11:03 36.8 81 18 150/80 96 Room Air Physical Exam Physical Exam GENERAL: He is oriented to person, place, and time. He appears well-developed and well-nourished. He does not appear distressed. HENT: Exam performed. Head: Normocephalic and atraumatic. Right Ear: External ear normal. No mastoid tenderness. Left Ear: External ear normal. No mastoid tenderness. Mouth/Throat: The oropharynx is clear and moist. No trismus in the jaw. No dental abscesses or uvula swelling. No oropharyngeal exudate or tonsillar abscesses. EYES: Conjunctivae and EOM are normal. Pupils are equal, round, and reactive to light. Right eye exhibits no discharge. Left eye exhibits no discharge. No scleral icterus. NECK: Normal range of motion. Neck supple. No JVD present. No spinous process tenderness present. No carotid bruit present. No rigidity. No tracheal deviation and normal range of motion present. No Brudzinski's sign and no Kernig 's sign noted. CV: Normal rate, regular rhythm, normal heart sounds and intact distal pulses. There is no peripheral edema. Palpable radial pulses bue. PULM/CHEST: Effort normal and breath sounds normal. No respiratory distress. No stridor. He has no wheezes. He has no rales. Chest Wall: Right side of the chest there is a PICC line, on the left side of the chest she has a PermCath. No erythema present. ABD: The abdomen is soft. Bowel sounds are normal. He has no distension. No mass is present. Diffuse pain on palpation of the abdomen. There is no rebound, no guarding, no Koenig's sign and no tenderness at McBurney's point. Rovsig negative. MUSC/SKEL: Normal range of motion. There is no peripheral edema, tenderness or deformity. LYMPH: No cervical adenopathy. NEURO: He is alert and oriented to person, place, and time. He has normal strength. No cranial nerve deficit or sensory deficit. Coordination and gait normal. GCS eye subscore is 4. GCS verbal subscore is 5. GCS motor subscore is 6. Cerebellar tests wnl. SKIN: Skin is warm and dry. He is not diaphoretic. PSYCH: He has a normal mood and affect. Behavior is normal. Judgment and thought content normal. Medical Decision & Procedures ER Provider Diagnostic Interpretation: Radiology results as stated below per my review and radiologist interpretation: ANGIO ABD/PELVIS WITH CONTRAST CLINICAL HISTORY: 62 years-old Female presenting with abdominal pain while at dialysis. TECHNIQUE: Multidetector CT angiography of the abdomen and pelvis was performed after the administration of intravenous contrast. 3-D volumetric and/or maximum intensity projection (MIP) images were subsequently reconstructed for review. IV contrast: 94 mL of Optiray 320. A dose lowering technique was used consistent with the principles of ALARA (as low as reasonably achievable). Stenosis measurements were based on NASCET-like criteria. COMPARISON: 11/05/2017. CT DOSE (mGy.cm): The estimated cumulative dose is 784.59 mGy.cm. 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 Vasculature: Atherosclerosis of the normal caliber abdominal aorta. IVC patent. Although there is extensive calcified atherosclerotic plaque, the origins of the celiac and superior mesenteric arteries remain patent. Heavily calcified origins and proximal portions of the 2 right renal and single left renal arteries. Atherosclerotic narrowing along the course of the more distal superior mesenteric artery and its major branches. The inferior mesenteric artery remains patent. Bilateral common and internal iliac arteries patent though with heavily calcified atherosclerotic plaque. Remaining abdomen and pelvis: Lung bases: Lungs and pleural spaces clear. The tip of a central venous catheter projects into the right atrium, likely dialysis catheter. Aortic valve, coronary artery, and mitral annular calcification. No pericardial or pleural effusion. Liver: Normal morphology. No liver lesion allowing for the early arterial phase of contrast. Patent conventional hepatic arterial anatomy. Biliary: No intrahepatic or extrahepatic biliary ductal dilatation. Normal gallbladder. Pancreas: Pancreas divisum may be present. Spleen: Hypodense lesion in the spleen, indeterminate but possibly lymphangioma, hemangioma, or pseudocyst. Adrenal glands: Normal. 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 No gross evidence of a solid renal neoplasm allowing for phase of contrast. No hydronephrosis. Ureters grossly normal. Bladder: Incompletely evaluated secondary to underdistention. Pelvic organs: Uterus surgically absent. No new masses. Bowel: Mild stool burden throughout normal caliber colon. The appendix is not clearly visualized. No bowel wall thickening or pneumatosis. No perienteric edema. No bowel obstruction. Small hiatal hernia. Peritoneal cavity: No free fluid or intraperitoneal gas. Lymph nodes: No enlarged lymph nodes in the abdomen or pelvis. Abdominal wall: Postsurgical changes of the midline ventral abdominal wall. Mild body wall edema especially posteriorly. Musculoskeletal: Degenerative changes of the spine. Osteopenia. IMPRESSION: 1. Extensive calcified atherosclerotic plaque burden with patent vasculature apart from significant stenosis of the bilateral renal arteries. No focal vessel occlusion or dissection. 2. No evidence of ischemic bowel. No bowel obstruction or pneumatosis. 3. No acute intra-abdominal pathology. Electronically signed by: Sam James M.D. 12/21/2017 12:59 PM Dictated Date/Time: 12/21/2017 12:51 PM Laboratory Results 12/21/17 11:20 Red Blood Count 3.65, Mean Corpuscular Volume 91.0, Mean Corpuscular Hemoglobin 28.5, Mean Corpuscular Hemoglobin Concent 31.3, Mean Platelet Volume 10.1, Neutrophils (%) (Auto) 64.1, Lymphocytes (%) (Auto) 21.0, Monocytes (%) (Auto) 12.2, Eosinophils (%) (Auto) 2.1, Basophils (%) (Auto) 0.3, Neutrophils # (Auto ) 3.90, Lymphocytes # (Auto) 1.28, Monocytes # (Auto) 0.74, Eosinophils # (Auto ) 0.13, Basophils # (Auto) 0.02 12/21/17 11:20 Test 12/21/17 00:00 12/21/17 11:20 12/21/17 12:01 Urine Color YELLOW Urine Appearance CLOUDY (CLEAR) Urine pH >= 9.0 (4.5-7.5) Urine Specific [place] 1.009 (1.000-1.030) Urine Protein 1+ (NEG) Urine Glucose (UA) TRACE (NEG) Urine Ketones NEG (NEG) Urine Occult Blood 1+ (NEG) Urine Nitrite NEG (NEG) Urine Bilirubin NEG (NEG) Urine Urobilinogen NEG (NEG) Urine Leukocyte Esterase LARGE (NEG) Urine WBC (Auto) >30 /hpf (0-5) Urine RBC (Auto) 5-10 /hpf (0-4) Urine Hyaline Casts (Auto) 5-10 /lpf (0-5) Urine Epithelial Cells (Auto) >30 /lpf (0-5) Urine Bacteria (Auto) NEG (NEG) White Blood Count 6.09 K/uL (4.8-10.8) Red Blood Count 3.65 M/uL (4.2-5.4) Hemoglobin 10.4 g/dL (12.0-16.0) Hematocrit 33.2 % (37-47) Mean Corpuscular Volume 91.0 fL (80-100) Mean Corpuscular Hemoglobin 28.5 pg (25-34) Mean Corpuscular Hemoglobin Concent 31.3 g/dl (32-36) Platelet Count 178 K/uL (130-400) Mean Platelet Volume 10.1 fL (7.4-10.4) Neutrophils (%) (Auto) 64.1 % Lymphocytes (%) (Auto) 21.0 % Monocytes (%) (Auto) 12.2 % Eosinophils (%) (Auto) 2.1 % Basophils (%) (Auto) 0.3 % Neutrophils # (Auto) 3.90 K/uL (1.4-6.5) Lymphocytes # (Auto) 1.28 K/uL (1.2-3.4) Monocytes # (Auto) 0.74 K/uL (0.11-0.59) Eosinophils # (Auto) 0.13 K/uL (0-0.5) Basophils # (Auto) 0.02 K/uL (0-0.2) RDW Standard Deviation 54.1 fL (36.4-46.3) RDW Coefficient of Variation 16.5 % (11.5-14.5) Immature Granulocyte % (Auto) 0.3 % Immature Granulocyte # (Auto) 0.02 K/uL (0.00-0.02) Anion Gap 7.0 mmol/L (3-11) Est Creatinine Clear Calc Drug Dose 14.1 ml/min Estimated GFR () 11.7 Estimated GFR (Non- 10.1 BUN/Creatinine Ratio 3.2 (10-20) Calcium Level 8.3 mg/dl (8.5-10.1) Total Bilirubin 0.4 mg/dl (0.2-1) Aspartate Amino Transf (AST/SGOT) 17 U/L (15-37) Alanine Aminotransferase (ALT/SGPT) 12 U/L (12-78) Alkaline Phosphatase 88 U/L (45-117) Total Protein 6.5 gm/dl (6.4-8.2) Albumin 3.0 gm/dl (3.4-5.0) Globulin 3.5 gm/dl (2.5-4.0) Albumin/Globulin Ratio 0.9 (0.9-2) Lipase 115 U/L (73-393) Bedside Lactic Acid Venous 1.53 mmol/L (0.90-1.70) Laboratory results reviewed by me Medications Administered Medications (Trade) Dose Ordered Sig/Az Route Start Time Stop Time Status Last Admin Dose Admin Heparin Sodium (Porcine) (Heparin 100 Unit/ml 5ml Flush) 5 ml STK-MED ONCE .ROUTE 12/21/17 13:14 12/21/17 13:15 DC 12/21/17 13:23 5 ML ED Course 1155: The patient was evaluated in room A2. A complete history and physical exam was performed. 1311: Vital signs are stable. Laboratory studies are within normal limits with the exception of elevated creatinine. Potassium and lactic acid within normal limits. The urine is a contaminated sample. CT of the abdomen showed patent vasculature and no evidence of mesenteric ischemia or ischemic bowel. There is no intraabdominal pathology. The patient will be discharged with follow-up PCP. DISCHARGE - Plan of care discussed with patient and questions answered. The patient was given both verbal and printed discharge instructions. The patient verbalized understanding and ability to comply. The patient is to seek outpatient follow up as noted in the discharge instructions. The patient verbalized understanding and ability to comply. The patient is discharged in stable condition. The patient was instructed to return for worsening symptoms. Medical Decision Vital signs are stable. Laboratory studies are within normal limits with the exception of elevated creatinine. Potassium and lactic acid within normal limits. The urine is a contaminated sample. CT of the abdomen showed patent vasculature and no evidence of mesenteric ischemia or ischemic bowel. There is no intraabdominal pathology. The patient will be discharged with follow-up PCP. DISCHARGE - Plan of care discussed with patient and questions answered. The patient was given both verbal and printed discharge instructions. The patient verbalized understanding and ability to comply. The patient is to seek outpatient follow up as noted in the discharge instructions. The patient verbalized understanding and ability to comply. The patient is discharged in stable condition. The patient was instructed to return for worsening symptoms. Medication Reconcilliation Current Medication List: was personally reviewed by me Blood Pressure Screening Patient's blood pressure: Elevated blood pressure Blood pressure disposition: Referred to PCP Impression Primary Impression: Abdominal pain Scribe Attestation The scribe's documentation has been prepared under my direction and personally reviewed by me in its entirety. I confirm that the note above accurately reflects all work, treatment, procedures, and medical decision making performed by me. The chart was completed utilizing [employer] Speech voice recognition software. Grammatical errors, random word insertions, pronoun errors, and incomplete sentences are an occasional consequence of this system due to software limitations, ambient noise, and hardware issues. Any formal questions or concerns about the content, text, or information contained within the body of this dictation should be directly addressed to the physician for clarification. Departure Information Dispostion Home / Self-Care Referrals No Doctor, Assigned (PCP) Patient Instructions My [facility] Problem Qualifiers Primary Impression: Abdominal pain Abdominal location: unspecified location Qualified Codes: R10.9 - Unspecified abdominal pain
[2017-12-21] MEDS ORDERED: WARF4TAB8 PO ×2 (12:07)
[2017-12-21 12:12] LABS: CALCIUM 8.3 mg/dl (8.5-10.1); CREATININE 4.37 mg/dl (0.60-1.20); POTASSIUM 3.8 mmol/L (3.5-5.1); TOTAL PROTEIN 6.5 gm/dl (6.4-8.2)
[2017-12-21] MEDS ORDERED: OPTIRAY 320 IV PRN (12:15)
[2017-12-21 13:00] VITALS: BP 181/63; PULSE 72; O2SAT 98
--- NOTE | 2017-12-21 13:01 | DIAGNOSTIC IMAGING REPORT ---
ANGIO ABD/PELVIS WITH CONTRAST CLINICAL HISTORY: 62 years-old Female presenting with abdominal pain while at dialysis. TECHNIQUE: Multidetector CT angiography of the abdomen and pelvis was performed after the administration of intravenous contrast. 3-D volumetric and/or maximum intensity projection (MIP) images were subsequently reconstructed for review. IV contrast: 94 mL of Optiray 320. A dose lowering technique was used consistent with the principles of ALARA (as low as reasonably achievable). Stenosis measurements were based on NASCET-like criteria. COMPARISON: 11/05/2017. CT DOSE (mGy.cm): The estimated cumulative dose is 784.59 mGy.cm. 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 Vasculature: Atherosclerosis of the normal caliber abdominal aorta. IVC patent. Although there is extensive calcified atherosclerotic plaque, the origins of the celiac and superior mesenteric arteries remain patent. Heavily calcified origins and proximal portions of the 2 right renal and single left renal arteries. Atherosclerotic narrowing along the course of the more distal superior mesenteric artery and its major branches. The inferior mesenteric artery remains patent. Bilateral common and internal iliac arteries patent though with heavily calcified atherosclerotic plaque. Remaining abdomen and pelvis: Lung bases: Lungs and pleural spaces clear. The tip of a central venous catheter projects into the right atrium, likely dialysis catheter. Aortic valve, coronary artery, and mitral annular calcification. No pericardial or pleural effusion. Liver: Normal morphology. No liver lesion allowing for the early arterial phase of contrast. Patent conventional hepatic arterial anatomy. Biliary: No intrahepatic or extrahepatic biliary ductal dilatation. Normal gallbladder. Pancreas: Pancreas divisum may be present. Spleen: Hypodense lesion in the spleen, indeterminate but possibly lymphangioma, hemangioma, or pseudocyst. Adrenal glands: Normal. 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 No gross evidence of a solid renal neoplasm allowing for phase of contrast. No hydronephrosis. Ureters grossly normal. Bladder: Incompletely evaluated secondary to underdistention. Pelvic organs: Uterus surgically absent. No new masses. Bowel: Mild stool burden throughout normal caliber colon. The appendix is not clearly visualized. No bowel wall thickening or pneumatosis. No perienteric edema. No bowel obstruction. Small hiatal hernia. Peritoneal cavity: No free fluid or intraperitoneal gas. Lymph nodes: No enlarged lymph nodes in the abdomen or pelvis. Abdominal wall: Postsurgical changes of the midline ventral abdominal wall. Mild body wall edema especially posteriorly. Musculoskeletal: Degenerative changes of the spine. Osteopenia. IMPRESSION: 1. Extensive calcified atherosclerotic plaque burden with patent vasculature apart from significant stenosis of the bilateral renal arteries. No focal vessel occlusion or dissection. 2. No evidence of ischemic bowel. No bowel obstruction or pneumatosis. 3. No acute intra-abdominal pathology. Electronically signed by: Sam James M.D. 12/21/2017 12:59 PM Dictated Date/Time: 12/21/2017 12:51 PM
== END 2017-12-21 13:00 | disposition home or self-care (01) ==
LOC: C.EDB 10:54 → C.EDA 13:00
DX: R10.9 Unspecified abdominal pain (principal); I12.0 Hypertensive chronic kidney disease with stage 5 chronic kidney disease or end stage renal disease; N18.6 End stage renal disease; Z99.2 Dependence on renal dialysis; E78.5 Hyperlipidemia, unspecified; K21.9 Gastro-esophageal reflux disease without esophagitis; E03.9 Hypothyroidism, unspecified; I48.0 Paroxysmal atrial fibrillation; Z79.01 Long term (current) use of anticoagulants; Z79.82 Long term (current) use of aspirin; Z94.0 Kidney transplant status; Z90.49 Acquired absence of other specified parts of digestive tract; Z85.048 Personal history of other malignant neoplasm of rectum, rectosigmoid junction, and anus; Z88.1 Allergy status to other antibiotic agents; Z88.2 Allergy status to sulfonamides; Z88.5 Allergy status to narcotic agent

== ENCOUNTER 2018-04-27 09:27 | Inpatient (IN) ==
[2018-04-27] MEDS ORDERED: MoRPHine SULFATE 4 MG/ML 1 ML CARP\\VIAL IV STA (09:41)
[2018-04-27] MEDS ORDERED: ONDANSETRON INJ 2 MG/ML 2 ML VIAL IV STA (09:41)
--- NOTE | 2018-04-27 09:44 | Emergency Department Note ---
Entered by Sonny Jane acting as a scribe for Rigo Lucero DO History of Present Illness General Chief complaint: Shoulder Pain Stated complaint: r shoulder pain Time Seen by Provider: 04/27/18 09:34 Source: patient History of Present Illness Onset (ago): day(s) 1 Location: right (shoulder and chest) Radiation: back Pain Consistency: + constant Quality: + other (shoulder/chest/back pain) Associated symptoms: no fever/chills The patient is a 62 year old female who presents to the Emergency Room with complaints of constant right-sided shoulder and chest pain beginning yesterday. The patient reports that her pain started to radiate to her back at 02:00 this morning, waking her from her sleep. She states that the pain is now constant in that region as well. She denies fevers or a history of these symptoms. Nursing staff report that the patient regularly undergoes dialysis. Home Medications Home Medications Medication Instructions Recorded Confirmed Type aspirin 81 mg PO QAM 04/27/18 04/27/18 History atorvastatin 40 mg PO HS 04/27/18 04/27/18 History bacitracin 1 applic OPR TID 04/27/18 04/27/18 History bupropion HCl 100 mg PO BID 04/27/18 04/27/18 History calcium polycarbophil [FiberCon] 1,200 mg PO BID 04/27/18 04/27/18 History carvedilol 25 mg PO BID 04/27/18 04/27/18 History epoetin beta, methoxy peg [Mircera] 200 mg SUBCUT UD 04/27/18 04/27/18 History esomeprazole magnesium [Nexium] 40 mg PO HS 04/27/18 04/27/18 History furosemide 80 mg PO DAILY 04/27/18 04/27/18 History hydralazine 10 mg PO UD 04/27/18 04/27/18 History ipratropium-albuterol [Combivent 1 puff INHALATION QID PRN 04/27/18 04/27/18 History Respimat] levothyroxine 175 mcg PO QAM 04/27/18 04/27/18 History nifedipine 30 mg PO DAILY 04/27/18 04/27/18 History ondansetron HCl [Zofran] 4 mg PO QID PRN 04/27/18 04/27/18 History oxycodone 10 mg PO Q8H PRN 04/27/18 04/27/18 History prednisone 5 mg PO MOWEFR 04/27/18 04/27/18 History sevelamer carbonate [Renvela] 3,200 mg PO UD 04/27/18 04/27/18 History warfarin [Coumadin] 2 mg PO FR@1600 04/27/18 04/27/18 History warfarin [Coumadin] 4 mg PO SUMOTUWETHSA@1600 04/27/18 04/27/18 History zolpidem [Ambien] 5 mg PO HS PRN 04/27/18 04/27/18 History Allergies Allergy/AdvReac Type Severity Reaction Status Date / Time silver nitrate Allergy Severe SEVERE Verified 04/27/18 10:51 BURNING silver sulfadiazine Allergy Severe SEVERE Verified 04/27/18 10:51 BURNING levofloxacin Allergy Intermediate HIVES Verified 04/27/18 10:51 mivacurium Allergy Intermediate "BUGS Verified 04/27/18 10:51 CRAWLING ON ME" Sulfa (Sulfonamide Allergy Intermediate "SULFA Verified 04/27/18 10:51 Antibiotics) DRUGS": RASH trimethoprim Allergy Intermediate BACTRIM - Verified 04/27/18 10:51 RASH amoxicillin AdvReac Mild GI UPSET Verified 04/27/18 10:51 clavulanic acid AdvReac Mild GI UPSET Verified 04/27/18 10:51 erythromycin base AdvReac Mild nausea Verified 04/27/18 10:51 vomiting metronidazole AdvReac Mild DIARRHEA Verified 04/27/18 10:51 Past Med/Surg History Medical History Hypothyroidism (Chronic) CAD (coronary artery disease) (Chronic) "minimal CAD on cath in 1999" Anxiety (Chronic) Anal cancer (Chronic) "s/p chemo and radiation" Dyslipidemia (Chronic) Asthma (Chronic) ESRD (end stage renal disease) on dialysis (Chronic) HTN (hypertension) (Chronic) Lupus (Chronic) GERD (gastroesophageal reflux disease) (Chronic) Paroxysmal a-fib (Chronic) Osteomyelitis (Chronic) Mesenteric artery thrombosis (Chronic) Surgical History History of carpal tunnel surgery (Chronic) S/P partial hysterectomy (Chronic) H/O hernia repair (Chronic) History of bowel resection (Chronic) "for mesenteric ischemia" Hx of appendectomy (Resolved) Family History Mother Heart disease Hypertension Social History Current Living Situation: Alone Other Information That Helps Us Care for You: No Feels Safe at Home: Yes Safety Concerns: Feels Safe At This Time Smoking Status: Former smoker Tobacco Type: cigarettes Do You Dip or Chew Tobacco: No Smoking End Date: 11/11/2008 Second Hand Exposure: No Tobacco Cessation Education Requested by Patient: No Hx Alcohol Use: No Hx Substance Use: No Beliefs That Will Affect Care: None Preferred Language: Ghanaian Communication Ability: Effective 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 and A total of 10 systems reviewed and were otherwise negative Physical Exam Vital Signs Vital Signs - 24 hr 04/28/18 00:00 04/28/18 02:00 04/28/18 04:00 Temperature 36.6 C 36.6 C Temperature Source Oral Oral Pulse Rate 77 Pulse Rate [Apical] 77 83 83 Pulse Rate [Left Radial] Pulse Rhythm [Apical] Regular Regular Regular Pulse Rhythm [Left Radial] Pulse Strength [Apical] Normal Normal Normal Pulse Strength [Left Radial] Respiratory Rate 16 18 20 Respiratory Effort / Characteristics Non-Labored Spontaneous Non-Labored Spontaneous Non-Labored Spontaneous Respiratory Depth Normal Normal Normal Respiratory Pattern Regular Regular Regular Blood Pressure - Lying Blood Pressure Blood Pressure [Left Arm] 114/73 145/98 H 134/60 Blood Pressure Mean Blood Pressure Mean [Left Arm] 86 113 84 Blood Pressure Position Blood Pressure Position [Left Arm] Lying Lying Lying Pulse Oximetry 97 95 95 Oxygen Delivery Method Nasal Cannula Nasal Cannula Nasal Cannula Oxygen Flow Rate 2 2 2 04/28/18 06:06 04/28/18 07:00 04/28/18 07:56 Temperature 36.6 C Temperature Source Oral Pulse Rate 85 Pulse Rate [Apical] 82 83 Pulse Rate [Left Radial] Pulse Rhythm [Apical] Regular Regular Pulse Rhythm [Left Radial] Pulse Strength [Apical] Normal Normal Pulse Strength [Left Radial] Respiratory Rate 16 16 Respiratory Effort / Characteristics Non-Labored Spontaneous Non-Labored Spontaneous Non-Labored Spontaneous Respiratory Depth Normal Normal Normal Respiratory Pattern Regular Regular Regular Blood Pressure - Lying Blood Pressure Blood Pressure [Left Arm] 125/69 101/77 Blood Pressure Mean Blood Pressure Mean [Left Arm] 87 85 Blood Pressure Position Blood Pressure Position [Left Arm] Lying Lying Pulse Oximetry 98 97 Oxygen Delivery Method Nasal Cannula Nasal Cannula Nasal Cannula Oxygen Flow Rate 2 2 2 04/28/18 08:00 04/28/18 08:30 04/28/18 08:45 Temperature 36.8 C Temperature Source Oral Pulse Rate 82 Pulse Rate [Apical] 85 Pulse Rate [Left Radial] 85 Pulse Rhythm [Apical] Regular Pulse Rhythm [Left Radial] Regular Pulse Strength [Apical] Pulse Strength [Left Radial] Normal Respiratory Rate 18 Respiratory Effort / Characteristics Non-Labored Spontaneous Respiratory Depth Normal Respiratory Pattern Regular Blood Pressure - Lying 118/52 L Blood Pressure 140/76 Blood Pressure [Left Arm] 124/60 Blood Pressure Mean Blood Pressure Mean [Left Arm] 81 Blood Pressure Position Lying Blood Pressure Position [Left Arm] Pulse Oximetry 94 Oxygen Delivery Method Nasal Cannula Oxygen Flow Rate 2 04/28/18 09:00 04/28/18 09:15 04/28/18 09:30 Temperature Temperature Source Pulse Rate 82 87 72 Pulse Rate [Apical] Pulse Rate [Left Radial] Pulse Rhythm [Apical] Pulse Rhythm [Left Radial] Pulse Strength [Apical] Pulse Strength [Left Radial] Respiratory Rate Respiratory Effort / Characteristics Respiratory Depth Respiratory Pattern Blood Pressure - Lying Blood Pressure 140/76 118/52 L 140/76 Blood Pressure [Left Arm] Blood Pressure Mean Blood Pressure Mean [Left Arm] Blood Pressure Position Lying Lying Lying Blood Pressure Position [Left Arm] Pulse Oximetry Oxygen Delivery Method Oxygen Flow Rate 04/28/18 09:45 04/28/18 10:00 04/28/18 10:15 Temperature Temperature Source Pulse Rate 86 87 85 Pulse Rate [Apical] Pulse Rate [Left Radial] Pulse Rhythm [Apical] Pulse Rhythm [Left Radial] Pulse Strength [Apical] Pulse Strength [Left Radial] Respiratory Rate Respiratory Effort / Characteristics Respiratory Depth Respiratory Pattern Blood Pressure - Lying Blood Pressure 111/76 118/66 133/72 Blood Pressure [Left Arm] Blood Pressure Mean Blood Pressure Mean [Left Arm] Blood Pressure Position Lying Lying Lying Blood Pressure Position [Left Arm] Pulse Oximetry Oxygen Delivery Method Oxygen Flow Rate 04/28/18 10:30 04/28/18 10:45 04/28/18 11:00 Temperature Temperature Source Pulse Rate 87 80 87 Pulse Rate [Apical] Pulse Rate [Left Radial] Pulse Rhythm [Apical] Pulse Rhythm [Left Radial] Pulse Strength [Apical] Pulse Strength [Left Radial] Respiratory Rate Respiratory Effort / Characteristics Respiratory Depth Respiratory Pattern Blood Pressure - Lying Blood Pressure 128/78 133/78 128/78 Blood Pressure [Left Arm] Blood Pressure Mean Blood Pressure Mean [Left Arm] Blood Pressure Position Lying Lying Lying Blood Pressure Position [Left Arm] Pulse Oximetry Oxygen Delivery Method Oxygen Flow Rate 04/28/18 11:15 04/28/18 11:30 04/28/18 11:45 Temperature Temperature Source Pulse Rate 87 87 80 Pulse Rate [Apical] Pulse Rate [Left Radial] Pulse Rhythm [Apical] Pulse Rhythm [Left Radial] Pulse Strength [Apical] Pulse Strength [Left Radial] Respiratory Rate Respiratory Effort / Characteristics Respiratory Depth Respiratory Pattern Blood Pressure - Lying Blood Pressure 118/52 L 65/48 L 141/80 H Blood Pressure [Left Arm] Blood Pressure Mean Blood Pressure Mean [Left Arm] Blood Pressure Position Lying Lying Lying Blood Pressure Position [Left Arm] Pulse Oximetry Oxygen Delivery Method Oxygen Flow Rate 04/28/18 12:00 04/28/18 12:41 04/28/18 13:00 Temperature 36.8 C Temperature Source Oral Pulse Rate 78 Pulse Rate [Apical] 93 H Pulse Rate [Left Radial] 68 Pulse Rhythm [Apical] Regular Pulse Rhythm [Left Radial] Regular Pulse Strength [Apical] Normal Pulse Strength [Left Radial] Normal Respiratory Rate 20 Respiratory Effort / Characteristics Non-Labored Spontaneous Respiratory Depth Normal Respiratory Pattern Regular Blood Pressure - Lying Blood Pressure 138/78 Blood Pressure [Left Arm] 141/78 H 135/70 Blood Pressure Mean Blood Pressure Mean [Left Arm] 91 Blood Pressure Position Lying Blood Pressure Position [Left Arm] Lying Pulse Oximetry 96 Oxygen Delivery Method Nasal Cannula Oxygen Flow Rate 2 04/28/18 14:01 04/28/18 15:01 04/28/18 16:00 Temperature 36.8 C Temperature Source Oral Pulse Rate 91 H 92 H Pulse Rate [Apical] 54 L Pulse Rate [Left Radial] Pulse Rhythm [Apical] Regular Pulse Rhythm [Left Radial] Pulse Strength [Apical] Normal Pulse Strength [Left Radial] Respiratory Rate 20 Respiratory Effort / Characteristics Non-Labored Spontaneous Respiratory Depth Normal Respiratory Pattern Blood Pressure - Lying Blood Pressure 130/64 125/53 L Blood Pressure [Left Arm] 110/53 L Blood Pressure Mean 86 77 Blood Pressure Mean [Left Arm] 72 Blood Pressure Position Blood Pressure Position [Left Arm] Pulse Oximetry 96 93 93 Oxygen Delivery Method Nasal Cannula Oxygen Flow Rate 2 04/28/18 16:39 04/28/18 17:00 04/28/18 17:15 Temperature Temperature Source Pulse Rate 44 L Pulse Rate [Apical] 46 L 47 L Pulse Rate [Left Radial] Pulse Rhythm [Apical] Regular Pulse Rhythm [Left Radial] Pulse Strength [Apical] Normal Pulse Strength [Left Radial] Respiratory Rate 18 18 Respiratory Effort / Characteristics Non-Labored Spontaneous SOB on Exertion Respiratory Depth Normal Respiratory Pattern Blood Pressure - Lying Blood Pressure Blood Pressure [Left Arm] 91/29 L 71/23 L Blood Pressure Mean Blood Pressure Mean [Left Arm] 49 39 Blood Pressure Position Blood Pressure Position [Left Arm] Pulse Oximetry 93 94 91 Oxygen Delivery Method Nasal Cannula Oxygen Flow Rate 2 04/28/18 17:30 04/28/18 17:35 04/28/18 17:45 Temperature Temperature Source Pulse Rate 43 L 42 L 43 L Pulse Rate [Apical] Pulse Rate [Left Radial] Pulse Rhythm [Apical] Pulse Rhythm [Left Radial] Pulse Strength [Apical] Pulse Strength [Left Radial] Respiratory Rate 22 22 21 Respiratory Effort / Characteristics Respiratory Depth Respiratory Pattern Blood Pressure - Lying Blood Pressure 91/27 L Blood Pressure [Left Arm] Blood Pressure Mean 48 Blood Pressure Mean [Left Arm] Blood Pressure Position Blood Pressure Position [Left Arm] Pulse Oximetry 87 L 87 L 88 L Oxygen Delivery Method Oxygen Flow Rate 04/28/18 17:46 04/28/18 17:49 04/28/18 17:51 Temperature Temperature Source Pulse Rate 43 L 42 L 43 L Pulse Rate [Apical] Pulse Rate [Left Radial] Pulse Rhythm [Apical] Pulse Rhythm [Left Radial] Pulse Strength [Apical] Pulse Strength [Left Radial] Respiratory Rate 21 25 H 13 Respiratory Effort / Characteristics Respiratory Depth Respiratory Pattern Blood Pressure - Lying Blood Pressure 68/23 L 70/25 L 68/22 L Blood Pressure [Left Arm] Blood Pressure Mean 38 40 37 Blood Pressure Mean [Left Arm] Blood Pressure Position Blood Pressure Position [Left Arm] Pulse Oximetry 89 L 89 L 88 L Oxygen Delivery Method Oxygen Flow Rate 04/28/18 17:56 04/28/18 18:00 04/28/18 18:01 Temperature Temperature Source Pulse Rate 43 L 49 L 48 L Pulse Rate [Apical] Pulse Rate [Left Radial] Pulse Rhythm [Apical] Pulse Rhythm [Left Radial] Pulse Strength [Apical] Pulse Strength [Left Radial] Respiratory Rate 23 22 21 Respiratory Effort / Characteristics Respiratory Depth Respiratory Pattern Blood Pressure - Lying Blood Pressure 72/27 L 62/32 L Blood Pressure [Left Arm] Blood Pressure Mean 42 42 Blood Pressure Mean [Left Arm] Blood Pressure Position Blood Pressure Position [Left Arm] Pulse Oximetry 88 L 88 L 89 L Oxygen Delivery Method Oxygen Flow Rate 04/28/18 18:10 04/28/18 18:15 04/28/18 18:21 Temperature Temperature Source Pulse Rate 47 L 44 L 52 L Pulse Rate [Apical] Pulse Rate [Left Radial] Pulse Rhythm [Apical] Pulse Rhythm [Left Radial] Pulse Strength [Apical] Pulse Strength [Left Radial] Respiratory Rate 16 25 H 19 Respiratory Effort / Characteristics Respiratory Depth Respiratory Pattern Blood Pressure - Lying Blood Pressure 58/35 L 56/38 L Blood Pressure [Left Arm] Blood Pressure Mean 25 42 44 Blood Pressure Mean [Left Arm] Blood Pressure Position Blood Pressure Position [Left Arm] Pulse Oximetry 89 L 89 L 90 Oxygen Delivery Method Oxygen Flow Rate 04/28/18 18:25 04/28/18 18:26 04/28/18 18:30 Temperature Temperature Source Pulse Rate 53 L 45 L 75 Pulse Rate [Apical] Pulse Rate [Left Radial] Pulse Rhythm [Apical] Pulse Rhythm [Left Radial] Pulse Strength [Apical] Pulse Strength [Left Radial] Respiratory Rate 23 14 26 H Respiratory Effort / Characteristics Respiratory Depth Respiratory Pattern Blood Pressure - Lying Blood Pressure 64/25 L 67/23 L Blood Pressure [Left Arm] Blood Pressure Mean 38 37 Blood Pressure Mean [Left Arm] Blood Pressure Position Blood Pressure Position [Left Arm] Pulse Oximetry 89 L 89 L 88 L Oxygen Delivery Method Oxygen Flow Rate 04/28/18 18:45 04/28/18 18:47 04/28/18 19:00 Temperature Temperature Source Pulse Rate 81 77 Pulse Rate [Apical] Pulse Rate [Left Radial] Pulse Rhythm [Apical] Pulse Rhythm [Left Radial] Pulse Strength [Apical] Pulse Strength [Left Radial] Respiratory Rate 33 H 27 H Respiratory Effort / Characteristics Respiratory Depth Respiratory Pattern Blood Pressure - Lying Blood Pressure 69/30 L Blood Pressure [Left Arm] Blood Pressure Mean 43 Blood Pressure Mean [Left Arm] Blood Pressure Position Blood Pressure Position [Left Arm] Pulse Oximetry 89 L 88 L 92 Oxygen Delivery Method Oxygen Flow Rate 04/28/18 19:07 04/28/18 19:12 04/28/18 19:15 Temperature Temperature Source Pulse Rate 71 79 75 Pulse Rate [Apical] Pulse Rate [Left Radial] Pulse Rhythm [Apical] Pulse Rhythm [Left Radial] Pulse Strength [Apical] Pulse Strength [Left Radial] Respiratory Rate 23 22 24 Respiratory Effort / Characteristics Respiratory Depth Respiratory Pattern Blood Pressure - Lying Blood Pressure 73/33 L 76/29 L Blood Pressure [Left Arm] Blood Pressure Mean 46 44 Blood Pressure Mean [Left Arm] Blood Pressure Position Blood Pressure Position [Left Arm] Pulse Oximetry 92 91 Oxygen Delivery Method Oxygen Flow Rate 04/28/18 19:21 04/28/18 19:27 04/28/18 19:30 Temperature Temperature Source Pulse Rate 74 75 81 Pulse Rate [Apical] Pulse Rate [Left Radial] Pulse Rhythm [Apical] Pulse Rhythm [Left Radial] Pulse Strength [Apical] Pulse Strength [Left Radial] Respiratory Rate 32 H 33 H 28 H Respiratory Effort / Characteristics Respiratory Depth Respiratory Pattern Blood Pressure - Lying Blood Pressure 118/65 Blood Pressure [Left Arm] Blood Pressure Mean 82 106 Blood Pressure Mean [Left Arm] Blood Pressure Position Blood Pressure Position [Left Arm] Pulse Oximetry 92 91 87 L Oxygen Delivery Method Oxymask Oxygen Flow Rate 04/28/18 19:41 04/28/18 19:46 04/28/18 19:51 Temperature 36.5 C Temperature Source Pulse Rate 72 74 63 Pulse Rate [Apical] Pulse Rate [Left Radial] Pulse Rhythm [Apical] Pulse Rhythm [Left Radial] Pulse Strength [Apical] Pulse Strength [Left Radial] Respiratory Rate 20 17 16 Respiratory Effort / Characteristics Respiratory Depth Respiratory Pattern Blood Pressure - Lying Blood Pressure 63/32 L 77/28 L 56/42 L Blood Pressure [Left Arm] Blood Pressure Mean 42 44 46 Blood Pressure Mean [Left Arm] Blood Pressure Position Blood Pressure Position [Left Arm] Pulse Oximetry 92 90 90 Oxygen Delivery Method Oxygen Flow Rate 04/28/18 19:56 04/28/18 20:01 04/28/18 20:04 Temperature Temperature Source Pulse Rate 70 70 70 Pulse Rate [Apical] Pulse Rate [Left Radial] Pulse Rhythm [Apical] Pulse Rhythm [Left Radial] Pulse Strength [Apical] Pulse Strength [Left Radial] Respiratory Rate 18 17 21 Respiratory Effort / Characteristics Respiratory Depth Respiratory Pattern Blood Pressure - Lying Blood Pressure 72/25 L 69/31 L 56/41 L Blood Pressure [Left Arm] Blood Pressure Mean 40 43 46 Blood Pressure Mean [Left Arm] Blood Pressure Position Blood Pressure Position [Left Arm] Pulse Oximetry 90 90 90 Oxygen Delivery Method Oxygen Flow Rate 04/28/18 20:06 04/28/18 20:12 04/28/18 20:16 Temperature Temperature Source Pulse Rate 70 70 66 Pulse Rate [Apical] Pulse Rate [Left Radial] Pulse Rhythm [Apical] Pulse Rhythm [Left Radial] Pulse Strength [Apical] Pulse Strength [Left Radial] Respiratory Rate 16 16 15 Respiratory Effort / Characteristics Respiratory Depth Respiratory Pattern Blood Pressure - Lying Blood Pressure 88/30 L 58/39 L 70/20 L Blood Pressure [Left Arm] Blood Pressure Mean 49 45 36 Blood Pressure Mean [Left Arm] Blood Pressure Position Blood Pressure Position [Left Arm] Pulse Oximetry 92 91 93 Oxygen Delivery Method Oxygen Flow Rate 04/28/18 20:21 04/28/18 20:23 04/28/18 20:25 Temperature Temperature Source Pulse Rate 70 72 71 Pulse Rate [Apical] Pulse Rate [Left Radial] Pulse Rhythm [Apical] Pulse Rhythm [Left Radial] Pulse Strength [Apical] Pulse Strength [Left Radial] Respiratory Rate 18 21 15 Respiratory Effort / Characteristics Respiratory Depth Respiratory Pattern Blood Pressure - Lying Blood Pressure 56/40 L 72/37 L 77/33 L Blood Pressure [Left Arm] Blood Pressure Mean 45 48 47 Blood Pressure Mean [Left Arm] Blood Pressure Position Blood Pressure Position [Left Arm] Pulse Oximetry 93 93 94 Oxygen Delivery Method Oxygen Flow Rate 04/28/18 20:30 04/28/18 20:35 04/28/18 20:40 Temperature Temperature Source Pulse Rate 73 73 70 Pulse Rate [Apical] Pulse Rate [Left Radial] Pulse Rhythm [Apical] Pulse Rhythm [Left Radial] Pulse Strength [Apical] Pulse Strength [Left Radial] Respiratory Rate 14 17 14 Respiratory Effort / Characteristics Respiratory Depth Respiratory Pattern Blood Pressure - Lying Blood Pressure 78/33 L 80/43 L 78/36 L Blood Pressure [Left Arm] Blood Pressure Mean 48 55 50 Blood Pressure Mean [Left Arm] Blood Pressure Position Blood Pressure Position [Left Arm] Pulse Oximetry 93 95 95 Oxygen Delivery Method Oxygen Flow Rate 04/28/18 20:45 04/28/18 20:50 04/28/18 20:55 Temperature Temperature Source Pulse Rate 73 73 67 Pulse Rate [Apical] Pulse Rate [Left Radial] Pulse Rhythm [Apical] Pulse Rhythm [Left Radial] Pulse Strength [Apical] Pulse Strength [Left Radial] Respiratory Rate 12 13 14 Respiratory Effort / Characteristics Respiratory Depth Respiratory Pattern Blood Pressure - Lying Blood Pressure 90/42 L 96/38 L 98/40 L Blood Pressure [Left Arm] Blood Pressure Mean 58 57 59 Blood Pressure Mean [Left Arm] Blood Pressure Position Blood Pressure Position [Left Arm] Pulse Oximetry 97 97 97 Oxygen Delivery Method Oxygen Flow Rate 04/28/18 21:00 04/28/18 21:06 04/28/18 21:10 Temperature Temperature Source Pulse Rate 72 75 75 Pulse Rate [Apical] Pulse Rate [Left Radial] Pulse Rhythm [Apical] Pulse Rhythm [Left Radial] Pulse Strength [Apical] Pulse Strength [Left Radial] Respiratory Rate 16 18 15 Respiratory Effort / Characteristics Respiratory Depth Respiratory Pattern Blood Pressure - Lying Blood Pressure 97/38 L 102/50 L 89/40 L Blood Pressure [Left Arm] Blood Pressure Mean 57 67 56 Blood Pressure Mean [Left Arm] Blood Pressure Position Blood Pressure Position [Left Arm] Pulse Oximetry 94 92 93 Oxygen Delivery Method Oxygen Flow Rate 04/28/18 21:15 04/28/18 21:20 04/28/18 21:44 Temperature Temperature Source Pulse Rate 71 74 74 Pulse Rate [Apical] Pulse Rate [Left Radial] Pulse Rhythm [Apical] Pulse Rhythm [Left Radial] Pulse Strength [Apical] Pulse Strength [Left Radial] Respiratory Rate 15 17 23 Respiratory Effort / Characteristics Respiratory Depth Respiratory Pattern Blood Pressure - Lying Blood Pressure 99/41 L 105/45 L Blood Pressure [Left Arm] Blood Pressure Mean 60 65 Blood Pressure Mean [Left Arm] Blood Pressure Position Blood Pressure Position [Left Arm] Pulse Oximetry 96 98 Oxygen Delivery Method Oxygen Flow Rate 04/28/18 22:00 04/28/18 22:01 04/28/18 22:15 Temperature Temperature Source Pulse Rate 75 83 83 Pulse Rate [Apical] Pulse Rate [Left Radial] Pulse Rhythm [Apical] Pulse Rhythm [Left Radial] Pulse Strength [Apical] Pulse Strength [Left Radial] Respiratory Rate 18 24 18 Respiratory Effort / Characteristics Respiratory Depth Respiratory Pattern Blood Pressure - Lying Blood Pressure 122/54 L 102/58 L Blood Pressure [Left Arm] Blood Pressure Mean 76 72 Blood Pressure Mean [Left Arm] Blood Pressure Position Blood Pressure Position [Left Arm] Pulse Oximetry 94 99 99 Oxygen Delivery Method Oxygen Flow Rate GENERAL: The patient is awake and alert. She is very anxious appearing and appears to be uncomfortable. EYES: The conjunctivae are clear. The pupils are round and reactive. EARS, NOSE, MOUTH AND THROAT: The nose is without any evidence of any deformity. Mucous membranes are moist tongue is midline NECK: The neck is nontender and supple. RESPIRATORY: Normal respiratory effort is noted there is no evidence of wheezing rhonchi or rales CARDIOVASCULAR: Regular rate and rhythm noted there no murmurs rubs or gallops normal S1 normal S2 GASTROINTESTINAL: The abdomen is soft. Bowel sounds are present in all quadrants. Abdomen is nontender MUSCULOSKELETAL/EXTREMITIES: Range of motion in the right shoulder appears intact. She does have tenderness over palpation of the posterior aspect of the right shoulder but this does not appear to completely reproduce the pain. SKIN: There is no obvious evidence of any rash. There is pedal edema noted bilaterally. There is a dialysis catheter in the left chest wall. NEUROLOGIC: Patient is awake alert and oriented x3. Course 0935: Past medical records reviewed. The patient was evaluated in room A3, and a complete history and physical examination were performed. 1111: I updated the patient on current results. 1116: I consulted Umm Hernandez PA-C: [facility]. She will reevaluate the patient for hospitalization. 1335: I consulted Dr. Mago Dhaliwal Cardiology. Due to the patient's findings, he recommends calling a heart alert. Consultations Consultation #1: I consulted Umm Hernandez PA-C: [facility]. She will reevaluate the patient for hospitalization. Time: 11:16 Consultation #2: I consulted Dr. Mago Dhaliwal Cardiology. Due to the patient's findings, he recommends calling a heart alert. Time: 13:35 Administered Medications Atorvastatin Calcium (Lipitor) 40 mg PO HS [facility] Stop: 05/27/18 20:59 Last Admin: 04/28/18 21:54 Dose: 40 mg Admin: 04/27/18 20:00 Dose: 40 mg Carvedilol (Coreg) 25 mg PO BID [facility] Stop: 05/27/18 20:59 Last Admin: 04/28/18 18:53 Dose: Not Given Admin: 04/28/18 13:39 Dose: 25 mg Admin: 04/27/18 20:00 Dose: 25 mg Furosemide (Lasix) 80 mg PO DAILY [facility] Stop: 05/28/18 08:59 Last Admin: 04/28/18 08:46 Dose: Not Given Prochlorperazine 5 mg/ Syringe 5 mls @ 5 mls/min IV Q6H PRN PRN Reason: Nausea And Vomiting Stop: 05/28/18 04:01 Last Admin: 04/28/18 05:17 Dose: 5 mls/min Heparin Sodium/Dextrose (Heparin Sodium/Dextrose) 25,000 units in 500 mls @ 0 mls/hr IV .Q0M [facility]; Protocol Stop: 05/28/18 10:57 Last Titration: 04/28/18 18:43 Dose: Titration: 04/28/18 18:15 Dose: 0 mls/hr Admin: 04/28/18 11:45 Dose: 24 mls/hr Dopamine HCl/Dextrose (Dopamine / D5w) 400 mg in 250 mls @ 39.375 mls/hr IV .Q7H38M [facility]; Protocol Stop: 05/28/18 17:14 Last Titration: 04/28/18 19:10 Dose: 12 mcg/kg/min, 39.4 mls/hr Titration: 04/28/18 18:14 Dose: 12 mcg/kg/min, 39.4 mls/hr Titration: 04/28/18 17:38 Dose: 10 mcg/kg/min, 32.8 mls/hr Admin: 04/28/18 17:20 Dose: 5 mcg/kg/min, 16.4 mls/hr Norepinephrine Bitartrate 8 mg (/ Dextrose) 508 mls @ 30 mls/hr IV .[id number] [facility] ; Protocol Stop: 05/28/18 19:59 Last Titration: 04/28/18 21:05 Dose: 0.11 mcg/kg/min, 36.7 mls/hr Titration: 04/28/18 20:46 Dose: 0.09 mcg/kg/min, 30 mls/hr Titration: 04/28/18 20:32 Dose: 0.07 mcg/kg/min, 23.3 mls/hr Admin: 04/28/18 20:19 Dose: 0.05 mcg/kg/min, 16.7 mls/hr Sodium Chloride (Nss 1000ml) 1,000 mls @ 50 mls/hr IV .Q20H [facility] Stop: 05/28/18 20:59 Last Admin: 04/28/18 21:03 Dose: 50 mls/hr Vancomycin HCl 1,500 mg/ (Sodium Chloride) 530 mls @ 200 mls/hr IV TODAY@2230 [facility] Stop: 04/29/18 01:08 Last Admin: 04/28/18 21:54 Dose: 200 mls/hr Morphine Sulfate (Morphine Sulfate) 2 mg IV Q4H PRN PRN Reason: Pain Stop: 05/11/18 15:52 Last Admin: 04/27/18 16:57 Dose: 2 mg Nifedipine (Procardia Xl) 30 mg PO DAILY [facility] Stop: 05/28/18 08:59 Last Admin: 04/28/18 13:39 Dose: 30 mg Nitroglycerin (Nitrostat) 0.4 mg SL UD PRN PRN Reason: Chest Pain Stop: 05/27/18 15:52 Last Admin: 04/27/18 19:38 Dose: 0.4 mg Oxycodone HCl (Roxicodone Immediate Rel) 10 mg PO Q8H PRN PRN Reason: Pain Stop: 05/11/18 19:41 Last Admin: 04/28/18 11:41 Dose: 10 mg Admin: 04/28/18 04:16 Dose: 10 mg Admin: 04/27/18 19:54 Dose: 10 mg Pantoprazole Sodium (Protonix) 40 mg PO HS RUDI Stop: 05/27/18 20:59 Last Admin: 04/28/18 21:55 Dose: 40 mg Admin: 04/27/18 20:00 Dose: 40 mg Discontinued Medications Aspirin (Aspirin) 324 mg PO NOW STA Stop: 04/27/18 11:16 Last Admin: 04/27/18 11:25 Dose: 324 mg Atropine Sulfate (Atropine Sulfate) Confirm Administered Dose 0.5 mg IV .STK- MED ONE Stop: 04/28/18 17:56 Last Admin: 04/28/18 18:00 Dose: 0.5 mg Fentanyl Citrate (Fentanyl Citrate) Confirm Administered Dose 100 mcg .ROUTE .STK-MED ONE Stop: 04/27/18 14:00 Last Admin: 04/27/18 15:09 Dose: 50 mcg Heparin Sodium (Porcine) (Heparin Iv Bolus (Sales Account Associate Use Only)) Confirm Administered Dose 10,000 units .ROUTE .STK-MED ONE Stop: 04/27/18 14:00 Last Admin: 04/27/18 15:09 Dose: 7,000 units Heparin Sodium/Sodium Chloride (Heparin Sod/Nss 2 Units/Ml) Confirm Administered Dose 3,000 units IV .STK-MED ONE Stop: 04/27/18 14:00 Last Admin: 04/27/18 15:10 Dose: 3,000 units Hydrocortisone Sodium Succinate (Solu-Cortef) Confirm Administered Dose 100 mg .ROUTE .STK-MED ONE Stop: 04/28/18 18:12 Last Admin: 04/28/18 18:13 Dose: 100 mg Albumin Human (Albumin 5%) 250 mls @ 250 mls/hr IV ONE ONE Stop: 04/28/18 18:01 Last Infusion: 04/28/18 17:40 Dose: 0 mls/hr Admin: 04/28/18 17:10 Dose: 250 mls/hr Hydrocortisone Sodium (Succinate 150 mg/ Syringe) 3 mls @ 4 mls/min IV NOW ONE Stop: 04/28/18 18:31 Last Admin: 04/28/18 18:41 Dose: 4 mls/min Aztreonam 1,000 mg/ Dextrose 110 mls @ 110 mls/hr IV TODAY@2130 [facility] Stop: 04/28/18 22:29 Last Admin: 04/28/18 21:54 Dose: 110 mls/hr Ketorolac Tromethamine (Toradol) Confirm Administered Dose 15 mg .ROUTE .STK- MED ONE Stop: 04/28/18 15:56 Last Admin: 04/28/18 15:58 Dose: 15 mg Lidocaine HCl (Xylocaine 1% (Local)) Confirm Administered Dose 20 ml .ROUTE .STK -MED ONE Stop: 04/27/18 13:58 Last Admin: 04/27/18 15:08 Dose: 20 ml Lidocaine HCl (Xylocaine 1% (Local)) Confirm Administered Dose 20 ml .ROUTE .STK -MED ONE Stop: 04/28/18 19:05 Last Admin: 04/28/18 21:05 Dose: 20 ml Midazolam HCl (Versed) Confirm Administered Dose 2 mg .ROUTE .STK-MED ONE Stop: 04/27/18 14:00 Last Admin: 04/27/18 15:10 Dose: 2 mg Morphine Sulfate (Morphine Sulfate) 4 mg IV NOW STA Stop: 04/27/18 09:42 Last Admin: 04/27/18 10:08 Dose: 4 mg Morphine Sulfate (Morphine Sulfate) 4 mg IV Q30M PRN PRN Reason: Pain Stop: 05/11/18 11:14 Last Admin: 04/27/18 11:24 Dose: 4 mg Nicardipine HCl (Cardene) Confirm Administered Dose 25 mg .ROUTE .STK-MED ONE Stop: 04/27/18 14:00 Last Admin: 04/27/18 15:08 Dose: 25 mg Nitroglycerin/Dextrose (Nitroglycerin/D5w 100 Mcg/Ml 20ml Syringe) Confirm Administered Dose 2,000 mcg .ROUTE .STK-MED ONE Stop: 04/27/18 14:01 Last Admin: 04/27/18 15:11 Dose: 2,000 mcg Ondansetron HCl (Zofran) 4 mg IV NOW STA Stop: 04/27/18 09:42 Last Admin: 04/27/18 10:07 Dose: 4 mg Ondansetron HCl (Zofran) Confirm Administered Dose 4 mg .ROUTE .STK-MED ONE Stop: 04/27/18 14:08 Last Admin: 04/27/18 15:11 Dose: 4 mg Ondansetron HCl (Zofran) Confirm Administered Dose 4 mg .ROUTE .STK-MED ONE Stop: 04/27/18 17:36 Last Admin: 04/27/18 17:39 Dose: 4 mg Ondansetron HCl (Zofran) 4 mg IV 1745 ONE Stop: 04/27/18 17:46 Last Admin: 04/27/18 17:48 Dose: Not Given Ondansetron HCl (Zofran) Confirm Administered Dose 4 mg .ROUTE .STK-MED ONE Stop: 04/28/18 17:56 Last Admin: 04/28/18 18:00 Dose: 4 mg Medical Decision Making Differential Diagnosis Differential diagnosis: Etiologies such as cardiac ischemia, aortic dissection, pulmonary embolism, pneumonia, pneumothorax, musculoskeletal, infections, pericarditis, myocarditis , esophageal rupture, gastrointestinal, as well as others were entertained. Medical Records Attestation: I reviewed the patient's medical records. Home Medications Current Medication List: was personally reviewed by me Laboratory Data Attestation: I reviewed the patient's lab results. Result diagrams: 04/28/18 17:23 04/28/18 17:23 Lab Results 04/27/18 04/27/18 04/27/18 Range/Units 10:15 10:15 10:15 WBC 5.49 (4.8-10.8) K/uL RBC 4.03 L (4.2-5.4) M/uL Hgb 11.9 L (12.0-16.0) g/dL Hct 38.6 (37-47) % MCV 95.8 (80-100) fL MCH 29.5 (25-34) pg MCHC 30.8 L (32-36) g/dL RDW Std Deviation 61.6 H (36.4-46.3) fL RDW Coeff of Yifan 17.7 H (11.5-14.5) % Plt Count 165 (130-400) K/uL MPV 11.2 H (7.4-10.4) fL Immature Gran % (Auto) 0.2 % Neut % (Auto) 74.9 % Lymph % (Auto) 13.5 % Linn % (Auto) 9.5 % Eos % (Auto) 1.5 % Baso % (Auto) 0.4 % Immature Gran # (Auto) 0.01 (0.00-0.02) K/uL Neut # (Auto) 4.12 (1.4-6.5) K/uL Lymph # (Auto) 0.74 L (1.2-3.4) K/uL Linn # (Auto) 0.52 (0.11-0.59) K/uL Eos # (Auto) 0.08 (0-0.5) K/uL Baso # (Auto) 0.02 (0-0.2) K/uL PT 18.5 H (9.0-12.0) Seconds INR 1.9 H (0.9-1.1) APTT 43.9 H (21.0-31.0) Seconds PTT Ratio 1.7 Sodium 136 (136-145) mmol/L Potassium 4.5 (3.5-5.1) mmol/L Chloride 99 (98-107) mmol/L Carbon Dioxide 27 (21-32) mmol/L Anion Gap 10.0 (3-11) BUN 20 H (7-18) mg/dl Creatinine 5.85 H* (0.6-1.2) mg/dl Est Cr Clr Drug Dosing 10.6 ml/min Est GFR ( Amer) 8.2 Est GFR (Non-Af Amer) 7.1 BUN/Creatinine Ratio 3.5 L (10-20) Glucose 146 H (70-99) mg/dl POC Glucose (70-99) Lactate (0.4-2.0) mmol/L Calcium 9.0 (8.5-10.1) mg/dl Magnesium (1.8-2.4) mg/dl Total Bilirubin 0.6 (0.1-1) mg/dl AST 24 (15-37) U/L ALT 15 (12-78) U/L Alkaline Phosphatase 69 (45-117) U/L Total Creatine Kinase 42 (26-192) U/L CK-MB (CK-2) 3.4 (0.5-3.6) ng/ml CK/CKMB % Calc 8.1 H (0-3.0) Troponin I 0.708 H* (0-0.045) ng/ml Total Protein 7.0 (6.4-8.2) gm/dl Albumin 3.3 L (3.4-5.0) gm/dl Globulin 3.7 (2.5-4.0) gm/dl Albumin/Globulin Ratio 0.9 (0.9-2) Lipase 77 (73-393) U/L Nasal Screen MRSA (PCR) (Negative) 04/27/18 04/27/18 04/27/18 Range/Units 13:45 16:29 16:35 WBC (4.8-10.8) K/uL RBC (4.2-5.4) M/uL Hgb (12.0-16.0) g/dL Hct (37-47) % MCV (80-100) fL MCH (25-34) pg MCHC (32-36) g/dL RDW Std Deviation (36.4-46.3) fL RDW Coeff of Yifan (11.5-14.5) % Plt Count (130-400) K/uL MPV (7.4-10.4) fL Immature Gran % (Auto) % Neut % (Auto) % Lymph % (Auto) % Linn % (Auto) % Eos % (Auto) % Baso % (Auto) % Immature Gran # (Auto) (0.00-0.02) K/uL Neut # (Auto) (1.4-6.5) K/uL Lymph # (Auto) (1.2-3.4) K/uL Linn # (Auto) (0.11-0.59) K/uL Eos # (Auto) (0-0.5) K/uL Baso # (Auto) (0-0.2) K/uL PT (9.0-12.0) Seconds INR (0.9-1.1) APTT (21.0-31.0) Seconds PTT Ratio Sodium (136-145) mmol/L Potassium (3.5-5.1) mmol/L Chloride (98-107) mmol/L Carbon Dioxide (21-32) mmol/L Anion Gap (3-11) BUN (7-18) mg/dl Creatinine (0.6-1.2) mg/dl Est Cr Clr Drug Dosing ml/min Est GFR ( Amer) Est GFR (Non-Af Amer) BUN/Creatinine Ratio (10-20) Glucose (70-99) mg/dl POC Glucose 128 H (70-99) Lactate (0.4-2.0) mmol/L Calcium (8.5-10.1) mg/dl Magnesium (1.8-2.4) mg/dl Total Bilirubin (0.1-1) mg/dl AST (15-37) U/L ALT (12-78) U/L Alkaline Phosphatase (45-117) U/L Total Creatine Kinase (26-192) U/L CK-MB (CK-2) (0.5-3.6) ng/ml CK/CKMB % Calc (0-3.0) Troponin I 2.800 H* 12.800 H* (0-0.045) ng/ml Total Protein (6.4-8.2) gm/dl Albumin (3.4-5.0) gm/dl Globulin (2.5-4.0) gm/dl Albumin/Globulin Ratio (0.9-2) Lipase (73-393) U/L Nasal Screen MRSA (PCR) (Negative) 04/27/18 04/27/18 04/27/18 Range/Units 22:15 22:26 Unknown WBC (4.8-10.8) K/uL RBC (4.2-5.4) M/uL Hgb (12.0-16.0) g/dL Hct (37-47) % MCV (80-100) fL MCH (25-34) pg MCHC (32-36) g/dL RDW Std Deviation (36.4-46.3) fL RDW Coeff of Yifan (11.5-14.5) % Plt Count (130-400) K/uL MPV (7.4-10.4) fL Immature Gran % (Auto) % Neut % (Auto) % Lymph % (Auto) % Linn % (Auto) % Eos % (Auto) % Baso % (Auto) % Immature Gran # (Auto) (0.00-0.02) K/uL Neut # (Auto) (1.4-6.5) K/uL Lymph # (Auto) (1.2-3.4) K/uL Linn # (Auto) (0.11-0.59) K/uL Eos # (Auto) (0-0.5) K/uL Baso # (Auto) (0-0.2) K/uL PT (9.0-12.0) Seconds INR (0.9-1.1) APTT (21.0-31.0) Seconds PTT Ratio Sodium (136-145) mmol/L Potassium (3.5-5.1) mmol/L Chloride (98-107) mmol/L Carbon Dioxide (21-32) mmol/L Anion Gap (3-11) BUN (7-18) mg/dl Creatinine (0.6-1.2) mg/dl Est Cr Clr Drug Dosing ml/min Est GFR ( Amer) Est GFR (Non-Af Amer) BUN/Creatinine Ratio (10-20) Glucose (70-99) mg/dl POC Glucose 99 (70-99) Lactate (0.4-2.0) mmol/L Calcium (8.5-10.1) mg/dl Magnesium (1.8-2.4) mg/dl Total Bilirubin (0.1-1) mg/dl AST (15-37) U/L ALT (12-78) U/L Alkaline Phosphatase (45-117) U/L Total Creatine Kinase (26-192) U/L CK-MB (CK-2) (0.5-3.6) ng/ml CK/CKMB % Calc (0-3.0) Troponin I 26.600 H* (0-0.045) ng/ml Total Protein (6.4-8.2) gm/dl Albumin (3.4-5.0) gm/dl Globulin (2.5-4.0) gm/dl Albumin/Globulin Ratio (0.9-2) Lipase (73-393) U/L Nasal Screen MRSA (PCR) Negative (Negative) 04/28/18 04/28/18 04/28/18 Range/Units 04:06 04:06 04:09 WBC 7.59 (4.8-10.8) K/uL RBC 3.91 L (4.2-5.4) M/uL Hgb 11.5 L (12.0-16.0) g/dL Hct 37.5 (37-47) % MCV 95.9 (80-100) fL MCH 29.4 (25-34) pg MCHC 30.7 L (32-36) g/dL RDW Std Deviation 60.7 H (36.4-46.3) fL RDW Coeff of Yifan 17.6 H (11.5-14.5) % Plt Count 202 (130-400) K/uL MPV 10.8 H (7.4-10.4) fL Immature Gran % (Auto) 0.4 % Neut % (Auto) 75.2 % Lymph % (Auto) 13.7 % Linn % (Auto) 9.9 % Eos % (Auto) 0.5 % Baso % (Auto) 0.3 % Immature Gran # (Auto) 0.03 H (0.00-0.02) K/uL Neut # (Auto) 5.71 (1.4-6.5) K/uL Lymph # (Auto) 1.04 L (1.2-3.4) K/uL Linn # (Auto) 0.75 H (0.11-0.59) K/uL Eos # (Auto) 0.04 (0-0.5) K/uL Baso # (Auto) 0.02 (0-0.2) K/uL PT 18.7 H (9.0-12.0) Seconds INR 1.9 H (0.9-1.1) APTT 39.8 H (21.0-31.0) Seconds PTT Ratio 1.5 Sodium (136-145) mmol/L Potassium (3.5-5.1) mmol/L Chloride (98-107) mmol/L Carbon Dioxide (21-32) mmol/L Anion Gap (3-11) BUN (7-18) mg/dl Creatinine (0.6-1.2) mg/dl Est Cr Clr Drug Dosing ml/min Est GFR ( Amer) Est GFR (Non-Af Amer) BUN/Creatinine Ratio (10-20) Glucose (70-99) mg/dl POC Glucose (70-99) Lactate (0.4-2.0) mmol/L Calcium (8.5-10.1) mg/dl Magnesium (1.8-2.4) mg/dl Total Bilirubin (0.1-1) mg/dl AST (15-37) U/L ALT (12-78) U/L Alkaline Phosphatase (45-117) U/L Total Creatine Kinase (26-192) U/L CK-MB (CK-2) (0.5-3.6) ng/ml CK/CKMB % Calc (0-3.0) Troponin I (0-0.045) ng/ml Total Protein (6.4-8.2) gm/dl Albumin (3.4-5.0) gm/dl Globulin (2.5-4.0) gm/dl Albumin/Globulin Ratio (0.9-2) Lipase (73-393) U/L Nasal Screen MRSA (PCR) (Negative) 04/28/18 04/28/18 04/28/18 Range/Units 04:09 11:38 17:23 WBC (4.8-10.8) K/uL RBC (4.2-5.4) M/uL Hgb (12.0-16.0) g/dL Hct (37-47) % MCV (80-100) fL MCH (25-34) pg MCHC (32-36) g/dL RDW Std Deviation (36.4-46.3) fL RDW Coeff of Yifan (11.5-14.5) % Plt Count (130-400) K/uL MPV (7.4-10.4) fL Immature Gran % (Auto) % Neut % (Auto) % Lymph % (Auto) % Linn % (Auto) % Eos % (Auto) % Baso % (Auto) % Immature Gran # (Auto) (0.00-0.02) K/uL Neut # (Auto) (1.4-6.5) K/uL Lymph # (Auto) (1.2-3.4) K/uL Linn # (Auto) (0.11-0.59) K/uL Eos # (Auto) (0-0.5) K/uL Baso # (Auto) (0-0.2) K/uL PT (9.0-12.0) Seconds INR (0.9-1.1) APTT 130.5 H* (21.0-31.0) Seconds PTT Ratio 5.0 Sodium 137 (136-145) mmol/L Potassium 5.1 (3.5-5.1) mmol/L Chloride 100 (98-107) mmol/L Carbon Dioxide 27 (21-32) mmol/L Anion Gap 10.0 (3-11) BUN 30 H (7-18) mg/dl Creatinine 7.06 H* D (0.6-1.2) mg/dl Est Cr Clr Drug Dosing 8.7 ml/min Est GFR ( Amer) 6.5 Est GFR (Non-Af Amer) 5.6 BUN/Creatinine Ratio 4.2 L (10-20) Glucose 101 H (70-99) mg/dl POC Glucose 87 (70-99) Lactate (0.4-2.0) mmol/L Calcium 8.5 (8.5-10.1) mg/dl Magnesium 2.0 (1.8-2.4) mg/dl Total Bilirubin 0.5 (0.1-1) mg/dl AST 140 H (15-37) U/L ALT 20 (12-78) U/L Alkaline Phosphatase 70 (45-117) U/L Total Creatine Kinase (26-192) U/L CK-MB (CK-2) (0.5-3.6) ng/ml CK/CKMB % Calc (0-3.0) Troponin I 26.700 H* (0-0.045) ng/ml Total Protein 6.7 (6.4-8.2) gm/dl Albumin 3.1 L (3.4-5.0) gm/dl Globulin 3.6 (2.5-4.0) gm/dl Albumin/Globulin Ratio 0.9 (0.9-2) Lipase 118 (73-393) U/L Nasal Screen MRSA (PCR) (Negative) 04/28/18 04/28/18 04/28/18 Range/Units 17:23 17:23 20:04 WBC (4.8-10.8) K/uL RBC (4.2-5.4) M/uL Hgb 11.2 L (12.0-16.0) g/dL Hct 36.5 L (37-47) % MCV (80-100) fL MCH (25-34) pg MCHC (32-36) g/dL RDW Std Deviation (36.4-46.3) fL RDW Coeff of Yifan (11.5-14.5) % Plt Count (130-400) K/uL MPV (7.4-10.4) fL Immature Gran % (Auto) % Neut % (Auto) % Lymph % (Auto) % Linn % (Auto) % Eos % (Auto) % Baso % (Auto) % Immature Gran # (Auto) (0.00-0.02) K/uL Neut # (Auto) (1.4-6.5) K/uL Lymph # (Auto) (1.2-3.4) K/uL Linn # (Auto) (0.11-0.59) K/uL Eos # (Auto) (0-0.5) K/uL Baso # (Auto) (0-0.2) K/uL PT (9.0-12.0) Seconds INR (0.9-1.1) APTT 74.9 H* (21.0-31.0) Seconds PTT Ratio 2.9 Sodium 135 L (136-145) mmol/L Potassium 4.6 (3.5-5.1) mmol/L Chloride 98 (98-107) mmol/L Carbon Dioxide 19 L (21-32) mmol/L Anion Gap 18.0 H (3-11) BUN 16 (7-18) mg/dl Creatinine 4.91 H* D (0.6-1.2) mg/dl Est Cr Clr Drug Dosing 12.6 ml/min Est GFR ( Amer) 10.1 Est GFR (Non-Af Amer) 8.7 BUN/Creatinine Ratio 3.2 L (10-20) Glucose 156 H (70-99) mg/dl POC Glucose (70-99) Lactate (0.4-2.0) mmol/L Calcium 8.0 L (8.5-10.1) mg/dl Magnesium (1.8-2.4) mg/dl Total Bilirubin (0.1-1) mg/dl AST (15-37) U/L ALT (12-78) U/L Alkaline Phosphatase (45-117) U/L Total Creatine Kinase (26-192) U/L CK-MB (CK-2) (0.5-3.6) ng/ml CK/CKMB % Calc (0-3.0) Troponin I (0-0.045) ng/ml Total Protein (6.4-8.2) gm/dl Albumin (3.4-5.0) gm/dl Globulin (2.5-4.0) gm/dl Albumin/Globulin Ratio (0.9-2) Lipase (73-393) U/L Nasal Screen MRSA (PCR) (Negative) 04/28/18 Range/Units 20:08 WBC (4.8-10.8) K/uL RBC (4.2-5.4) M/uL Hgb (12.0-16.0) g/dL Hct (37-47) % MCV (80-100) fL MCH (25-34) pg MCHC (32-36) g/dL RDW Std Deviation (36.4-46.3) fL RDW Coeff of Yifan (11.5-14.5) % Plt Count (130-400) K/uL MPV (7.4-10.4) fL Immature Gran % (Auto) % Neut % (Auto) % Lymph % (Auto) % [place] % (Auto) % Eos % (Auto) % Baso % (Auto) % Immature Gran # (Auto) (0.00-0.02) K/uL Neut # (Auto) (1.4-6.5) K/uL Lymph # (Auto) (1.2-3.4) K/uL Linn # (Auto) (0.11-0.59) K/uL Eos # (Auto) (0-0.5) K/uL Baso # (Auto) (0-0.2) K/uL PT (9.0-12.0) Seconds INR (0.9-1.1) APTT (21.0-31.0) Seconds PTT Ratio Sodium (136-145) mmol/L Potassium (3.5-5.1) mmol/L Chloride (98-107) mmol/L Carbon Dioxide (21-32) mmol/L Anion Gap (3-11) BUN (7-18) mg/dl Creatinine (0.6-1.2) mg/dl Est Cr Clr Drug Dosing ml/min Est GFR ( Amer) Est GFR (Non-Af Amer) BUN/Creatinine Ratio (10-20) Glucose (70-99) mg/dl POC Glucose (70-99) Lactate 7.0 H* (0.4-2.0) mmol/L Calcium (8.5-10.1) mg/dl Magnesium (1.8-2.4) mg/dl Total Bilirubin (0.1-1) mg/dl AST (15-37) U/L ALT (12-78) U/L Alkaline Phosphatase (45-117) U/L Total Creatine Kinase (26-192) U/L CK-MB (CK-2) (0.5-3.6) ng/ml CK/CKMB % Calc (0-3.0) Troponin I (0-0.045) ng/ml Total Protein (6.4-8.2) gm/dl Albumin (3.4-5.0) gm/dl Globulin (2.5-4.0) gm/dl Albumin/Globulin Ratio (0.9-2) Lipase (73-393) U/L Nasal Screen MRSA (PCR) (Negative) Imaging Data Radiologist's Impression: Radiology results as stated below per my review and the radiologist's interpretation: XR chest 1V portable CLINICAL HISTORY: Chest Pain COMPARISON STUDY: Chest radiograph November 05, 2017. FINDINGS: Right internal jugular [id number] and dual lumen left sided catheter remain in place. Cardiomegaly is noted. There is no pneumothorax or pleural effusion. Cardiomegaly is unchanged. There is no evidence for pulmonary edema. IMPRESSION: No acute cardiopulmonary findings. Electronically signed by: Markus Hdz M.D. 04/27/2018 10:37 AM ECG Data Attestation: I personally reviewed and interpreted this ECG as follows: Indication: chest pain Rate (beats per minute): 73 Rhythm: sinus rhythm Findings: + 1st degree AV block, + LBBB and + ST depression (anterior) Comparison ECG Date: from (11/05/17) Change: the following changes noted (changes are new) Blood Pressure Blood Pressure Findings: Elevated blood pressure Blood Pressure Disposition: further management by hospitalist SALMA Narrative The patient is a 62-year-old female who presented to the emergency department for an evaluation of shoulder pain. The patient complained of reproducible shoulder pain and took pain medications which seemed to improve the pain but the pain returned and started to radiate across her shoulders into her chest. The patient's initial EKG did appear to be consistent with ischemic changes compared to previous. She was initially treated with pain medication but then given aspirin. On reevaluation she was feeling much better but her EKG did not improve. I discussed the patient's laboratory and radiographic studies with her. She does have a history of renal failure and is on dialysis. Because of her comorbidities I discussed her case with the on-call [facility] hospitalist group. We further discussed her case with the [facility] server developer. They felt the patient's condition and EKG were consistent with an acute coronary syndrome. For this reason she was made a heart alert. The patient was evaluated by the dental instructor in the emergency department. She was taken to the cardiac Sales [employer]. Impression & Plan Chest pain, Abnormal EKG, Elevated troponin Discharge Plan Visit Data *Final* Discharge Date/Time: 04/27/18 14:09 Chief Complaint: Shoulder Pain Stated Complaint: r shoulder pain ED Provider: Rigo Lucero Discharge Problem: Chest pain, Abnormal EKG, Elevated troponin Patient Disposition: Admitted As Inpatient Discharge Instructions Interventions: ED Discharge Assessment Last Done: 04/27/18 14:09 The scribe's documentation has been prepared under my direction and personally reviewed by me in its entirety. I confirm that the note above accurately reflects all work, treatment, procedures, and medical decision making performed by me.
[2018-04-27 10:24] LABS: Basophils # (auto) 0.02 K/uL (0-0.2); Basophils % (auto) 0.4 %; Eosinophils # (auto) 0.08 K/uL (0-0.5); Eosinophils % (auto) 1.5 %; Hematocrit (blood only) 38.6 % (37-47); Hemoglobin 11.9 g/dL (12.0-16.0); Immature Granulocytes # (auto) 0.01 K/uL (0.00-0.02); Immature Granulocytes % (auto) 0.2 %; Lymphocytes # (auto) 0.74 K/uL (1.2-3.4); Lymphocytes % (auto) 13.5 %; Mean Corpuscular Hgb Conc 30.8 g/dL (32-36); Mean Corpuscular Volume 95.8 fL (80-100); Mean Platelet Volume 11.2 fL (7.4-10.4); Monocytes # (auto) 0.52 K/uL (0.11-0.59); Monocytes % (auto) 9.5 %; Neutrophils # (auto) 4.12 K/uL (1.4-6.5); Neutrophils % (auto) 74.9 %; Platelet Count 165 K/uL (130-400); RDW Coefficient of Variation 17.7 % (11.5-14.5); RDW Standard Deviation 61.6 fL (36.4-46.3); Red Blood Count 4.03 M/uL (4.2-5.4); White Blood Count 5.49 K/uL (4.8-10.8)
[2018-04-27 10:37] LABS: INR 1.9 (0.9-1.1); Partial Thromboplastin Ratio 1.7; Partial Thromboplastin Time 43.9 Seconds (21.0-31.0); Prothrombin Time 18.5 Seconds (9.0-12.0)
--- NOTE | 2018-04-27 10:39 | XRay Report ---
XR chest 1V portable CLINICAL HISTORY: Chest Pain COMPARISON STUDY: Chest radiograph November 05, 2017. FINDINGS: Right internal jugular [id number] and dual lumen left sided catheter remain in place. Ca rdiomegaly is noted. There is no pneumothorax or pleural effusion. Cardiomegaly is unchanged. There i s no evidence for pulmonary edema. IMPRESSION: No acute cardiopulmonary findings. Electronically signed by: Markus Hdz M.D. 04/27/2018 10:37 AM
[2018-04-27 10:53] LABS: Albumin Globulin Ratio 0.9 (0.9-2); Albumin Level 3.3 gm/dl (3.4-5.0); BUN Creatinine Ratio 3.5 (10-20); Bilirubin,Total 0.6 mg/dl (0.1-1); Creatine Kinase MB 3.4 ng/ml (0.5-3.6); Creatinine Clr Calc Pharmacy 10.6 ml/min; Est GFR (African American) 8.2; Est GFR (Non-African American) 7.1; Globulin 3.7 gm/dl (2.5-4.0); Potassium 4.5 mmol/L (3.5-5.1); Troponin I 0.708 ng/ml (0-0.045)
[2018-04-27] MEDS ORDERED: MoRPHine SULFATE 4 MG/ML 1 ML CARP\\VIAL IV PRN (11:15)
[2018-04-27] MEDS ORDERED: ASPIRIN CHEW 324 MG PO STA (11:15)
--- NOTE | 2018-04-27 12:44 | History & Physical Report ---
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 -Sudden onset R shoulder pain this morning, now with left shoulder pain -History of asymptomatic MA in the past -Minimal coronary artery disease documented on cardiac catheterization in 1999 -EKG was changes consistent with new LBBB. Troponin elevated to 0.708 -Discussed with Dr. 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 Was transferred to [facility] and monitored. No intervention required (7) HTN (hypertension): Normotensice -Continue nifedipine, hydralazine per cardiology service (8) Lupus: History of lupus nephritis (s/p failed kidney transplant) and recurrent pericardial effusion -Continue home dose prednisone (9) Dyslipidemia: Continue statin (10) Hypothyroidism: Continue levothyroxine Code status: FULL code per discussion with patient PCP: [facility] Dispo: In cardiac laboratory clerk. Post-procedure recovery in ICU or telemetry, per cardiology service Patient seen in collaboration with Dr. Gamble. Please see addendum. 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 Pain continued overnight despite patient taking oxycodone and is a constant, sharp pain with radiation to her mid back. Pain has persisted overnight but is now present in her left shoulder as well. Since arrival in the ED, patient has become nauseated with small amount of clear colored emesis x2. Associated with shortness of breath. Denies any juno chest pain, diaphoresis, or pain in arms. Follows with Dr. Mercedes in cardiology clinic and has history of an asymptomatic MA. Has minimal coronary artery disease documented on cardiac catheterization in 1999. Also with history of stress-induced cardiomyopathy. Is on Coumadin for chronic anticoagulation due to history of mesenteric arterial thrombosis as well as paroxysmal A. fib. Also with history of recurrent pericardial effusion secondary to lupus. Patient has ESRD and is due for dialysis tomorrow. Patient is crying during examination. Says that morphine given to her in ED has improved shoulder pain only slightly. Troponin is elevated to 0.708 and creatinine is 5.85 (close to baseline). EKG with changes concerning for new left bundle branch block. Chest x-ray with no acute cardiopulmonary changes. Discussed with Dr. Mercedes who will evaluate the patient in the ED. Allergies Allergy/AdvReac Type Severity Reaction Status Date / Time silver nitrate Allergy Severe SEVERE Verified 04/27/18 10:51 BURNING silver sulfadiazine Allergy Severe SEVERE Verified 04/27/18 10:51 BURNING levofloxacin Allergy Intermediate HIVES Verified 04/27/18 10:51 mivacurium Allergy Intermediate "BUGS Verified 04/27/18 10:51 CRAWLING ON ME" Sulfa (Sulfonamide Allergy Intermediate "SULFA Verified 04/27/18 10:51 Antibiotics) DRUGS": RASH trimethoprim Allergy Intermediate BACTRIM - Verified 04/27/18 10:51 RASH amoxicillin AdvReac Mild GI UPSET Verified 04/27/18 10:51 clavulanic acid AdvReac Mild GI UPSET Verified 04/27/18 10:51 erythromycin base AdvReac Mild nausea Verified 04/27/18 10:51 vomiting metronidazole AdvReac Mild DIARRHEA Verified 04/27/18 10:51 Home Medications Home Medications Medication Instructions Recorded Confirmed Type aspirin 81 mg PO QAM 04/27/18 04/27/18 History atorvastatin 40 mg PO HS 04/27/18 04/27/18 History bacitracin 1 applic OPR TID 04/27/18 04/27/18 History bupropion HCl 100 mg PO BID 04/27/18 04/27/18 History calcium polycarbophil [FiberCon] 1,200 mg PO BID 04/27/18 04/27/18 History carvedilol 25 mg PO BID 04/27/18 04/27/18 History epoetin beta, methoxy peg [Mircera] 200 mg SUBCUT UD 04/27/18 04/27/18 History esomeprazole magnesium [Nexium] 40 mg PO HS 04/27/18 04/27/18 History furosemide 80 mg PO DAILY 04/27/18 04/27/18 History hydralazine 10 mg PO UD 04/27/18 04/27/18 History ipratropium-albuterol [Combivent 1 puff INHALATION QID PRN 04/27/18 04/27/18 History Respimat] levothyroxine 175 mcg PO QAM 04/27/18 04/27/18 History nifedipine 30 mg PO DAILY 04/27/18 04/27/18 History ondansetron HCl [Zofran] 4 mg PO QID PRN 04/27/18 04/27/18 History oxycodone 10 mg PO Q8H PRN 04/27/18 04/27/18 History prednisone 5 mg PO MOWEFR 04/27/18 04/27/18 History sevelamer carbonate [Renvela] 3,200 mg PO UD 04/27/18 04/27/18 History warfarin [Coumadin] 2 mg PO FR@1600 04/27/18 04/27/18 History warfarin [Coumadin] 4 mg PO SUMOTUWETHSA@1600 04/27/18 04/27/18 History zolpidem [Ambien] 5 mg PO HS PRN 04/27/18 04/27/18 History Past Med/Surg History Medical History Hypothyroidism (Chronic) CAD (coronary artery disease) (Chronic) "minimal CAD on cath in 1999" Anxiety (Chronic) Anal cancer (Chronic) "s/p chemo and radiation" Dyslipidemia (Chronic) Asthma (Chronic) ESRD (end stage renal disease) on dialysis (Chronic) HTN (hypertension) (Chronic) Lupus (Chronic) GERD (gastroesophageal reflux disease) (Chronic) Paroxysmal a-fib (Chronic) Osteomyelitis (Chronic) Mesenteric artery thrombosis (Chronic) Surgical History History of carpal tunnel surgery (Chronic) S/P partial hysterectomy (Chronic) H/O hernia repair (Chronic) History of bowel resection (Chronic) "for mesenteric ischemia" Hx of appendectomy (Resolved) Family History Mother Heart disease Hypertension Social History Current Living Situation: Alone Other Information That Helps Us Care for You: No Feels Safe at Home: Yes Safety Concerns: Feels Safe At This Time Smoking Status: Former smoker Tobacco Type: cigarettes Do You Dip or Chew Tobacco: No Smoking End Date: 11/11/2008 Second Hand Exposure: No Tobacco Cessation Education Requested by Patient: No Hx Alcohol Use: No Hx Substance Use: No Beliefs That Will Affect Care: None Preferred Language: [place] Communication Ability: Effective Brand Planner Required: No Review of Systems All systems reviewed & are unremarkable except as noted in HPI & below Physical Exam 2 Vital Signs (Past 24 Hours): Last Vital Signs Temp 36.4 C L 04/27/18 09:38 Pulse 71 04/27/18 10:31 Resp 20 04/27/18 10:31 BP 140/86 04/27/18 10:31 Pulse Ox 100 04/27/18 10:31 Physical Exam: General Appearance: WD/WN, moderate distress from pain, crying , appears anxious Head: normocephalic, atraumatic Eyes: normal inspection, PERRL, EOMI ENT: hearing grossly normal, pharynx normal (moist mucous membranes) Neck: supple, no JVD, no adenopathy Respiratory/Chest: lungs clear to auscultation. No wheezes, rales or rhonci. No respiratory distress or accessory muscle use Cardiovascular: regular rate, rhythm, no murmur, normal peripheral pulses Abdomen/GI: normal bowel sounds, soft, non-tender to palpation Extremities/Musculoskelatal: R and L scapular pain with radiation to mid-back. Normal range of motion and 5/5 RICHARD. No calf tenderness, normal capillary refill , 1+ BLE edema Neurologic/Psych: alert, normal mood/affect, oriented x 3 Skin: normal color, warm/dry Results & Data Laboratory Results Short CBC 04/27/18 Range/Units 10:15 WBC 5.49 (4.8-10.8) K/uL Hgb 11.9 L (12.0-16.0) g/dL Hct 38.6 (37-47) % Plt Count 165 (130-400) K/uL BMP 04/27/18 10:15 Sodium 136 Potassium 4.5 Chloride 99 Carbon Dioxide 27 BUN 20 H Creatinine 5.85 H* Glucose 146 H Calcium 9.0 Cardiac Enzymes 04/27/18 Range/Units 10:15 Total Creatine Kinase 42 (26-192) U/L CK-MB (CK-2) 3.4 (0.5-3.6) ng/ml Troponin I 0.708 H* (0-0.045) ng/ml Liver Function 04/27/18 Range/Units 10:15 Total Bilirubin 0.6 (0.1-1) mg/dl AST 24 (15-37) U/L ALT 15 (12-78) U/L Alkaline Phosphatase 69 (45-117) U/L Albumin 3.3 L (3.4-5.0) gm/dl Diagnostic Findings CXR: IMPRESSION: No acute cardiopulmonary findings. ECG Rhythm: sinus rhythm Findings: + 1st degree AV block Change: the following changes noted Additional Comments: new LBBB Code Status & VTE Plan Code Status FULL code Supervising Physician Co-Signing Physician Notes Pt was seen and examined. Agreed with Umm ESPINO exam, assessment and Plan. 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 Describes pain as constant, sharp pain with radiation to her mid back and now to her left shoulder. Troponin on admission 0.708. EKG done in the ER showed new LBBB. cardiology was notified and heart alert called for emergent cardiac cath since pt continues to have shoulder pain and significant cardiac history. Continue monitor Troponin. Will get an echo. cardiology and nephrology consult. Will monitor closely after cardiac cath. MD Tye
[2018-04-27] MEDS ORDERED: LIDOCAINE HCL 1% 20 ML VIAL ONE (13:57)
[2018-04-27] MEDS ORDERED: NiCARDipine HCL INJ 2.5 MG/ML 10 ML AMP ONE (13:59)
[2018-04-27] MEDS ORDERED: MIDAZOLAM HCL 1 MG/ML 2ML VIAL ONE (13:59)
[2018-04-27] MEDS ORDERED: HEPARIN (PORCINE) 1000 UNIT/ML 10 ML (CATH LAB USE ONLY) ONE (13:59)
[2018-04-27] MEDS ORDERED: fentaNYL citrate 100 MCG/2 ML VIAL ONE (13:59)
[2018-04-27] MEDS ORDERED: NITROGLYCERIN/D5W 100MCG/ML 20ML SYR ONE (14:00)
[2018-04-27] MEDS ORDERED: ONDANSETRON INJ 2 MG/ML 2 ML VIAL ONE ×2 (14:07→17:35)
--- NOTE | 2018-04-27 14:42 | Cardiology Consultation ---
Date of Consultation April 27, 2018 Assessment & Plan (1) New onset left bundle branch block (LBBB): Patient presents with right-sided shoulder discomfort which I suspect is musculoskeletal in origin. She then developed left scapular pain and shortness of breath. No left bundle branch block noted on ECG with elevated troponin I per initial lab testing. Patient with ongoing left scapular discomfort at this time. Findings suggest acute coronary syndrome. Recommend urgent/emergent cardiac catheterization. Risks of procedure explained. Patient agreeable. (2) Elevated troponin: (3) CAD (coronary artery disease): (4) Paroxysmal a-fib: Currently sinus rhythm. INR is subtherapeutic. (5) PVD (peripheral vascular disease): Diminished peripheral pulses noted on examination. (6) Shoulder pain, acute: History of Present Illness Reason for Consultation: New LBBB, elevated troponin Attending Physician: Josue Gamble MD History of Present Illness Patient presented to the emergency department with right-sided shoulder discomfort. Discomfort began last evening. Pain became quite severe. Notes associated severe shortness of breath which was transient. She came to the emergency department where she was treated with intravenous morphine. Initial ECG demonstrates new left bundle branch block pattern. Initial troponin 0 0.70. Patient subsequently developed left-sided scapular discomfort rated 6/ 10. There is associated shortness of breath. She is feeling quite anxious without diaphoresis. Denies any substernal chest pressure at this time. Ongoing left scapular pain noted. Complex history listed below. Allergies Allergy/AdvReac Type Severity Reaction Status Date / Time silver nitrate Allergy Severe SEVERE Verified 04/27/18 10:51 BURNING silver sulfadiazine Allergy Severe SEVERE Verified 04/27/18 10:51 BURNING levofloxacin Allergy Intermediate HIVES Verified 04/27/18 10:51 mivacurium Allergy Intermediate "BUGS Verified 04/27/18 10:51 CRAWLING ON ME" Sulfa (Sulfonamide Allergy Intermediate "SULFA Verified 04/27/18 10:51 Antibiotics) DRUGS": RASH trimethoprim Allergy Intermediate BACTRIM - Verified 04/27/18 10:51 RASH amoxicillin AdvReac Mild GI UPSET Verified 04/27/18 10:51 clavulanic acid AdvReac Mild GI UPSET Verified 04/27/18 10:51 erythromycin base AdvReac Mild nausea Verified 04/27/18 10:51 vomiting metronidazole AdvReac Mild DIARRHEA Verified 04/27/18 10:51 Home Medications Home Medications Medication Instructions Recorded Confirmed Type aspirin 81 mg PO QAM 04/27/18 04/27/18 History atorvastatin 40 mg PO HS 04/27/18 04/27/18 History bacitracin 1 applic OPR TID 04/27/18 04/27/18 History bupropion HCl 100 mg PO BID 04/27/18 04/27/18 History calcium polycarbophil [FiberCon] 1,200 mg PO BID 04/27/18 04/27/18 History carvedilol 25 mg PO BID 04/27/18 04/27/18 History epoetin beta, methoxy peg [Mircera] 200 mg SUBCUT UD 04/27/18 04/27/18 History esomeprazole magnesium [Nexium] 40 mg PO HS 04/27/18 04/27/18 History furosemide 80 mg PO DAILY 04/27/18 04/27/18 History hydralazine 10 mg PO UD 04/27/18 04/27/18 History ipratropium-albuterol [Combivent 1 puff INHALATION QID PRN 04/27/18 04/27/18 History Respimat] levothyroxine 175 mcg PO QAM 04/27/18 04/27/18 History nifedipine 30 mg PO DAILY 04/27/18 04/27/18 History ondansetron HCl [Zofran] 4 mg PO QID PRN 04/27/18 04/27/18 History oxycodone 10 mg PO Q8H PRN 04/27/18 04/27/18 History prednisone 5 mg PO MOWEFR 04/27/18 04/27/18 History sevelamer carbonate [Renvela] 3,200 mg PO UD 04/27/18 04/27/18 History warfarin [Coumadin] 2 mg PO FR@1600 04/27/18 04/27/18 History warfarin [Coumadin] 4 mg PO SUMOTUWETHSA@1600 04/27/18 04/27/18 History zolpidem [Ambien] 5 mg PO HS PRN 04/27/18 04/27/18 History Patient History Medical History Hypothyroidism (Chronic) CAD (coronary artery disease) (Chronic) "minimal CAD on cath in 1999" Anxiety (Chronic) Anal cancer (Chronic) "s/p chemo and radiation" Dyslipidemia (Chronic) Asthma (Chronic) ESRD (end stage renal disease) on dialysis (Chronic) HTN (hypertension) (Chronic) Lupus (Chronic) GERD (gastroesophageal reflux disease) (Chronic) Paroxysmal a-fib (Chronic) Osteomyelitis (Chronic) Mesenteric artery thrombosis (Chronic) Surgical History History of carpal tunnel surgery (Chronic) S/P partial hysterectomy (Chronic) H/O hernia repair (Chronic) History of bowel resection (Chronic) "for mesenteric ischemia" Hx of appendectomy (Resolved) Family History Mother Heart disease Hypertension Social History Current Living Situation: Alone Other Information That Helps Us Care for You: No Feels Safe at Home: Yes Safety Concerns: Feels Safe At This Time Smoking Status: Former smoker Tobacco Type: cigarettes Do You Dip or Chew Tobacco: No Smoking End Date: 11/11/2008 Second Hand Exposure: No Tobacco Cessation Education Requested by Patient: No Hx Alcohol Use: No Hx Substance Use: No Beliefs That Will Affect Care: None Preferred Language: Swedish Communication Ability: Effective Rail Switchman Required: No Review of Systems Pertinent positives noted per HPI, conference of 10 system review otherwise negative. Physical Exam 2 Vital Signs (Past 24 Hours): Last Vital Signs Temp 36.4 C L 04/27/18 09:38 Pulse 78 04/27/18 13:40 Resp 14 04/27/18 13:40 BP 131/68 04/27/18 13:38 Pulse Ox 99 04/27/18 12:01 Physical Exam: General: NAD, AAO x3, well nourished. Chronically ill. HEENT : Normocephalic. Atraumatic. Conjunctiva pink, no scleral icterus. Neck: No carotid bruits, the carotid upstrokes are brisk. No JVD. No HJR Heart: Regular normal S-1 and S-2 no S-3 or S-4 gallop. 2/6 systolic ejection murmur heard best at the right second intercostal space. PMI is not displaced. No RV heave. Lungs: Clear bilateral without rales , rhonchi, or wheeze. Abdomen: Normal bowel sounds. Soft. Nontender. No masses or organomegaly. No abdominal bruits. Extremities: 1-2+ bilateral pedal and ankle edema. Diminished pedal pulses. 1/ 4 bilateral femoral pulses. Diminished bilateral radial pulses. Neuro: Cranial nerves grossly intact. No focal motor deficit. _ (1) CAD (coronary artery disease) Associated angina: with unstable angina Coronary Disease-Associated Artery/ Lesion type: [place] artery [place] vs. transplanted heart: [place] heart Qualified Code(s): I25.110 - Atherosclerotic heart disease of [place] coronary artery with unstable angina pectoris
--- NOTE | 2018-04-27 15:31 | Pre Anesthesia Assessment ---
Date of Service April 27, 2018 Pre Sedation Assessment Vital Signs Temp Pulse Pulse Resp BP BP Pulse Ox 04/27/18 13:40 78 14 04/27/18 13:38 78 16 131/68 04/27/18 13:30 75 13 04/27/18 13:20 76 14 04/27/18 13:10 76 14 04/27/18 13:00 75 18 149/83 H 04/27/18 12:50 75 15 04/27/18 12:40 74 19 04/27/18 12:30 74 20 140/82 04/27/18 12:20 75 20 04/27/18 12:10 74 18 04/27/18 12:01 76 15 128/104 H 99 04/27/18 12:00 75 16 100 04/27/18 11:50 76 23 100 04/27/18 11:40 74 16 99 04/27/18 11:31 74 27 H 118/69 97 04/27/18 11:30 75 19 99 04/27/18 11:20 75 20 100 04/27/18 11:10 74 11 L 100 04/27/18 11:02 74 12 140/93 100 04/27/18 11:00 74 20 94 04/27/18 10:50 75 16 99 04/27/18 10:40 72 26 H 100 04/27/18 10:33 73 20 100 04/27/18 10:31 71 20 140/86 100 04/27/18 10:30 71 16 140/86 100 04/27/18 10:21 73 16 98 04/27/18 09:38 36.4 C L 71 24 149/94 H 97 Cardiovascular RRR, no murmur, no edema Respiratory normal respiratory effort, lungs clear to auscultation Pre-Sedation Airway Assessment Smoking Status: Former smoker Hx Sleep Apnea: No Hx Difficult Intubation: No Short, Thick Neck: No Thyromental Distance: < 3.5 Finger Breadths Oral Cavity: + WNL Mallampati Class: III Procedure Planning Contraindications for Sedation: none Current Medications Reviewed: Yes Notes The planned sedation has been discussed with the patient. Informed Consent was obtained. I have identified the patient, determined the appropriateness of sedation and have assessed the patient immediately prior to the procedure. All medicine(s) and interventions are by my order.
--- NOTE | 2018-04-27 15:35 | Post Anesthesia Assessment ---
Date of Service April 27, 2018 Post Sedation Assessment Vital Signs Temp Pulse Pulse Resp BP BP Pulse Ox 04/27/18 13:40 78 14 04/27/18 13:38 78 16 131/68 04/27/18 13:30 75 13 04/27/18 13:20 76 14 04/27/18 13:10 76 14 04/27/18 13:00 75 18 149/83 H 04/27/18 12:50 75 15 04/27/18 12:40 74 19 04/27/18 12:30 74 20 140/82 04/27/18 12:20 75 20 04/27/18 12:10 74 18 04/27/18 12:01 76 15 128/104 H 99 04/27/18 12:00 75 16 100 04/27/18 11:50 76 23 100 04/27/18 11:40 74 16 99 04/27/18 11:31 74 27 H 118/69 97 04/27/18 11:30 75 19 99 04/27/18 11:20 75 20 100 04/27/18 11:10 74 11 L 100 04/27/18 11:02 74 12 140/93 100 04/27/18 11:00 74 20 94 04/27/18 10:50 75 16 99 04/27/18 10:40 72 26 H 100 04/27/18 10:33 73 20 100 04/27/18 10:31 71 20 140/86 100 04/27/18 10:30 71 16 140/86 100 04/27/18 10:21 73 16 98 04/27/18 09:38 36.4 C L 71 24 149/94 H 97 Recovery Score Activity: Moves 4 extremities Respiration: Deep Breath/Cough Circulation: +/-20% PreAnes Value Consciousness: Fully Awake Oxygen Saturation: O2 needed for >90% Discharge Sedation Level of Care: Fast Track Phase II Post Sedation Plan On clinical assessment, the patient appears to have tolerated the sedation without complications. Patient is recovering as anticipated. Patient will continue to be monitored by nursing and may be discharged when sedation discharge criteria are met per below protocol. Upon Completions of procedure and additional 15 minutes continue every 5 minute vital signs and the P.A.R. score; then discharge to a Phase I or Fast Track to Phase II per the following guidelines: * Discharge Patient to appropriate Phase II area if PAR is 8 or greater or return to pre- procedure baseline. The post - procedure orders will be as directed. * If PAR score is less than 8 or not return to pre-procedure baseline then patient will follow Phase I monitoring till PAR is reached for Phase II. The Phase I may be done in procedure room or may call to secure a Phase I area. * If naloxone or flumazenil are used for reversal, hold in Phase I for continued monitoring from when last reversal dose was given for a minimum of 60 minutes or longer pending the nurse and/or physician discretion of patient condition before discharge to Phase II. Please call the Sedation Physician to re-evaluate and complete post-note for discharge to Phase II area. Do NOT discharge from procedure sedation or Phase 1 until post- sedation evaluation note is complete by procedure /sedation MD Sedation Discharge Instructions to be given to the patient at discharge to home.
--- NOTE | 2018-04-27 15:37 | Cardiac Catheterization ---
Cardiac Cath Procedure Full Procedure Date April 27, 2018 Pre-Procedure Diagnosis Pre-Procedure Diagnosis: Non STEMI AUC Score AUC Score: 8 Post-Procedure Diagnosis Post-Procedure Diagnosis: Severe CAD and Elevated Intracardiac Pressures Procedure(s) Performed Procedure(s) Performed: Coronary Angiography, Left Heart Cath, Ultrasound Guided Vascular Access and Femoral Artery Angiography Valve Inserter René Trejo MD Pm Head Cook(s) Cayla Estimated Blood Loss Estimated Blood Loss: None Medication(s) Medication(s): Fentanyl, Heparin, Lidocaine 1% and Versed Summary of Findings Indication: High risk NSTEMI Access: 6 Yoruba right common femoral artery under ultrasound guidance. Severe proximal external iliac stenosis navigated with Glidewire and JR4 catheter Catheters: JR4, JL4, pigtail Findings: LM -heavily calcified, mild diffuse disease LAD -heavily calcified, 20-30% ostial stenosis, mild diffuse proximal disease, 50% mid segment, 60-70% distal as wraps around apex. Gives off for small diagonals. Provides left to right collaterals to RCA and sluggish collaterals to left PLB Circumflex -heavily calcified, 100% occlusion proximal, left PLB partially fills slowly via left to left collaterals RCA -chronic 100% proximal occlusion With sluggish collaterals to distal circumflex and questionable appearance of proximal circumflex attempt made to wire across proximal circumflex occlusion with commercial airline pilot 50 wire. Lesion behave more like calcified/chronic occlusion and as patient chest pain-free, hemodynamically and electrically stable decision made to stop procedure and manage medically. LVEDP -31 Arterial Closure: Mynx Summary: 1. Severe multivessel coronary artery disease -100% chronic proximal RCA occlusion. Distal RCA fills via left to right collaterals. 100% proximal circumflex occlusion (possibly acute on chronic). Left PLB fills partially via left to left collaterals 50% mid LAD, moderate to severe apical LAD disease 2. Elevated intracardiac filling pressure Recommendations: Admit to ICU Medically manage severe acute on chronic coronary artery disease Hemodialysis for volume management Trend troponins until peak, repeat echocardiogram pending Continued ASCVD risk factor modification Hemodynamics Rest Ao:: 144/64/99 Final Ao: 137/67/96 LV: 137/31 Recommendations Recommendations: Medical Therapy and/or Counseling Specimens Specimens: None Radiation Exposure (mGy) 2653 Contrast (mls) 60 Fluids (cc crystalloids) Fluids (cc crystalloids): 100 Drains Drains: none Anesthesia moderate Procedural Complication(s) None Disposition ICU ACC Data: Site Surveyor Cardiac Status Clinical evaluation leading to the procedure CAD Presenation: Non STEMI Anginal Classification: CCS IV Heart Failure: NYHA Class: CCS II Cardiogenic Shock within 24 Hours: No Cardiac Arrest within 24 Hours: No Imaging Studies Past 6 Months: Yes Stress Studies Past 6 Months: No Diagnostic Physicians Name: René Trejo MD Closure Device Percutaneous Entry Location: Femoral Closure Device: Mynx Recommendations: Medical Therapy and/or Counseling Intraprocedure Events Significant Disection: No Perforation: No
[2018-04-27] MEDS ORDERED: POLYETHYLENE (MIRALAX) 17 GM PACK PO PRN (15:53)
[2018-04-27] MEDS ORDERED: NITROGLYCERIN SL 0.4 MG/TAB TAB SL PRN (15:53)
[2018-04-27] MEDS ORDERED: ONDANSETRON INJ 2 MG/ML 2 ML VIAL IV PRN (15:53)
[2018-04-27] MEDS: MoRPHine SULFATE 2 MG/ML CARP IV PRN (16:57)
[2018-04-27] MEDS ORDERED: ONDANSETRON INJ 2 MG/ML 2 ML VIAL IV ONE (17:45)
[2018-04-27] MEDS: OXYCODONE HCL IR 5 MG TAB (IMMEDIATE RELEASE) PO PRN (19:54)
[2018-04-27] MEDS: ATORVASTATIN 40 MG TAB PO SCH (20:00)
[2018-04-27] MEDS: PANTOprazole 40 MG TAB PO SCH (20:00)
[2018-04-27] MEDS: CARVEDILOL 25 MG TAB PO SCH (20:00)
[2018-04-28] MEDS ORDERED: PROCHLORPERAZINE 5 MG in SYRINGE 4 ML IV PRN (04:02)
[2018-04-28] MEDS: OXYCODONE HCL IR 5 MG TAB (IMMEDIATE RELEASE) PO PRN ×2 (04:16→11:41)
[2018-04-28 04:19] LABS: Basophils # (auto) 0.02 K/uL (0-0.2); Basophils % (auto) 0.3 %; Eosinophils # (auto) 0.04 K/uL (0-0.5); Eosinophils % (auto) 0.5 %; Hematocrit (blood only) 37.5 % (37-47); Hemoglobin 11.5 g/dL (12.0-16.0); Immature Granulocytes # (auto) 0.03 K/uL (0.00-0.02); Immature Granulocytes % (auto) 0.4 %; Lymphocytes # (auto) 1.04 K/uL (1.2-3.4); Lymphocytes % (auto) 13.7 %; Mean Corpuscular Hgb Conc 30.7 g/dL (32-36); Mean Corpuscular Volume 95.9 fL (80-100); Mean Platelet Volume 10.8 fL (7.4-10.4); Monocytes # (auto) 0.75 K/uL (0.11-0.59); Monocytes % (auto) 9.9 %; Neutrophils # (auto) 5.71 K/uL (1.4-6.5); Neutrophils % (auto) 75.2 %; Platelet Count 202 K/uL (130-400); RDW Coefficient of Variation 17.6 % (11.5-14.5); RDW Standard Deviation 60.7 fL (36.4-46.3); Red Blood Count 3.91 M/uL (4.2-5.4); White Blood Count 7.59 K/uL (4.8-10.8)
[2018-04-28 04:36] LABS: Partial Thromboplastin Ratio 1.5; Partial Thromboplastin Time 39.8 Seconds (21.0-31.0)
[2018-04-28 04:58] LABS: Albumin Globulin Ratio 0.9 (0.9-2); Albumin Level 3.1 gm/dl (3.4-5.0); BUN Creatinine Ratio 4.2 (10-20); Bilirubin,Total 0.5 mg/dl (0.1-1); Calcium 8.5 mg/dl (8.5-10.1); Creatinine Clr Calc Pharmacy 8.7 ml/min; Est GFR (African American) 6.5; Est GFR (Non-African American) 5.6; Globulin 3.6 gm/dl (2.5-4.0); Potassium 5.1 mmol/L (3.5-5.1); Total Protein 6.7 gm/dl (6.4-8.2); Troponin I 26.7 ng/ml (0-0.045)
[2018-04-28 08:18] LABS: INR 1.9 (0.9-1.1); Prothrombin Time 18.7 Seconds (9.0-12.0)
[2018-04-28] MEDS: FUROSEMIDE 80 MG TAB PO SCH (08:46)
[2018-04-28] MEDS ORDERED: Heparin IV Standard *NO* Bolus SCH (10:38)
--- NOTE | 2018-04-28 10:43 | Cardiology Progress Note ---
Date of Service April 28, 2018 Assessment & Plan (1) NSTEMI (non-ST elevated myocardial infarction): Cardiac catheterization demonstrates chronic occlusion of the right coronary artery as well as an occluded left circumflex. Unable to cross the circumflex occlusion with a wire. 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 Continue medical management. Restart intravenous heparin as INR is subtherapeutic today. Continue aspirin, statin, and beta-carlos therapy. Repeat resting 2D transthoracic echocardiogram pending at this time. (2) New onset left bundle branch block (LBBB): Secondary to #1. (3) CAD (coronary artery disease): (4) Paroxysmal a-fib: Currently sinus rhythm. INR is subtherapeutic. (5) PVD (peripheral vascular disease): Diminished peripheral pulses noted on examination. (6) Shoulder pain, acute: Subjective Patient seen and examined at the bedside. Currently, receiving dialysis treatment. Interscapular discomfort improved. Troponin peak at 26. ECG demonstrates left bundle branch block. Sinus rhythm on telemetry. Patient denies shortness of breath or palpitations. No signs/symptoms of GI/ blood loss. Mild right groin ecchymosis without hematoma. Denies groin discomfort. Review of Systems All systems reviewed & are unremarkable except as noted in HPI & below Physical Exam 2 Vital Signs (Past 24 Hours): Last Vital Signs Temp 36.8 C 04/28/18 08:30 Pulse 87 04/28/18 09:15 Resp 18 04/28/18 08:00 BP 118/52 L 04/28/18 09:15 Pulse Ox 94 04/28/18 08:00 Physical Exam: General: NAD, AAO x3, well nourished. Chronically ill. HEENT : Normocephalic. Atraumatic. Conjunctiva pink, no scleral icterus. Neck: No carotid bruits, the carotid upstrokes are brisk. No JVD. No HJR Heart: Regular normal S-1 and S-2 no S-3 or S-4 gallop. 2/6 systolic ejection murmur heard best at the right second intercostal space. PMI is not displaced. No RV heave. Lungs: Clear bilateral without rales , rhonchi, or wheeze. Abdomen: Normal bowel sounds. Soft. Nontender. No masses or organomegaly. No abdominal bruits. Extremities: Mild right groin ecchymosis, no hematoma. 1-2+ bilateral pedal and ankle edema. Diminished pedal pulses. 1/4 bilateral femoral pulses. Diminished bilateral radial pulses. Neuro: Cranial nerves grossly intact. No focal motor deficit. _ (1) CAD (coronary artery disease) Associated angina: with unstable angina Coronary Disease-Associated Artery/ Lesion type: [place] artery [place] vs. transplanted heart: [place] heart Qualified Code(s): I25.110 - Atherosclerotic heart disease of [place] coronary artery with unstable angina pectoris
--- NOTE | 2018-04-28 11:29 | Consultation Report ---
DATE OF CONSULTATION: 04/28/2018 NEPHROLOGY CONSULTATION REASON FOR CONSULT: Dialysis patient admitted with acute myocardial infarction. HISTORY OF PRESENT ILLNESS: The patient is a 62-year-old female with end-stage renal disease on chronic hemodialysis for the last 10 years. She presented to the hospital yesterday with right shoulder pain which started suddenly. The patient continued to have pain despite taking oxycodone. She has extensive cardiovascular risk factor. She was found to have acute AR and underwent cardiac catheterization earlier today which showed diffuse severe atherosclerosis not amenable to stenting. At this time, she is medically managed. She is not having any chest pain at this time. Initial EKG did show a new left bundle-branch block pattern and troponin was elevated. Her last dialysis was on Saturday. She normally gets dialysis on Saturday, , Saturday schedule. She is currently getting dialysis as I speak. She has some evidence of congestive heart failure. Blood pressure is reasonable. PAST MEDICAL HISTORY: Includes end-stage renal disease on dialysis, coronary artery disease, history of AR, history of SLE, paroxysmal AFib, history of mesenteric arterial thrombosis, on Coumadin, hypertension, subarachnoid hemorrhage, COPD. ALLERGIES: List is very long and extensive and reviewed in detail. HOME MEDICATIONS: List was also reviewed in detail. PAST SURGICAL HISTORY: Carpal tunnel, partial hysterectomy, hernia repair, bowel resection and appendicectomy. FAMILY HISTORY: Noncontributory for kidney disease. SOCIAL HISTORY: Living alone. Quit smoking, no alcohol, no drugs. REVIEW OF SYSTEMS: Twelve systems reviewed and is otherwise negative. PHYSICAL EXAMINATION: GENERAL: Middle-aged white female who looks much older than her stated age and looks chronically ill. VITAL SIGNS: Blood pressure is 144/86, 98% on room air, pulse rate 72 per minute, temperature 36.4. HEENT: Mucous membrane moist. NECK: Supple. No jugular venous distention. CHEST: Bilateral decreased breath sounds, occasional wheezing and crackles. CARDIOVASCULAR: Regular rate and rhythm. Soft systolic murmur heard. ABDOMEN: Soft, nontender. EXTREMITIES: Shows 1+ edema. NEUROLOGIC: She is alert, oriented x3. She is tearful because of her acute medical condition. SKIN: Warm and dry. LABORATORY TESTS: Blood work from this morning shows hemoglobin 11.5, BUN 30, creatinine 7.06. Sodium 137, potassium 5.1. Chest x-ray shows no acute cardiopulmonary findings. ASSESSMENT AND PLAN: A 62-year-old female with extensive cardiovascular risk factor including end-stage renal disease on hemodialysis for the last 10 years, presented with acute AR, ESRD, at this time, she does not have any major fluid or electrolyte imbalance. She does have chronic mild congestive heart failure from her underlying problems. We will try to take about 2.5 kilo of the patient today. Will do for 3 hours 30 minutes on a 2K bath. She does not usually get heparin and we will not be giving heparin. Next dialysis is tentatively scheduled for .
[2018-04-28] MEDS: HEPARIN STANDARD DEXTROSE 25,000 UNITS/500 ML IV SCH (11:45)
[2018-04-28] MEDS: NIFEdipine EXTENDED REL 30 MG TABCR PO SCH (13:39)
[2018-04-28] MEDS: CARVEDILOL 25 MG TAB PO SCH ×2 (13:39→18:53)
--- NOTE | 2018-04-28 15:23 | Critical Care Progress Note ---
Date of Service April 28, 2018 Assessment & Plan (1) NSTEMI (non-ST elevated myocardial infarction): Impression: 1. Non-ST elevation IN, status post PCI, not amenable to stenting. 2. SLE. 3. 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 4. Peripheral arterial disease. 5. History of asthma. 6. GERD. 7. Paroxysmal A. fib. Plan: 1. Continue current medications per cardiology. 2. Agree with heparin drip. 3. The patient is already on prednisone 3 times weekly. It can be escalated given her acute illness. 4. Oral intake. 5. Appreciate cardiology input. 6. Disposition plan to regular floor. 7. DVT and GI prophylaxis. 8. Discussed with the staff on rounds and details and with the patient. CCM time was 35 minutes. Subjective The patient is following commands answering questions appropriately, continue to have left shoulder pain, no chest pain, no nausea or vomiting, appears to be at baseline. She has no increased swelling in her lower extremities above than her baseline. She denies any abdominal pain either. The hematoma in her groin has improved significantly. Physical Exam 2 Vital Signs (Past 24 Hours): Last Vital Signs Temp 36.8 C 04/28/18 12:41 Pulse 92 H 04/28/18 15:01 Resp 20 04/28/18 13:00 BP 125/53 L 04/28/18 15:01 Pulse Ox 93 04/28/18 15:01 Physical Exam: No fever, vital signs are stable, positive JVP, S1-S2 regular rate and rhythm, lungs with distant breath sounds but rhonchorous at the bases, abdomen is soft and benign, trace edema in the periphery. Neurologically she is intact. Results & Data Laboratory Results Her labs were reviewed personally. As well as her medications. Diagnostic Findings Imaging we reviewed personally as well. Pulmonary vascular congestion was noted.
[2018-04-28] MEDS ORDERED: KETOROLAC TROMETHAMINE 15 MG/ML VIAL IV PRN (15:50)
[2018-04-28] MEDS ORDERED: KETOROLAC TROMETHAMINE 15 MG/ML VIAL ONE (15:55)
[2018-04-28] MEDS ORDERED: ALBUMIN 5% 250 ML IV ONE (17:02)
[2018-04-28] MEDS: DOPAMINE / D5W 400 MG/250 ML BAG IV SCH ×2 (17:20→23:49)
[2018-04-28 17:44] LABS: Hematocrit (blood only) 36.5 % (37-47); Hemoglobin 11.2 g/dL (12.0-16.0)
[2018-04-28] MEDS ORDERED: ATROPINE SULFATE 0.1 MG/ML 5ML SYR IV ONE (17:55)
[2018-04-28] MEDS ORDERED: ONDANSETRON INJ 2 MG/ML 2 ML VIAL ONE (17:55)
--- NOTE | 2018-04-28 18:05 | Hospitalist Progress Note ---
Date of Service April 28, 2018 Assessment & Plan (1) NSTEMI (non-ST elevated myocardial infarction): (2) Shoulder pain, acute: (3) New onset left bundle branch block (LBBB): (4) Elevated troponin: Heart alert called in the ER S/P emergent cardiac cath yesterday Severe multivessel coronary artery disease 100% chronic proximal RCA occlusion. Distal RCA fills via left to right collaterals. 100% proximal circumflex occlusion (possibly acute on chronic). 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 Starting on heparin drip after right groin area showed no hematoma Continue medical management Continue aspirin, statin, and beta-carlos therapy. 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 Was transferred to [place] and monitored. No intervention required (8) HTN (hypertension): BP in the low side Will hold nifedipine, hydralazine for now (9) Lupus: History of lupus nephritis (s/p failed kidney transplant) and recurrent pericardial effusion Continue home dose prednisone (10) Dyslipidemia: Continue statin (11) Hypothyroidism: Continue levothyroxine Code status: FULL code ( Code status address again today) Dispo: Continue monitor in the ICU Subjective Pt was seen and examined Lying in bed continue to have shoulder pain She is being managed in the ICU She is so weak she was not able to transfer back to bed . Sliding down from the edge of the bed to the floor With assistance we were able to get her back to bed from the floor Son came to visit her and update provided to son. Physical Exam 2 Vital Signs (Past 24 Hours): Last Vital Signs Temp 36.8 C 04/28/18 16:00 Pulse 47 L 04/28/18 17:00 Resp 18 04/28/18 16:39 BP 71/23 L 04/28/18 17:00 Pulse Ox 94 04/28/18 17:00 Physical Exam: General- No acute distress Head- atraumatic Eyes- PERRL, EOMI, ENT- oropharynx clear Neck- supple, no JVD Lungs- clear to auscultation Heart- +Bradycardia, +systolic murmur Abdomen- normal bowel sounds, soft, nontender Extremities- no calf tenderness Neuro- alert, oriented x 3; PERRL, EOMI; no facial palsy; no dysarthria Skin- warm & dry
[2018-04-28] MEDS ORDERED: HYDROCORTISONE SOD SUCCINATE 100 MG/2 ML VIAL ONE (18:11)
[2018-04-28] MEDS ORDERED: ATROPINE SULFATE 0.1 MG/ML 5ML SYR IV STA (18:14)
[2018-04-28 18:15] LABS: Partial Thromboplastin Time 130.5 Seconds (21.0-31.0)
[2018-04-28] MEDS ORDERED: ONDANSETRON INJ 2 MG/ML 2 ML VIAL IV PRN (18:15)
[2018-04-28] MEDS ORDERED: HYDROCORTISONE SOD 100 MG in SYRINGE 0 ML IV STA (18:23)
[2018-04-28 18:25] LABS: BUN Creatinine Ratio 3.2 (10-20); Creatinine Clr Calc Pharmacy 12.6 ml/min; Est GFR (African American) 10.1; Est GFR (Non-African American) 8.7; Potassium 4.6 mmol/L (3.5-5.1)
[2018-04-28] MEDS ORDERED: HYDROCORTISONE SOD IV ONE (18:30)
[2018-04-28] MEDS ORDERED: LIDOCAINE HCL 1% 20 ML VIAL ONE (19:04)
--- NOTE | 2018-04-28 20:11 | Procedure Note ---
Procedure Note Date of Service April 28, 2018 Note Placement of temporary pacer wire, consent obtained from the family who were at the bedside, the patient is somnolent and cannot give a consent, earlier the patient wants everything done. Case discussed with cardiology Dr. Stein, the patient was admitted to the hospital with non-ST elevation AR and currently is going to complete heart block, she did not respond to transcutaneous pacer pads , no response to atropine and dopamine either. The patient was placed in supine position, under strict sterile field, using ultrasound and Seldinger technique, the right IJ was visualized, due to the presence of Port-A-Cath, the wire could not threaded anteriorly or posteriorly. The skin was prepped properly with chlorhexidine and the patient injected with multiple doses of 5 mL of 1% lidocaine anteriorly and posteriorly. After 3 attempts on the anterior approach and 2 attempts on the posterior approach, incision was made to move towards the right subclavian approach bypassing the Port-A-Cath. The skin was prepped again with chlorhexidine, all the settings including weight loss has changed, using a large sterile drape, skin was injected with 5 mL 1% lidocaine, one attempt, using an introducer with a dilator, no scalpel was used, the catheter was introduced and sutured with one surgical suture. The side port was flushed with saline and a clave was placed on it. A pacer wire with a balloon tip was used and connected to the pacer box, settings at the start where heart rate set up for 70, and the sensitivity at 20 mA, using V pacing only. The pacer wire after it was passed to 20 cm, the balloon was inflated and advanced slowly into the right ventricle, up to 50 cm, noted that the pacer spikes were noted and the patient was capturing at 70 bpm. The balloon after that was deflated and the wire was secured with sterile, sheet that was already placed on it. Covered with surgical dressing, and secured with multiple pieces of tape. The patient did not have any immediate complication. Chest x-ray is ordered. I will keep the patient at the current setting. In fact her blood pressure improved to 88/30, and she started opening her eyes and become more awake and alert. Appreciate the assistance of the nursing staff. I will reviewed the chest x-ray personally.
--- NOTE | 2018-04-28 20:15 | Critical Care Progress Note ---
Date of Service April 28, 2018 Assessment & Plan (1) NSTEMI (non-ST elevated myocardial infarction): Impression: 1. Non-ST elevation [place], status post PCI, not amenable to stenting. 2. SLE. 3. 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 4. Peripheral arterial disease. 5. New complete heart block in the face of right ventricular infarct. 6. GERD. 7. Paroxysmal A. fib. Plan: 1. Hold off Coreg and Procardia. 2. Hold heparin drip until head CT is done. 3. Give the patient hydrocortisone 250 mg IV as a stress dose given the fact that she has been on steroids 3 times a week. 4. N.p.o. 5. Appreciate cardiology input. Discussed with Dr. Sifuentes. 6. Keep the patient in the ICU. 7. Heparin drip can be restarted after ruling out intracranial bleed. 8. Obtain lactic acid. 9. Discussed with the 2 sons at the bedside, they are in favor of comfort measures however the patient earlier we did discuss the case with them stated that she wants to be a full code. 10. Chest x-ray reviewed personally. 11. If the lactic acid is elevated we will trend it again in 2 hours. 12. Patient was given a dose of albumin. 13. The patient may need replacing back again her volume, she lost 2.3 L with dialysis. Discussed with the staff on rounds and details, critical care time spent with the patient was additional 45 minutes excluding procedure time. CCM time was 35 minutes. Subjective Called to the bedside, the patient is becoming more somnolent, could not crab picker her blood pressure even by the cough using the leg or the arm, the patient is vasculopathic, the patient was barely opening her eyes and follow commands, however she is maintaining her airways, she was placed on oxygen, blood pressure and heart rate was noted to drop down to 40 for the heart rate and 58 for systolic blood pressure. The patient was given a trial of atropine as well as started on dopamine without significant improvement in her blood pressure. An EKG clearly showed complete heart block. Physical Exam 2 Vital Signs (Past 24 Hours): Last Vital Signs Temp 36.8 C 04/28/18 16:00 Pulse 74 04/28/18 19:21 Resp 32 H 04/28/18 19:21 BP 118/65 04/28/18 19:21 Pulse Ox 92 04/28/18 19:21 Physical Exam: Vital signs as mentioned above, the patient is somnolent, no JVP, S1-S2, bradycardic, distant breath sounds, abdomen is soft, edema in the periphery noted, neurologically difficult to assess. Results & Data Laboratory Results Labs were reviewed, hematocrit remained stable at 35, pH of 7.37, PO2 of 68, however she lost her bicarb from 27-19. Lactic acid is still pending. Diagnostic Findings Chest x-ray showed the pacer wire coiled in the right ventricle, CHF was noted. No change from previous.
[2018-04-28] MEDS: NOREPINEPHRINE BIT INJ 8 MG in DEXTROSE 5% 500 ML IV SCH (20:19)
--- NOTE | 2018-04-28 20:25 | XRay Report ---
XR chest 1V portable CLINICAL HISTORY: pacer wire placement COMPARISON STUDY: Chest radiograph April 27, 2018. FINDINGS: Right internal jugular [id number] and dual lumen left sided catheter remain in place. Mo derate cardiomegaly is noted. There is no evidence for overt pulmonary edema. Interval placement of a right subclavian transvenous pacer is noted. Pacer projects over the right ventricle. Lead is coiled within the right ventricle. There is no pneumothorax. IMPRESSION: Interval placement of a right subclavian transvenous pacer. Lead tip projects over the r ight ventricle. No pneumothorax. Electronically signed by: Markus Hdz M.D. 04/28/2018 8:24 PM
[2018-04-28 20:37] LABS: Partial Thromboplastin Ratio 2.9
[2018-04-28 20:41] LABS: Partial Thromboplastin Time 74.9 Seconds (21.0-31.0)
[2018-04-28] MEDS ORDERED: VANCOMYCIN CONSULT ACTIVE PRN (20:42)
[2018-04-28] MEDS ORDERED: AZTREONAM 1,000 MG in DEXTROSE 5% 100 ML IV SCH ×2 (20:45→21:30)
[2018-04-28] MEDS ORDERED: VANCOMYCIN HCL 1,000 MG in SODIUM CHLORIDE 0.9% 250 ML IV SCH (20:45)
[2018-04-28] MEDS ORDERED: SODIUM CHLORIDE 0.9% 1000ML 1,000 ML IV SCH (21:00)
[2018-04-28] MEDS: ATORVASTATIN 40 MG TAB PO SCH (21:54)
--- NOTE | 2018-04-28 21:54 | CT Scan Report ---
CT OF THE HEAD WITHOUT CONTRAST CLINICAL HISTORY: r/o intracranial bleeding COMPARISON STUDY: Head CT May 24, 2017. CT DOSE: 1569.94 mGy.cm TECHNIQUE: Helical axial images of the head were obtained without IV contrast. Automated exposure con trol was utilized for the study. A dose lowering technique was utilized adhering to the principles o f ALARA. FINDINGS: No acute intracranial hemorrhage, midline shift or mass effect is present. Exam is mildly c ompromised by motion artifact. Ventricular system is normal. The basilar cisterns are patent. There a re no extra-axial collections. Scattered white matter hypodensity suggests small vessel disease. Ther e are no findings to suggest acute dural sinus thrombosis or acute territorial infarct. Left mastoid air cells are partially opacified. This is unchanged. There are no significant calvarial abnormalitie s. Extensive vascular calcification is noted. IMPRESSION: No acute intracranial findings. Electronically signed by: Markus Hdz M.D. 04/28/2018 9:52 PM
[2018-04-28] MEDS: PANTOprazole 40 MG TAB PO SCH (21:55)
--- NOTE | 2018-04-28 22:10 | CT Scan Report ---
ADDENDUM Addendum: Note is made of mild infiltration within the right groin. There is a small amount of hyperd ense fluid overlying the fascia of the right thigh. This may reflect a small amount of hemorrhage. Electronically signed by: Markus Hdz M.D. 04/28/2018 10:[address] OF THE ABDOMEN AND PELVIS WITHOUT CONTRAST CLINICAL HISTORY: Ischemic bowel. COMPARISON STUDY: CTA of the abdomen and pelvis December 21, 2017. TECHNIQUE: Axial images of the abdomen and pelvis were obtained without IV contrast. Images were revi ewed in the axial, sagittal, and coronal planes. Automated exposure control was utilized for the patrick dy. A dose lowering technique was utilized adhering to the principles of ALARA. FINDINGS: Visualized portions of the lower chest demonstrate cardiomegaly and pacer lead. Small right and trace left pleural effusions are noted. Associated airspace opacity favors atelectasis although consolidation could appear similar. No pneumatosis, free air or portal venous gas is present. There i s no evidence for a bowel obstruction. Evaluation of the abdomen and pelvis is suboptimal on this une nhanced exam. There is extensive atherosclerotic plaque of the abdominal aorta and branch vessels. Th ere is contrast within the gallbladder which likely reflects vicarious excretion of contrast. Left lo wer quadrant renal allograft appears atrophic. Both [place] kidneys are atrophic. Innumerable hypodens e lesions within the kidneys are suboptimally assessed on this unenhanced exam. A suspected hyperdens e cyst within lower pole the left kidney is noted. Multiloculated fluid collection overlies the great er trochanter of the left femur. Largest component measures 5.2 cm. Anasarca is noted. No suspicious osseous lesion is noted. Evaluation for bowel wall thickening is suboptimal on this unenhanced exam. A small amount of ascites is noted within the abdomen and pelvis. IMPRESSION: 1. No pneumatosis, free air or portal venous gas. No bowel obstruction. No bowel wall thickening alth ough evaluation compromised given the lack of IV contrast. 2. Extensive atherosclerotic plaque within the abdominal aorta and branch vessels. 3. Hyperdense material within the gallbladder which likely reflects vicarious excretion of contrast. 4. Evidence for volume overload. Trace ascites. 5. Nonspecific multiloculated fluid collection overlying the greater trochanter of the left femur. 6. Small right and trace left pleural effusions. Electronically signed by: Markus Hdz M.D. 04/28/2018 10:07 PM
[2018-04-28] MEDS ORDERED: VANCOMYCIN HCL 1,500 MG in SODIUM CHLORIDE 0.9% 500 ML IV SCH (22:30)
[2018-04-29] MEDS: HYDROCORTISONE SOD 100 MG in SYRINGE 0 ML IV SCH ×3 (00:32→15:49)
[2018-04-29] MEDS ORDERED: AZTREONAM CONSULT ACTIVE PRN (00:48)
[2018-04-29 04:49] LABS: Hemoglobin 11.9 g/dL (12.0-16.0); Immature Granulocytes # (auto) 0.05 K/uL (0.00-0.02); Immature Granulocytes % (auto) 0.4 %; Lymphocytes # (auto) 0.65 K/uL (1.2-3.4); Lymphocytes % (auto) 5.8 %; Mean Corpuscular Volume 93.6 fL (80-100); Mean Platelet Volume 11.5 fL (7.4-10.4); Monocytes # (auto) 0.56 K/uL (0.11-0.59); Neutrophils # (auto) 10.02 K/uL (1.4-6.5); Neutrophils % (auto) 88.8 %; Platelet Count 159 K/uL (130-400); RDW Coefficient of Variation 17.3 % (11.5-14.5); RDW Standard Deviation 58.6 fL (36.4-46.3); Red Blood Count 4.06 M/uL (4.2-5.4); White Blood Count 11.28 K/uL (4.8-10.8)
[2018-04-29 04:53] LABS: Mean Corpuscular Hgb Conc 31.3 g/dL (32-36)
[2018-04-29] MEDS ORDERED: LIDOCAINE HCL 1% 20 ML VIAL INJ ONE (05:09)
[2018-04-29 05:33] LABS: BUN Creatinine Ratio 4.3 (10-20); Calcium 7.8 mg/dl (8.5-10.1); Creatinine Clr Calc Pharmacy 11.3 ml/min; Est GFR (African American) 8.8; Est GFR (Non-African American) 7.6; Magnesium 1.9 mg/dl (1.8-2.4); Phosphorus 5.7 mg/dl (2.5-4.9); Potassium 4.8 mmol/L (3.5-5.1)
[2018-04-29] MEDS: AZTREONAM 500 MG in DEXTROSE 5% 100 ML IV SCH ×3 (06:02→21:56)
[2018-04-29] MEDS: DOPAMINE / D5W 400 MG/250 ML BAG IV SCH ×2 (06:46→18:21)
--- NOTE | 2018-04-29 08:48 | Cardiology Progress Note ---
Date of Service April 29, 2018 Assessment & Plan (1) NSTEMI (non-ST elevated myocardial infarction): Cardiac catheterization demonstrates chronic occlusion of the right coronary artery as well as an occluded left circumflex. Unable to cross the circumflex occlusion with a wire. 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 Continue medical management. No chest pain or discomfort overnight Echocardiogram reflects severe ischemic cardiomyopathy EF 20-25% with extensive inferior posterior myocardial infarction question possible RV involvement (2) New onset left bundle branch block (LBBB): Secondary to #1. (3) CAD (coronary artery disease): (4) Paroxysmal a-fib: Currently sinus rhythm. INR is subtherapeutic. (5) PVD (peripheral vascular disease): Diminished peripheral pulses noted on examination. (6) Shoulder pain, acute: (7) AV block, complete: Patient received temporary transvenous pacemaker last evening with substantial improvement today high degree AV block has improved. Pacemaker functioning appropriately capture threshold 0.9 mA. Plan on maintaining at least additional 24 hours Plan continue to hold carvedilol May ultimately need to reinstitute a very low dosing. Current presentation reflects underlying conduction system disease with new left bundle branch block, inferior's posterior infarct will follow for indications for permanent pacemaker insertion (8) ESRD (end stage renal disease) on dialysis: No signs of acute volume overload heart failure. Volume status being managed with dialysis. Patient will likely be somewhat preload dependent Subjective Patient was seen and examined at bedside. Chart medications telemetry reviewed. Events of last evening observed and noted. Patient last evening developed high degree AV block with symptomatic bradycardia. Underwent transvenous temporary pacemaker insertion with good success and capture. AV block is improved substantially overnight and patient is no longer using pacemaker. Feels better than yesterday "by a substantial degree. Carvedilol continues to be held. Notes no fevers or chills. Notes no chest pain or discomfort Physical Exam 2 Vital Signs (Past 24 Hours): Last Vital Signs Temp 36.9 C 04/29/18 07:30 Pulse 79 04/29/18 08:00 Resp 14 04/29/18 07:45 BP 104/51 L 04/29/18 07:45 Pulse Ox 94 04/29/18 07:45 Constitutional: + obese; no acute distress Neck: + thick neck Respiratory: Auscultation: + diminished lung sounds Cardiovascular: Rate/Rhythm: regular rate Heart Sounds: + murmur (Grade 2/ 6 systolic); no gallop Extremities: + edema (1-2+ pedal) Chest (Breasts): Additional Comments: Temporary pacemaker in place and secured Gastrointestinal (Abdomen): Percussion/Palpation: abdomen soft; no hepatosplenomegaly and no ascites Musculoskeletal: no cyanosis or clubbing, extremities motor strength 5/5 Skin: Excoriated lesion eschar sternal right nasal Neurologic: Alert answering questions appropriately this morning _ (1) CAD (coronary artery disease) Coronary Disease-Associated Artery/Lesion type: [place] artery [place] vs. transplanted heart: [place] heart Associated angina: with unstable angina Qualified Code(s): I25.110 - Atherosclerotic heart disease of [place] coronary artery with unstable angina pectoris
[2018-04-29] MEDS ORDERED: Nursing to Pharmacy Communication ONE (09:38)
[2018-04-29] MEDS: HEPARIN STANDARD DEXTROSE 25,000 UNITS/500 ML IV SCH (09:47)
--- NOTE | 2018-04-29 11:47 | Critical Care Progress Note ---
Date of Service April 29, 2018 Assessment & Plan (1) NSTEMI (non-ST elevated myocardial infarction): Impression: 1. Non-ST elevation TX, status post PCI, not amenable to stenting. 2. SLE. 3. 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 4. Peripheral arterial disease. With difficulty obtaining accurate blood pressure. 5. Complete heart block, post TX, status post temporary pacer wire. Occasionally paced. 6. GERD. 7. Paroxysmal A. fib. Plan: 1. Hold off Coreg and Procardia. 2. Resume heparin drip as the patient does not have evidence of intracranial bleeding, and she is not comatose anymore. 3. Continue hydrocortisone 100 mg IV every 8. 4. Start oral diet with AHA and renal guidelines. 5. Appreciate cardiology input. Dr. Stein evaluated the patient and his input appreciated. 6. Keep the patient in the ICU. 7. Stop the IV fluid. Lactic acid normalized. 8. Hemodialysis per renal, appreciate their input. 9. Discussed with the 2 sons at the bedside, they are in favor of comfort measures however the patient earlier we did discuss the case with them stated that she wants to be a full code. 10. Chest x-ray reviewed personally. 11. The patient is off norepinephrine drip, we will continue the dopamine drip at 6 mics per KG per minute, and taper to off as tolerated.. 12. Patient was given a dose of albumin. 13. Continue vancomycin and aztreonam for now. Discussed with the staff on rounds and details, critical care time spent with the patient was additional 45 minutes . CCM time was 35 minutes. Subjective More awake, following commands, answering questions properly, denies any chest pain, continues to have left shoulder pain. Overnight she had temporary pacer wire placed, she continues to be off and on paced. Blood pressure is difficult to measure in this patient who is vasculopathic. No new symptoms. Tolerating oral intake. Physical Exam 2 Vital Signs (Past 24 Hours): Last Vital Signs Temp 36.9 C 04/29/18 07:30 Pulse 66 04/29/18 10:15 Resp 14 04/29/18 10:15 BP 89/50 L 04/29/18 10:15 Pulse Ox 93 04/29/18 10:15 Physical Exam: Vital signs are dictated by her paced rhythm. Blood pressure 79/35 with a map of 42. Respiratory rate is 21. O2 saturation is 92% on oxygen. Uremic skin color. Positive JVP. S1-S2, distant breath sounds bilaterally. Abdomen is soft and benign. Edema in the periphery. Results & Data Laboratory Results Her labs were significant for lactic acid of 7 down to 1.9, leukocytosis could be related to submucosal ischemia of the bowel, cannot rule out translocation of bacteria, although hydrocortisone could contribute to it as well. The rest of her labs showed elevated BUN/creatinine and the patient is chronically on dialysis. Diagnostic Findings CAT scan of the head did not show any intracranial bleed, reviewed personally. Abdominal CT and pelvic CT without contrast did not show pneumatosis, no free air. Noncontrast CT. Chest x-ray reviewed and showed the pacer wire in the right ventricle.
[2018-04-29] MEDS: OXYCODONE HCL IR 5 MG TAB (IMMEDIATE RELEASE) PO PRN (12:13)
[2018-04-29] MEDS: NIFEdipine EXTENDED REL 30 MG TABCR PO SCH (12:15)
[2018-04-29] MEDS: CARVEDILOL 25 MG TAB PO SCH (12:15)
[2018-04-29] MEDS ORDERED: METOCLOPRAMIDE HCL INJ 5 MG/ML 2 ML VIAL ONE (12:20)
[2018-04-29] MEDS: FUROSEMIDE 80 MG TAB PO SCH (12:30)
[2018-04-29] MEDS ORDERED: VANCOMYCIN HCL 1,250 MG in SODIUM CHLORIDE 0.9% 250 ML IV SCH (15:30)
[2018-04-29] MEDS: METOCLOPRAMIDE HCL INJ 5 MG/ML 2 ML VIAL IV SCH ×2 (15:56→21:56)
[2018-04-29 16:28] LABS: Partial Thromboplastin Ratio 2.4
[2018-04-29 16:31] LABS: Partial Thromboplastin Time 61.5 Seconds (21.0-31.0)
--- NOTE | 2018-04-29 17:00 | Hospitalist Progress Note ---
Date of Service April 29, 2018 Assessment & Plan (1) NSTEMI (non-ST elevated myocardial infarction): Presented with "heart alert Elevated troponin Status post emergent cardiac cath, showed severe multivessel coronary artery disease, Unable to do PTCA/not a surgical candidate/CABG secondary to severe vascular calcification Appreciate input from cardiology Medical management (2) Shoulder pain, acute: (3) New onset left bundle branch block (LBBB): Due to non-ST elevated [place], leading to complete heart block Patient developed symptomatic bradycardia Status post temporary transvenous catheter placed by palletizer (4) Elevated troponin: Heart alert called in the ER S/P emergent cardiac cath on 04/28/2018 Severe multivessel coronary artery disease 100% chronic proximal RCA occlusion. Distal RCA fills via left to right collaterals. 100% proximal circumflex occlusion (possibly acute on chronic). Left PLB fills partially via left to left collaterals 50% mid LAD, moderate to severe apical LAD disease Cardiac catheterization demonstrates chronic occlusion of the right coronary artery as well as an occluded left circumflex. Unable to cross the circumflex occlusion with a wire. 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 Continue medical management. 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 Was transferred to [facility] and monitored. No intervention required tolerating anticoagulation (8) HTN (hypertension): BP in the low side Antihypertensive on hold (9) Lupus: History of lupus nephritis (s/p failed kidney transplant) and recurrent pericardial effusion Continue home dose prednisone (10) Dyslipidemia: Continue statin (11) Hypothyroidism: Continue levothyroxine Code status: FULL code ( Code status address again today) Dispo: Monitor in ICU (12) Ischemic cardiomyopathy: Echocardiogram reflects severe ischemic cardiomyopathy EF 20-25% with extensive inferior posterior myocardial infarction question possible RV involvement Acute CHF dysfunction, secondary to acute WV Volume status remains stable On chronic dialysis, (13) Heart block AV complete: AV block, complete: Due to acute WV Patient received temporary transvenous pacemaker due to high degree AV block Continue to hold beta-carlos Patient may need permanent pacemaker, high degree AV block, inferior WV, new left bundle branch block Cardiology following closely Subjective Awake and alert, denies of any shortness of breath or chest discomfort Monitor showed paced rhythm Patient has a transvenous pacemaker placed Physical Exam 2 Vital Signs (Past 24 Hours): Last Vital Signs Temp 36.9 C 04/29/18 07:30 Pulse 66 04/29/18 16:46 Resp 18 04/29/18 16:46 BP 109/37 L 04/29/18 16:46 Pulse Ox 90 04/29/18 16:46 Constitutional: + ill appearing (Chronically ill-appearing); no acute distress Eyes: + anicteric sclerae ENMT: Mouth: + dry oral mucous membranes Respiratory: no respiratory distress, no labored breathing and no cough Cardiovascular: Rate/Rhythm: regular rate, regular rhythm and + bradycardic Gastrointestinal (Abdomen): normal bowel sounds, soft, nontender, no hepatosplenomegaly Musculoskeletal: Head/Neck/Chest: + limited ROM of neck (Right IJ transvenous pacemaker present) Skin: + turgor decreased Neurologic: PERRL, EOMI, accommodation nl, no face palsy, no dysarthria
[2018-04-29] MEDS: NOREPINEPHRINE BIT INJ 8 MG in DEXTROSE 5% 500 ML IV SCH (18:22)
[2018-04-29] MEDS: ATORVASTATIN 40 MG TAB PO SCH (21:56)
[2018-04-29] MEDS: PANTOprazole 40 MG TAB PO SCH (21:56)
[2018-04-30] MEDS: HYDROCORTISONE SOD 100 MG in SYRINGE 0 ML IV SCH ×3 (01:39→17:08)
[2018-04-30] MEDS: DOPAMINE / D5W 400 MG/250 ML BAG IV SCH ×2 (05:18→15:22)
[2018-04-30] MEDS: AZTREONAM 500 MG in DEXTROSE 5% 100 ML IV SCH (05:19)
[2018-04-30 05:26] LABS: Basophils # (auto) 0.01 K/uL (0-0.2); Basophils % (auto) 0.1 %; Hematocrit (blood only) 36.2 % (37-47); Hemoglobin 11.7 g/dL (12.0-16.0); Immature Granulocytes # (auto) 0.06 K/uL (0.00-0.02); Immature Granulocytes % (auto) 0.5 %; Lymphocytes # (auto) 0.52 K/uL (1.2-3.4); Lymphocytes % (auto) 4.6 %; Mean Corpuscular Hgb Conc 32.3 g/dL (32-36); Mean Corpuscular Volume 91.9 fL (80-100); Mean Platelet Volume 11.6 fL (7.4-10.4); Monocytes # (auto) 0.68 K/uL (0.11-0.59); Neutrophils # (auto) 10.09 K/uL (1.4-6.5); Neutrophils % (auto) 88.8 %; Platelet Count 175 K/uL (130-400); RDW Coefficient of Variation 17.1 % (11.5-14.5); RDW Standard Deviation 57.5 fL (36.4-46.3); Red Blood Count 3.94 M/uL (4.2-5.4); White Blood Count 11.36 K/uL (4.8-10.8)
[2018-04-30 05:46] LABS: Partial Thromboplastin Ratio 3.4
[2018-04-30 05:52] LABS: Partial Thromboplastin Time 88.1 Seconds (21.0-31.0)
[2018-04-30 08:58] LABS: BUN Creatinine Ratio 5.9 (10-20); Calcium 8.3 mg/dl (8.5-10.1); Creatinine Clr Calc Pharmacy 8.8 ml/min; Est GFR (African American) 6.5; Est GFR (Non-African American) 5.6; Potassium 4.6 mmol/L (3.5-5.1)
[2018-04-30 09:30] LABS: iSTAT Allen Test Pass; iSTAT Arterial Blood Gas HCO3 19 meg/L (19-24); iSTAT Carbon Dioxide 20 mEq/l (24-31)
[2018-04-30] MEDS: METOCLOPRAMIDE HCL INJ 5 MG/ML 2 ML VIAL IV SCH ×4 (09:35→21:01)
--- NOTE | 2018-04-30 10:01 | Cardiology Progress Note ---
Date of Service April 30, 2018 Assessment & Plan (1) AV block, complete: Electrophysiology consult placed for possible ICD vs. PPM. Access issues noted with left subclavian dialysis access, and right sided port. TVP in place via right IJ with 100% V-pacing and no underlying ventricular rhythm with pacing rate of 50BPM. Present on Admission?: No (2) NSTEMI (non-ST elevated myocardial infarction): Cardiac catheterization demonstrates chronic occlusion of the right coronary artery as well as an occluded left circumflex. Unable to cross the circumflex occlusion with a wire. 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 Continue medical management. Continue IV heparin. Echocardiogram reflects severe ischemic cardiomyopathy EF 20-25% with extensive inferior, posterior, and lateral myocardial infarction question possible RV involvement (3) New onset left bundle branch block (LBBB): Secondary to #1. (4) CAD (coronary artery disease): (5) Paroxysmal a-fib: Currently sinus rhythm with 3rd degree AVB. INR is subtherapeutic. (6) PVD (peripheral vascular disease): Diminished peripheral pulses noted on examination. (7) Shoulder pain, acute: (8) ESRD (end stage renal disease) on dialysis: Dialysis today. Subjective Patient seen and examined at the bedside. Developed 3rd AVB s/p TVP on 04/28. 100% V-paced on telemetry. Carvedilol placed on hold. Reports mild right sided scapular pain which has improved since admission. No orthopnea or PND. No CP. TVP rate reduced to 50BPM. No underlying ventricular activity. Review of Systems All systems reviewed & are unremarkable except as noted in HPI & below Physical Exam 2 Vital Signs (Past 24 Hours): Last Vital Signs Temp 36.8 C 04/30/18 04:00 Pulse 66 04/30/18 07:01 Resp 14 04/30/18 07:01 BP 124/48 L 04/30/18 07:01 Pulse Ox 95 04/30/18 07:01 Physical Exam: General: NAD, AAO x3, well nourished. Chronically ill. HEENT : Normocephalic. Atraumatic. Conjunctiva pink, no scleral icterus. Neck: Right IJ TVP. No carotid bruits, the carotid upstrokes are brisk. No JVD. No HJR Chest : Right-sided port, Left chest dialysis access. Heart: Regular normal S-1 and S -2 no S-3 or S-4 gallop. 2/6 systolic ejection murmur heard best at the right second intercostal space. PMI is not displaced. No RV heave. Lungs: Clear bilateral without rales , rhonchi, or wheeze. Abdomen: Normal bowel sounds. Soft. Nontender. No masses or organomegaly. No abdominal bruits. Extremities: Mild right groin ecchymosis, no hematoma. 1-2+ bilateral pedal and ankle edema. Diminished pedal pulses. 1/4 bilateral femoral pulses. Diminished bilateral radial pulses. Neuro: Cranial nerves grossly intact. No focal motor deficit. _ (1) CAD (coronary artery disease) Associated angina: with unstable angina Coronary Disease-Associated Artery/ Lesion type: [place] artery [place] vs. transplanted heart: [place] heart Qualified Code(s): I25.110 - Atherosclerotic heart disease of [place] coronary artery with unstable angina pectoris
[2018-04-30] MEDS ORDERED: fentaNYL citrate 100 MCG/2 ML VIAL ONE ×2 (12:04→13:45)
[2018-04-30] MEDS ORDERED: LIDOCAINE HCL 1% 20 ML VIAL ONE (12:04)
[2018-04-30] MEDS ORDERED: BACITRACIN OINT 0.9 GM PKT ONE (12:04)
[2018-04-30] MEDS ORDERED: MIDAZOLAM HCL 5 MG/ML 1 ML VIAL ONE (12:04)
[2018-04-30] MEDS ORDERED: BACITRACIN INJ 50,000 UNIT VIAL ONE (12:04)
[2018-04-30] MEDS ORDERED: CEFAZOLIN 250 MG/ML 1 GM VIAL ONE (12:11)
--- NOTE | 2018-04-30 12:28 | Cardiology Consultation ---
Date of Consultation April 30, 2018 Assessment & Plan (1) Heart block AV complete: She remains in complete heart block, and is pacemaker dependent with her temporary pacemaker. Clearly she needs a pacemaker, there is no reversible component here at this time. Edwards is an issue, I should be able to implant a pacemaker from the right in a similar location as the temporary however I want to avoid changing over a wire. I would prefer to avoid the left due to her dialysis access. I discussed the indications, procedure, risks and alternatives with her and she understands and agrees to proceed. I also discussed conscious sedation and she is agreeable.. (2) CAD (coronary artery disease): She has inoperable coronary disease which is also not amenable to further intervention, and although that may not directly affect her heart block there is nothing that could be done in that regard at this time. (3) Ischemic cardiomyopathy: She has significant left ventricular dysfunction, however I am very reluctant to implant a right-sided ICD under the circumstances. My plan would be to implant the pacemaker now since she needs that, if we decide she needs a permanent ICD implanted I would recommend implanting a subcutaneous device which would be much less prone to infection and those devices can operate in the presence of a pacemaker. History of Present Illness Reason for Consultation: Complete heart block Requesting Physician: Dr. Mercedes Attending Physician: Deena Anne MD History of Present Illness This is a very complex 62-year-old woman who has a history of end-stage renal disease on chronic dialysis, peripheral vascular disease, paroxysmal atrial fibrillation currently in sinus rhythm who presented with a new left bundle branch block, right shoulder discomfort and an elevated troponin. She underwent catheterization on April 27, 2018 where she was found to have severe multivessel coronary disease included a proximal RCA occlusion, a proximal circumflex occlusion and 50% mid LAD with distal disease as well. It was felt that this was not amenable to intervention. Her troponin peaked at about 27. Her echocardiogram done on April 28, 2018 showed severe left ventricular dysfunction with an ejection fraction of 20-25% and wall motion abnormalities. She developed complete heart block on April 28, 2018 which necessitated bedside temporary pacing via the right prepectoral region. Of note she has a venous access port on the right as well, however has a dialysis access on the left. The next day she had intact AV conduction, however as of the morning of April 30, 2018 she was in complete heart block and remained pacemaker dependent. Allergies Allergy/AdvReac Type Severity Reaction Status Date / Time silver nitrate Allergy Severe SEVERE Verified 04/27/18 10:51 BURNING silver sulfadiazine Allergy Severe SEVERE Verified 04/27/18 10:51 BURNING levofloxacin Allergy Intermediate HIVES Verified 04/27/18 10:51 mivacurium Allergy Intermediate "BUGS Verified 04/27/18 10:51 CRAWLING ON ME" Sulfa (Sulfonamide Allergy Intermediate "SULFA Verified 04/27/18 10:51 Antibiotics) DRUGS": RASH trimethoprim Allergy Intermediate BACTRIM - Verified 04/27/18 10:51 RASH amoxicillin AdvReac Mild GI UPSET Verified 04/27/18 10:51 clavulanic acid AdvReac Mild GI UPSET Verified 04/27/18 10:51 erythromycin base AdvReac Mild nausea Verified 04/27/18 10:51 vomiting metronidazole AdvReac Mild DIARRHEA Verified 04/27/18 10:51 Home Medications Home Medications Medication Instructions Recorded Confirmed Type aspirin 81 mg PO QAM 04/27/18 04/27/18 History atorvastatin 40 mg PO HS 04/27/18 04/27/18 History bacitracin 1 applic OPR TID 04/27/18 04/27/18 History bupropion HCl 100 mg PO BID 04/27/18 04/27/18 History calcium polycarbophil [FiberCon] 1,200 mg PO BID 04/27/18 04/27/18 History carvedilol 25 mg PO BID 04/27/18 04/27/18 History epoetin beta, methoxy peg [Mircera] 200 mg SUBCUT UD 04/27/18 04/27/18 History esomeprazole magnesium [Nexium] 40 mg PO HS 04/27/18 04/27/18 History furosemide 80 mg PO DAILY 04/27/18 04/27/18 History hydralazine 10 mg PO UD 04/27/18 04/27/18 History ipratropium-albuterol [Combivent 1 puff INHALATION QID PRN 04/27/18 04/27/18 History Respimat] levothyroxine 175 mcg PO QAM 04/27/18 04/27/18 History nifedipine 30 mg PO DAILY 04/27/18 04/27/18 History ondansetron HCl [Zofran] 4 mg PO QID PRN 04/27/18 04/27/18 History oxycodone 10 mg PO Q8H PRN 04/27/18 04/27/18 History prednisone 5 mg PO MOWEFR 04/27/18 04/27/18 History sevelamer carbonate [Renvela] 3,200 mg PO UD 04/27/18 04/27/18 History warfarin [Coumadin] 2 mg PO FR@1600 04/27/18 04/27/18 History warfarin [Coumadin] 4 mg PO SUMOTUWETHSA@1600 04/27/18 04/27/18 History zolpidem [Ambien] 5 mg PO HS PRN 04/27/18 04/27/18 History Patient History Medical History Hypothyroidism (Chronic) CAD (coronary artery disease) (Chronic) "minimal CAD on cath in 1999" Anxiety (Chronic) Anal cancer (Chronic) "s/p chemo and radiation" Dyslipidemia (Chronic) Asthma (Chronic) ESRD (end stage renal disease) on dialysis (Chronic) HTN (hypertension) (Chronic) Lupus (Chronic) GERD (gastroesophageal reflux disease) (Chronic) Paroxysmal a-fib (Chronic) Osteomyelitis (Chronic) Mesenteric artery thrombosis (Chronic) Surgical History History of carpal tunnel surgery (Chronic) S/P partial hysterectomy (Chronic) H/O hernia repair (Chronic) History of bowel resection (Chronic) "for mesenteric ischemia" Hx of appendectomy (Resolved) Family History Mother Heart disease Hypertension Social History Current Living Situation: Alone Other Information That Helps Us Care for You: No Feels Safe at Home: Yes Safety Concerns: Feels Safe At This Time Smoking Status: Former smoker Tobacco Type: cigarettes Do You Dip or Chew Tobacco: No Smoking End Date: 11/11/2008 Second Hand Exposure: No Tobacco Cessation Education Requested by Patient: No Hx Alcohol Use: No Hx Substance Use: No Beliefs That Will Affect Care: None Preferred Language: [place] Communication Ability: Effective Food Service Lead Required: No Review of Systems Negative for lightheadedness, dizziness, palpitations, presyncope or syncope. No chest pain. No orthopnea or PND or peripheral edema. No GI complaints, no bleeding. No neurologic complaints such as TIA or stroke symptoms. Other systems negative. Physical Exam 2 Vital Signs (Past 24 Hours): Last Vital Signs Temp 36 C L 04/30/18 08:01 Pulse 66 04/30/18 09:32 Resp 20 04/30/18 09:32 BP 119/39 L 04/30/18 09:32 Pulse Ox 93 04/30/18 09:32 Physical Exam: Constitutional: Alert, cooperative and in no distress. HEENT: Unremarkable Neck: No jugular venous distention, carotid pulses are normal and equal bilaterally without bruits. Pulmonary: Clear to auscultation bilaterally. Cardiac: Regular rhythm with a grade 2/6 crescendo decrescendo murmur at the base, no gallop or rub. Abdomen: Soft, nontender with normal bowel sounds. Extremities: No edema. Distal pulses intact. Neurologic: No focal findings. Gait was not tested. Skin: No rash or petechiae, ecchymosis on the arms. _ (1) CAD (coronary artery disease) Associated angina: with unstable angina Coronary Disease-Associated Artery/ Lesion type: [place] artery [place] vs. transplanted heart: [place] heart Qualified Code(s): I25.110 - Atherosclerotic heart disease of [place] coronary artery with unstable angina pectoris
--- NOTE | 2018-04-30 12:29 | Pre Anesthesia Assessment ---
Date of Service April 30, 2018 Pre Sedation Assessment Vital Signs Temp Pulse Resp BP Pulse Ox 04/30/18 09:32 66 20 119/39 L 93 04/30/18 09:00 66 16 129/69 96 04/30/18 08:31 66 16 123/71 92 04/30/18 08:01 36 C L 66 16 126/50 L 93 04/30/18 07:15 66 11 L 128/57 L 96 04/30/18 07:01 66 14 124/48 L 95 04/30/18 06:45 66 14 126/59 L 96 04/30/18 06:30 66 14 127/61 95 04/30/18 06:16 66 14 119/51 L 93 04/30/18 06:01 66 18 100/53 L 95 04/30/18 05:45 66 10 L 134/53 L 94 04/30/18 05:31 66 17 117/48 L 93 04/30/18 05:16 66 17 100/43 L 92 04/30/18 05:01 68 10 L 129/74 95 04/30/18 04:45 66 20 140/60 93 04/30/18 04:31 67 18 111/65 94 04/30/18 04:16 66 18 119/62 94 04/30/18 04:00 36.8 C 66 17 123/58 L 94 04/30/18 03:46 67 12 104/78 95 04/30/18 03:31 66 18 144/58 H 94 04/30/18 03:16 66 8 L 127/51 L 95 04/30/18 03:01 66 13 110/75 93 04/30/18 02:46 66 15 129/59 L 95 04/30/18 02:31 66 14 115/59 L 93 04/30/18 02:15 66 15 90/53 L 92 04/30/18 02:01 66 17 92/35 L 93 04/30/18 01:46 66 18 100/52 L 92 04/30/18 01:31 67 15 139/59 L 94 04/30/18 01:16 67 24 117/59 L 94 04/30/18 01:01 67 23 128/68 95 04/30/18 00:46 66 20 123/65 95 04/30/18 00:30 66 18 122/64 94 04/30/18 00:15 66 15 114/71 93 04/30/18 00:00 66 14 114/52 L 93 04/29/18 23:45 66 9 L 115/62 93 04/29/18 23:30 66 20 111/67 92 04/29/18 23:16 66 14 119/67 94 04/29/18 23:01 66 19 60/38 L 92 04/29/18 22:45 66 18 126/66 98 04/29/18 22:30 66 18 126/65 99 04/29/18 22:15 66 12 113/61 99 04/29/18 22:01 66 19 105/45 L 93 04/29/18 21:46 66 10 L 94/56 L 98 04/29/18 21:30 66 10 L 116/57 L 99 04/29/18 21:15 66 6 L 112/50 L 98 04/29/18 21:00 66 9 L 112/52 L 99 04/29/18 20:45 66 7 L 113/55 L 98 04/29/18 20:31 66 22 113/54 L 97 04/29/18 20:18 36.7 C 66 14 88/42 L 91 04/29/18 19:45 66 16 105/58 L 92 04/29/18 19:30 66 18 103/46 L 91 04/29/18 19:15 66 19 94/54 L 90 04/29/18 19:00 66 17 96/51 L 94 04/29/18 18:30 66 12 97/53 L 93 04/29/18 18:16 66 16 94/57 L 90 04/29/18 18:15 66 12 91 04/29/18 18:01 66 21 69/60 L 91 04/29/18 18:00 66 18 81 L 04/29/18 17:45 66 12 114/52 L 88 L 04/29/18 17:31 66 14 118/49 L 92 04/29/18 17:15 66 16 102/61 93 04/29/18 17:00 66 21 89/51 L 92 04/29/18 16:46 66 18 109/37 L 90 04/29/18 16:30 66 18 105/51 L 93 04/29/18 16:15 66 15 108/53 L 92 04/29/18 16:00 66 12 86/48 L 93 04/29/18 15:46 66 15 78/45 L 89 L 04/29/18 15:45 66 04/29/18 15:30 66 15 100/53 L 91 04/29/18 15:20 66 16 89/48 L 91 04/29/18 15:01 66 17 90/62 L 92 04/29/18 14:45 66 17 92/49 L 89 L 04/29/18 14:30 66 17 88/49 L 93 04/29/18 14:15 66 13 103/43 L 92 04/29/18 14:04 66 14 88/49 L 91 04/29/18 13:47 66 18 80/48 L 04/29/18 13:18 66 18 86/43 L 94 04/29/18 13:02 66 16 77/51 L 86 L 04/29/18 12:59 66 26 H 74/33 L 93 04/29/18 12:30 66 24 92 Cardiovascular + regular rhythm Respiratory normal respiratory effort, lungs clear to auscultation Pre-Sedation Airway Assessment Smoking Status: Former smoker Hx Sleep Apnea: No Hx Difficult Intubation: No Short, Thick Neck: No Thyromental Distance: < 3.5 Finger Breadths Oral Cavity: + WNL Mallampati Class: III ASA III NPO Status Date of Last Intake of Fluids: 04/29/18 Date of Last Intake of Solid Food: 04/29/18 Procedure Planning Contraindications for Sedation: none Current Medications Reviewed: Yes Notes The planned sedation has been discussed with the patient. Informed Consent was obtained. I have identified the patient, determined the appropriateness of sedation and have assessed the patient immediately prior to the procedure. All medicine(s) and interventions are by my order.
--- NOTE | 2018-04-30 12:51 | Progress Note ---
DATE: 04/30/2018 NEPHROLOGY PROGRESS NOTE REASON FOR CONSULT: Dialysis patient admitted with PR. SUBJECTIVE: Overnight, no new issues, but she is getting a pacemaker today. OBJECTIVE: GENERAL: She is not in any respiratory distress at this time. She is awake, alert, oriented x3. VITAL SIGNS: Respiratory rate 20 per minute. Blood pressure 119/39, 93% on room air. CHEST: Bilateral decreased breath sounds, occasional wheezing. CARDIOVASCULAR: S1, S2, regular. Systolic murmur. ABDOMEN: Soft, nontender. EXTREMITIES: Shows trace edema. LABORATORY TESTS: Sodium 129, chloride 92, BUN 42, creatinine 7.1, calcium 8.3, WBC 11.3, platelet count 175. ASSESSMENT AND PLAN: A 62-year-old female with ESRD admitted with acute PR status post cardiac catheterization with diffuse vascular disease not amenable to stenting. 1. End-stage renal disease: Her normal schedule is Saturday, , Saturday. She will get dialysis tomorrow. Sodium is slightly low, but not unexpected given ESRD and history of CHF so do not give her fluid. No issues otherwise with the potassium. MTDD
[2018-04-30 13:12] LABS: Partial Thromboplastin Ratio 2.5
[2018-04-30 13:17] LABS: Partial Thromboplastin Time 64.7 Seconds (21.0-31.0)
[2018-04-30] MEDS ORDERED: CEFAZOLIN 1000MG 1,000 MG/7.5 ML SYR IV SCH (14:00)
--- NOTE | 2018-04-30 14:56 | Operative Report ---
Post Operative Report Date of Surgery April 30, 2018 Pre & Post Diagnosis Operation Date: 04/27/18 13:55 <No data on this case meets the specified criteria> Operation Date: 04/30/18 12:20 Preoperative diagnosis: Complete heart block Postoperative diagnosis: Same Procedure Operation Date: 04/27/18 13:55 Actual Procedures p Cath, Left with Cors and Vent - René Trejo MD s Cineradiography w/Routine Exam - René Trejo MD s Lucila, Abdomen Aorta - René Trejo MD s Sonosite Vascular Access - René Trejo MD Operation Date: 04/30/18 12:20 Actual Procedures p Pacer with A/V Leads (Dual) - Silvio Antoine MD Use of a Tyrex pouch. Surgeon Silvio Antoine MD Account Advisor None Estimated Blood Loss 30 Findings Consistent with Post-Op Diagnosis Good lead position, excellent ventricular lead characteristics, marginal atrial lead characteristics likely due to atrial electrical function Specimens None Complications none Disposition Accompanied Patient To Recovery: No Disposition: PCU Description of Procedure After obtaining informed consent for the procedure, the patient was brought to the laboratory and prepped and draped in the standard sterile manner. The right prepectoral region was visualized under x-ray to ascertain access which appeared to be possible despite the right subclavian temporary pacemaker and the right IJ port. The area was anesthetized with 1% lidocaine local anesthetic and right axillary venipuncture was performed by percutaneous technique and a guidewire placed through the right subclavian vein into the superior vena cava. The area was further infiltrated with 1% lidocaine local anesthetic and a 5 cm incision was made parallel to the right clavicle and 2 cm below it and carried down to the anterior pectoralis fascia. A pacemaker pocket was formed by blunt dissection anterior to the pectoralis fascia and a bacitracin-soaked sponge (50,000 units in 50 cc normal saline solution) was placed in the pocket. An 8 [place] Medtronic lead introducer was placed over the guidewire into the right subclavian vein, the dilator and guidewire were removed and a bipolar active fixation steroid tipped ventricular lead was advanced through the introducer into the superior vena cava. A guidewire was placed through the introducer and the introducer was stripped from the lead and guidewire. Another 8 [place] Medtronic lead introducer was placed over the guidewire into the right subclavian vein, the dilator and guidewire were removed and a bipolar active fixation steroid tipped atrial lead was advanced through the introducer into the superior vena cava. A guidewire was placed back through the introducer and the introducer was stripped from the lead and guidewire. Using a curved stylette the ventricular lead was advanced through the right ventricular outflow tract into the pulmonary artery and then using a straight stylette was positioned in the right ventricular apex. There is some difficulty in manipulating the leads due to the presence of a number of catheters in the superior vena cava and a lot of friction, ultimately the shorter lead was placed in the right ventricular apex leaving the longer lead to be placed in the atrium. Low right atrium, the screw was extended fixing the lead in position. Pacing and sensing thresholds were evaluated in bipolar configuration and are recorded on the implant data sheet. Using a curved stylette the atrial lead was positioned in the low right atrium, due to difficulty with manipulation the appendage was not attempted. The screw extended fixing the lead in position. Pacing and sensing thresholds were evaluated in bipolar configuration and are recorded on the implant data sheet. The measurements were not ideal, however further lead manipulation was not feasible. Once the Once the leads were in position they were attached to the anterior pectoralis fascia using 2 sutures of 2-0 silk around each lead collar. The bacitracin- soaked sponge was removed from the pocket, hemostasis was obtained, the pacemaker was attached to the leads and placed in a Tyrex pouch which was then placed in the pocket with the leads coiled beneath it. The incision was closed with a running double subcutaneous closure of 3-0 V-Lock absorbable suture, followed by running subcuticular skin closure of 4-0 V-Lock absorbable suture. Bacitracin ointment was placed on the incision and a pressure dressing applied. Once the permanent pacemaker leads were in position, the temporary pacemaker lead was removed under fluoroscopic guidance but the sheath remained in place. I attest to the content of the Intraoperative Record and any orders documented therein. Any exceptions are noted below.
--- NOTE | 2018-04-30 15:01 | Post Anesthesia Assessment ---
Date of Service April 30, 2018 Post Sedation Assessment Vital Signs Temp Pulse Resp BP Pulse Ox 04/30/18 11:01 68 14 119/48 L 94 04/30/18 10:31 66 23 113/61 93 04/30/18 09:32 66 20 119/39 L 93 04/30/18 09:00 66 16 129/69 96 04/30/18 08:31 66 16 123/71 92 04/30/18 08:01 36 C L 66 16 126/50 L 93 04/30/18 07:15 66 11 L 128/57 L 96 04/30/18 07:01 66 14 124/48 L 95 04/30/18 06:45 66 14 126/59 L 96 04/30/18 06:30 66 14 127/61 95 04/30/18 06:16 66 14 119/51 L 93 04/30/18 06:01 66 18 100/53 L 95 04/30/18 05:45 66 10 L 134/53 L 94 04/30/18 05:31 66 17 117/48 L 93 04/30/18 05:16 66 17 100/43 L 92 04/30/18 05:01 68 10 L 129/74 95 04/30/18 04:45 66 20 140/60 93 04/30/18 04:31 67 18 111/65 94 04/30/18 04:16 66 18 119/62 94 04/30/18 04:00 36.8 C 66 17 123/58 L 94 04/30/18 03:46 67 12 104/78 95 04/30/18 03:31 66 18 144/58 H 94 04/30/18 03:16 66 8 L 127/51 L 95 04/30/18 03:01 66 13 110/75 93 04/30/18 02:46 66 15 129/59 L 95 04/30/18 02:31 66 14 115/59 L 93 04/30/18 02:15 66 15 90/53 L 92 04/30/18 02:01 66 17 92/35 L 93 04/30/18 01:46 66 18 100/52 L 92 04/30/18 01:31 67 15 139/59 L 94 04/30/18 01:16 67 24 117/59 L 94 04/30/18 01:01 67 23 128/68 95 04/30/18 00:46 66 20 123/65 95 04/30/18 00:30 66 18 122/64 94 04/30/18 00:15 66 15 114/71 93 04/30/18 00:00 66 14 114/52 L 93 04/29/18 23:45 66 9 L 115/62 93 04/29/18 23:30 66 20 111/67 92 04/29/18 23:16 66 14 119/67 94 04/29/18 23:01 66 19 60/38 L 92 04/29/18 22:45 66 18 126/66 98 04/29/18 22:30 66 18 126/65 99 04/29/18 22:15 66 12 113/61 99 04/29/18 22:01 66 19 105/45 L 93 04/29/18 21:46 66 10 L 94/56 L 98 04/29/18 21:30 66 10 L 116/57 L 99 04/29/18 21:15 66 6 L 112/50 L 98 04/29/18 21:00 66 9 L 112/52 L 99 04/29/18 20:45 66 7 L 113/55 L 98 04/29/18 20:31 66 22 113/54 L 97 04/29/18 20:18 36.7 C 66 14 88/42 L 91 04/29/18 19:45 66 16 105/58 L 92 04/29/18 19:30 66 18 103/46 L 91 04/29/18 19:15 66 19 94/54 L 90 04/29/18 19:00 66 17 96/51 L 94 04/29/18 18:30 66 12 97/53 L 93 04/29/18 18:16 66 16 94/57 L 90 04/29/18 18:15 66 12 91 04/29/18 18:01 66 21 69/60 L 91 04/29/18 18:00 66 18 81 L 04/29/18 17:45 66 12 114/52 L 88 L 04/29/18 17:31 66 14 118/49 L 92 04/29/18 17:15 66 16 102/61 93 04/29/18 17:00 66 21 89/51 L 92 04/29/18 16:46 66 18 109/37 L 90 04/29/18 16:30 66 18 105/51 L 93 04/29/18 16:15 66 15 108/53 L 92 04/29/18 16:00 66 12 86/48 L 93 04/29/18 15:46 66 15 78/45 L 89 L 04/29/18 15:45 66 04/29/18 15:30 66 15 100/53 L 91 04/29/18 15:20 66 16 89/48 L 91 04/29/18 15:01 66 17 90/62 L 92 Recovery Score Activity: Moves 4 extremities Respiration: Deep Breath/Cough Circulation: +/-20% PreAnes Value Consciousness: Fully Awake Oxygen Saturation: O2 needed for >90% Post Sedation Plan On clinical assessment, the patient appears to have tolerated the sedation without complications. Patient is recovering as anticipated. Patient will continue to be monitored by nursing and may be discharged when sedation discharge criteria are met per below protocol. Upon Completions of procedure and additional 15 minutes continue every 5 minute vital signs and the P.A.R. score; then discharge to a Phase I or Fast Track to Phase II per the following guidelines: * Discharge Patient to appropriate Phase II area if PAR is 8 or greater or return to pre- procedure baseline. The post - procedure orders will be as directed. * If PAR score is less than 8 or not return to pre-procedure baseline then patient will follow Phase I monitoring till PAR is reached for Phase II. The Phase I may be done in procedure room or may call to secure a Phase I area. * If naloxone or flumazenil are used for reversal, hold in Phase I for continued monitoring from when last reversal dose was given for a minimum of 60 minutes or longer pending the nurse and/or physician discretion of patient condition before discharge to Phase II. Please call the Sedation Physician to re-evaluate and complete post-note for discharge to Phase II area. Do NOT discharge from procedure sedation or Phase 1 until post- sedation evaluation note is complete by procedure /sedation MD Sedation Discharge Instructions to be given to the patient at discharge to home.
[2018-04-30] MEDS: HEPARIN STANDARD DEXTROSE 25,000 UNITS/500 ML IV SCH (15:23)
--- NOTE | 2018-04-30 15:48 | Critical Care Progress Note ---
Date of Service April 30, 2018 Assessment & Plan (1) NSTEMI (non-ST elevated myocardial infarction): Impression: 1. Non-ST elevation AK, status post PCI, not amenable to stenting. 2. SLE. 3. 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 4. Peripheral arterial disease. With difficulty obtaining accurate blood pressure. 5. Complete heart block, post AK, status post temporary pacer wire. Paced, pacemaker planned for today. 6. GERD. 7. Paroxysmal A. fib. Plan: 1. Hold off Coreg and Procardia. 2. Appreciate cardiology input, placement of pacemaker to be done today. 3. Continue hydrocortisone 100 mg IV every 8. 4. Start oral diet with AHA and renal guidelines. 5. Discontinue dopamine. 6. Appreciate renal input, plan dialysis for tomorrow. 7. Stop the IV fluid. Lactic acid normalized. 8. Discussed with the sons in details. All family are in agreement with the plan as well as the patient to place a pacemaker. 9. Antibiotic can be stopped after 3 days if there is no evidence of any pathogen by cultures. 10. I will check chest x-ray after pacemaker placement. 11. I will discontinue norepinephrine as well. 12. Core measures for the ICU were met. 13. GI DVT prophylaxis, glucose controlled. Checking 4 times daily. Appreciate pharmacy input. Discussed with the staff on rounds and details, critical care time spent with the patient was additional 45 minutes . Subjective The patient is following commands, fully awake, answering questions, well competent and oriented, agreed to placement of a permanent pacemaker with her son being in the bedside. Denies any chest pain but she continued to complain of shoulder pain and neck pain. No nausea or vomiting and no abdominal pain, no change in bowel movements. Continues to have edema in the periphery. Physical Exam 2 Vital Signs (Past 24 Hours): Last Vital Signs Temp 36 C L 04/30/18 08:01 Pulse 68 04/30/18 11:01 Resp 14 04/30/18 11:01 BP 119/48 L 04/30/18 11:01 Pulse Ox 94 04/30/18 11:01 Physical Exam: Vital signs are stable, S1-S2 regular rate and rhythm, paced, abdomen is benign, edema in the periphery. Uremic skin color Results & Data Laboratory Results Labs were reviewed which include chronically elevated BUN/creatinine. WBC is also slightly elevated. Diagnostic Findings No new imaging. Chest x-ray post pacemaker will be obtained.
--- NOTE | 2018-04-30 17:19 | Hospitalist Progress Note ---
Date of Service April 30, 2018 Assessment & Plan (1) NSTEMI (non-ST elevated myocardial infarction): Presented with "heart alert Elevated troponin Status post emergent cardiac cath, showed severe multivessel coronary artery disease, Unable to do PTCA/not a surgical candidate/CABG secondary to severe vascular calcification Appreciate input from cardiology Medical management (2) Shoulder pain, acute: (3) New onset left bundle branch block (LBBB): Due to non-ST elevated CA, leading to complete heart block Patient developed symptomatic bradycardia Status post temporary transvenous catheter placed by application development team lead appreciate input from cardiology PPM placement today (4) Elevated troponin: Heart alert called in the ER S/P emergent cardiac cath on 04/28/2018 Severe multivessel coronary artery disease 100% chronic proximal RCA occlusion. Distal RCA fills via left to right collaterals. 100% proximal circumflex occlusion (possibly acute on chronic). Left PLB fills partially via left to left collaterals 50% mid LAD, moderate to severe apical LAD disease Cardiac catheterization demonstrates chronic occlusion of the right coronary artery as well as an occluded left circumflex. Unable to cross the circumflex occlusion with a wire. 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 Continue medical management. 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 Was transferred to [facility] and monitored. No intervention required tolerating anticoagulation (8) HTN (hypertension): BP in the low side Antihypertensive on hold (9) Lupus: History of lupus nephritis (s/p failed kidney transplant) and recurrent pericardial effusion Continue home dose prednisone (10) Dyslipidemia: Continue statin (11) Hypothyroidism: Continue levothyroxine Code status: FULL code ( Code status address again today) Dispo: Monitor in ICU (12) Ischemic cardiomyopathy: Echocardiogram reflects severe ischemic cardiomyopathy EF 20-25% with extensive inferior posterior myocardial infarction question possible RV involvement Acute CHF dysfunction, secondary to acute CA Volume status remains stable On chronic dialysis, (13) Heart block AV complete: AV block, complete: Due to acute CA Patient received temporary transvenous pacemaker due to high degree AV block Continue to hold beta-carlos s/p permanent pacemaker, high degree AV block, inferior CA, new left bundle branch block Cardiology following closely Subjective s/p permanent pacemaker placement awake and alert denies of any sob or orthopnea no complain of chest heaviness Physical Exam 2 Vital Signs (Past 24 Hours): Last Vital Signs Temp 36 C L 04/30/18 08:01 Pulse 68 04/30/18 11:01 Resp 14 04/30/18 11:01 BP 119/48 L 04/30/18 11:01 Pulse Ox 94 04/30/18 11:01 Constitutional: + ill appearing (Chronically ill-appearing); no acute distress Eyes: + anicteric sclerae ENMT: Mouth: + dry oral mucous membranes Respiratory: no respiratory distress, no labored breathing and no cough Cardiovascular: Rate/Rhythm: regular rate, regular rhythm and + bradycardic Gastrointestinal (Abdomen): normal bowel sounds, soft, nontender, no hepatosplenomegaly Neurologic: PERRL, EOMI, accommodation nl, no face palsy, no dysarthria
--- NOTE | 2018-04-30 18:43 | XRay Report ---
XR chest 1V portable CLINICAL HISTORY: 62 years-old Female presenting with pace maker placement. TECHNIQUE: Portable upright AP view of the chest was obtained. COMPARISON: 04/28/2018. FINDINGS: Right subclavian pacer with leads to the right 8 rib and right ventricular apex. Tunneled left news internship al jugular dialysis catheter terminates in the right atrium. Right internal jugular Mediport terminat es in SVC. Numerous overlying external leads degrade image quality. A catheter fragment projects over the right axilla. Redemonstration of a vascular stent in the right upper arm. Atherosclerosis of aortic arch. Cardiac silhouette moderately enlarged. Pulmonary vascular prominence . No focal opacity. No large effusion or pneumothorax. Osseous structures normal. IMPRESSION: 1. Interval placement of right subclavian pacer with leads to the right atrium and right ventricular apex. 2. Catheter fragment projects over the right axilla. Correlate clinically as a retained foreign body cannot be excluded. 3. Cardiomegaly with mild volume overload. The report will be called/faxed according to standard departmental protocol. Electronically signed by: Sam James M.D. 04/30/2018 6:42 PM
[2018-04-30] MEDS: ATORVASTATIN 40 MG TAB PO SCH (20:59)
[2018-04-30] MEDS: PANTOprazole 40 MG TAB PO SCH (20:59)
[2018-04-30] MEDS: MoRPHine SULFATE 2 MG/ML CARP IV PRN (22:03)
[2018-05-01] MEDS: HYDROCORTISONE SOD 100 MG in SYRINGE 0 ML IV SCH ×2 (00:20→08:28)
[2018-05-01] MEDS: METOCLOPRAMIDE HCL INJ 5 MG/ML 2 ML VIAL IV SCH ×4 (08:25→21:37)
[2018-05-01] MEDS: predniSONE 5 MG TAB PO SCH (09:00)
--- NOTE | 2018-05-01 11:36 | Hospitalist Progress Note ---
Date of Service May 01, 2018 Assessment & Plan (1) Heart block AV complete: Status post acute RI with possible inferolateral infarct Initially had temporary transverse venous pacemaker placement Status post permanent pacemaker placement yesterday Patient denies of any dizzy spell lightheadedness syncope Cardiology following (2) NSTEMI (non-ST elevated myocardial infarction): Presented with "heart alert Elevated troponin Status post emergent cardiac cath, showed severe multivessel coronary artery disease, Unable to do PTCA/not a surgical candidate/CABG secondary to severe vascular calcification Appreciate input from cardiology Medical management (3) Ischemic cardiomyopathy: Echocardiogram reflects severe ischemic cardiomyopathy EF 20-25% with extensive inferior posterior myocardial infarction question possible RV involvement Acute CHF dysfunction, secondary to acute RI Volume status remains stable On chronic dialysis, (4) PVD (peripheral vascular disease): (5) New onset left bundle branch block (LBBB): Due to non-ST elevated RI, leading to complete heart block Patient developed symptomatic bradycardia temporary transvenous catheter placed by chimney construction supervisor appreciate input from cardiology s/p PPM placement (6) Elevated troponin: Heart alert called in the ER S/P emergent cardiac cath on 04/28/2018 Severe multivessel coronary artery disease 100% chronic proximal RCA occlusion. Distal RCA fills via left to right collaterals. 100% proximal circumflex occlusion (possibly acute on chronic). Left PLB fills partially via left to left collaterals 50% mid LAD, moderate to severe apical LAD disease Cardiac catheterization demonstrates chronic occlusion of the right coronary artery as well as an occluded left circumflex. Unable to cross the circumflex occlusion with a wire. 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 Continue medical management. 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 [facility] cardiology input was on heparin drip Continue medical management Continue aspirin, statin, and beta-carlos Patient denies of any anginal symptoms ECHO showed severe ischemic cardiomyopathy with EF 20-25 % vol status stable getting schedule dialysis (7) CAD (coronary artery disease): severe CAD with recent NSTEMI management as outlined above (8) ESRD (end stage renal disease) on dialysis: History of renal transplant in 2001 for lupus nephritis, failed in 2008 Status post dialysis post cardiac cath Nephrology on board getting scheduled dialysis CODE STATUS : DNR/DNI DISPOSTION: possible tx to Tele today ,after cardiology eval PT/OT eval prior to Discharge Subjective Patient getting dialysis today Denies of any chest heaviness, chest discomfort Status post permanent pacemaker placement yesterday Monitor showed paced rhythm No complaint of anginal symptoms No complaint of nausea vomiting appetite normal Physical Exam 2 Vital Signs (Past 24 Hours): Last Vital Signs Temp 36.4 C L 05/01/18 09:00 Pulse 83 05/01/18 11:15 Resp 18 05/01/18 06:00 BP 128/65 05/01/18 11:15 Pulse Ox 98 05/01/18 06:00 Respiratory: no cough Cardiovascular: Rate/Rhythm: regular rate, regular rhythm and + bradycardic Musculoskeletal: Head/Neck/Chest: + limited ROM of neck (Right IJ transvenous pacemaker present) Skin: + turgor decreased _ (1) CAD (coronary artery disease) Associated angina: with unstable angina Coronary Disease-Associated Artery/ Lesion type: [place] artery [place] vs. transplanted heart: [place] heart Qualified Code(s): I25.110 - Atherosclerotic heart disease of [place] coronary artery with unstable angina pectoris
[2018-05-01] MEDS: OXYCODONE HCL IR 5 MG TAB (IMMEDIATE RELEASE) PO PRN ×2 (11:50→20:25)
[2018-05-01 12:07] LABS: INR 4.8 (0.9-1.1); Prothrombin Time 44.2 Seconds (9.0-12.0)
--- NOTE | 2018-05-01 12:58 | Palliative Care Consultation ---
Date of Consultation May 01, 2018 Assessment & Plan (1) Goals of care, counseling/discussion: -This 62 year old female with PMH ESRD on dialysis, Lupus, severe vasculopathy, ischemic cardiomyopathy with EF 20-25%, and others, presented to hospital with NSTEMI and complete AV heart block. She underwent emergent heart catheterization but was unable to receive any sort of PCI due to severe vascular calcification. She had pacemaker inserted yesterday for her complete heart block. Patient's family made her a DNR in alignment with her wishes. The family had questions about end of life decisions and body donation. Palliative consulted to discuss goals of care. -Met with patient this morning. She is doing well today and back to her norm, pacemaker functioning properly. VS stable, receiving her usual dialysis treatment. She lives independently at home and drives herself to and from dialysis treatments. -Patient's plan is to return home. She would be amenable to rehab if needed, prefers [facility]. Unsure if she will need rehab. -Discussed her goals of care. Patient plans to remain independent for as long as possible and has not made any plans for when her disease progresses. She HAS had conversations with her sons about her wishes, however, and they know she would not want heroic measures if she were in end-stage condition. -Patient states she does plan to continue conversations with her family and maybe even complete a living will at some point. -Spoke with patient's son Frank with patient's permissions. He asked about what patient needs to do in order to donate her body to science once she has . Advised that the patient herself will need to set that up, he will follow up. -For now, continue current care. Would order PT/OT to assess readiness to return home vs. rehab. (2) AV block, complete: -S/P pacemaker insertion on 05/01. (3) Ischemic cardiomyopathy: -EF 20-25%. Did discuss this with patient. (4) NSTEMI (non-ST elevated myocardial infarction): -S/P heart catheterization. Unable to do intervention due to severe vascular calcification. (5) ESRD (end stage renal disease) on dialysis: -On dialysis as outpatient. Drives herself to and from dialysis treatments. Supervising Physician Co-Signing Physician Notes Chart reviewed, patient seen and examined, no family at bedside. Patient awake alert, no acute distress-patient undergoing hemodialysis. PE: NAD HEENT: EOMI, normal hearing Respiratory: Unlabored CV: Regular rate Abdomen: Nontender Extremities: Well-perfused Neuro: Alert and oriented x4 Agree with above note, assessment and plan as per PABLO Wright. Will continue to follow as needed for medical decision making, provide support to patient and family. History of Present Illness Attending Physician: Deena Anne MD History of Present Illness This 62 year old female patient with PMH ESRD on dialysis, Lupus, severe vasculopathy, ischemic cardiomyopathy with EF 20-25%, and others, presented to hospital with NSTEMI and complete AV heart block. She underwent emergent heart catheterization but was unable to receive any sort of PCI due to severe vascular calcification. She had pacemaker inserted yesterday for her complete heart block. Patient's family made her a DNR in alignment with her wishes. The family had questions about end of life decisions and body donation. Palliative consulted to discuss goals of care. See A&P for details. Thank you kindly for this consult. I will follow peripherally for now. Allergies Allergy/AdvReac Type Severity Reaction Status Date / Time silver nitrate Allergy Severe SEVERE Verified 04/27/18 10:51 BURNING silver sulfadiazine Allergy Severe SEVERE Verified 04/27/18 10:51 BURNING levofloxacin Allergy Intermediate HIVES Verified 04/27/18 10:51 mivacurium Allergy Intermediate "BUGS Verified 04/27/18 10:51 CRAWLING ON ME" Sulfa (Sulfonamide Allergy Intermediate "SULFA Verified 04/27/18 10:51 Antibiotics) DRUGS": RASH trimethoprim Allergy Intermediate BACTRIM - Verified 04/27/18 10:51 RASH amoxicillin AdvReac Mild GI UPSET Verified 04/27/18 10:51 clavulanic acid AdvReac Mild GI UPSET Verified 04/27/18 10:51 erythromycin base AdvReac Mild nausea Verified 04/27/18 10:51 vomiting metronidazole AdvReac Mild DIARRHEA Verified 04/27/18 10:51 Home Medications Home Medications Medication Instructions Recorded Confirmed Type aspirin 81 mg PO QAM 04/27/18 04/27/18 History atorvastatin 40 mg PO HS 04/27/18 04/27/18 History bacitracin 1 applic OPR TID 04/27/18 04/27/18 History bupropion HCl 100 mg PO BID 04/27/18 04/27/18 History calcium polycarbophil [FiberCon] 1,200 mg PO BID 04/27/18 04/27/18 History carvedilol 25 mg PO BID 04/27/18 04/27/18 History epoetin beta, methoxy peg [Mircera] 200 mg SUBCUT UD 04/27/18 04/27/18 History esomeprazole magnesium [Nexium] 40 mg PO HS 04/27/18 04/27/18 History furosemide 80 mg PO DAILY 04/27/18 04/27/18 History hydralazine 10 mg PO UD 04/27/18 04/27/18 History ipratropium-albuterol [Combivent 1 puff INHALATION QID PRN 04/27/18 04/27/18 History Respimat] levothyroxine 175 mcg PO QAM 04/27/18 04/27/18 History nifedipine 30 mg PO DAILY 04/27/18 04/27/18 History ondansetron HCl [Zofran] 4 mg PO QID PRN 04/27/18 04/27/18 History oxycodone 10 mg PO Q8H PRN 04/27/18 04/27/18 History prednisone 5 mg PO MOWEFR 04/27/18 04/27/18 History sevelamer carbonate [Renvela] 3,200 mg PO UD 04/27/18 04/27/18 History warfarin [Coumadin] 2 mg PO FR@1600 04/27/18 04/27/18 History warfarin [Coumadin] 4 mg PO SUMOTUWETHSA@1600 04/27/18 04/27/18 History zolpidem [Ambien] 5 mg PO HS PRN 04/27/18 04/27/18 History Patient History Medical History Hypothyroidism (Chronic) CAD (coronary artery disease) (Chronic) "minimal CAD on cath in 1999" Anxiety (Chronic) Anal cancer (Chronic) "s/p chemo and radiation" Dyslipidemia (Chronic) Asthma (Chronic) ESRD (end stage renal disease) on dialysis (Chronic) HTN (hypertension) (Chronic) Lupus (Chronic) GERD (gastroesophageal reflux disease) (Chronic) Paroxysmal a-fib (Chronic) Osteomyelitis (Chronic) Mesenteric artery thrombosis (Chronic) Surgical History History of carpal tunnel surgery (Chronic) S/P partial hysterectomy (Chronic) H/O hernia repair (Chronic) History of bowel resection (Chronic) "for mesenteric ischemia" Hx of appendectomy (Resolved) Family History Mother Heart disease Hypertension Social History Current Living Situation: Alone Other Information That Helps Us Care for You: No Feels Safe at Home: Yes Safety Concerns: Feels Safe At This Time Smoking Status: Former smoker Tobacco Type: cigarettes Do You Dip or Chew Tobacco: No Smoking End Date: 11/11/2008 Second Hand Exposure: No Tobacco Cessation Education Requested by Patient: No Hx Alcohol Use: No Hx Substance Use: No Beliefs That Will Affect Care: None Preferred Language: Uzbek Communication Ability: Effective [employer] Administrator Required: No Physical Exam 2 Vital Signs (Past 24 Hours): Last Vital Signs Temp 36.4 C L 05/01/18 09:00 Pulse 82 05/01/18 12:15 Resp 18 05/01/18 06:00 BP 149/68 H 05/01/18 12:15 Pulse Ox 98 05/01/18 06:00 Time Spent Midlevel 50 minutes with >50% of time spent at bedside with patient and on phone with son discussing condition, plan and goals of care.
--- NOTE | 2018-05-01 13:07 | Cardiology Progress Note ---
Date of Service May 01, 2018 Assessment & Plan (1) NSTEMI (non-ST elevated myocardial infarction): Cardiac catheterization demonstrates chronic occlusion of the right coronary artery as well as an occluded left circumflex. Unable to cross the circumflex occlusion. 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 Continue medical management. Echocardiogram reflects severe ischemic cardiomyopathy EF 20-25% with extensive inferior, posterior, and lateral myocardial infarction question possible RV involvement (2) Heart block AV complete: Status post right-sided dual-chamber pacemaker implantation 04/30/18. (3) Ischemic cardiomyopathy: Continue carvedilol. Will discuss addition of MARIANO inhibitor with nephrology. Patient appears compensated. Volume status managed via dialysis. (4) New onset left bundle branch block (LBBB): Secondary to #1. (5) Paroxysmal a-fib: Currently sinus rhythm with 3rd degree AVB. Supratherapeutic INR. (6) PVD (peripheral vascular disease): Diminished peripheral pulses noted on examination. (7) CAD (coronary artery disease): She has inoperable coronary disease which is also not amenable to further intervention. (8) Shoulder pain, acute: (9) ESRD (end stage renal disease) on dialysis: Dialysis today. Subjective Patient seen and examined at the bedside. Pacemaker implanted 04/30 without complication. Interscapular discomfort resolved. Denies chest pain or shortness of breath. Review of Systems All systems reviewed & are unremarkable except as noted in HPI & below Physical Exam 2 Vital Signs (Past 24 Hours): Last Vital Signs Temp 36.4 C L 05/01/18 09:00 Pulse 82 05/01/18 12:15 Resp 18 05/01/18 06:00 BP 149/68 H 05/01/18 12:15 Pulse Ox 98 05/01/18 06:00 Physical Exam: General: NAD, AAO x3, well nourished. Chronically ill. HEENT : Normocephalic. Atraumatic. Conjunctiva pink, no scleral icterus. Neck: Right IJ TVP. No carotid bruits, the carotid upstrokes are brisk. No JVD. No HJR Chest : Right-sided port, right-sided pacemaker site, clean dry intact, left chest dialysis access. Heart: Regular normal S-1 and S-2 no S-3 or S-4 gallop. 2/6 systolic ejection murmur heard best at the right second intercostal space. PMI is not displaced. No RV heave. Lungs: Clear bilateral without rales , rhonchi, or wheeze. Abdomen: Normal bowel sounds. Soft. Nontender. No masses or organomegaly. No abdominal bruits. Extremities: Mild right groin ecchymosis, no hematoma. 1+ bilateral pedal and ankle edema. Diminished pedal pulses. 1/4 bilateral femoral pulses. Diminished bilateral radial pulses. Neuro: Cranial nerves grossly intact. No focal motor deficit. _ (1) CAD (coronary artery disease) Associated angina: with unstable angina Coronary Disease-Associated Artery/ Lesion type: [place] artery [place] vs. transplanted heart: [place] heart Qualified Code(s): I25.110 - Atherosclerotic heart disease of [place] coronary artery with unstable angina pectoris
[2018-05-01 13:37] LABS: Prothrombin Time 46.2 Seconds (9.0-12.0)
[2018-05-01 13:49] LABS: Albumin Level 3.6 gm/dl (3.4-5.0); BUN Creatinine Ratio 3.2 (10-20); Bilirubin Direct 0.3 mg/dl (0-0.2); Bilirubin,Total 0.6 mg/dl (0.1-1); Calcium 8.5 mg/dl (8.5-10.1); Creatinine Clr Calc Pharmacy 64.2 ml/min; Est GFR (Non-African American) 62.2; Potassium 2.1 mmol/L (3.5-5.1); Total Protein 8.1 gm/dl (6.4-8.2)
[2018-05-01] MEDS: HEPARIN 100 UNIT/ML 5ML FLUSH FLUSH PRN (14:08)
[2018-05-01] MEDS ORDERED: IPRATROPIUM BROMIDE/ALBUTEROL respimat INH INH PRN (14:09)
[2018-05-01] MEDS ORDERED: MoRPHine SULFATE 2 MG/ML CARP IV PRN (14:11)
[2018-05-01] MEDS ORDERED: POTASSIUM CHLORIDE 10 MEQ TABCR PO STA (14:12)
[2018-05-01 14:16] LABS: Hematocrit (blood only) 31.9 % (37-47); Hemoglobin 10.6 g/dL (12.0-16.0); Immature Granulocytes # (auto) 0.06 K/uL (0.00-0.02); Immature Granulocytes % (auto) 0.7 %; Lymphocytes # (auto) 0.52 K/uL (1.2-3.4); Lymphocytes % (auto) 6.1 %; Mean Corpuscular Hgb Conc 33.2 g/dL (32-36); Mean Corpuscular Volume 90.4 fL (80-100); Mean Platelet Volume 10.8 fL (7.4-10.4); Monocytes # (auto) 0.81 K/uL (0.11-0.59); Monocytes % (auto) 9.5 %; Neutrophils # (auto) 7.18 K/uL (1.4-6.5); Neutrophils % (auto) 83.7 %; Platelet Count 187 K/uL (130-400); RDW Coefficient of Variation 17.2 % (11.5-14.5); Red Blood Count 3.53 M/uL (4.2-5.4); White Blood Count 8.57 K/uL (4.8-10.8)
[2018-05-01] MEDS ORDERED: SEVELAMER HCL 800 MG TABLET PO PRN (15:07)
[2018-05-01] MEDS: SEVELAMER HCL 800 MG TABLET PO SCH ×2 (15:22→16:57)
--- NOTE | 2018-05-01 15:31 | Critical Care Progress Note ---
Date of Service May 01, 2018 Assessment & Plan (1) NSTEMI (non-ST elevated myocardial infarction): Impression: 1. Non-ST elevation SC, status post PCI, not amenable to stenting. 2. SLE. 3. 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 4. Peripheral arterial disease. With difficulty obtaining accurate blood pressure. 5. Complete heart block, post SC, status post temporary pacer wire. Paced, pacemaker planned for today. 6. GERD. 7. Paroxysmal A. fib. Plan: 1. Keep Coreg and Procardia on hold. 2. Appreciate cardiology input, placement of pacemaker . 3. Change hydrocortisone to prednisone 10 mg p.o. daily. 4. Continue oral diet with AHA and renal guidelines. 5. Discontinue dopamine. 6. Appreciate renal consult, dialysis is ongoing. 7. Remove the right subclavian introducer.. Done without difficulty. At the dressing was changed. 8. Discussed with the staff in details. With the patient and the family as well. 9. Discontinue antibiotics. 10. Chest x-ray reviewed personally. 11. Discontinue norepinephrine. 12. Core measures for the ICU were met. 13. GI ,DVT prophylaxis, glucose controlled. Appreciate pharmacy input. Discussed with the staff on rounds and details, critical care time spent with the patient was additional 45 minutes . Subjective Remains hemodynamically stable, following commands and answer questions, denies any chest pain, no shoulder pain reported. No new symptoms. Tolerating oral intake and tolerating her dialysis. Physical Exam 2 Vital Signs (Past 24 Hours): Last Vital Signs Temp 36.4 C L 05/01/18 12:40 Pulse 85 05/01/18 12:40 Resp 8 L 05/01/18 08:01 BP 123/62 05/01/18 12:40 Pulse Ox 97 05/01/18 08:01 Physical Exam: Vital signs are stable, S1-S2 regular rate and rhythm, lungs are distant breath sounds, abdomen is benign, edema. Results & Data Laboratory Results Labs were reviewed pre-and post dialysis. Potassium was noted, repeat is pending. CBC is within her normal range. Diagnostic Findings Chest x-ray from yesterday showed the right introducer is almost out of the chest cavity, and the pacer wires are in good position.
[2018-05-01] MEDS ORDERED: WARFARIN SOD 5 MG TAB PO ONE (16:00)
--- NOTE | 2018-05-01 16:45 | Cardiology Progress Note ---
Date of Service May 01, 2018 Assessment & Plan (1) Pacemaker: Her pacemaker is functioning properly, her atrial lead measurements are not ideal but they are adequate and it is currently working properly to track atrial activity and pacing the ventricle. She does have a wide QRS complex but under the circumstances with difficult venous access it would be very challenging to consider biventricular upgrade should she need it in the future, an epicardial approach may be better. If she needs an ICD in the future a subcutaneous ICD may also be a better option due to her high risk of infection. For now I would monitor her with her current device alone. Subjective Today she is feeling quite well, she is not having any incisional discomfort and has no chest discomfort. Physical Exam 2 Vital Signs (Past 24 Hours): Last Vital Signs Temp 36.4 C L 05/01/18 15:02 Pulse 88 05/01/18 15:02 Resp 18 05/01/18 15:02 BP 116/70 05/01/18 15:02 Pulse Ox 96 05/01/18 15:02 Physical Exam: Her pacemaker site looks good, she does not have any swelling or active bleeding. Results & Data Diagnostic Findings Telemetry: Normal dual-chamber pacemaker function Twelve-lead electrocardiogram: Normal pacemaker function with atrial sensing and ventricular pacing throughout Chest x-ray: Good lead position, no pneumothorax Pacemaker evaluation: Excellent pacing and sensing characteristics in the ventricle, acceptable atrial measurements
--- NOTE | 2018-05-01 16:49 | Nephrology Progress Note ---
Date of Service May 01, 2018 Assessment & Plan (1) ESRD (end stage renal disease) on dialysis: Patient with ESRD on HD TTS. Patient had HD on Saturday. She was found to NSTEMI. She was dialysed today. She tolerated HD well. Next HD will be saturday unless evidence of volume overload or electrolyte imbalance. (2) Anemia: Patient with anemia due to renal failure. Hb 11.7 recently. No need for TRISTEN unless hospitalization is prolonged. Subjective Patient feels well today. She denies any chest pain or SOB. She is tolerating HD well. The patient was seen and examined on dialysis. Review of Systems All systems reviewed & are unremarkable except as noted in HPI & below Physical Exam 2 Vital Signs (Past 24 Hours): Last Vital Signs Temp 36.4 C L 05/01/18 15:02 Pulse 88 05/01/18 15:02 Resp 18 05/01/18 15:02 BP 116/70 05/01/18 15:02 Pulse Ox 96 05/01/18 15:02 Physical Exam: General exam: Appears comfortable, no acute distress HEENT: Pupils are equal and reactive to light Neck: No JVD, neck is supple trachea is midline Respiratory system: Clear breath sounds bilaterally. Gastrointestinal: Abdomen is soft, non distended, non tender, bowel sounds are present CVS: Regular rate and rhythm. No murmurs, rubs or gallops Musculoskeletal: No joint or muscle tenderness Extremities: Non tender, no edema, peripheral pulses are present Neuro: Oriented, no tremors, no focal neurological deficits Skin: No rashes Access: Left TDC Results & Data Laboratory Results Reviewed
[2018-05-01] MEDS: CALCIUM POLYCARBOPHIL 1 TAB PO SCH (20:12)
[2018-05-01] MEDS: CARVEDILOL 25 MG TAB PO SCH (20:23)
[2018-05-01] MEDS: PANTOprazole 40 MG TAB PO SCH (21:37)
[2018-05-01] MEDS: ATORVASTATIN 40 MG TAB PO SCH (21:37)
[2018-05-02] MEDS: LEVOTHYROXINE SODIUM 175 MCG TABLET PO SCH (06:27)
[2018-05-02 06:51] LABS: INR 2.9 (0.9-1.1)
[2018-05-02] MEDS: METOCLOPRAMIDE HCL INJ 5 MG/ML 2 ML VIAL IV SCH ×4 (07:44→20:32)
[2018-05-02] MEDS: predniSONE 5 MG TAB PO SCH (07:45)
[2018-05-02] MEDS: CALCIUM POLYCARBOPHIL 1 TAB PO SCH ×2 (07:45→20:23)
[2018-05-02] MEDS: ASPIRIN 81 MG ECTAB PO SCH (07:45)
[2018-05-02] MEDS: SEVELAMER HCL 800 MG TABLET PO SCH ×3 (07:46→16:41)
[2018-05-02] MEDS: CARVEDILOL 25 MG TAB PO SCH ×2 (07:46→20:22)
--- NOTE | 2018-05-02 08:47 | Cardiology Progress Note ---
Date of Service May 02, 2018 Assessment & Plan (1) AV block, complete: Status post dula chamber PPM 04/30/18. (2) NSTEMI (non-ST elevated myocardial infarction): Cardiac catheterization demonstrates chronic occlusion of the right coronary artery as well as an occluded left circumflex. Unable to cross the circumflex occlusion with a wire. 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 Continue medical management. Echocardiogram reflects severe ischemic cardiomyopathy EF 20-25% with extensive inferior, posterior, and lateral myocardial infarction question possible RV involvement (3) New onset left bundle branch block (LBBB): Secondary to #1. (4) CAD (coronary artery disease): (5) Paroxysmal a-fib: Currently sinus rhythm with 3rd degree AVB. Suprtherapeutic INR trending down to therapeutic range today. (6) PVD (peripheral vascular disease): Diminished peripheral pulses noted on examination. (7) Shoulder pain, acute: (8) ESRD (end stage renal disease) on dialysis: Dialysis tomorrow 05/03/18. Subjective Patient seen and examined at the bedside. Patient reports feeling hot today. No fevers recorded. No orthopnea or PND. Scapular discomfort has resolved. Denies CP. V-paced on telemetry. Review of Systems All systems reviewed & are unremarkable except as noted in HPI & below Physical Exam 2 Vital Signs (Past 24 Hours): Last Vital Signs Temp 36.3 C L 05/02/18 07:04 Pulse 71 05/02/18 07:04 Resp 15 05/02/18 07:04 BP 124/76 05/02/18 07:04 Pulse Ox 95 05/02/18 07:04 Physical Exam: General: NAD, AAO x3, well nourished. Chronically ill. HEENT : Normocephalic. Atraumatic. Conjunctiva pink, no scleral icterus. Neck: Right IJ TVP. No carotid bruits, the carotid upstrokes are brisk. No JVD. No HJR Chest : Right-sided port, right-sided pacemaker site, clean dry intact, left chest dialysis access. Heart: Regular normal S-1 and S-2 no S-3 or S-4 gallop. 2/6 systolic ejection murmur heard best at the right second intercostal space. PMI is not displaced. No RV heave. Lungs: Clear bilateral without rales , rhonchi, or wheeze. Abdomen: Normal bowel sounds. Soft. Nontender. No masses or organomegaly. No abdominal bruits. Extremities: Mild right groin ecchymosis, no hematoma. 1+ bilateral pedal and ankle edema. Diminished pedal pulses. 1/4 bilateral femoral pulses. Diminished bilateral radial pulses. Neuro: Cranial nerves grossly intact. No focal motor deficit. Results & Data ECG Additional Comments: Atrial-sensed ventricular-paced rhythm Abnormal ECG When compared with ECG of 29-APR-2018 06:35, Ventricular pacing is now present _ (1) CAD (coronary artery disease) Associated angina: with unstable angina Coronary Disease-Associated Artery/ Lesion type: [place] artery [place] vs. transplanted heart: [place] heart Qualified Code(s): I25.110 - Atherosclerotic heart disease of [place] coronary artery with unstable angina pectoris
--- NOTE | 2018-05-02 09:42 | Nephrology Progress Note ---
Date of Service May 02, 2018 Assessment & Plan (1) ESRD (end stage renal disease) on dialysis: Patient with ESRD on HD TTS. She was found to NSTEMI. She was dialysed yesterday which was uneventful. Patient tolerated dialysis well yesterday. Next HD will be tomorrow for 3 hours and 45 minutes on a 4K bath, blood flow 400 , dialysate flow 600 and target UF of 3 L. (2) Anemia: Patient with anemia due to renal failure. Hb 10.6 yesterday. No need for TRISTEN unless hospitalization is prolonged. (3) NSTEMI (non-ST elevated myocardial infarction): Patient with non-ST elevation RI status post cardiac catheterization but with no intervention. Cardiology recommended medical management. We will continue gentle dialysis to avoid large hemodynamic shifts. Will avoid hypokalemia. Patient will be dialyzed on a 4K bath tomorrow. Subjective Patient with ESRD on dialysis complicated by an STEMI. Patient feels well today. She denies any chest pain or SOB. She tolerated HD well yesterday. She had hypokalemia after dialysis. ROS All other systems were reviewed and negative except as noted in HPI Physical Exam 2 Vital Signs (Past 24 Hours): Last Vital Signs Temp 36.3 C L 05/02/18 07:04 Pulse 71 05/02/18 07:04 Resp 15 05/02/18 07:04 BP 124/76 05/02/18 07:04 Pulse Ox 95 05/02/18 07:04 Physical Exam: General exam: Appears comfortable, no acute distress HEENT: Pupils are equal and reactive to light Neck: No JVD, neck is supple trachea is midline Respiratory system: Clear breath sounds bilaterally. Gastrointestinal: Abdomen is soft, non distended, non tender, bowel sounds are present CVS: Regular rate and rhythm. No murmurs, rubs or gallops Musculoskeletal: No joint or muscle tenderness Extremities: Non tender, 1+ edema, peripheral pulses are present Neuro: Oriented, no tremors, no focal neurological deficits Skin: No rashes Access: Left tunneled IJ catheter Results & Data Laboratory Results Results were reviewed
--- NOTE | 2018-05-02 10:19 | Hospitalist Progress Note ---
Date of Service May 02, 2018 Assessment & Plan (1) Heart block AV complete: Status post acute ID with inferolateral infarct Developed bradycardia leading to complete heart block Initially had temporary transverse venous pacemaker placement Status post permanent pacemaker placement 04/30/2018 Vitals remain stable Appreciate input from cardiology (2) NSTEMI (non-ST elevated myocardial infarction): Presented with "heart alert Elevated troponin S/P emergent cardiac cath on 04/28/2018 Severe multivessel coronary artery disease 100% chronic proximal RCA occlusion. Distal RCA fills via left to right collaterals. 100% proximal circumflex occlusion (possibly acute on chronic). Left PLB fills partially via left to left collaterals 50% mid LAD, moderate to severe apical LAD disease Cardiac catheterization demonstrates chronic occlusion of the right coronary artery as well as an occluded left circumflex. Unable to cross the circumflex occlusion with a wire not a surgical candidate/CABG secondary to severe vascular calcification Appreciate input from cardiology Medical management (3) Ischemic cardiomyopathy: Echocardiogram reflects severe ischemic cardiomyopathy EF 20-25% with extensive inferior posterior myocardial infarction question possible RV involvement Acute CHF dysfunction, secondary to acute ID Volume status remains stable On chronic dialysis, (4) PVD (peripheral vascular disease): (5) New onset left bundle branch block (LBBB): Due to non-ST elevated ID, leading to complete heart block Patient developed symptomatic bradycardia temporary transvenous catheter placed by justice professor appreciate input from cardiology s/p PPM placement (6) Elevated troponin: Due to non-ST elevated ID Heart alert called in the ER Status post emergent cardiac cath, unable to do PTCA . 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 Appreciate Mahesh cardiology input was on heparin drip Continue medical management Continue aspirin, statin, and beta-carlos Patient denies of any anginal symptoms ECHO showed severe ischemic cardiomyopathy with EF 20-25 % vol status stable getting schedule dialysis (7) CAD (coronary artery disease): severe CAD with recent NSTEMI management as outlined above (8) ESRD (end stage renal disease) on dialysis: History of renal transplant in 2001 for lupus nephritis, failed in 2008 Status post dialysis post cardiac cath Nephrology on board getting scheduled dialysis CODE STATUS : DNR/DNI DISPOSTION: Ordered for PT OT evaluation, patient may need rehab Discussed with patient and her son Waiting for referral to health Subjective Feels more tired and wiped out today, Not had much sleep last night, as bed was uncomfortable Very anxious feels like she is having panic attack Vitals remained stable No complaint of shortness of breath dyspnea on exertion, no chest heaviness Physical Exam 2 Vital Signs (Past 24 Hours): Last Vital Signs Temp 36.3 C L 05/02/18 07:04 Pulse 71 05/02/18 07:04 Resp 15 05/02/18 07:04 BP 124/76 05/02/18 07:04 Pulse Ox 95 05/02/18 07:04 Constitutional: + ill appearing; no acute distress Eyes: + anicteric sclerae ENMT: Mouth: + dry oral mucous membranes Neck: trachea midline, no thyromegaly Respiratory: no cough Cardiovascular: RRR, no murmur, no edema Rate/Rhythm: regular rate, regular rhythm and + bradycardic Gastrointestinal (Abdomen): normal bowel sounds, soft, nontender, no hepatosplenomegaly Musculoskeletal: Head/Neck/Chest: + limited ROM of neck (Right IJ transvenous pacemaker present) Skin: + turgor decreased Neurologic: PERRL, EOMI, accommodation nl, no face palsy, no dysarthria Psychiatric: A+Ox3, euthymic affect _ (1) CAD (coronary artery disease) Associated angina: with unstable angina Coronary Disease-Associated Artery/ Lesion type: [place] artery [place] vs. transplanted heart: [place] heart Qualified Code(s): I25.110 - Atherosclerotic heart disease of [place] coronary artery with unstable angina pectoris
[2018-05-02] MEDS ORDERED: ALPRAZolam 0.25 MG TABLET ONE (11:32)
[2018-05-02] MEDS: ALPRAZolam 0.25 MG TABLET PO PRN (11:34)
[2018-05-02] MEDS: HEPARIN 100 UNIT/ML 5ML FLUSH FLUSH PRN (11:35)
[2018-05-02] MEDS: BACITRACIN OP OINT 3.5 GM TUBE OPR SCH ×2 (13:44→20:21)
[2018-05-02] MEDS ORDERED: WARFARIN SOD 4 MG TAB PO ONE (16:00)
--- NOTE | 2018-05-02 16:04 | Nephrology Progress Note ---
Date of Service May 02, 2018 Assessment & Plan (1) ESRD (end stage renal disease) on dialysis: Patient with ESRD on HD TTS. She was found to NSTEMI. She was dialysed yesterday which was uneventful. Patient tolerated dialysis well yesterday. Next HD will be tomorrow for 3 hours and 45 minutes on a 4K bath, blood flow 400 , dialysate flow 600 and target UF of 3 L. (2) Anemia: Patient with anemia due to renal failure. Hb 10.6 yesterday. No need for TRISTEN unless hospitalization is prolonged. (3) NSTEMI (non-ST elevated myocardial infarction): Patient with non-ST elevation LA status post cardiac catheterization but with no intervention. Cardiology recommended medical management. We will continue gentle dialysis to avoid large hemodynamic shifts. Will avoid hypokalemia. Patient will be dialyzed on a 4K bath tomorrow. Subjective Patient with ESRD on dialysis complicated by an STEMI. Patient feels well today. She denies any chest pain or SOB. She tolerated HD well yesterday. She had hypokalemia after dialysis. ROS All other systems were reviewed and negative except as noted in HPI Physical Exam 2 Vital Signs (Past 24 Hours): Last Vital Signs Temp 36.4 C L 05/02/18 14:49 Pulse 71 05/02/18 14:49 Resp 16 05/02/18 14:49 BP 131/81 05/02/18 14:49 Pulse Ox 100 05/02/18 14:49
[2018-05-02] MEDS: PANTOprazole 40 MG TAB PO SCH (20:23)
[2018-05-02] MEDS: ATORVASTATIN 40 MG TAB PO SCH (20:23)
[2018-05-02] MEDS ORDERED: BuPROPion SR 100 MG TABCR PO SCH (21:00)
[2018-05-03] MEDS: OXYCODONE HCL IR 5 MG TAB (IMMEDIATE RELEASE) PO PRN ×2 (00:02→12:39)
[2018-05-03] MEDS: ALPRAZolam 0.25 MG TABLET PO PRN (00:02)
[2018-05-03 05:10] LABS: INR 1.5 (0.9-1.1)
[2018-05-03] MEDS: LEVOTHYROXINE SODIUM 175 MCG TABLET PO SCH ×2 (06:32→08:39)
[2018-05-03] MEDS: ASPIRIN 81 MG ECTAB PO SCH (08:36)
[2018-05-03] MEDS: METOCLOPRAMIDE HCL INJ 5 MG/ML 2 ML VIAL IV SCH ×5 (08:38→20:42)
[2018-05-03] MEDS: predniSONE 5 MG TAB PO SCH (08:39)
[2018-05-03] MEDS: CARVEDILOL 25 MG TAB PO SCH ×2 (08:40→20:38)
[2018-05-03] MEDS: CALCIUM POLYCARBOPHIL 1 TAB PO SCH ×2 (08:40→20:38)
[2018-05-03] MEDS: BACITRACIN OP OINT 3.5 GM TUBE OPR SCH ×3 (08:41→20:37)
[2018-05-03] MEDS: SEVELAMER HCL 800 MG TABLET PO SCH ×3 (08:42→12:16)
--- NOTE | 2018-05-03 10:23 | Cardiology Progress Note ---
Date of Service May 03, 2018 Assessment & Plan (1) AV block, complete: Status post dual chamber PPM 04/30/18. (2) NSTEMI (non-ST elevated myocardial infarction): Cardiac catheterization demonstrates chronic occlusion of the right coronary artery as well as an occluded left circumflex. Unable to cross the circumflex occlusion with a wire. 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 Continue medical management. Echocardiogram reflects severe ischemic cardiomyopathy EF 20-25% with extensive inferior, posterior, and lateral myocardial infarction question possible RV involvement (3) New onset left bundle branch block (LBBB): Secondary to #1. (4) CAD (coronary artery disease): She has inoperable coronary disease which is also not amenable to further intervention. (5) Paroxysmal a-fib: Patient maintaining sinus with paced rhythm (6) PVD (peripheral vascular disease): Diminished peripheral pulses noted on examination. (7) Shoulder pain, acute: (8) ESRD (end stage renal disease) on dialysis: Dialysis today 05/03/18. Exam moderate volume overload, lower extremity edema (9) Ischemic cardiomyopathy: Blood pressure appears to allow initiation of afterload reduction. We will begin with low-dose nitrates and add hydralazine as blood pressure allows post dialysis. Volume status being managed via dialysis Subjective Patient seen and examined, chart medications telemetry reviewed Notes no chest pain or abdominal pain. Does become breathless and anxious at times. Notes no tachypalpitations syncope or near syncope. Anticipates dialysis later today. No fevers or chills Review of Systems All systems reviewed & are unremarkable except as noted in HPI & below Physical Exam 2 Vital Signs (Past 24 Hours): Last Vital Signs Temp 36.4 C L 05/03/18 07:02 Pulse 67 05/03/18 07:02 Resp 16 05/03/18 07:02 BP 132/76 05/03/18 07:02 Pulse Ox 100 05/03/18 07:02 Physical Exam: General: NAD, AAO x3, well nourished. Chronically ill. HEENT : Normocephalic. Atraumatic. Conjunctiva pink, no scleral icterus. Neck: Right IJ TVP. No carotid bruits, the carotid upstrokes are brisk. No JVD. No HJR Chest : Right-sided port, right-sided pacemaker site, clean dry intact, left chest dialysis access. Heart: Regular normal S-1 and S-2 no S-3 or S-4 gallop. 2/6 systolic ejection murmur heard best at the right second intercostal space. PMI is not displaced. No RV heave. Lungs: Clear bilateral without rales , rhonchi, or wheeze. Abdomen: Normal bowel sounds. Soft. Nontender. No masses or organomegaly. No abdominal bruits. Extremities: Mild right groin ecchymosis, no hematoma. 2+ + bilateral pedal and ankle edema. Diminished pedal pulses. 1/4 bilateral femoral pulses. Diminished bilateral radial pulses. Neuro: Cranial nerves grossly intact. No focal motor deficit. Respiratory: Auscultation: + diminished lung sounds Results & Data Laboratory Results 05/03/18 05/03/18 05/02/18 Range/Units 07:34 04:43 20:37 PT 15.0 H (9.0-12.0) Seconds INR 1.5 H (0.9-1.1) POC Glucose 105 H 140 H (70-99) 05/02/18 Range/Units 15:29 PT (9.0-12.0) Seconds INR (0.9-1.1) POC Glucose 126 H (70-99) _ (1) CAD (coronary artery disease) Coronary Disease-Associated Artery/Lesion type: [place] artery [place] vs. transplanted heart: [place] heart Associated angina: with unstable angina Qualified Code(s): I25.110 - Atherosclerotic heart disease of [place] coronary artery with unstable angina pectoris
[2018-05-03] MEDS: ISOSORBIDE DINITRATE 10 MG TAB PO SCH ×2 (12:40→18:05)
--- NOTE | 2018-05-03 17:43 | Hospitalist Progress Note ---
Date of Service May 03, 2018 Assessment & Plan (1) Heart block AV complete: Status post acute GA with inferolateral infarct Developed bradycardia leading to complete heart block Initially had temporary transverse venous pacemaker placement Status post permanent pacemaker placement 04/30/2018 Appreciate input from cardiology (2) NSTEMI (non-ST elevated myocardial infarction): Non-ST elevated GA, "heart alert was called in the ER S/P emergent cardiac cath on 04/28/2018 Severe multivessel coronary artery disease 100% chronic proximal RCA occlusion. Distal RCA fills via left to right collaterals. 100% proximal circumflex occlusion (possibly acute on chronic). Left PLB fills partially via left to left collaterals 50% mid LAD, moderate to severe apical LAD disease Cardiac catheterization demonstrates chronic occlusion of the right coronary artery as well as an occluded left circumflex. Unable to cross the circumflex occlusion with a wire not a surgical candidate/CABG secondary to severe vascular calcification Appreciate input from cardiology Medical management (3) Ischemic cardiomyopathy: Echocardiogram reflects severe ischemic cardiomyopathy EF 20-25% with extensive inferior posterior myocardial infarction question possible RV involvement Acute CHF with systolic dysfunction, secondary to acute GA Volume status remains stable With severe systolic dysfunction, ejection fraction less than 20 On chronic dialysis, (4) PVD (peripheral vascular disease): (5) New onset left bundle branch block (LBBB): Due to non-ST elevated GA, leading to complete heart block Patient developed symptomatic bradycardia temporary transvenous catheter placed by plodding operator appreciate input from cardiology s/p PPM placement (6) Elevated troponin: Due to non-ST elevated GA Heart alert called in the ER Status post emergent cardiac cath, unable to do PTCA . 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 Appreciate Mahesh cardiology input was on heparin drip Continue medical management Continue aspirin, statin, and beta-carlos Patient denies of any anginal symptoms ECHO showed severe ischemic cardiomyopathy with EF 20-25 % vol status stable getting schedule dialysis (7) CAD (coronary artery disease): severe CAD with recent NSTEMI management as outlined above (8) ESRD (end stage renal disease) on dialysis: History of renal transplant in 2001 for lupus nephritis, failed in 2008 Status post dialysis post cardiac cath Nephrology on board getting scheduled dialysis CODE STATUS : DNR/DNI DISPOSTION: Ordered for PT OT evaluation, recommend rehab Referral made to [facility] Subjective Continues to feel tired and wiped out Can hardly keep her eyes open No complaint of shortness of breath, no dizzy spell or lightheadedness Physical Exam 2 Vital Signs (Past 24 Hours): Last Vital Signs Temp 36.6 C 05/03/18 15:00 Pulse 76 05/03/18 15:00 Resp 20 05/03/18 15:00 BP 129/66 05/03/18 15:00 Pulse Ox 98 05/03/18 15:00 Constitutional: + ill appearing (Very tired); no acute distress Eyes: + anicteric sclerae ENMT: Mouth: + dry oral mucous membranes Neck: trachea midline, no thyromegaly Respiratory: no cough Cardiovascular: RRR, no murmur, no edema Rate/Rhythm: regular rate and regular rhythm (Paced) Vessels: no JVD Extremities: + edema Gastrointestinal (Abdomen): normal bowel sounds, soft, nontender, no hepatosplenomegaly Musculoskeletal: Head/Neck/Chest: + abnormal inspection of chest wall (Right upper chest wall: Pacemaker insertion incision site, healing well left anterior chest, PermCath/ dialysis catheter present) Neurologic: PERRL, EOMI, accommodation nl, no face palsy, no dysarthria Psychiatric: Orientation: alert (Very tired, feels wiped out) and oriented x 3 Affect: + depressed affect and + anxious affect _ (1) CAD (coronary artery disease) Associated angina: with unstable angina Coronary Disease-Associated Artery/ Lesion type: [place] artery [place] vs. transplanted heart: [place] heart Qualified Code(s): I25.110 - Atherosclerotic heart disease of [place] coronary artery with unstable angina pectoris
[2018-05-03] MEDS: PANTOprazole 40 MG TAB PO SCH (20:38)
[2018-05-03] MEDS: ATORVASTATIN 40 MG TAB PO SCH (20:38)
[2018-05-03] MEDS ORDERED: ONDANSETRON INJ 2 MG/ML 2 ML VIAL ONE (21:15)
[2018-05-04 04:35] LABS: INR 1.4 (0.9-1.1); Prothrombin Time 14.1 Seconds (9.0-12.0)
[2018-05-04] MEDS: ISOSORBIDE DINITRATE 10 MG TAB PO SCH ×2 (06:07→11:41)
[2018-05-04] MEDS: predniSONE 5 MG TAB PO SCH (07:58)
[2018-05-04] MEDS: ASPIRIN 81 MG ECTAB PO SCH (07:58)
[2018-05-04] MEDS: SEVELAMER HCL 800 MG TABLET PO SCH ×3 (07:59→16:38)
[2018-05-04] MEDS: CALCIUM POLYCARBOPHIL 1 TAB PO SCH ×2 (07:59→20:31)
[2018-05-04] MEDS: CARVEDILOL 25 MG TAB PO SCH ×2 (07:59→20:31)
[2018-05-04] MEDS: BACITRACIN OP OINT 3.5 GM TUBE OPR SCH ×3 (08:00→20:31)
--- NOTE | 2018-05-04 08:17 | Dialysis Progress Note ---
Date of Service May 03, 2018 Assessment & Plan (1) ESRD (end stage renal disease) on dialysis: Patient with ESRD on dialysis Saturday. Patient was seen on dialysis. She tolerated dialysis well yesterday with net UF of 3 L. Next dialysis will be on Saturday. If patient is discharged she will be continuing dialysis at the outpatient dialysis unit. Subjective Patient reports no SOB or chest pain. The patient was seen and examined on dialysis. Patient tolerating HD well. Review of Systems All systems reviewed & are unremarkable except as noted in HPI & below Physical Exam 2 Vital Signs (Past 24 Hours): Last Vital Signs Temp 36.3 C L 05/04/18 06:40 Pulse 65 05/04/18 06:40 Resp 16 05/04/18 06:40 BP 118/59 L 05/04/18 06:40 Pulse Ox 98 05/04/18 06:40 Physical Exam: General exam: Appears comfortable, no acute distress HEENT: Pupils are equal and reactive to light Neck: No JVD, neck is supple trachea is midline Respiratory system: Clear breath sounds bilaterally. Gastrointestinal: Abdomen is soft, non distended, non tender, bowel sounds are present CVS: Regular rate and rhythm. No murmurs, rubs or gallops Musculoskeletal: No joint or muscle tenderness Extremities: Non tender, no edema, peripheral pulses are present Neuro: Oriented, no tremors, no focal neurological deficits Skin: No rashes Access: TDC Results & Data Laboratory Results Reviewed
[2018-05-04] MEDS: METOCLOPRAMIDE HCL INJ 5 MG/ML 2 ML VIAL IV SCH (08:48)
--- NOTE | 2018-05-04 10:36 | Cardiology Progress Note ---
Date of Service May 04, 2018 Assessment & Plan (1) AV block, complete: Status post dual chamber PPM 04/30/18. (2) NSTEMI (non-ST elevated myocardial infarction): Cardiac catheterization demonstrates chronic occlusion of the right coronary artery as well as an occluded left circumflex. Unable to cross the circumflex occlusion with a wire. 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 Continue medical management. Echocardiogram reflects severe ischemic cardiomyopathy EF 20-25% with extensive inferior, posterior, and lateral myocardial infarction question possible RV involvement (3) New onset left bundle branch block (LBBB): Secondary to #1. (4) CAD (coronary artery disease): She has inoperable coronary disease which is also not amenable to further intervention. (5) Paroxysmal a-fib: Patient maintaining sinus with paced rhythm Would resume anticoagulation with warfarin (6) PVD (peripheral vascular disease): Diminished peripheral pulses noted on examination. (7) Shoulder pain, acute: (8) ESRD (end stage renal disease) on dialysis: Dialysis today 05/03/18. Exam moderate volume overload, lower extremity edema (9) Ischemic cardiomyopathy: Blood pressure appears to allow initiation of afterload reduction. Blood pressure tolerated low-dose nitrates and will add hydralazine today 10 mg twice per day Lab work pending given complaints of fatigue. Low cardiac output likely contributing in addition to multiple medical issues and problems Subjective Patient seen and examined, chart medications telemetry reviewed Complains of fatigue nausea, just weak. No chest pains, chronically dyspneic Physical Exam 2 Vital Signs (Past 24 Hours): Last Vital Signs Temp 36.3 C L 05/04/18 06:40 Pulse 65 05/04/18 06:40 Resp 16 05/04/18 06:40 BP 118/59 L 05/04/18 06:40 Pulse Ox 98 05/04/18 06:40 Constitutional: + obese; no acute distress Neck: + thick neck Respiratory: Auscultation: + diminished lung sounds Cardiovascular: Rate/Rhythm: regular rate Heart Sounds: + murmur (Grade 2/ 6 systolic); no gallop Extremities: + edema (1-2+ pedal) Gastrointestinal (Abdomen): Percussion/Palpation: abdomen soft; no hepatosplenomegaly and no ascites Musculoskeletal: Extremities: + chronic stasis changes Results & Data Laboratory Results 05/04/18 05/03/18 Range/Units 03:56 11:33 PT 14.1 H (9.0-12.0) Seconds INR 1.4 H (0.9-1.1) POC Glucose 92 (70-99) _ (1) CAD (coronary artery disease) Coronary Disease-Associated Artery/Lesion type: [place] artery [place] vs. transplanted heart: [place] heart Associated angina: with unstable angina Qualified Code(s): I25.110 - Atherosclerotic heart disease of [place] coronary artery with unstable angina pectoris
[2018-05-04 11:13] LABS: Hematocrit (blood only) 31.7 % (37-47); Hemoglobin 10.2 g/dL (12.0-16.0); Mean Corpuscular Volume 91.9 fL (80-100); Mean Platelet Volume 10.6 fL (7.4-10.4); Nucleated RBC # (auto) 0.14 K/uL (0-0); Nucleated RBC % (auto) 1.7 %; Platelet Count 140 K/uL (130-400); RDW Coefficient of Variation 17.5 % (11.5-14.5); RDW Standard Deviation 57.4 fL (36.4-46.3); Red Blood Count 3.45 M/uL (4.2-5.4); White Blood Count 8.03 K/uL (4.8-10.8)
[2018-05-04 11:14] LABS: Mean Corpuscular Hgb Conc 32.2 g/dL (32-36)
[2018-05-04 11:21] LABS: INR 1.4 (0.9-1.1); Prothrombin Time 14.3 Seconds (9.0-12.0)
[2018-05-04 11:47] LABS: BUN Creatinine Ratio 7.3 (10-20); Creatinine Clr Calc Pharmacy 9.5 ml/min; Est GFR (African American) 7.3; Est GFR (Non-African American) 6.3; Magnesium 1.9 mg/dl (1.8-2.4); Potassium 4.6 mmol/L (3.5-5.1)
--- NOTE | 2018-05-04 11:48 | Hospitalist Progress Note ---
Date of Service May 04, 2018 Assessment & Plan (1) Lethargy: Patient continues to be very lethargic, generalized weakness, poor appetite No evidence of infection, Electrolytes remains stable, Having scheduled dialysis, Heart rate remained stable- paced, Patient's medications list reviewed Benzodiazepines Discontinued Limit narcotics Continue to monitor closely, ordered for fall precaution, aspiration precaution (2) Heart block AV complete: Status post acute MN with inferolateral infarct Developed bradycardia leading to complete heart block Initially had temporary transverse venous pacemaker placement Status post permanent pacemaker placement 04/30/2018 Appreciate input from cardiology (3) NSTEMI (non-ST elevated myocardial infarction): Non-ST elevated MN, "heart alert was called in the ER S/P emergent cardiac cath on 04/28/2018 Severe multivessel coronary artery disease 100% chronic proximal RCA occlusion. Distal RCA fills via left to right collaterals. 100% proximal circumflex occlusion (possibly acute on chronic). Left PLB fills partially via left to left collaterals 50% mid LAD, moderate to severe apical LAD disease Cardiac catheterization demonstrates chronic occlusion of the right coronary artery as well as an occluded left circumflex. Unable to cross the circumflex occlusion with a wire not a surgical candidate/CABG secondary to severe vascular calcification Appreciate input from cardiology Medical management (4) Ischemic cardiomyopathy: Echocardiogram reflects severe ischemic cardiomyopathy EF 20-25% with extensive inferior posterior myocardial infarction question possible RV involvement Acute CHF with systolic dysfunction, secondary to acute MN Volume status remains stable With severe systolic dysfunction, ejection fraction less than 20 On chronic dialysis, (5) PVD (peripheral vascular disease): (6) New onset left bundle branch block (LBBB): Due to non-ST elevated MN, leading to complete heart block Patient developed symptomatic bradycardia temporary transvenous catheter placed by barber or beauty shop manager appreciate input from cardiology s/p PPM placement (7) Elevated troponin: Due to non-ST elevated MN Heart alert called in the ER Status post emergent cardiac cath, unable to do PTCA . 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 Continue home dose prednisone Present on Admission?: Yes (10) Paroxysmal a-fib: Rate controlled, continue beta-carlos Coumadin resumed Follow PT/INR Present on Admission?: Yes (11) ESRD (end stage renal disease) on dialysis: History of renal transplant in 2001 for lupus nephritis, failed in 2008 Status post dialysis post cardiac cath Nephrology on board getting scheduled dialysis CODE STATUS : DNR/DNI DISPOSTION: Ordered for PT OT evaluation, recommend rehab Continues to feel very tired, lethargic, wiped out not stable to transfer to rehab today, continue monitoring telemetry, (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 INR 1.4 today Subcu heparin ordered for DVT prophylaxis until INR therapeutic Present on Admission?: Yes (13) Intractable back pain: Since home does oxycodone resumed with lower dose as needed, hold for sedation Present on Admission?: Yes Subjective Patient appears to be very lethargic Has very poor appetite, Wakes up to voice, says that she is extremely tired, totally wiped out Denies any complaint of shortness of breath, chest heaviness Patient remains afebrile Physical Exam 2 Vital Signs (Past 24 Hours): Last Vital Signs Temp 36.3 C L 05/04/18 11:14 Pulse 71 05/04/18 11:14 Resp 22 05/04/18 11:14 BP 135/85 05/04/18 11:14 Pulse Ox 99 05/04/18 11:14 Constitutional: + ill appearing (Very tired); no acute distress Eyes: + anicteric sclerae ENMT: Mouth: + dry oral mucous membranes Neck: trachea midline, no thyromegaly Respiratory: no cough Cardiovascular: RRR, no murmur, no edema Rate/Rhythm: regular rate and regular rhythm (Paced) Vessels: no JVD Extremities: + edema Gastrointestinal (Abdomen): normal bowel sounds, soft, nontender, no hepatosplenomegaly Musculoskeletal: Head/Neck/Chest: + abnormal inspection of chest wall (Right upper chest wall: Pacemaker insertion incision site, healing well left anterior chest, PermCath/ dialysis catheter present) Skin: + turgor decreased Neurologic: PERRL, EOMI, accommodation nl, no face palsy, no dysarthria Psychiatric: A+Ox3, euthymic affect Orientation: alert (Very tired, feels wiped out) and oriented x 3 Affect: + depressed affect and + anxious affect _ (1) CAD (coronary artery disease) Associated angina: with unstable angina Coronary Disease-Associated Artery/ Lesion type: [place] artery [place] vs. transplanted heart: [place] heart Qualified Code(s): I25.110 - Atherosclerotic heart disease of [place] coronary artery with unstable angina pectoris (2) Lupus Lupus erythematosus form: systemic Systemic lupus erythematosus organ involvement: glomerular disease Systemic lupus erythematosus type: unspecified Qualified Code(s): M32.14 - Glomerular disease in systemic lupus erythematosus
[2018-05-04] MEDS: OXYCODONE HCL IR 5 MG TAB (IMMEDIATE RELEASE) PO PRN (12:20)
[2018-05-04] MEDS: HEPARIN SOD 5,000 UNIT/0.5 ML VIAL SQ SCH ×2 (14:25→20:35)
[2018-05-04] MEDS: WARFARIN SOD 4 MG TAB PO SCH (16:38)
[2018-05-04] MEDS: PANTOprazole 40 MG TAB PO SCH (20:31)
[2018-05-04] MEDS: HydrALAZINE 10 MG TAB PO SCH (20:31)
[2018-05-04] MEDS: ATORVASTATIN 40 MG TAB PO SCH (20:31)
[2018-05-05 05:38] LABS: Hematocrit (blood only) 32.4 % (37-47); Hemoglobin 10.2 g/dL (12.0-16.0); Mean Corpuscular Hgb Conc 31.5 g/dL (32-36); Mean Corpuscular Volume 93.1 fL (80-100); Mean Platelet Volume 10.9 fL (7.4-10.4); Nucleated RBC % (auto) 1.4 %; Platelet Count 136 K/uL (130-400); RDW Coefficient of Variation 17.7 % (11.5-14.5); RDW Standard Deviation 56.6 fL (36.4-46.3); Red Blood Count 3.48 M/uL (4.2-5.4); White Blood Count 7.08 K/uL (4.8-10.8)
[2018-05-05 05:49] LABS: INR 1.3 (0.9-1.1); Prothrombin Time 13.4 Seconds (9.0-12.0)
[2018-05-05] MEDS: HEPARIN SOD 5,000 UNIT/0.5 ML VIAL SQ SCH ×3 (06:02→19:40)
[2018-05-05] MEDS: ISOSORBIDE DINITRATE 10 MG TAB PO SCH ×2 (06:03→13:16)
[2018-05-05] MEDS: LEVOTHYROXINE SODIUM 175 MCG TABLET PO SCH (06:03)
[2018-05-05 06:24] LABS: BUN Creatinine Ratio 7.6 (10-20); Calcium 8.3 mg/dl (8.5-10.1); Creatinine Clr Calc Pharmacy 7.5 ml/min; Est GFR (African American) 5.5; Est GFR (Non-African American) 4.8; Magnesium 2.1 mg/dl (1.8-2.4); Potassium 5.3 mmol/L (3.5-5.1)
[2018-05-05] MEDS: predniSONE 5 MG TAB PO SCH (07:53)
[2018-05-05] MEDS: HydrALAZINE 10 MG TAB PO SCH ×2 (07:56→19:37)
[2018-05-05] MEDS: SEVELAMER HCL 800 MG TABLET PO SCH ×3 (07:56→16:35)
[2018-05-05] MEDS: BACITRACIN OP OINT 3.5 GM TUBE OPR SCH ×3 (07:56→19:39)
[2018-05-05] MEDS: CALCIUM POLYCARBOPHIL 1 TAB PO SCH ×2 (07:57→19:38)
[2018-05-05] MEDS: ASPIRIN 81 MG ECTAB PO SCH (07:57)
[2018-05-05] MEDS ORDERED: SODIUM CHLORIDE 0.9% 1000ML 1,000 ML IV PRN (08:37)
[2018-05-05] MEDS: CARVEDILOL 25 MG TAB PO SCH ×2 (08:58→19:38)
--- NOTE | 2018-05-05 09:52 | Cardiology Progress Note ---
Date of Service May 05, 2018 Assessment & Plan (1) Pacemaker: I rechecked her pacemaker to see whether her atrial lead had improved following implant and it has substantially. Her pacing and sensing characteristics are now excellent in both the atrium and the ventricle. The pacemaker is functioning normally no changes to the settings were made today. Subjective She has no discomfort at her pacemaker site Physical Exam 2 Vital Signs (Past 24 Hours): Last Vital Signs Temp 36.3 C L 05/05/18 09:00 Pulse 60 05/05/18 09:30 Resp 18 05/05/18 06:49 BP 133/53 L 05/05/18 09:30 Pulse Ox 98 05/05/18 06:49 Physical Exam: Her pacemaker site is healing well, there does not appear to any bleeding or drainage, there is ecchymosis surrounding the area as expected but no swelling or erythema. Results & Data Diagnostic Findings Pacemaker interrogation: I did check her pacemaker again today and the pacing and sensing characteristics in both leads are now excellent. The pacemaker is functioning normally.
--- NOTE | 2018-05-05 10:05 | Cardiology Progress Note ---
Date of Service May 05, 2018 Assessment & Plan (1) AV block, complete: Status post dual chamber PPM 04/30/18. Pacemaker functioning appropriately, no arrhythmias (2) NSTEMI (non-ST elevated myocardial infarction): Cardiac catheterization demonstrates chronic occlusion of the right coronary artery as well as an occluded left circumflex. Unable to cross the circumflex occlusion with a wire. 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 Continue medical management. Echocardiogram reflects severe ischemic cardiomyopathy EF 20-25% with extensive inferior, posterior, and lateral myocardial infarction question possible RV involvement (3) New onset left bundle branch block (LBBB): Secondary to #1. (4) CAD (coronary artery disease): She has inoperable coronary disease which is also not amenable to further intervention. (5) Paroxysmal a-fib: Patient maintaining sinus with paced rhythm Would resume anticoagulation with warfarin (6) PVD (peripheral vascular disease): Diminished peripheral pulses noted on examination. (7) Shoulder pain, acute: (8) ESRD (end stage renal disease) on dialysis: Patient on dialysis currently with anticipated volume extraction of 3 L, appropriate (9) Ischemic cardiomyopathy: Tolerating combination of hydralazine and nitrates Continue all therapies as prescribed Patient anticipates rehab hospital referral Subjective Patient seen and examined, chart medications telemetry reviewed Looks better this morning was out of bed to chair. Denies any chest pains or worsening shortness of breath. Currently on dialysis and tolerating. Dissipated 3 L removal today Physical Exam 2 Vital Signs (Past 24 Hours): Last Vital Signs Temp 36.3 C L 05/05/18 09:00 Pulse 60 05/05/18 09:45 Resp 18 05/05/18 06:49 BP 134/57 L 05/05/18 09:45 Pulse Ox 98 05/05/18 06:49 Constitutional: + obese; no acute distress Neck: + thick neck Respiratory: Auscultation: + diminished lung sounds Cardiovascular: Rate/Rhythm: regular rate Heart Sounds: + murmur (Grade 2/ 6 systolic); no gallop Extremities: + edema (1-2+ pedal) Chest (Breasts): Chest: + pacemaker (Site without irritation or hematoma) Gastrointestinal (Abdomen): Percussion/Palpation: abdomen soft; no hepatosplenomegaly and no ascites Musculoskeletal: no cyanosis or clubbing, extremities motor strength 5/5 Extremities: + chronic stasis changes Results & Data Laboratory Results 05/05/18 05/05/18 05/05/18 Range/Units 05:15 05:15 05:15 WBC 7.08 (4.8-10.8) K/uL RBC 3.48 L (4.2-5.4) M/uL Hgb 10.2 L (12.0-16.0) g/dL Hct 32.4 L (37-47) % MCV 93.1 (80-100) fL MCH 29.3 (25-34) pg MCHC 31.5 L (32-36) g/dL RDW Std Deviation 56.6 H (36.4-46.3) fL RDW Coeff of [place]if[place] 17.7 H (11.5-14.5) % Plt Count 136 (130-400) K/uL MPV 10.9 H (7.4-10.4) fL Absolute Nucleated RBC 0.10 H (0-0) K/uL Nucleated RBC % (auto) 1.4 % PT 13.4 H (9.0-12.0) Seconds INR 1.3 H (0.9-1.1) Sodium 132 L (136-145) mmol/L Potassium 5.3 H D (3.5-5.1) mmol/L Chloride 99 (98-107) mmol/L Carbon Dioxide 22 (21-32) mmol/L Anion Gap 11.0 (3-11) BUN 62 H (7-18) mg/dl Creatinine 8.12 H* D (0.6-1.2) mg/dl Est Cr Clr Drug Dosing 7.5 ml/min Est GFR ( Amer) 5.5 Est GFR (Non-Af Amer) 4.8 BUN/Creatinine Ratio 7.6 L (10-20) Glucose 85 (70-99) mg/dl Calcium 8.3 L (8.5-10.1) mg/dl Magnesium 2.1 (1.8-2.4) mg/dl 05/04/18 05/04/18 05/04/18 Range/Units 10:57 10:57 10:57 WBC 8.03 (4.8-10.8) K/uL RBC 3.45 L (4.2-5.4) M/uL Hgb 10.2 L (12.0-16.0) g/dL Hct 31.7 L (37-47) % MCV 91.9 (80-100) fL MCH 29.6 (25-34) pg MCHC 32.2 (32-36) g/dL RDW Std Deviation 57.4 H (36.4-46.3) fL RDW Coeff of Yifan 17.5 H (11.5-14.5) % Plt Count 140 (130-400) K/uL MPV 10.6 H (7.4-10.4) fL Absolute Nucleated RBC 0.14 H (0-0) K/uL Nucleated RBC % (auto) 1.7 % PT 14.3 H (9.0-12.0) Seconds INR 1.4 H (0.9-1.1) Sodium 132 L (136-145) mmol/L Potassium 4.6 (3.5-5.1) mmol/L Chloride 98 (98-107) mmol/L Carbon Dioxide 22 (21-32) mmol/L Anion Gap 12.0 H (3-11) BUN 47 H (7-18) mg/dl Creatinine 6.42 H* (0.6-1.2) mg/dl Est Cr Clr Drug Dosing 9.5 ml/min Est GFR ( Amer) 7.3 Est GFR (Non-Af Amer) 6.3 BUN/Creatinine Ratio 7.3 L (10-20) Glucose 128 H (70-99) mg/dl Calcium 8.0 L (8.5-10.1) mg/dl Magnesium 1.9 (1.8-2.4) mg/dl _ (1) CAD (coronary artery disease) Coronary Disease-Associated Artery/Lesion type: [place] artery [place] vs. transplanted heart: [place] heart Associated angina: with unstable angina Qualified Code(s): I25.110 - Atherosclerotic heart disease of [place] coronary artery with unstable angina pectoris
[2018-05-05] MEDS: OXYCODONE HCL IR 5 MG TAB (IMMEDIATE RELEASE) PO PRN (11:56)
[2018-05-05] MEDS: WARFARIN SOD 4 MG TAB PO SCH (16:34)
--- NOTE | 2018-05-05 17:21 | Dialysis Progress Note ---
Date of Service May 05, 2018 Assessment & Plan (1) ESRD (end stage renal disease) on dialysis: Patient with ESRD on dialysis Saturday. Patient was seen on dialysis. She tolerated dialysis well today with net UF of 3 L. Next dialysis will be on . Will assess daily for dialysis need. Subjective ESRD pt complicated by NH. s/p pacemaker. She complains of fatigue. The patient was seen and examined on dialysis. Patient tolerating HD well. Review of Systems All systems reviewed & are unremarkable except as noted in HPI & below Physical Exam 2 Vital Signs (Past 24 Hours): Last Vital Signs Temp 36.6 C 05/05/18 15:05 Pulse 61 05/05/18 16:00 Resp 16 05/05/18 15:05 BP 116/69 05/05/18 15:05 Pulse Ox 96 05/05/18 15:05 Physical Exam: General exam: Appears comfortable, no acute distress HEENT: Pupils are equal and reactive to light Neck: No JVD, neck is supple trachea is midline Respiratory system: Clear breath sounds bilaterally. Gastrointestinal: Abdomen is soft, non distended, non tender, bowel sounds are present CVS: Regular rate and rhythm. No murmurs, rubs or gallops Musculoskeletal: No joint or muscle tenderness Extremities: Non tender, 1+ edema, peripheral pulses are present Neuro: Oriented, no tremors, no focal neurological deficits Skin: No rashes Access: TDC Results & Data Laboratory Results reviewed
--- NOTE | 2018-05-05 18:16 | Hospitalist Progress Note ---
Date of Service May 05, 2018 Assessment & Plan (1) Lethargy: Patient continues to be very lethargic, generalized weakness, poor appetite No evidence of infection, Electrolytes remains stable, Having scheduled dialysis, Heart rate remained stable- paced, Patient's medications list reviewed Benzodiazepines Discontinued Limit narcotics Continue to monitor closely, ordered for fall precaution, aspiration precaution (2) Heart block AV complete: Status post acute IA with inferolateral infarct Developed bradycardia leading to complete heart block Initially had temporary transverse venous pacemaker placement Status post permanent pacemaker placement 04/30/2018 Appreciate input from cardiology (3) NSTEMI (non-ST elevated myocardial infarction): Non-ST elevated IA, "heart alert was called in the ER S/P emergent cardiac cath on 04/28/2018 Severe multivessel coronary artery disease 100% chronic proximal RCA occlusion. Distal RCA fills via left to right collaterals. 100% proximal circumflex occlusion (possibly acute on chronic). Left PLB fills partially via left to left collaterals 50% mid LAD, moderate to severe apical LAD disease Cardiac catheterization demonstrates chronic occlusion of the right coronary artery as well as an occluded left circumflex. Unable to cross the circumflex occlusion with a wire not a surgical candidate/CABG secondary to severe vascular calcification Appreciate input from cardiology Medical management (4) Ischemic cardiomyopathy: Echocardiogram reflects severe ischemic cardiomyopathy EF 20-25% with extensive inferior posterior myocardial infarction question possible RV involvement Acute CHF with systolic dysfunction, secondary to acute IA Volume status remains stable With severe systolic dysfunction, ejection fraction less than 20 On chronic dialysis, (5) PVD (peripheral vascular disease): (6) New onset left bundle branch block (LBBB): Due to non-ST elevated IA, leading to complete heart block Patient developed symptomatic bradycardia temporary transvenous catheter placed by quality assurance supervisor appreciate input from cardiology s/p PPM placement (7) Elevated troponin: Due to non-ST elevated IA Heart alert called in the ER Status post emergent cardiac cath, unable to do PTCA . 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 Continue home dose prednisone (10) Paroxysmal a-fib: Rate controlled, continue beta-carlos Coumadin resumed Follow PT/INR (11) ESRD (end stage renal disease) on dialysis: History of renal transplant in 2001 for lupus nephritis, failed in 2008 Status post dialysis post cardiac cath Nephrology on board getting scheduled dialysis CODE STATUS : DNR/DNI DISPOSTION: Ordered for PT OT evaluation, recommend rehab Continues to feel very tired, lethargic, wiped out not stable to transfer to rehab today, continue monitoring telemetry, (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 INR 1.4 today Subcu heparin ordered for DVT prophylaxis until INR therapeutic (13) Intractable back pain: Since home does oxycodone resumed with lower dose as needed, hold for sedation Subjective Patient appears to be very lethargic Has very poor appetite, Wakes up to voice, says that she is extremely tired, totally wiped out Denies any complaint of shortness of breath, chest heaviness Patient remains afebrile Physical Exam 2 Vital Signs (Past 24 Hours): Last Vital Signs Temp 36.6 C 05/05/18 15:05 Pulse 61 05/05/18 16:00 Resp 16 05/05/18 15:05 BP 116/69 05/05/18 15:05 Pulse Ox 96 05/05/18 15:05 Constitutional: + ill appearing (Very tired); no acute distress Eyes: + anicteric sclerae ENMT: Mouth: + dry oral mucous membranes Neck: trachea midline, no thyromegaly Respiratory: no cough Cardiovascular: RRR, no murmur, no edema Rate/Rhythm: regular rate and regular rhythm (Paced) Vessels: no JVD Extremities: + edema Gastrointestinal (Abdomen): normal bowel sounds, soft, nontender, no hepatosplenomegaly Musculoskeletal: Head/Neck/Chest: + abnormal inspection of chest wall (Right upper chest wall: Pacemaker insertion incision site, healing well left anterior chest, PermCath/ dialysis catheter present) Skin: + turgor decreased Neurologic: PERRL, EOMI, accommodation nl, no face palsy, no dysarthria Psychiatric: A+Ox3, euthymic affect Orientation: alert (Very tired, feels wiped out) and oriented x 3 Affect: + depressed affect and + anxious affect _ (1) CAD (coronary artery disease) Associated angina: with unstable angina Coronary Disease-Associated Artery/ Lesion type: [place] artery [place] vs. transplanted heart: [place] heart Qualified Code(s): I25.110 - Atherosclerotic heart disease of [place] coronary artery with unstable angina pectoris (2) Lupus Lupus erythematosus form: systemic Systemic lupus erythematosus organ involvement: glomerular disease Systemic lupus erythematosus type: unspecified Qualified Code(s): M32.14 - Glomerular disease in systemic lupus erythematosus
[2018-05-05] MEDS: ATORVASTATIN 40 MG TAB PO SCH (19:37)
[2018-05-05] MEDS: PANTOprazole 40 MG TAB PO SCH (19:39)
[2018-05-06 04:34] LABS: Hematocrit (blood only) 30.8 % (37-47); Hemoglobin 9.7 g/dL (12.0-16.0); Mean Corpuscular Hgb Conc 31.5 g/dL (32-36); Mean Corpuscular Volume 92.2 fL (80-100); Mean Platelet Volume 11.5 fL (7.4-10.4); Nucleated RBC # (auto) 0.11 K/uL (0-0); Nucleated RBC % (auto) 1.6 %; Platelet Count 131 K/uL (130-400); RDW Coefficient of Variation 17.8 % (11.5-14.5); Red Blood Count 3.34 M/uL (4.2-5.4); White Blood Count 6.73 K/uL (4.8-10.8)
[2018-05-06 04:42] LABS: Prothrombin Time 19.3 Seconds (9.0-12.0)
[2018-05-06 05:00] LABS: BUN Creatinine Ratio 6.7 (10-20); Calcium 7.9 mg/dl (8.5-10.1); Creatinine Clr Calc Pharmacy 10.8 ml/min; Est GFR (African American) 8.5; Est GFR (Non-African American) 7.4
[2018-05-06] MEDS: LEVOTHYROXINE SODIUM 175 MCG TABLET PO SCH (05:04)
[2018-05-06] MEDS: ISOSORBIDE DINITRATE 10 MG TAB PO SCH ×2 (05:04→12:21)
[2018-05-06] MEDS: HEPARIN SOD 5,000 UNIT/0.5 ML VIAL SQ SCH ×3 (05:04→21:07)
[2018-05-06 07:14] LABS: Potassium 3.9 mmol/L (3.5-5.1)
[2018-05-06] MEDS: CALCIUM POLYCARBOPHIL 1 TAB PO SCH ×2 (07:24→21:08)
[2018-05-06] MEDS: predniSONE 5 MG TAB PO SCH (07:24)
[2018-05-06] MEDS: SEVELAMER HCL 800 MG TABLET PO SCH ×3 (07:25→16:45)
[2018-05-06] MEDS: ASPIRIN 81 MG ECTAB PO SCH (07:25)
[2018-05-06] MEDS: CARVEDILOL 25 MG TAB PO SCH ×2 (07:25→21:10)
[2018-05-06] MEDS: BACITRACIN OP OINT 3.5 GM TUBE OPR SCH ×3 (07:26→21:08)
[2018-05-06] MEDS: HydrALAZINE 10 MG TAB PO SCH ×2 (07:26→21:07)
--- NOTE | 2018-05-06 10:03 | Cardiology Progress Note ---
Date of Service May 06, 2018 Assessment & Plan (1) AV block, complete: Status post dual chamber PPM 04/30/18. Pacemaker functioning appropriately, no arrhythmias (2) NSTEMI (non-ST elevated myocardial infarction): Cardiac catheterization demonstrates chronic occlusion of the right coronary artery as well as an occluded left circumflex. Unable to cross the circumflex occlusion with a wire. 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 Continue medical management. Echocardiogram reflects severe ischemic cardiomyopathy EF 20-25% with extensive inferior, posterior, and lateral myocardial infarction question possible RV involvement (3) New onset left bundle branch block (LBBB): Secondary to #1. (4) CAD (coronary artery disease): She has inoperable coronary disease which is also not amenable to further intervention. (5) Paroxysmal a-fib: Patient maintaining sinus with paced rhythm Would resume anticoagulation with warfarin (6) PVD (peripheral vascular disease): Diminished peripheral pulses noted on examination. (7) Shoulder pain, acute: (8) ESRD (end stage renal disease) on dialysis: (9) Ischemic cardiomyopathy: Tolerating combination of hydralazine and nitrates Continue all therapies as prescribed Patient anticipates rehab hospital referral Patient is on optimal medical regimen including beta-carlos, afterload reduction with hydralazine nitrates aspirin and statin Subjective Patient seen and examined, chart medications telemetry reviewed Looks better this morning was out of bed to chair. Denies any chest pains or worsening shortness of breath. Tolerated dialysis yesterday well no blood pressure swings Physical Exam 2 Vital Signs (Past 24 Hours): Last Vital Signs Temp 36.4 C L 05/06/18 06:49 Pulse 76 05/06/18 06:49 Resp 18 05/06/18 06:49 BP 129/86 05/06/18 06:49 Pulse Ox 97 05/06/18 06:49 Constitutional: + obese; no acute distress Neck: + thick neck Respiratory: Auscultation: + diminished lung sounds Cardiovascular: Rate/Rhythm: regular rate Heart Sounds: + murmur (Grade 2/ 6 systolic); no gallop Extremities: + edema (1-2+ pedal) Chest (Breasts): Chest: + pacemaker (Site without irritation or hematoma) Gastrointestinal (Abdomen): Percussion/Palpation: abdomen soft; no hepatosplenomegaly and no ascites Musculoskeletal: no cyanosis or clubbing, extremities motor strength 5/5 Extremities: + chronic stasis changes Results & Data Laboratory Results Laboratory Results - last 24 hr 05/06/18 05/06/18 05/06/18 04:10 04:10 04:10 WBC 6.73 RBC 3.34 L Hgb 9.7 L Hct 30.8 L MCV 92.2 MCH 29.0 MCHC 31.5 L RDW Std Deviation 57.0 H RDW Coeff of Yifan 17.8 H Plt Count 131 MPV 11.5 H Absolute Nucleated RBC 0.11 H Nucleated RBC % (auto) 1.6 PT 19.3 H INR 2.0 H Sodium 134 L Potassium 3.9 D Chloride 100 Carbon Dioxide 25 Anion Gap 9.0 BUN 38 H Creatinine 5.67 H* D Est Cr Clr Drug Dosing 10.8 Est GFR ( Amer) 8.5 Est GFR (Non-Af Amer) 7.4 BUN/Creatinine Ratio 6.7 L Glucose 113 H Calcium 7.9 L Magnesium 2.0 _ (1) CAD (coronary artery disease) Coronary Disease-Associated Artery/Lesion type: [place] artery [place] vs. transplanted heart: [place] heart Associated angina: with unstable angina Qualified Code(s): I25.110 - Atherosclerotic heart disease of [place] coronary artery with unstable angina pectoris
--- NOTE | 2018-05-06 14:33 | Nephrology Progress Note ---
Date of Service May 06, 2018 Assessment & Plan (1) ESRD (end stage renal disease) on dialysis: Patient with ESRD on dialysis Saturday. She tolerated HD well yesterday with net UF of 3l. Next dialysis will be tomorrow for 3hrs and on for 3hrs to put back on schedule. (2) Ischemic cardiomyopathy: Patient is s/p pacemaker. Her coronary lesions not amenable to PCI and not candidate for CABG. She is on maximal medical therapy per cardiology. Will continue to optimize volume status with HD. Subjective ESRD pt complicated by ND. s/p pacemaker. She feels better, less fatigue. She tolerated HD well yesterday. No SOB or leg edema Physical Exam 2 Vital Signs (Past 24 Hours): Last Vital Signs Temp 36.7 C 05/06/18 12:31 Pulse 71 05/06/18 12:31 Resp 22 05/06/18 12:31 BP 117/68 05/06/18 12:31 Pulse Ox 100 05/06/18 12:31 Physical Exam: General exam: Appears comfortable, no acute distress HEENT: Pupils are equal and reactive to light Neck: No JVD, neck is supple trachea is midline Respiratory system: Clear breath sounds bilaterally. Gastrointestinal: Abdomen is soft, non distended, non tender, bowel sounds are present CVS: Regular rate and rhythm. No murmurs, rubs or gallops Musculoskeletal: No joint or muscle tenderness Extremities: Non tender, no edema, peripheral pulses are present Neuro: Oriented, no tremors, no focal neurological deficits Skin: No rashes Access: right TDC Results & Data Laboratory Results K 3.9 and Hb 9.7
[2018-05-06] MEDS ORDERED: SODIUM CHLORIDE 0.9% 1000ML 1,000 ML IV PRN (14:35)
[2018-05-06] MEDS: WARFARIN SOD 4 MG TAB PO SCH (16:45)
--- NOTE | 2018-05-06 19:39 | Hospitalist Progress Note ---
Date of Service May 06, 2018 Assessment & Plan (1) Heart block AV complete: Status post acute MA with inferolateral infarct Developed bradycardia leading to complete heart block Initially had temporary transverse venous pacemaker placement Status post permanent pacemaker placement 04/30/2018 Appreciate input from cardiology (2) NSTEMI (non-ST elevated myocardial infarction): Non-ST elevated MA, "heart alert was called in the ER S/P emergent cardiac cath on 04/28/2018 Severe multivessel coronary artery disease 100% chronic proximal RCA occlusion. Distal RCA fills via left to right collaterals. 100% proximal circumflex occlusion (possibly acute on chronic). Left PLB fills partially via left to left collaterals 50% mid LAD, moderate to severe apical LAD disease Cardiac catheterization demonstrates chronic occlusion of the right coronary artery as well as an occluded left circumflex. Unable to cross the circumflex occlusion with a wire not a surgical candidate/CABG secondary to severe vascular calcification Appreciate input from cardiology Medical management (3) Ischemic cardiomyopathy: Echocardiogram reflects severe ischemic cardiomyopathy EF 20-25% with extensive inferior posterior myocardial infarction question possible RV involvement Acute CHF with systolic dysfunction, secondary to acute MA Volume status remains stable With severe systolic dysfunction, ejection fraction less than 20 On chronic dialysis, (4) PVD (peripheral vascular disease): (5) New onset left bundle branch block (LBBB): Due to non-ST elevated MA, leading to complete heart block Patient developed symptomatic bradycardia temporary transvenous catheter placed by shoe reconditioner appreciate input from cardiology s/p PPM placement (6) Elevated troponin: Due to non-ST elevated MA Heart alert called in the ER Status post emergent cardiac cath, unable to do PTCA . 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 Continue home dose prednisone (9) Paroxysmal a-fib: Rate controlled, continue beta-carlos Coumadin resumed Follow PT/INR (10) ESRD (end stage renal disease) on dialysis: History of renal transplant in 2001 for lupus nephritis, failed in 2008 Status post dialysis post cardiac cath Nephrology on board getting scheduled dialysis CODE STATUS : DNR/DNI DISPOSTION: Ordered for PT OT evaluation, recommend rehab Continues to feel very tired, lethargic, wiped out not stable to transfer to rehab today, continue monitoring telemetry, (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 INR 1.4 today Subcu heparin ordered for DVT prophylaxis until INR therapeutic (12) Intractable back pain: Since home does oxycodone resumed with lower dose as needed, hold for sedation DISPOSITION : accepted at [facility] stable to transfer to [facility] when accepted Subjective Pt was seen and examined Lying in bed comfortable with no distress Pt said that she feels good today She saturates fine on RA Denies any shoulder pain, palpitation, dizziness and SOB Physical Exam 2 Vital Signs (Past 24 Hours): Last Vital Signs Temp 36.6 C 05/06/18 19:13 Pulse 70 05/06/18 19:13 Resp 16 05/06/18 19:13 BP 124/65 05/06/18 19:13 Pulse Ox 98 05/06/18 19:13 Constitutional: + ill appearing (Very tired); no acute distress Eyes: + anicteric sclerae ENMT: Mouth: + dry oral mucous membranes Neck: trachea midline, no thyromegaly Respiratory: no cough Cardiovascular: RRR, no murmur, no edema Rate/Rhythm: regular rate and regular rhythm (Paced) Vessels: no JVD Extremities: + edema Gastrointestinal (Abdomen): normal bowel sounds, soft, nontender, no hepatosplenomegaly Musculoskeletal: Head/Neck/Chest: + abnormal inspection of chest wall (Right upper chest wall: Pacemaker insertion incision site, healing well left anterior chest, PermCath/ dialysis catheter present) Skin: + turgor decreased Neurologic: PERRL, EOMI, accommodation nl, no face palsy, no dysarthria Psychiatric: A+Ox3, euthymic affect Orientation: alert (Very tired, feels wiped out) and oriented x 3 Affect: + depressed affect and + anxious affect _ (1) CAD (coronary artery disease) Associated angina: with unstable angina Coronary Disease-Associated Artery/ Lesion type: [place] artery [place] vs. transplanted heart: [place] heart Qualified Code(s): I25.110 - Atherosclerotic heart disease of [place] coronary artery with unstable angina pectoris (2) Lupus Lupus erythematosus form: systemic Systemic lupus erythematosus organ involvement: glomerular disease Systemic lupus erythematosus type: unspecified Qualified Code(s): M32.14 - Glomerular disease in systemic lupus erythematosus
[2018-05-06] MEDS: PANTOprazole 40 MG TAB PO SCH (21:07)
[2018-05-06] MEDS: ATORVASTATIN 40 MG TAB PO SCH (21:10)
[2018-05-07 05:05] LABS: BUN Creatinine Ratio 6.4 (10-20); Calcium 8.1 mg/dl (8.5-10.1); Est GFR (Non-African American) 5.1; Magnesium 1.9 mg/dl (1.8-2.4); Potassium 4.3 mmol/L (3.5-5.1)
[2018-05-07] MEDS: LEVOTHYROXINE SODIUM 175 MCG TABLET PO SCH (06:34)
[2018-05-07] MEDS: HEPARIN SOD 5,000 UNIT/0.5 ML VIAL SQ SCH (06:34)
[2018-05-07] MEDS: SEVELAMER HCL 800 MG TABLET PO SCH (07:44)
[2018-05-07] MEDS: ASPIRIN 81 MG ECTAB PO SCH (07:44)
[2018-05-07] MEDS: predniSONE 5 MG TAB PO SCH (07:45)
[2018-05-07] MEDS: BACITRACIN OP OINT 3.5 GM TUBE OPR SCH (07:45)
[2018-05-07] MEDS: CARVEDILOL 25 MG TAB PO SCH (07:45)
[2018-05-07] MEDS: ISOSORBIDE DINITRATE 10 MG TAB PO SCH (07:45)
[2018-05-07] MEDS: HydrALAZINE 10 MG TAB PO SCH (07:45)
[2018-05-07] MEDS: CALCIUM POLYCARBOPHIL 1 TAB PO SCH (07:46)
--- NOTE | 2018-05-07 11:16 | Hospitalist Progress Note ---
Date of Service May 07, 2018 Assessment & Plan (1) Heart block AV complete: Status post acute SD with inferolateral infarct Developed bradycardia leading to complete heart block Initially had temporary transverse venous pacemaker placement Status post permanent pacemaker placement 04/30/2018 Pacemaker interrogated while in the hospital and function well Cardiology on board (2) NSTEMI (non-ST elevated myocardial infarction): Non-ST elevated SD, "heart alert was called in the ER S/P emergent cardiac cath on 04/28/2018 Severe multivessel coronary artery disease 100% chronic proximal RCA occlusion. Distal RCA fills via left to right collaterals. 100% proximal circumflex occlusion (possibly acute on chronic). Left PLB fills partially via left to left collaterals 50% mid LAD, moderate to severe apical LAD disease Cardiac catheterization demonstrates chronic occlusion of the right coronary artery as well as an occluded left circumflex. Unable to cross the circumflex occlusion with a wire not a surgical candidate/CABG secondary to severe vascular calcification Cardiology on board Denies any chest or shoulder discomfort Medical stable (3) Ischemic cardiomyopathy: Echocardiogram reflects severe ischemic cardiomyopathy EF 20-25% with extensive inferior posterior myocardial infarction question possible RV involvement Acute CHF with systolic dysfunction, secondary to acute SD Volume status remains stable With severe systolic dysfunction, ejection fraction less than 20 Continue HD (4) PVD (peripheral vascular disease): (5) New onset left bundle branch block (LBBB): Due to non-ST elevated SD, leading to complete heart block Patient developed symptomatic bradycardia Had temporary transvenous catheter placed by field manager s/p PPM placement on 04/30/18 Stable (6) Elevated troponin: Due to non-ST elevated SD Heart alert called in the ER Status post emergent cardiac cath, unable to do PTCA 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 INR 2 yesterday (11) Intractable back pain: Since home does oxycodone resumed with lower dose as needed, hold for sedation (12) ESRD (end stage renal disease) on dialysis: History of renal transplant in 2001 for lupus nephritis, failed in 2008 Status post dialysis post cardiac cath Nephrology on board Next HD tomorrow Depression Bupropion has been on hold since admission Discussed with patient and she agreed to continue holding it for now Please reassess as outpatient if pt becomes depressed CODE STATUS : DNR/DNI DISPOSTION: Will discharge today to [facility] Continue PT/OT as tolerated Follow up with cardiology in 1 month Follow up with your PCP once discharge from rehab Subjective Pt was seen and examined Lying in bed comfortable with no distress Pt said that she feels good today She saturates fine on RA Denies any shoulder pain, palpitation, dizziness and SOB Physical Exam 2 Vital Signs (Past 24 Hours): Last Vital Signs Temp 36.5 C 05/07/18 06:45 Pulse 70 05/07/18 06:45 Resp 18 05/07/18 06:45 BP 127/95 05/07/18 06:45 Pulse Ox 94 05/07/18 06:45 Physical Exam: General- No acute distress Head- atraumatic Eyes- PERRL, EOMI, ENT- oropharynx clear Neck- supple, no JVD Lungs- clear to auscultation Heart- +Bradycardia, +systolic murmur Chest- +S/P pacemaker ( no erythema/ redness at the pacemaker site) Abdomen- normal bowel sounds, soft, nontender Extremities- no calf tenderness Neuro- alert, oriented x 3; PERRL, EOMI; no facial palsy; no dysarthria Skin- warm & dry _ (1) CAD (coronary artery disease) Associated angina: with unstable angina Coronary Disease-Associated Artery/ Lesion type: [place] artery [place] vs. transplanted heart: [place] heart Qualified Code(s): I25.110 - Atherosclerotic heart disease of [place] coronary artery with unstable angina pectoris (2) Lupus Lupus erythematosus form: systemic Systemic lupus erythematosus organ involvement: glomerular disease Systemic lupus erythematosus type: unspecified Qualified Code(s): M32.14 - Glomerular disease in systemic lupus erythematosus
[2018-05-09] MEDS ORDERED: WARFARIN SOD 2 MG TAB PO SCH (16:00)
--- NOTE | 2018-05-09 22:15 | Discharge Summary ---
Date of Service May 09, 2018 Admission HPI Per Admitting Provider This is a 62 yo F with a PMH of ESRD on dialysis, CAD, h/o asymptomatic OK, SLE , paroxysmal A Fib, h/o mesenteric arterial thrombosis on coumadin, HTN, and SAH in 2017 who presents with right shoulder pain beginning last night while patient was at rest. Pain continued overnight despite patient taking oxycodone and is a constant, sharp pain with radiation to her mid back. Pain has persisted overnight but is now present in her left shoulder as well. Since arrival in the ED, patient has become nauseated with small amount of clear colored emesis x2. Associated with shortness of breath. Denies any juno chest pain, diaphoresis, or pain in arms. Follows with Dr. Mercedes in cardiology clinic and has history of an asymptomatic OK. Has minimal coronary artery disease documented on cardiac catheterization in 1999. Also with history of stress-induced cardiomyopathy. Is on Coumadin for chronic anticoagulation due to history of mesenteric arterial thrombosis as well as paroxysmal A. fib. Also with history of recurrent pericardial effusion secondary to lupus. Patient has ESRD and is due for dialysis tomorrow. Patient is crying during examination. Says that morphine given to her in ED has improved shoulder pain only slightly. Troponin is elevated to 0.708 and creatinine is 5.85 (close to baseline). EKG with changes concerning for new left bundle branch block. Chest x-ray with no acute cardiopulmonary changes. Discussed with Dr. Mercedes who will evaluate the patient in the ED. Admission Exam Per Admitting Provider General- No acute distress Head- atraumatic Eyes- PERRL, EOMI, ENT- oropharynx clear Neck- supple, no JVD Lungs- clear to auscultation Heart- +Bradycardia, +systolic murmur Chest- +S/P pacemaker ( no erythema/ redness at the pacemaker site) Abdomen- normal bowel sounds, soft, nontender Extremities- no calf tenderness Neuro- alert, oriented x 3; PERRL, EOMI; no facial palsy; no dysarthria Skin- warm & dry Principal Diagnosis Heart block AV complete NSTEMI (non-ST elevated myocardial infarction) ESRD ON HD PAROXYSMAL AFIB Discharge Exam General- No acute distress Head- atraumatic Eyes- PERRL, EOMI, ENT- oropharynx clear Neck- supple, no JVD Lungs- clear to auscultation Heart- +Bradycardia, +systolic murmur Chest- +S/P pacemaker ( no erythema/ redness at the pacemaker site) Abdomen- normal bowel sounds, soft, nontender Extremities- no calf tenderness Neuro- alert, oriented x 3; PERRL, EOMI; no facial palsy; no dysarthria Skin- warm & dry Discharge Data Allergies Allergy/AdvReac Type Severity Reaction Status Date / Time silver nitrate Allergy Severe SEVERE Verified 04/27/18 10:51 BURNING silver sulfadiazine Allergy Severe SEVERE Verified 04/27/18 10:51 BURNING levofloxacin Allergy Intermediate HIVES Verified 04/27/18 10:51 mivacurium Allergy Intermediate "BUGS Verified 04/27/18 10:51 CRAWLING ON ME" Sulfa (Sulfonamide Allergy Intermediate "SULFA Verified 04/27/18 10:51 Antibiotics) DRUGS": RASH trimethoprim Allergy Intermediate BACTRIM - Verified 04/27/18 10:51 RASH amoxicillin AdvReac Mild GI UPSET Verified 04/27/18 10:51 clavulanic acid AdvReac Mild GI UPSET Verified 04/27/18 10:51 erythromycin base AdvReac Mild nausea Verified 04/27/18 10:51 vomiting metronidazole AdvReac Mild DIARRHEA Verified 04/27/18 10:51 Consultations 04/27/18 11:17 ED Decision to Admit Stat 04/27/18 15:53 Consult Cardiology Routine Consult Nephrology Routine 04/28/18 07:55 Consult Enrollment Nurse Routine 04/30/18 08:15 Consult Palliative Care Routine 04/30/18 09:57 Consult Cardiology Routine Procedures Performed Operation Date: 04/27/18 13:55 Actual Procedures p Cath, Left with Cors and Vent - René Trejo MD s Cineradiography w/Routine Exam - René Trejo MD s Lucila, Abdomen Aorta - René Trejo MD s Sonosite Vascular Access - René Trejo MD Operation Date: 04/30/18 12:20 Actual Procedures p Pacer with A/V Leads (Dual) - Silvio Antoine MD Ordered Studies 04/27/18 13:53 CL Cath Imgs for PACS use only Stat 04/28/18 19:55 CT head/brain wo con Stat 04/28/18 20:37 CT abd pelvis wo con Stat 04/30/18 12:30 EP Lab Images for PACS ONCE XR chest 1V portable CLINICAL HISTORY: 62 years-old Female presenting with pace maker placement. TECHNIQUE: Portable upright AP view of the chest was obtained. COMPARISON: 04/28/2018. FINDINGS: Right subclavian pacer with leads to the right 8 rib and right ventricular apex. Tunneled left internal jugular dialysis catheter terminates in the right atrium. Right internal jugular Mediport terminates in SVC. Numerous overlying external leads degrade image quality. A catheter fragment projects over the right axilla. Redemonstration of a vascular stent in the right upper arm. Atherosclerosis of aortic arch. Cardiac silhouette moderately enlarged. Pulmonary vascular prominence. No focal opacity. No large effusion or pneumothorax. Osseous structures normal. IMPRESSION: 1. Interval placement of right subclavian pacer with leads to the right atrium and right ventricular apex. 2. Catheter fragment projects over the right axilla. Correlate clinically as a retained foreign body cannot be excluded. 3. Cardiomegaly with mild volume overload. The report will be called/faxed according to standard departmental protocol. Electronically signed by: Sam James M.D. 04/30/2018 6:42 PM Dictated: 04/30/181838 Transcribed: 04/30/181838 ADDENDUM Addendum: Note is made of mild infiltration within the right groin. There is a small amount of hyperdense fluid overlying the fascia of the right thigh. This may reflect a small amount of hemorrhage. Electronically signed by: Markus Hdz M.D. 04/28/2018 10:[address] OF THE ABDOMEN AND PELVIS WITHOUT CONTRAST CLINICAL HISTORY: Ischemic bowel. COMPARISON STUDY: CTA of the abdomen and pelvis December 21, 2017. TECHNIQUE: Axial images of the abdomen and pelvis were obtained without IV contrast. Images were reviewed in the axial, sagittal, and coronal planes. Automated exposure control was utilized for the study. A dose lowering technique was utilized adhering to the principles of ALARA. FINDINGS: Visualized portions of the lower chest demonstrate cardiomegaly and pacer lead. Small right and trace left pleural effusions are noted. Associated airspace opacity favors atelectasis although consolidation could appear similar. No pneumatosis, free air or portal venous gas is present. There is no evidence for a bowel obstruction. Evaluation of the abdomen and pelvis is suboptimal on this unenhanced exam. There is extensive atherosclerotic plaque of the abdominal aorta and branch vessels. There is contrast within the gallbladder which likely reflects vicarious excretion of contrast. Left lower quadrant renal allograft appears atrophic. Both [place] kidneys are atrophic. Innumerable hypodense lesions within the kidneys are suboptimally assessed on this unenhanced exam. A suspected hyperdense cyst within lower pole the left kidney is noted. Multiloculated fluid collection overlies the greater trochanter of the left femur. Largest component measures 5.2 cm. Anasarca is noted. No suspicious osseous lesion is noted. Evaluation for bowel wall thickening is suboptimal on this unenhanced exam. A small amount of ascites is noted within the abdomen and pelvis. IMPRESSION: 1. No pneumatosis, free air or portal venous gas. No bowel obstruction. No bowel wall thickening although evaluation compromised given the lack of IV contrast. 2. Extensive atherosclerotic plaque within the abdominal aorta and branch vessels. 3. Hyperdense material within the gallbladder which likely reflects vicarious excretion of contrast. 4. Evidence for volume overload. Trace ascites. 5. Nonspecific multiloculated fluid collection overlying the greater trochanter of the left femur. 6. Small right and trace left pleural effusions. Electronically signed by: Markus Hdz M.D. 04/28/2018 10:07 PM Dictated: 04/28/182239 Transcribed: 04/28/182239 XR chest 1V portable CLINICAL HISTORY: pacer wire placement COMPARISON STUDY: Chest radiograph April 27, 2018. FINDINGS: Right internal jugular [id number] and dual lumen left sided catheter remain in place. Moderate cardiomegaly is noted. There is no evidence for overt pulmonary edema. Interval placement of a right subclavian transvenous pacer is noted. Pacer projects over the right ventricle. Lead is coiled within the right ventricle. There is no pneumothorax. IMPRESSION: Interval placement of a right subclavian transvenous pacer. Lead tip projects over the right ventricle. No pneumothorax. Electronically signed by: Markus Hdz M.D. 04/28/2018 8:24 PM Dictated: 04/28/182020 Transcribed: 04/28/182020 CT OF THE HEAD WITHOUT CONTRAST CLINICAL HISTORY: r/o intracranial bleeding COMPARISON STUDY: Head CT May 24, 2017. CT DOSE: 1569.94 mGy.cm TECHNIQUE: Helical axial images of the head were obtained without IV contrast. Automated exposure control was utilized for the study. A dose lowering technique was utilized adhering to the principles of ALARA. FINDINGS: No acute intracranial hemorrhage, midline shift or mass effect is present. Exam is mildly compromised by motion artifact. Ventricular system is normal. The basilar cisterns are patent. There are no extra-axial collections. Scattered white matter hypodensity suggests small vessel disease. There are no findings to suggest acute dural sinus thrombosis or acute territorial infarct. Left mastoid air cells are partially opacified. This is unchanged. There are no significant calvarial abnormalities. Extensive vascular calcification is noted. IMPRESSION: No acute intracranial findings. Electronically signed by: Markus Hdz M.D. 04/28/2018 9:52 PM Dictated: 04/28/182149 Transcribed: 04/28/182149 XR chest 1V portable CLINICAL HISTORY: Chest Pain COMPARISON STUDY: Chest radiograph November 05, 2017. FINDINGS: Right internal jugular [id number] and dual lumen left sided catheter remain in place. Cardiomegaly is noted. There is no pneumothorax or pleural effusion. Cardiomegaly is unchanged. There is no evidence for pulmonary edema. IMPRESSION: No acute cardiopulmonary findings. Electronically signed by: Markus Hdz M.D. 04/27/2018 10:37 AM Dictated: 04/27/185 Transcribed: 04/27/181034 Hospital Course (1) Heart block AV complete: Status post acute OK with inferolateral infarct Developed bradycardia leading to complete heart block Initially had temporary transverse venous pacemaker placement Status post permanent pacemaker placement 04/30/2018 Pacemaker interrogated while in the hospital and function well Cardiology on board (2) NSTEMI (non-ST elevated myocardial infarction): Non-ST elevated OK, "heart alert was called in the ER S/P emergent cardiac cath on 04/28/2018 Severe multivessel coronary artery disease 100% chronic proximal RCA occlusion. Distal RCA fills via left to right collaterals. 100% proximal circumflex occlusion (possibly acute on chronic). Left PLB fills partially via left to left collaterals 50% mid LAD, moderate to severe apical LAD disease Cardiac catheterization demonstrates chronic occlusion of the right coronary artery as well as an occluded left circumflex. Unable to cross the circumflex occlusion with a wire not a surgical candidate/CABG secondary to severe vascular calcification Cardiology on board Denies any chest or shoulder discomfort Medical stable (3) Ischemic cardiomyopathy: Echocardiogram reflects severe ischemic cardiomyopathy EF 20-25% with extensive inferior posterior myocardial infarction question possible RV involvement Acute CHF with systolic dysfunction, secondary to acute OK Volume status remains stable With severe systolic dysfunction, ejection fraction less than 20 Continue HD (4) PVD (peripheral vascular disease): (5) New onset left bundle branch block (LBBB): Due to non-ST elevated OK, leading to complete heart block Patient developed symptomatic bradycardia Had temporary transvenous catheter placed by research soil scientist s/p PPM placement on 04/30/18 Stable (6) Elevated troponin: Due to non-ST elevated OK Heart alert called in the ER Status post emergent cardiac cath, unable to do PTCA 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 INR 2 yesterday (11) Intractable back pain: Since home does oxycodone resumed with lower dose as needed, hold for sedation (12) ESRD (end stage renal disease) on dialysis: History of renal transplant in 2001 for lupus nephritis, failed in 2008 Status post dialysis post cardiac cath Nephrology on board Next HD tomorrow Depression Bupropion has been on hold since admission Discussed with patient and she agreed to continue holding it for now Please reassess as outpatient if pt becomes depressed CODE STATUS : DNR/DNI DISPOSTION: Will discharge today to [facility] Continue PT/OT as tolerated Follow up with cardiology in 1 month Follow up with your PCP once discharge from rehab Total Time Total Time Spent Total Time Spent (In Minutes): 35 minutes Total Time Includes: Examination of the Patient, Discharge Planning, Medication Reconciliation, Communication With Other Providers and Other Discharge Plan Discharge Items Patient Disposition: Transfer Inpatient Rehab Fac Reason For Visit: r shoulder pain Discharge Diagnosis: Heart block AV complete, NSTEMI (non-ST elevated myocardial infarction), ESRD ON HD, PAROXYSMAL AFIB Discharge Goals: Decrease discomfort, Improve disease control, Improve function and Increase independence Activity: As commented below Non-emergency contact: Primary Care Provider and Programmer Developer Call non-emergency contact if: you have any medication questions, your pain is concerning for you, your temperature is above 101 and your wound has increased redness Diet: Dialysis Renal and Heart Healthy Addtl Provider Instructions: Follow up with your primary care provider once discharge from [facility] Follow up with your cardiology in 1 month Next dialysis is tomorrow Continue physical and occupational therapy as tolerated Fall precaution Don't drive until your doctor says it's OK. OK to shower tomorrow Do not lift the left elbow over the left shoulder for 1 month Do not lift no more than 10 lbs for 1 week Do not stretch your arm behind your back for as long as directed by your doctor. Keep incision area clean and dry Check your incision area for signs of infection (redness, swelling, drainage, or warmth). Before you receive any treatment, tell all healthcare providers (including your dentist) that you have a pacemaker. Keep your cell phone away from your pacemaker. Don't carry the phone in your shirt pocket overlying the pacemaker, even when it's turned off. Avoid strong magnets If you order for an MRI in the future, please inform that you have a pacemaker Prescriptions: New isosorbide dinitrate 10 mg Tablet 10 mg PO BID@0700,1200 30 Days Qty: 60 RF: 0 oxycodone 10 mg tablet 5 mg PO Q8H PRN (Reason: Pain) Qty: 10 RF: 0 Continue prednisone 5 mg tablet 5 mg PO MOWEFR RF: 0 aspirin 81 mg Tablet,Delayed Release (Dr/Ec) 81 mg PO QAM RF: 0 warfarin [Coumadin] 4 mg Tablet 4 mg PO SUMOTUWETHSA@1600 RF: 0 calcium polycarbophil [FiberCon] 625 mg Tablet 1,200 mg PO BID RF: 0 atorvastatin 40 mg tablet 40 mg PO HS RF: 0 levothyroxine 175 mcg tablet 175 mcg PO QAM RF: 0 carvedilol 25 mg tablet 25 mg PO BID RF: 0 ondansetron HCl [Zofran] 4 mg Tablet 4 mg PO QID PRN (Reason: Nausea) RF: 0 esomeprazole magnesium [Nexium] 40 mg Capsule,Delayed Release(Dr/Ec) 40 mg PO HS RF: 0 zolpidem 5 mg tablet 5 mg PO HS PRN (Reason: Insomnia) RF: 0 sevelamer carbonate [Renvela] 800 mg Tablet 3,200 mg PO UD RF: 0 ipratropium-albuterol [Combivent Respimat] 20-100 mcg/actuation Mist 1 puff INHALATION QID PRN (Reason: sob) RF: 0 bacitracin 500 unit/gram ointment 1 applic OPR TID RF: 0 warfarin 4 mg tablet 2 mg PO FR@1600 RF: 0 epoetin beta, methoxy peg [Mircera] 200 mcg/0.3 mL Syringe 200 mg subcut UD RF: 0 Changed hydralazine 10 mg tablet 10 mg PO BID Qty: 0 RF: 0 Discontinued furosemide 40 mg tablet 80 mg PO DAILY RF: 0 bupropion HCl 100 mg tablet sustained-release 12 hr 100 mg PO BID RF: 0 nifedipine 30 mg tablet extended release 30 mg PO DAILY RF: 0 Stand-Alone Forms: [facility]charge Orders: Discharge Order (Routine); Ordered 05/07/18 Ordered By: Josue Gamble Admission Data Admit Date/Time: 04/27/18 12:41 Attending Provider: Josue Gamble Admit Provider: Josue Gamble Primary Care Provider: Mazin Mcpherson Other Providers: Josue Gamble ; [place] Mercedes ; Jonathan Richardson ; Adela Rodríguez ; Koki Shepard ; Silvio Antoine ; Deena Anne Service: Telemetry Other Interventions: Discharge Summary Assessment (RN) Last Done: 05/07/18 13:47 DC Date/Time DO NOT enter until pt leaves facility: 05/07/18 13:35
== END 2018-05-07 13:35 | DRG 242 ==
LOC: ED 09:27 → 2S 12:41 → SUATTDRO 12:41 → 1E 14:09 → 2E 05-01 15:28

== ENCOUNTER 2018-05-19 15:13 | Inpatient (IN) ==
[2018-05-19 15:53] LABS: Basophils # (auto) 0.01 K/uL (0-0.2); Basophils % (auto) 0.2 %; Eosinophils # (auto) 0.06 K/uL (0-0.5); Eosinophils % (auto) 1.1 %; Hematocrit (blood only) 31.5 % (37-47); Hemoglobin 9.8 g/dL (12.0-16.0); Immature Granulocytes # (auto) 0.03 K/uL (0.00-0.02); Immature Granulocytes % (auto) 0.6 %; Lymphocytes # (auto) 0.55 K/uL (1.2-3.4); Lymphocytes % (auto) 10.2 %; Mean Corpuscular Hgb Conc 31.1 g/dL (32-36); Mean Corpuscular Volume 95.7 fL (80-100); Mean Platelet Volume 11.4 fL (7.4-10.4); Monocytes # (auto) 0.34 K/uL (0.11-0.59); Monocytes % (auto) 6.3 %; Neutrophils # (auto) 4.38 K/uL (1.4-6.5); Neutrophils % (auto) 81.6 %; Platelet Count 132 K/uL (130-400); RDW Coefficient of Variation 19.6 % (11.5-14.5); RDW Standard Deviation 63.6 fL (36.4-46.3); Red Blood Count 3.29 M/uL (4.2-5.4); White Blood Count 5.37 K/uL (4.8-10.8)
[2018-05-19 16:29] LABS: Albumin Globulin Ratio 0.8 (0.9-2); Albumin Level 2.8 gm/dl (3.4-5.0); Bilirubin,Total 0.6 mg/dl (0.2-1); Calcium 8.3 mg/dl (8.5-10.1); Creatinine Clr Calc Pharmacy 8.7 ml/min; Est GFR (African American) 6.4; Est GFR (Non-African American) 5.5; Globulin 3.6 gm/dl (2.5-4.0); Potassium 3.3 mmol/L (3.5-5.1); Total Protein 6.4 gm/dl (6.4-8.2)
[2018-05-19 16:36] LABS: Troponin I 0.555 ng/ml (0-0.045)
[2018-05-19 16:42] LABS: INR 1.4 (0.9-1.1); Partial Thromboplastin Ratio 1.1; Partial Thromboplastin Time 28.5 Seconds (21.0-31.0); Prothrombin Time 14.3 Seconds (9.0-12.0)
[2018-05-20 06:12] LABS: Hematocrit (blood only) 28.2 % (37-47); Hemoglobin 8.9 g/dL (12.0-16.0); Mean Corpuscular Hgb Conc 31.6 g/dL (32-36); Mean Corpuscular Volume 95.9 fL (80-100); Mean Platelet Volume 11.3 fL (7.4-10.4); Platelet Count 110 K/uL (130-400); RDW Coefficient of Variation 19.7 % (11.5-14.5); RDW Standard Deviation 66.1 fL (36.4-46.3); Red Blood Count 2.94 M/uL (4.2-5.4); White Blood Count 3.12 K/uL (4.8-10.8)
[2018-05-20 06:59] LABS: BUN Creatinine Ratio 4.3 (10-20); Calcium 8.2 mg/dl (8.5-10.1); Creatinine Clr Calc Pharmacy 7.9 ml/min; Est GFR (African American) 5.8; Potassium 3.8 mmol/L (3.5-5.1)
[2018-05-20 19:21] LABS: INR 1.5 (0.9-1.1); Prothrombin Time 14.5 Seconds (9.0-12.0)
[2018-05-21 05:02] LABS: Hematocrit (blood only) 31.1 % (37-47); Hemoglobin 9.7 g/dL (12.0-16.0); Mean Corpuscular Hgb Conc 31.2 g/dL (32-36); Mean Corpuscular Volume 96.3 fL (80-100); Mean Platelet Volume 11.7 fL (7.4-10.4); Nucleated RBC # (auto) 0.04 K/uL (0-0); Nucleated RBC % (auto) 1.1 %; Platelet Count 124 K/uL (130-400); RDW Coefficient of Variation 20.2 % (11.5-14.5); RDW Standard Deviation 67.1 fL (36.4-46.3); Red Blood Count 3.23 M/uL (4.2-5.4); White Blood Count 3.66 K/uL (4.8-10.8)
[2018-05-21 05:07] LABS: INR 1.5 (0.9-1.1); Prothrombin Time 14.7 Seconds (9.0-12.0)
[2018-05-21 06:00] LABS: BUN Creatinine Ratio 3.6 (10-20); Calcium 8.1 mg/dl (8.5-10.1); Creatinine Clr Calc Pharmacy 12.8 ml/min; Est GFR (African American) 10.4; Magnesium 1.9 mg/dl (1.8-2.4); Potassium 3.7 mmol/L (3.5-5.1)
[2018-05-21 09:03] LABS: Hepatitis B Surface Antibody Non-Immune
[2018-05-21 09:14] LABS: Hepatitis B Surface Antigen Neg (Neg)
[2018-05-22 05:18] LABS: INR 1.3 (0.9-1.1); Prothrombin Time 13.3 Seconds (9.0-12.0)
[2018-05-22 05:31] LABS: Calcium 8.2 mg/dl (8.5-10.1); Creatinine Clr Calc Pharmacy 9.9 ml/min; Est GFR (African American) 7.6; Est GFR (Non-African American) 6.6; Potassium 3.8 mmol/L (3.5-5.1)
[2018-05-23 08:05] LABS: INR 1.3 (0.9-1.1); Prothrombin Time 12.8 Seconds (9.0-12.0)
[2018-05-23 08:43] LABS: BUN Creatinine Ratio 4.1 (10-20); Calcium 8.3 mg/dl (8.5-10.1); Creatinine Clr Calc Pharmacy 7.7 ml/min; Est GFR (African American) 5.5; Est GFR (Non-African American) 4.7
[2018-05-24 06:51] LABS: INR 1.4 (0.9-1.1); Prothrombin Time 13.5 Seconds (9.0-12.0)
[2018-05-24 07:04] LABS: BUN Creatinine Ratio 3.3 (10-20); Calcium 7.8 mg/dl (8.5-10.1); Creatinine Clr Calc Pharmacy 12.2 ml/min; Est GFR (African American) 9.7; Est GFR (Non-African American) 8.4; Potassium 3.8 mmol/L (3.5-5.1)
[2018-05-25 05:21] LABS: INR 1.8 (0.9-1.1); Prothrombin Time 17.2 Seconds (9.0-12.0)
[2018-05-26 05:55] LABS: INR 2.4 (0.9-1.1); Prothrombin Time 22.7 Seconds (9.0-12.0)
[2018-05-26 06:28] LABS: BUN Creatinine Ratio 3.1 (10-20); Calcium 8.5 mg/dl (8.5-10.1); Creatinine Clr Calc Pharmacy 10.7 ml/min; Est GFR (African American) 7.7; Est GFR (Non-African American) 6.6; Potassium 3.6 mmol/L (3.5-5.1)
== END 2018-05-26 17:42 ==
LOC: ED 15:13 → SUATTDRO 16:54 → 2E 16:54